=== PATIENT | female | born 1935 | race Caucasian/White ===

== ENCOUNTER → 2016-12-01 | Outpatient (CLI) | payer MEDICARE, BC ==
[~2016-12-01] MED LIST: CALC1TAB12 PO; COUM3TAB PO; COUM4TAB PO; DILT-60 PO; ENAL10TA PO; GABA400C5 PO; HUMALOG SQ; IMIP50TA PO; INSU100V3 SQ; LEVO88TA2 PO; METO25TA3 PO; MULT1TAB84 PO; NITR0.4S SL; PANT20 PO; PNEU13P IM; PRAV40TA2 PO
[2016-12-01 08:47] LABS: INTERNATIONAL NORMALIZED RATIO 1.8 RATIO; PROTHROMBIN TIME - PATIENT 20.6 SEC (9.8-11.6)
== END ==
LOC: PLAB 06:57
PROVIDERS: ATTEND Family Medicine
DX: I48.2 Chronic atrial fibrillation (principal)
CPT/HCPCS: 36415; 85610

== ENCOUNTER → 2016-12-08 | Outpatient (CLI) | payer MEDICARE, BC ==
[2016-12-08 08:55] LABS: INTERNATIONAL NORMALIZED RATIO 1.7 RATIO; PROTHROMBIN TIME - PATIENT 19.4 SEC (9.8-11.6)
== END ==
LOC: PLAB 06:41
PROVIDERS: ATTEND Family Medicine
DX: I48.2 Chronic atrial fibrillation (principal)
CPT/HCPCS: 36415; 85610

== ENCOUNTER → 2017-01-07 | Outpatient (CLI) | payer MEDICARE, BC ==
[2017-01-07 10:59] LABS: INTERNATIONAL NORMALIZED RATIO 2.1 RATIO; PROTHROMBIN TIME - PATIENT 23.5 SEC (9.8-11.6)
== END ==
LOC: PLAB 09:59
PROVIDERS: ATTEND Family Medicine
DX: I48.2 Chronic atrial fibrillation (principal)
CPT/HCPCS: 36415; 85610

== ENCOUNTER → 2017-03-18 | Outpatient (CLI) | payer MEDICARE, BC ==
[2017-03-18 08:46] LABS: INTERNATIONAL NORMALIZED RATIO 2.1 RATIO; PROTHROMBIN TIME - PATIENT 24.3 SEC (9.8-11.6)
== END ==
LOC: PLAB 06:34
PROVIDERS: ATTEND Family Medicine
DX: I48.2 Chronic atrial fibrillation (principal)
CPT/HCPCS: 36415; 85610

== ENCOUNTER → 2017-05-20 | Outpatient (CLI) | payer MEDICARE, BC ==
[~2017-05-20] MED LIST changes: -PNEU13P IM
[2017-05-20 09:32] LABS: AUTOMATED NEUTROPHIL # 5.4 TH/MM3 (1.8-7.7); BASOPHIL % 0.4 % (0.0-2.0); EOSINOPHIL # 0.2 TH/MM3 (0-0.4); EOSINOPHIL % 2.4 % (0.0-4.0); HEMATOCRIT 37.8 % (35.0-46.0); HEMO FLAGS DIFF FINAL; LYMPH % 21.2 % (9.0-44.0); LYMPHOCYTE # 1.7 TH/MM3 (1.0-4.8); MEAN CELL VOLUME 90.2 FL (80.0-100.0); MEAN CORPUSCULAR HEMOGLOBIN 30.2 PG (27.0-34.0); MEAN CORPUSCULAR HGB CONC 33.5 % (32.0-36.0); MONO % 8.2 % (0.0-8.0); NEUT % 67.8 % (16.0-70.0); PLATELET COUNT 200 TH/MM3 (150-450); RED BLOOD COUNT 4.19 MIL/MM3 (4.00-5.30); RED CELL DISTRIBUTION WIDTH 14.1 % (11.6-17.2); WHITE BLOOD COUNT 7.9 TH/MM3 (4.0-11.0)
[2017-05-20 09:41] LABS: ANION GAP 7 MEQ/L (5-15); AST (GOT) 22 U/L (15-37); BICARBONATE 29.3 MEQ/L (21.0-32.0); BLOOD UREA NITROGEN 17 MG/DL (7-18); CHLORIDE 101 MEQ/L (98-107); GLOMERULAR FILTRATION RATE 61 ML/MIN (>89); GLUCOSE,FASTING 146 MG/DL (74-99); SODIUM (NA) 137 MEQ/L (136-145)
[2017-05-20 09:53] LABS: ALKALINE PHOSPHATASE 93 U/L (45-117); ALT (GPT) 18 U/L (10-53); HDL CHOLESTEROL 67.9 MG/DL (40.0-60.0); LDL CHOLESTEROL 84 MG/DL (0-99); TOTAL BILIRUBIN ADULT 0.9 MG/DL (0.2-1.0)
[2017-05-20 17:48] LABS: HEMOGLOBIN Ao 82.4 %; HEMOGLOBIN LA1C 2.3 %; HEMOGLOBIN P3 4.3 %
== END ==
LOC: PLAB 06:56
PROVIDERS: ATTEND Family Medicine
DX: E11.9 Type 2 diabetes mellitus without complications (principal); I10 Essential (primary) hypertension
CPT/HCPCS: 36415; 80053; 80061; 83036; 84443; 85025

== ENCOUNTER → 2017-05-26 | Outpatient (CLI) | payer MEDICARE, BC ==
[~2017-05-26] MED LIST changes: +TOFR50TA PO
[2017-05-26 13:00] LABS: INTERNATIONAL NORMALIZED RATIO 3.2 RATIO; PROTHROMBIN TIME - PATIENT 36.7 SEC (9.8-11.6)
== END ==
LOC: PLAB 11:37
PROVIDERS: ATTEND Family Medicine
DX: I48.2 Chronic atrial fibrillation (principal); R55 Syncope and collapse; R53.83 Other fatigue
CPT/HCPCS: 36415; 82607; 85610

== ENCOUNTER 2017-05-29 07:24 | Emergency (ER) | payer MEDICARE, BC ==
[~2017-05-29] VITALS: Ht 165.1 cm; Wt 77.4 kg
[~2017-05-29 07:24] MED LIST changes: -TOFR50TA PO
[2017-05-29 07:28] VITALS: BP 137/79; PULSE 124; RESP 18; TEMP 97.5; O2SAT 97
[2017-05-29] MEDS ORDERED: LIDOCAINE 1%/EPINEPHrine 1:100,000 SOLN 20 ML VIAL INFIL ONE (07:45)
[2017-05-29] MEDS ORDERED: TETANUS/DIPHTHERIA TOXOID ADULT 0.5 ML VIAL IM ONE (08:00)
[2017-05-29 08:20] LABS: AUTOMATED NEUTROPHIL # 6.2 TH/MM3 (1.8-7.7); BASOPHIL # 0.1 TH/MM3 (0-0.2); BASOPHIL % 0.6 % (0.0-2.0); EOSINOPHIL # 0.2 TH/MM3 (0-0.4); HEMATOCRIT 35.8 % (35.0-46.0); HEMO FLAGS DIFF FINAL; LYMPH % 27.8 % (9.0-44.0); LYMPHOCYTE # 2.8 TH/MM3 (1.0-4.8); MEAN CELL VOLUME 90.3 FL (80.0-100.0); MEAN CORPUSCULAR HEMOGLOBIN 30.9 PG (27.0-34.0); MEAN CORPUSCULAR HGB CONC 34.2 % (32.0-36.0); MONO % 8.3 % (0.0-8.0); NEUT % 61.3 % (16.0-70.0); PLATELET COUNT 201 TH/MM3 (150-450); RED BLOOD COUNT 3.96 MIL/MM3 (4.00-5.30); RED CELL DISTRIBUTION WIDTH 13.9 % (11.6-17.2); WHITE BLOOD COUNT 10.1 TH/MM3 (4.0-11.0)
[2017-05-29 08:25] LABS: POTASSIUM 3.9 MEQ/L (3.5-5.1)
[2017-05-29 08:28] LABS: BICARBONATE 26.1 MEQ/L (21.0-32.0)
[2017-05-29 08:29] LABS: APTT (PATIENT) 46.5 SEC (24.3-30.1); INTERNATIONAL NORMALIZED RATIO 2.9 RATIO; PROTHROMBIN TIME - PATIENT 33.1 SEC (9.8-11.6)
--- NOTE | 2017-05-29 08:46 | PD ---
HPI Chief Complaint: Head Injury Time Seen by Provider: 07:37 Travel History International Travel<30 days: No Contact w/Intl Traveler<30days: No Traveled to known affect area: No History of Present Illness HPI 81-year-old female complains of bleeding from the scalp. Patient fell about 6 days ago. Patient states that the bleeding stopped subsequently. Patient was seen by personal physician 4 days ago. Patient states that she has been doing well until this morning. Patient states that she was brushing her hair this morning and started having bleeding again in the back of the head. Patient denies any headache. Patient denies any visual change. Patient denies any neck pain. Patient denies any chest pain or shortness of breath. Patient denies abdominal pain. Patient denies any focal weakness and numbness of extremity. Patient has history of CAD and on Coumadin. Patient also has history hypertension, diabetes, hyperlipidemia. Patient denies any loss of consciousness when she fell a week ago. PFSH Past Medical History Hx Anticoagulant Therapy: Yes Arthritis: Yes Asthma: No Atrial Fibrillation: Yes Autoimmune Disease: No Blood Disorders: No Heart Rhythm Problems: Yes (A-FIB) Cancer: No Cardiac Catheterization: Yes Cardiovascular Problems: Yes High Cholesterol: Yes Chemotherapy: No Chest Pain: Yes Congestive Heart Failure: No COPD: No Cerebrovascular Accident: No Diabetes: Yes Patient Takes Glucophage: No Diminished Hearing: No Endocrine: Yes Glaucoma: No Genitourinary: No Hypertension: Yes Immune Disorder: No Implanted Vascular Access Dvce: Yes Kidney Stones: No Musculoskeletal: Yes Neurologic: No Psychiatric: No Reproductive: No Respiratory: Yes (VIRAL PNA) Immunizations Current: Yes Myocardial Infarction: Yes Sickle Cell Disease: No Sleep Apnea: No Thyroid Disease: No Tetanus Vaccination: < 5 Years Influenza Vaccination: No ?: Not : 5 Para: 5 Past Surgical History Abdominal Surgery: Yes (Gall Bladder, Apendix Removed.) AICD: No Appendectomy: Yes Arteriovenous Shunt: No Body Medical Devices: METAL PLATE IN LEFT ANKLE Cardiac Surgery: No Cholecystectomy: Yes Ear Surgery: No Endocrine Surgery: No Eye Surgery: No Genitourinary Surgery: No Gynecologic Surgery: Yes (MARTY) Hysterectomy: Yes Insulin Pump: No Joint Replacement: Yes (Metal implated in her left anckle) Oral Surgery: No Pacemaker: No Thoracic Surgery: No Tonsillectomy: Yes Other Surgery: Yes (HYSTERECTOMY, CHOLECYSECTOMY, LEFT ANKLE, APENDECTOMY) Social History Alcohol Use: No Tobacco Use: No Substance Use: No Allergies-Medications (Allergen,Severity, Reaction): Coded Allergies: Flu Vaccine (Verified Adverse Reaction, Severe, Anaphylaxis, 05/29/17) pt denies reaction but refuses to have flu vaccine Reported Meds & Prescriptions Reported Meds & Active Scripts Active Metoprolol Tartrate 25 Mg Tab 90 Mg PO DAILY Diltiazem CD 24 HR 120 Mg Caper 120 Mg PO DAILY Pravastatin 40 Mg Tab 40 Mg PO DAILY Humulin N Inj (Insulin Human NPH) 1,000 Unit/10 Ml Vial 18 Units SQ BIDAC Gabapentin 400 Mg Cap 400 Cap PO HS Humalog Inj (Insulin Human Lispro) 1,000 Unit/10 Ml Vial 12 Units SQ TIDAC Levothyroxine (Levothyroxine Sodium) 88 Mcg Tab 88 Mcg PO DAILY Coumadin (Warfarin) 4 Mg Tab 4 Mg PO MON,, , SAT Coumadin (Warfarin) 3 Mg Tab 3 Mg PO THU, , THURSDAY Reported Nitrostat SL (Nitroglycerin) 0.4 Mg Subl 0.4 Mg SL DIRECTED PRN ONE TABLET UNDER THE TONGUE NEEDED FOR CHEST PAIN, MAY REPEAT EVERY FIVE MINUTES FOR A TOTAL OF 3 DOSES OR CALL 911 IF NO RELIEF Protonix (Pantoprazole Sodium) 20 Mg Tab 20 Mg PO DAILY Calcium 500 +D (Calcium Carbonate-Cholecalciferol) 500-400 Mg-Unit Tab 1 Tab PO BID Enalapril (Enalapril Maleate) 10 Mg Tab 10 Mg PO DAILY Review of Systems General / Constitutional: No: Fever Eyes: No: Visual changes HENT: No: Headaches Cardiovascular: No: Chest Pain or Discomfort Respiratory: No: Shortness of Breath Gastrointestinal: No: Abdominal Pain Genitourinary: No: Dysuria Musculoskeletal: No: Pain Skin: No Rash Neurologic: No: Weakness Psychiatric: No: Depression Endocrine: No: Polydipsia Hematologic/Lymphatic: No: Easy Bruising Physical Exam Narrative GENERAL: Well-nourished, well-developed patient. SKIN: Focused skin assessment warm/dry. HEAD: Normocephalic. has 0.5 cm laceration with active bleeding on the right side of the occipital area of the scalp. EYES: No scleral icterus. No injection or drainage. Pupils 3 mm equal reactive. NECK: Supple, trachea midline. No JVD or lymphadenopathy. CARDIOVASCULAR: Regular rate and rhythm without murmurs, gallops, or rubs. RESPIRATORY: Breath sounds equal bilaterally. No accessory muscle use. GASTROINTESTINAL: Abdomen soft, non-tender, nondistended. MUSCULOSKELETAL: No cyanosis, or edema. BACK: Nontender without obvious deformity. No CVA tenderness. Neurologic exam normal. Data Data Last Documented VS Vital Signs Date Time Temp Pulse Resp B/P Pulse Ox O2 Delivery O2 Flow Rate FiO2 05/29/17 07:28 97.5 124 18 137/79 97 Orders Lidocai-Epi 1%-1:100,000 Inj (Xylocaine- (05/29/17 07:45) Complete Blood Count With Diff (05/29/17 07:46) Basic Metabolic Panel (Bmp) (05/29/17 07:46) Prothrombin Time / Inr (Pt) (05/29/17 07:46) Act Partial Throm Time (Ptt) (05/29/17 07:46) Iv Access Insert/Monitor (05/29/17 07:46) Tetanus/Diphtheria Tox Adult (Tetanus/Di (05/29/17 08:00) Labs Laboratory Tests Test 05/29/17 08:00 White Blood Count 10.1 TH/MM3 Red Blood Count 3.96 MIL/MM3 Hemoglobin 12.2 GM/DL Hematocrit 35.8 % Mean Corpuscular Volume 90.3 FL Mean Corpuscular Hemoglobin 30.9 PG Mean Corpuscular Hemoglobin 34.2 % Concent Red Cell Distribution Width 13.9 % Platelet Count 201 TH/MM3 Mean Platelet Volume 8.3 FL Neutrophils (%) (Auto) 61.3 % Lymphocytes (%) (Auto) 27.8 % Monocytes (%) (Auto) 8.3 % Eosinophils (%) (Auto) 2.0 % Basophils (%) (Auto) 0.6 % Neutrophils # (Auto) 6.2 TH/MM3 Lymphocytes # (Auto) 2.8 TH/MM3 Monocytes # (Auto) 0.8 TH/MM3 Eosinophils # (Auto) 0.2 TH/MM3 Basophils # (Auto) 0.1 TH/MM3 CBC Comment DIFF FINAL Differential Comment Prothrombin Time 33.1 SEC Prothromb Time International 2.9 RATIO Ratio Activated Partial 46.5 SEC Thromboplast Time Sodium Level 138 MEQ/L Potassium Level 3.9 MEQ/L Chloride Level 104 MEQ/L Carbon Dioxide Level 26.1 MEQ/L Anion Gap 8 MEQ/L Blood Urea Nitrogen 18 MG/DL Creatinine 0.96 MG/DL Estimat Glomerular Filtration 56 ML/MIN Rate Random Glucose 181 MG/DL Calcium Level 9.0 MG/DL [facility] Medical Decision Making Medical Screen Exam Complete: Yes Emergency Medical Condition: Yes Interpretation(s) 8:44 AM. CBC within normal limit. BMP within normal limit. Glucose 181. INR 2.9. Differential Diagnosis Differential diagnosis including scalp laceration Narrative Course 81-year-old female with persistent bleeding from the scalp wound after fall 6 days ago. Patient is on Coumadin. Procedures Procedure Narrative LACERATION LOCATION: Scalp LENGTH: 0.5 cm NUMBER OF STITCHES/JEANNETTE: 3 REPAIR: The area of the laceration was prepped with Betadine and sterilely draped. The laceration was infiltrated with 1% lidocaine with epinephrine. The wound was copiously irrigated and explored without evidence of foreign body . The wound was closed using jeannette. This was a single layer repair. A sterile dressing was applied. The patient was advised to keep the dressing clean and dry. Patient tolerated the procedure well. Diagnosis Primary Impression: Scalp laceration Qualified Code: S01.01XA - Scalp laceration, initial encounter Additional Impression: Warfarin-induced coagulopathy Patient Instructions: General Instructions Additional Instructions: Wound care daily. Follow-up with personal physician or return in 10 days for staple removal. Med/Other Pt SpecificInfo: No Change to Meds Disposition: 01 DISCHARGE HOME Condition: Stable Thomas Herndon MD May 29, 2017 08:46
[2017-06-05] MEDS ORDERED: TOFR50TA PO (10:02)
== END 2017-05-29 09:10 | disposition home or self-care (01) ==
LOC: PHED 07:24
DX: S01.01XA Laceration without foreign body of scalp, initial encounter (principal); R79.1 Abnormal coagulation profile; T45.515A Adverse effect of anticoagulants, initial encounter; W19.XXXA Unspecified fall, initial encounter; Z79.01 Long term (current) use of anticoagulants; Z23 Encounter for immunization
CPT/HCPCS: 12001; 80048; 85025; 85610; 85730; 90471; 90714; 96372

== ENCOUNTER 2017-07-27 00:51 | Inpatient (IN) | payer MEDICARE, BC ==
[2017-07-27] VITALS (23 sets, daily range): BP systolic 106–175; BP diastolic 56–98; PULSE 79–130; RESP 13–28; TEMP 97.1–98.2; O2SAT 92–100
[~2017-07-27] VITALS: Ht 165.1 cm; Wt 82.3 kg
[~2017-07-27 00:51] MED LIST changes: -CALC1TAB12 PO; -DILT-60 PO; -IMIP50TA PO; -MULT1TAB84 PO; +TOFR50TA PO
[2017-07-27] MEDS ORDERED: calcium carbonate PO (01:40)
[2017-07-27] MEDS ORDERED: diltiazem PO (01:40)
[2017-07-27] MEDS ORDERED: SODIUM CHLORIDE 0.9% FLUSH 10 ML FLUSH IVF PRN (01:45)
[2017-07-27 01:54] LABS: AUTOMATED NEUTROPHIL # 11.3 TH/MM3 (1.8-7.7); BASOPHIL # 0.1 TH/MM3 (0-0.2); BASOPHIL % 0.6 % (0.0-2.0); EOSINOPHIL % 0.3 % (0.0-4.0); HEMATOCRIT 37.7 % (35.0-46.0); HEMO FLAGS DIFF FINAL; LYMPH % 8.2 % (9.0-44.0); LYMPHOCYTE # 1.1 TH/MM3 (1.0-4.8); MEAN CELL VOLUME 93.9 FL (80.0-100.0); MEAN CORPUSCULAR HEMOGLOBIN 30.5 PG (27.0-34.0); MEAN CORPUSCULAR HGB CONC 32.5 % (32.0-36.0); MONO % 5.8 % (0.0-8.0); NEUT % 85.1 % (16.0-70.0); PLATELET COUNT 211 TH/MM3 (150-450); RED BLOOD COUNT 4.01 MIL/MM3 (4.00-5.30); RED CELL DISTRIBUTION WIDTH 15.5 % (11.6-17.2); WHITE BLOOD COUNT 13.2 TH/MM3 (4.0-11.0)
[2017-07-27] MEDS ORDERED: DILTIAZEM HCL 25 MG/5 ML VIAL IV PUSH ONE (02:00)
[2017-07-27 02:03] LABS: APTT (PATIENT) 39.6 SEC (24.3-30.1); INTERNATIONAL NORMALIZED RATIO 3.7 RATIO; PROTHROMBIN TIME - PATIENT 42.9 SEC (9.8-11.6)
[2017-07-27 02:09] LABS: ANION GAP 10 MEQ/L (5-15); AST (GOT) 35 U/L (15-37); BICARBONATE 20.9 MEQ/L (21.0-32.0); BLOOD UREA NITROGEN 31 MG/DL (7-18); CHLORIDE 99 MEQ/L (98-107); GLOMERULAR FILTRATION RATE 37 ML/MIN (>89); MAGNESIUM 2.1 MG/DL (1.5-2.5); POTASSIUM 6.4 MEQ/L (3.5-5.1); SODIUM (NA) 130 MEQ/L (136-145)
[2017-07-27 02:13] LABS: ALKALINE PHOSPHATASE 112 U/L (45-117); ALT (GPT) 29 U/L (10-53); CREATINE KINASE 385 U/L (26-192); TOTAL BILIRUBIN ADULT 1.8 MG/DL (0.2-1.0)
[2017-07-27 02:26] LABS: CKMB 6.7 NG/ML (0.5-3.6)
[2017-07-27] MEDS ORDERED: SODIUM POLYSTYRENE SULFONATE SUSP 15 GM/60 ML CUP PO ONE (02:30)
[2017-07-27] MEDS ORDERED: INSULIN HUMAN REGULAR 1,000 UNITS/10 ML VIAL IV PUSH ONE (02:30)
[2017-07-27] MEDS ORDERED: DEXTROSE 50% IN WATER 50 ML VIAL(D50) IV PUSH ONE (02:30)
[2017-07-27] MEDS ORDERED: CALCIUM GLUCONATE 10% 1 GM/10 ML VIAL SLOW IVP ONE (02:30)
[2017-07-27] MEDS ORDERED: SODIUM BICARBONATE 8.4% SOLN 50 MEQ/50 ML VIAL SLOW IVP ONE (02:30)
--- NOTE | 2017-07-27 02:31 | PD ---
HPI Chief Complaint: Respiratory Distress Time Seen by Provider: 01:29 Travel History International Travel<30 days: No Contact w/Intl Traveler<30days: No Traveled to known affect area: No History of Present Illness HPI Patient is an 81-year-old female who presents to emergency room with complaints of shortness of breath for the past 2 days. She reports that she has been coughing, reports that her cough is nonproductive in nature. Reports no chest pain at this time. Patient does take Coumadin, reports that she has heart problems including atrial fibrillation. Her marketing performance analyst, Dr. Engel put her on this medication because she thinks that she has had a heart attack in the past. Patient reports that she is having chest pain at this time, reports that chest pain feels like a sharp knife going through her back. Patient denies chest pain at this time. PFSH Past Medical History Hx Anticoagulant Therapy: Yes (COUMADIN) Arthritis: Yes Asthma: No Atrial Fibrillation: Yes Autoimmune Disease: No Blood Disorders: No Heart Rhythm Problems: Yes (A-FIB) Cancer: No Cardiac Catheterization: Yes Cardiovascular Problems: Yes (ANGIOPLASTY, HTN) High Cholesterol: Yes Chemotherapy: No Chest Pain: Yes Congestive Heart Failure: No COPD: No Cerebrovascular Accident: No Diabetes: Yes Patient Takes Glucophage: No Diminished Hearing: No Endocrine: Yes Glaucoma: No Genitourinary: No Hypertension: Yes Immune Disorder: No Implanted Vascular Access Dvce: Yes Kidney Stones: No Musculoskeletal: Yes Neurologic: No Psychiatric: No Reproductive: No Respiratory: Yes (ASTHMA) Immunizations Current: Yes Myocardial Infarction: Yes Sickle Cell Disease: No Sleep Apnea: No Thyroid Disease: No Tetanus Vaccination: Unknown ?: Not : 5 Para: 5 Past Surgical History Abdominal Surgery: Yes (Gall Bladder, Apendix Removed.) AICD: No Appendectomy: Yes Arteriovenous Shunt: No Body Medical Devices: METAL PLATE IN LEFT ANKLE Cardiac Surgery: No Cholecystectomy: Yes Ear Surgery: No Endocrine Surgery: No Eye Surgery: No Genitourinary Surgery: No Gynecologic Surgery: Yes (MARTY) Hysterectomy: Yes Insulin Pump: No Joint Replacement: Yes (Metal implated in her left anckle) Oral Surgery: No Pacemaker: No Thoracic Surgery: No Tonsillectomy: Yes Other Surgery: Yes (HYSTERECTOMY, CHOLECYSECTOMY, LEFT ANKLE, APENDECTOMY) Social History Alcohol Use: No Tobacco Use: No Substance Use: No Allergies-Medications (Allergen,Severity, Reaction): Coded Allergies: Influenza Virus Vaccines (Unverified Adverse Reaction, Severe, Anaphylaxis , 07/27/17) pt denies reaction but refuses to have flu vaccine Reported Meds & Prescriptions Reported Meds & Active Scripts Active Metoprolol Tartrate 25 Mg Tab 90 Mg PO DAILY Pravastatin 40 Mg Tab 40 Mg PO DAILY Humulin N Inj (Insulin Human NPH) 1,000 Unit/10 Ml Vial 18 Units SQ BIDAC Gabapentin 400 Mg Cap 400 Cap PO HS Humalog Inj (Insulin Human Lispro) 1,000 Unit/10 Ml Vial 12 Units SQ TIDAC Levothyroxine (Levothyroxine Sodium) 88 Mcg Tab 88 Mcg PO DAILY Coumadin (Warfarin) 4 Mg Tab 4 Mg PO THU,, , THU Coumadin (Warfarin) 3 Mg Tab 3 Mg PO THU, , THURSDAY Reported [calcium carbonate] 1 Tab PO BID [diltiazem] 1 Tab PO DAILY Nitrostat SL (Nitroglycerin) 0.4 Mg Subl 0.4 Mg SL DIRECTED PRN ONE TABLET UNDER THE TONGUE NEEDED FOR CHEST PAIN, MAY REPEAT EVERY FIVE MINUTES FOR A TOTAL OF 3 DOSES OR CALL 911 IF NO RELIEF Protonix (Pantoprazole Sodium) 20 Mg Tab 20 Mg PO DAILY Enalapril (Enalapril Maleate) 10 Mg Tab 10 Mg PO DAILY Review of Systems General / Constitutional: No: Fever Eyes: No: Visual changes HENT: No: Headaches Cardiovascular: Positive: Chest Pain or Discomfort, Tachycardia Respiratory: Positive: Cough, Shortness of Breath Gastrointestinal: No: Abdominal Pain Genitourinary: No: Dysuria Musculoskeletal: No: Pain Skin: No Rash Neurologic: No: Weakness Psychiatric: No: Depression Endocrine: No: Polydipsia Hematologic/Lymphatic: No: Easy Bruising Physical Exam Narrative GENERAL: moderate distress SKIN: Focused skin assessment warm/dry. HEAD: Atraumatic. Normocephalic. EYES: Pupils equal and round. No scleral icterus. No injection or drainage. ENT: No nasal bleeding or discharge. Mucous membranes pink and moist. NECK: Trachea midline. No JVD. CARDIOVASCULAR: Tachycardia. No murmur appreciated. RESPIRATORY: No accessory muscle use. Clear to auscultation. Breath sounds equal bilaterally. GASTROINTESTINAL: Abdomen soft, non-tender, nondistended. Hepatic and splenic margins not palpable. MUSCULOSKELETAL: No obvious deformities. No clubbing. No cyanosis. +1 pitting edema. NEUROLOGICAL: Awake and alert. No obvious cranial nerve deficits. Motor grossly within normal limits. Normal speech. PSYCHIATRIC: Appropriate mood and affect; insight and judgment normal. Data Data Last Documented VS Vital Signs Date Time Temp Pulse Resp B/P (MAP) Pulse Ox O2 Delivery O2 Flow Rate FiO2 07/27/17 03:59 98 Nasal Cannula 2.00 07/27/17 03:40 97 20 132/78 (96) 07/27/17 01:35 35 07/27/17 00:54 97.4 Orders Orders Electrocardiogram (07/27/17 01:37) B-Type Natriuretic Peptide (07/27/17 01:37) Ckmb (Isoenzyme) Profile (07/27/17 01:37) Complete Blood Count With Diff (07/27/17 01:37) Comprehensive Metabolic Panel (07/27/17 01:37) Magnesium (Mg) (07/27/17 01:37) Prothrombin Time / Inr (Pt) (07/27/17 01:37) Act Partial Throm Time (Ptt) (07/27/17 01:37) Troponin I (07/27/17 01:37) Chest, Single Ap (07/27/17 01:37) Ecg Monitoring (07/27/17 01:37) Iv Access Insert/Monitor (07/27/17 01:37) Oximetry (07/27/17 01:37) Sodium Chloride 0.9% Flush (Ns Flush) (07/27/17 01:45) Cta Thor Abd Aorta W Iv C W3d (07/27/17 01:37) Resp Bipap / Cpap Non Invas Vt (07/27/17 ) Arterial Blood Gas (Abg) (07/27/17 ) Diltiazem Inj (Cardizem Inj) (07/27/17 02:00) CKMB (07/27/17 01:45) CKMB% (07/27/17 01:45) Calcium Gluconate Inj (Calcium Gluconate (07/27/17 02:30) Insulin Human Regular Inj (Novolin R Inj (07/27/17 02:30) Dextrose 50% In Betty (Vial) Inj (D50w (Vi (07/27/17 02:30) Sodium Bicarbonate 8.4% Inj (Sodium Bica (07/27/17 02:30) Sodium Polysty Sulfate Liq (Kayexalate L (07/27/17 02:30) Dextrose 50% In Betty (Syr) Inj (D50w (Syr (07/27/17 02:43) Blood Culture (07/27/17 03:01) Ceftriaxone Inj (Rocephin Inj) (07/27/17 03:15) Azithromycin Inj (Zithromax Inj) (07/27/17 03:15) Iodixanol 320 Inj (Rad Ct) (Visipaque 32 (07/27/17 03:26) Labs Laboratory Tests Test 07/27/17 01:35 07/27/17 01:45 Blood Gas Puncture Site RT RADIAL Blood Gas Patient Temperature 98.6 Blood Gas HCO3 19 mmol/L Blood Gas Base Excess -4.6 mmol/L Blood Gas Oxygen Saturation 89 % Arterial Blood pH 7.41 Arterial Blood Partial Pressure CO2 31 mmHg Arterial Blood Partial Pressure O2 64 mmHG Arterial Blood Oxygen Content 16.0 Vol % Arterial Blood Carboxyhemoglobin 2.0 % Arterial Blood Methemoglobin 0.4 % Blood Gas Hemoglobin 12.8 G/DL Oxygen Delivery Device NIPPV Blood Gas Ventilator Setting 10PS 5 PEEP Blood Gas Inspired Oxygen 35 % White Blood Count 13.2 TH/MM3 Red Blood Count 4.01 MIL/MM3 Hemoglobin 12.2 GM/DL Hematocrit 37.7 % Mean Corpuscular Volume 93.9 FL Mean Corpuscular Hemoglobin 30.5 PG Mean Corpuscular Hemoglobin Concent 32.5 % Red Cell Distribution Width 15.5 % Platelet Count 211 TH/MM3 Mean Platelet Volume 9.4 FL Neutrophils (%) (Auto) 85.1 % Lymphocytes (%) (Auto) 8.2 % Monocytes (%) (Auto) 5.8 % Eosinophils (%) (Auto) 0.3 % Basophils (%) (Auto) 0.6 % Neutrophils # (Auto) 11.3 TH/MM3 Lymphocytes # (Auto) 1.1 TH/MM3 Monocytes # (Auto) 0.8 TH/MM3 Eosinophils # (Auto) 0.0 TH/MM3 Basophils # (Auto) 0.1 TH/MM3 CBC Comment DIFF FINAL Differential Comment Prothrombin Time 42.9 SEC Prothromb Time International Ratio 3.7 RATIO Activated Partial Thromboplast Time 39.6 SEC Blood Urea Nitrogen 31 MG/DL Creatinine 1.35 MG/DL Random Glucose 335 MG/DL Total Protein 8.0 GM/DL Albumin 3.7 GM/DL Calcium Level 8.8 MG/DL Magnesium Level 2.1 MG/DL Alkaline Phosphatase 112 U/L Aspartate Amino Transf (AST/SGOT) 35 U/L Alanine Aminotransferase (ALT/SGPT) 29 U/L Total Bilirubin 1.8 MG/DL Sodium Level 130 MEQ/L Potassium Level 6.4 MEQ/L Chloride Level 99 MEQ/L Carbon Dioxide Level 20.9 MEQ/L Anion Gap 10 MEQ/L Estimat Glomerular Filtration Rate 37 ML/MIN Total Creatine Kinase 385 U/L Creatine Kinase MB 6.7 NG/ML Creatine Kinase MB % 1.7 % Troponin I 0.03 NG/ML B-Type Natriuretic Peptide 391 PG/ML MDM Medical Decision Making Medical Screen Exam Complete: Yes Emergency Medical Condition: Yes Medical Record Reviewed: Yes Interpretation(s) EKG at 0134: Afib at 129bpm, qt/qtc; 310/386 Vital Signs Date Time Temp Pulse Resp B/P (MAP) Pulse Ox O2 Delivery O2 Flow Rate FiO2 07/27/17 01:40 111 28 130/89 (103) 96 Room Air 07/27/17 01:28 28 96 Room Air 07/27/17 00:54 97.4 130 24 175/87 (116) 99 Room Air Differential Diagnosis Differential includes pneumonia, A. fib with RVR, ACS, arrhythmia, electrolyte abnormality Narrative Course Patient is an 81-year-old female who presents to emergency room with complaints of shortness breath for the past 2 days. Patient reports that she has been having chest pain, reports that she feels as if there is a knife stabbing her in the back. Patient with no chest pain at this time. Patient was placed on a hospital monitor upon arrival to emergency room. EKG shows A. fib with RVR. IV Cardizem ordered. patient was placed on bipap upon presentation to the emergency room as she appears to tachypneic. Patient is a poor historian, prior medical records were reviewed. PAST MEDICAL HISTORY: Hematochezia 02/22: Xarelto discontinued Pneumonia 01/22 left ankle ulcer MSSA 12/25 ([facility]) Fx left malleolus, distal tibula/fibula Multinodular goiter. Diverticulosis. Pancreatic cyst. Nephrolithiasis. Chronic A-fib, secondary to cardiomyopathy -- continues to be anticoagulated for this History of [place] in the . Hyperlipidemia. 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 Hepatitic steatosis. Hypothyroid. Right sciatica. Osteopenia of the hips. Bilateral knee hemarthrosis, secondary to Coumadin toxicity in 2004. Pseudogout. 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 Pulmonary nodules, benign, 2005. Fx R patella 2010 SURGERIES: ORIF distal tibula/fibula Jul 2011 Partial hysterectomy with unilateral salpingo-oophorectomy for benign disease in 1961. Cholecystectomy 1994. Angioplasty . CBC & BMP Diagram 07/27/17 01:45 Total Protein 8.0, Albumin 3.7, Calcium Level 8.8, Magnesium Level 2.1, Alkaline Phosphatase 112, Aspartate Amino Transf (AST/SGOT) 35, Alanine Aminotransferase (ALT/SGPT) 29, Total Bilirubin 1.8 H Potassium 6.4, patient was administered IV calcium gluconate, IV insulin as well as dextrose, sodium bicarbonate, Kayexalate. INR 3.7 - dissection study ordered as patient is complaining of back pain/chest pain at this time. Trop 0.03 BNP 391 Last Impressions Chest X-Ray 07/27/17 0137 Signed Impressions: Service Date/Time: Thursday, July 27, 2017 01:45 - CONCLUSION: Cardiomegaly with bibasilar infiltrates. Pulmonary edema suspected. Ricardo Butler Jr., MD patient will require admission the hospital for hypoxia with bilateral infiltrates as well as pulmonary edema. Patient will also be admitted for hyperkalemia as well as A. fib with RVR - she is currently controlled. Patient has been pancultured, she has been given azithromycin as well as Rocephin. case reviewed with dr. swenson who accepts pt under dr Rodriguez Critical Care Narrative Aggregate critical care time was 45 minutes. Time to perform other separately billable procedures was not included in the critical care time. My time did not include minutes spent treating any other patients simultaneously or on activities that did not directly contribute to the patient's treatment. The services I provided to this patient were to treat and/or prevent clinically significant deterioration that could result in: , decompensation, deterioration I provided critical care services requiring my management, as noted below: Chart data review, documentation time, medication orders and management, vital sign assessments/reviewing monitor data, ordering and reviewing lab tests, ordering and interpreting/reviewing x-rays and diagnostic studies, care of the patient and discussion of the patient with the admitting physicians. Diagnosis Primary Impression: A-fib Qualified Codes: I48.1 - Persistent atrial fibrillation Additional Impressions: Hyperkalemia Chest pain Qualified Codes: R07.9 - Chest pain, unspecified Hypoxia Dehydration Pneumonia Pleural effusion Admitting Information Admitting Physician Requests: Admit Machelle Ryan DO Jul 27, 2017 02:31
--- NOTE | 2017-07-27 02:32 | RADRPT ---
EXAM DATE/TIME: 07/27/2017 01:45 [facility] COMPARISON: CHEST SINGLE AP, January 12, 2016, 9:36. INDICATIONS : Shortness of breath. MEDICAL HISTORY : Diverticulitis. Hypothyroidism. Hypertension. Diabetes SURGICAL HISTORY : Appendectomy. Cholecystectomy. Hysterectomy. ENCOUNTER: Initial ACUITY: 1 day PAIN SCORE: 0/10 LOCATION: Bilateral chest FINDINGS: A single portable frontal view of the chest shows cardiomegaly. Bibasilar pulmonary infiltrates. No d iscrete effusions. Bony structures are unremarkable. CONCLUSION: Cardiomegaly with bibasilar infiltrates. Pulmonary edema suspected. Ricardo Butler Jr., MD on July 27, 2017 at 2:30 Board Certified Radiologist. This report was verified electronically.
[2017-07-27] MEDS ORDERED: DEXTROSE 50% IN WATER 50 ML SYRINGE ONE (02:43)
[2017-07-27 03:11] LABS: BLOOD GAS BASE EXCESS -4.6 mmol/L (-2-2); BLOOD GAS HCO3 19 mmol/L (22-26); BLOOD GAS METHEMOGLOBIN 0.4 % (0-2); BLOOD GAS O2 HGB SATURATION 89 % (90-100); BLOOD GAS PCO2 31 mmHg (38-42); BLOOD GAS PO2 64 mmHG (61-120); BLOOD GAS TOTAL HGB 12.8 G/DL (12.0-16.0); TEMP CORR TO 98.6
[2017-07-27 03:12] LABS: CRITICAL VALUE YES; FIO2 35 %; OXYGEN DEVICE NIPPV; VENT SETTINGS 10PS 5 PEEP
[2017-07-27 03:13] LABS: DRAW SITE RT RADIAL; NUMBER OF ARTERIAL PUNCTURES 1; STAT YES; ULNAR PULSE PRESENT
[2017-07-27] MEDS ORDERED: cefTRIAXone INJ 1,000 MG in SODIUM CHLORIDE 0.9% INJ 100 ML IV ONE (03:15)
[2017-07-27] MEDS ORDERED: AZITHROMYCIN INJ 500 MG in SODIUM CHLOR 0.9% 250 ML INJ 250 ML IV ONE (03:15)
[2017-07-27] MEDS ORDERED: IODIXANOL 320 MG/ML 10 ML VIAL (for Rad CT) IV ONE (03:26)
--- NOTE | 2017-07-27 04:20 | RADRPT ---
EXAM DATE/TIME: 07/27/2017 03:19 [facility] COMPARISON: No previous studies available for comparison. INDICATIONS : Shortness of breath. IV CONTRAST: 49 cc Visipaque (iodixanol) IV RADIATION DOSE: 7.06 CTDIvol (mGy) MEDICAL HISTORY : Cardiovascular disease. Myocardial infarction. Hypertension.Diabetes. SURGICAL HISTORY : Cholecystectomy. Appendectomy.Hysterectomy.Cardiac catherization. ENCOUNTER: Initial ACUITY: 1 day PAIN SCALE: 0/10 LOCATION: chest TECHNIQUE: Volumetric scanning was performed using a multi-row detector CT scanner. The data was post processed with a variety of visualization algorithms including full volume maximum intensity projection, multi -planar sliding thin slab reformation, curved planar reformation, and surface rendering techniques. Using automated exposure control and adjustment of the mA and/or kV according to patient size, radiat ion dose was kept as low as reasonably achievable to obtain optimal diagnostic quality images. DICOM format image data is available electronically for review and comparison. FINDINGS: Thoracic/abdominal aorta: Scattered calcified atherosclerotic plaque. No aneurysmal change or dissection. Heart and mediastinum: The heart is mildly enlarged. No pericardial effusion. Pulmonary arteries are normal in caliber. Smal l anterior mediastinal lymph nodes are observed. Largest lymph node is precarinal in nature measuring 1.9 x 1.1 cm. Lung parenchyma: Bilateral scattered groundglass pulmonary infiltrates with small posterior layering pleural effusions . The right pleural effusion is slightly larger than the left. Other structures: The gallbladder is surgically absent. CONCLUSION: 1. No aortic dissection. 2. Cardiomegaly with bilateral ground glass pulmonary infiltrates and small effusions. This likely re lates to a component of pulmonary edema. I cannot exclude infectious infiltrates. Ricardo Butler Jr., MD on July 27, 2017 at 4:15 Board Certified Radiologist. This report was verified electronically.
--- NOTE | 2017-07-27 04:39 | HHI.HP ---
[facility] Service Family Medicine Primary Care Physician Rhianna Gramajo MD Admission Diagnosis Diagnoses: International Travel<30 Days: No Contact w/Intl Traveler<30days: No Known Affected Area: No History of Present Illness Patient is an 81-year-old female with a history of A. fib, on Coumadin, possible CO in the , pneumonia in 2016 who presented to the ED with shortness of breath. Unable to obtain much of a history because patient is lying in bed asleep, and every time I wake her she only stays awake for a few seconds before falling back asleep. Furthermore, when she does answer my questions, she is difficult to understand because she is edentulous with dry mouth, and falling asleep. Much of the history is from the ED provider. From ED note: Patient is an 81-year-old female who presents to emergency room with complaints of shortness of breath for the past 2 days. She reports that she has been coughing, reports that her cough is nonproductive in nature. Patient does take Coumadin, reports that she has heart problems including atrial fibrillation. Her near east archeology professor, Dr. Engel put her on this medication because she thinks that she has had a heart attack in the past. Patient reports that she is having chest pain at this time, reports that chest pain feels like a sharp knife going through her back. (Óscar Fernandez MD R2) Review of Systems ROS Limitations: Clinical Condition (patient is asleep, only stays awake for a few seconds when I wake her, falls asleep during conversation), Speech Impaired (edentulous with dry mouth), Poor Historian (per ED provider) (Óscar Fernandez MD R2) Past Family Social History Past Medical History Hematochezia 02/22: Xarelto discontinued Pneumonia 01/22 left ankle ulcer MSSA 12/25 ([facility]) Fx left malleolus, distal tibula/fibula Multinodular goiter. Diverticulosis. Pancreatic cyst. Nephrolithiasis. Chronic A-fib, secondary to cardiomyopathy -- continues to be anticoagulated for this History of CO in the . Hyperlipidemia. 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 Hepatitic steatosis. Hypothyroid. Right sciatica. Osteopenia of the hips. Bilateral knee hemarthrosis, secondary to Coumadin toxicity in 2004. Pseudogout. 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 Pulmonary nodules, benign, 2005. Fx R patella 2010 Health maintenance EGD colonoscopy 09/23, path consistent with tubulovillous adenoma. Colonoscopy February 2016 during hospitalization for hematochezia AWE/WWE 04/23 no pap needed (unilat ovary) pt delines mammogram and pap LIVING WILL: pt summarizes as "don't leave me on life support if I'm terminal". HCS: spouse (Mark), then Rochelle (daughter) 03/13/14 update. Other providers: ophth (Dr Chavira, annually), [facility] (pt will arrange), [facility] (retiring) changing to [facility] (URO) Disease Management Right knee OA progressive since 2014, remote fall w/ patellar fx. (ununited since 2010) T2DM: w/ hypoglycemia unawareness. see labs above Urinary Incontinence (overflow): under care of [facility],s/p perineal PT, Urecholine added by Dr. Squires, good response Atrial Fib: on xarelto January-February 2016, d/c'd d/t GI bleed (hematochezia) . Pt tolerating coumadin 03/24. [place] decision with specialist to d/c ASA April 2016. This may need to be reconsidered Hypothyroidism: stable on synthroid. HLD: tolerating pravastatin OA (diffuse) uric acid wnl, symptomatic management. stable katheryn knee pain/ stiffness. Using a cane for stability now osteonecrosis LLE: XRAY jul 2015 chronic avascular necrosis Chronic L shoulder discomfort: rotator cuff (likely) tendonosis, improved with tylenol, repositioning, nonlimiting CT chest May 2016: scattered bibasilar groundglass opacities w/ mild peribronchial thickening (vs February 13, 2016 CT). stable small nodules from 2008 CT. Past Surgical History ORIF distal tibula/fibula Jul 2011 Partial hysterectomy with unilateral salpingo-oophorectomy for benign disease in 1961. Cholecystectomy 1994. Angioplasty . Reported Medications reviewed and updated CAMs:chewing fennel seed (control gassiness), black currant (thinning hair) Reported Meds & Active Scripts Active Metoprolol Tartrate 25 Mg Tab 90 Mg PO DAILY Pravastatin 40 Mg Tab 40 Mg PO DAILY Humulin N Inj (Insulin Human NPH) 1,000 Unit/10 Ml Vial 18 Units SQ BIDAC Gabapentin 400 Mg Cap 400 Cap PO HS Humalog Inj (Insulin Human Lispro) 1,000 Unit/10 Ml Vial 12 Units SQ TIDAC Levothyroxine (Levothyroxine Sodium) 88 Mcg Tab 88 Mcg PO DAILY Coumadin (Warfarin) 4 Mg Tab 4 Mg PO MON,TUES, THURS, SAT Coumadin (Warfarin) 3 Mg Tab 3 Mg PO THU, , THURSDAY Reported [calcium carbonate] 1 Tab PO BID [diltiazem] 1 Tab PO DAILY Nitrostat SL (Nitroglycerin) 0.4 Mg Subl 0.4 Mg SL DIRECTED PRN ONE TABLET UNDER THE TONGUE NEEDED FOR CHEST PAIN, MAY REPEAT EVERY FIVE MINUTES FOR A TOTAL OF 3 DOSES OR CALL 911 IF NO RELIEF Protonix (Pantoprazole Sodium) 20 Mg Tab 20 Mg PO DAILY Enalapril (Enalapril Maleate) 10 Mg Tab 10 Mg PO DAILY (Óscar Fernandez MD R2) Allergies: Coded Allergies: Influenza Virus Vaccines (Unverified Adverse Reaction, Severe, Anaphylaxis , 07/27/17) pt denies reaction but refuses to have flu vaccine Active Ordered Medications Current Medications Medications (Trade) Dose Ordered Sig/Marcel Route Start Time Stop Time Status Last Admin (NS Flush) 2 ml UNSCH PRN IVF 07/27/17 01:45 (Vasotec) 10 mg DAILY PO 07/27/17 09:00 (Neurontin) 160,000 mg HS PO 07/27/17 21:00 (Synthroid) 88 mcg DAILY@0600 PO 07/27/17 06:00 (Lopressor) 90 mg DAILY PO 07/27/17 09:00 UNV (Nitrostat Sl) 0.4 mg Q1H PRN SL 07/27/17 05:00 (Protonix) 20 mg DAILY PO 07/27/17 09:00 (Pravachol) 40 mg DAILY PO 07/27/17 09:00 Non-Formulary Medication 1 tab BID PO 07/27/17 09:00 UNV Non-Formulary Medication 1 tab DAILY PO 07/27/17 09:00 UNV (NS Flush) 2 ml UNSCH PRN IV FLUSH 07/27/17 05:00 UNV (NS Flush) 2 ml BID IV FLUSH 07/27/17 09:00 UNV Ceftriaxone Sodium 1000 mg/ Sodium Chloride 100 ml @ 200 mls/hr Q24H IV 07/27/17 05:00 UNV Azithromycin 500 mg/Sodium Chloride 250 ml @ 250 mls/hr Q24H IV 07/27/17 05:00 UNV (Tylenol) 650 mg Q4H PRN PO 07/27/17 05:00 UNV (Zofran Inj) 4 mg Q6H PRN IV 07/27/17 05:00 UNV (Lasix Inj) 40 mg BID@,18 IV PUSH 07/27/17 09:00 UNV Family History Sister at 82 of heart failure, coronary artery disease. She was a smoker. Mother at 82 of heart failure and diabetes. Father at 68 or prostate cancer. Social History She is a hairstylist. No ETOH. Tobacco five pack year history, but none since the 1950's. (Óscar Fernandez MD R2) Physical Exam Vital Signs Vital Signs Date Time Temp Pulse Resp B/P (MAP) Pulse Ox O2 Delivery O2 Flow Rate FiO2 07/27/17 04:32 86 18 125/63 (83) 97 Nasal Cannula 3.00 07/27/17 03:59 98 Nasal Cannula 2.00 07/27/17 03:40 97 20 132/78 (96) 98 Nasal Cannula 3.00 07/27/17 02:55 92 Nasal Cannula 3.00 07/27/17 02:33 79 18 126/57 (80) 100 BiPAP 07/27/17 01:40 111 28 130/89 (103) 96 Room Air 07/27/17 01:35 99 35 07/27/17 01:28 28 96 Room Air 07/27/17 00:54 97.4 130 24 175/87 (116) 99 Room Air Physical Exam GENERAL: Patient is asleep, wakes up with arousal, but only for a few seconds, and then falls asleep during our conversation. She is difficult to understand because she is edentulous with dry mouth. Furthermore, as she sleeping, she appears to have obstructive sleep apnea. SKIN: warm/dry. HEAD: Atraumatic. Normocephalic. EYES: Pupils equal and round. No scleral icterus. No injection or drainage. ENT: No nasal bleeding or discharge. Mucous membranes dry. NECK: Trachea midline. No JVD. CARDIOVASCULAR: Irregularly irregular rhythm. Normal rate. No murmurs, gallops , rubs appreciated. RESPIRATORY: + accessory muscle use with sleeping. Anterior lung penn Clear to auscultation. + Bibasilar rales. GASTROINTESTINAL: Abdomen soft, non-tender, nondistended. Hepatic and splenic margins not palpable. MUSCULOSKELETAL: No obvious deformities. No clubbing. No cyanosis. +2 pitting edema to knees bilaterally. 1+ pitting edema to hips bilaterally. NEUROLOGICAL: Asleep but arousable. No obvious cranial nerve deficits. Motor and sensory grossly within normal limits. PSYCHIATRIC: Appropriate mood and affect. Laboratory Laboratory Tests Test 07/27/17 01:35 07/27/17 01:45 Blood Gas Puncture Site RT RADIAL Blood Gas Patient Temperature 98.6 Blood Gas HCO3 19 Blood Gas Base Excess -4.6 Blood Gas Oxygen Saturation 89 Arterial Blood pH 7.41 Arterial Blood Partial Pressure CO2 31 Arterial Blood Partial Pressure O2 64 Arterial Blood Oxygen Content 16.0 Arterial Blood Carboxyhemoglobin 2.0 Arterial Blood Methemoglobin 0.4 Blood Gas Hemoglobin 12.8 Oxygen Delivery Device NIPPV Blood Gas Ventilator Setting 10PS 5 PEEP Blood Gas Inspired Oxygen 35 White Blood Count 13.2 Red Blood Count 4.01 Hemoglobin 12.2 Hematocrit 37.7 Mean Corpuscular Volume 93.9 Mean Corpuscular Hemoglobin 30.5 Mean Corpuscular Hemoglobin Concent 32.5 Red Cell Distribution Width 15.5 Platelet Count 211 Mean Platelet Volume 9.4 Neutrophils (%) (Auto) 85.1 Lymphocytes (%) (Auto) 8.2 Monocytes (%) (Auto) 5.8 Eosinophils (%) (Auto) 0.3 Basophils (%) (Auto) 0.6 Neutrophils # (Auto) 11.3 Lymphocytes # (Auto) 1.1 Monocytes # (Auto) 0.8 Eosinophils # (Auto) 0.0 Basophils # (Auto) 0.1 CBC Comment DIFF FINAL Differential Comment Prothrombin Time 42.9 Prothromb Time International Ratio 3.7 Activated Partial Thromboplast Time 39.6 Blood Urea Nitrogen 31 Creatinine 1.35 Random Glucose 335 Total Protein 8.0 Albumin 3.7 Calcium Level 8.8 Magnesium Level 2.1 Alkaline Phosphatase 112 Aspartate Amino Transf (AST/SGOT) 35 Alanine Aminotransferase (ALT/SGPT) 29 Total Bilirubin 1.8 Sodium Level 130 Potassium Level 6.4 Chloride Level 99 Carbon Dioxide Level 20.9 Anion Gap 10 Estimat Glomerular Filtration Rate 37 Total Creatine Kinase 385 Creatine Kinase MB 6.7 Creatine Kinase MB % 1.7 Troponin I 0.03 B-Type Natriuretic Peptide 391 Date/Time Source Procedure Growth Status 07/27/17 03:05 Blood Peripheral Aerobic Blood Culture Pending Received 07/27/17 03:05 Blood Peripheral Anaerobic Blood Culture Pending Received (Óscar Fernandez MD R2) Result Diagram: 07/27/17 0145 07/27/17 014 Imaging Last Impressions Chest X-Ray 07/27/17136 Signed Impressions: Service Date/Time: Thursday, July 27, 2017 01:45 - CONCLUSION: Cardiomegaly with bibasilar infiltrates. Pulmonary edema suspected. Ricardo Butler Jr., MD Aorta CTA 07/27/17136 Signed Impressions: Service Date/Time: Thursday, July 27, 2017 03:19 - CONCLUSION: 1. No aortic dissection. 2. Cardiomegaly with bilateral ground glass pulmonary infiltrates and small effusions. This likely relates to a component of pulmonary edema. I cannot exclude infectious infiltrates. Ricardo Butler Jr., MD Course Patient is an 81-year-old female who presents to emergency room with complaints of shortness breath for the past 2 days. Patient reports that she has been having chest pain, reports that she feels as if there is a knife stabbing her in the back. Patient with no chest pain at this time. Patient was placed on a operations expert upon arrival to emergency room. EKG shows A. fib with RVR. IV Cardizem ordered. patient was placed on bipap upon presentation to the emergency room as she appears to tachypneic. Patient is a poor historian, prior medical records were reviewed. patient will require admission the hospital for hypoxia with bilateral infiltrates as well as pulmonary edema. Patient will also be admitted for hyperkalemia as well as A. fib with RVR - she is currently controlled. Patient has been pancultured, she has been given azithromycin as well as Rocephin. (Óscar Fernandez MD R2) Caprini VTE Risk Assessment Caprini VTE Risk Assessment: Mod/High Risk (score >= 2) VTE Pharm Contraindication: Coagulopathy,INR elevated Caprini Risk Assessment Model Point Value = 1 Point Value = 2 Point Value = 3 Point Value = 5 Age 41-60 Minor surgery BMI > 25 kg/m2 Swollen legs Varicose veins or History of unexplained or recurrent spontaneous Oral contraceptives or hormone replacement Sepsis (< 1 month) Serious lung disease, including pneumonia (< 1 month) Abnormal pulmonary function Acute myocardial infarction Congestive heart failure (< 1 month) History of inflammatory bowel disease Medical patient at bed rest Age 61-74 Arthroscopic surgery Major open surgery (> 45 min) Laparoscopic surgery (> 45 min) Malignancy Confined to bed (> 72 hours) Immobilizing plaster cast Central venous access Age >= 75 History of VTE Family history of VTE Factor V Leiden Prothrombin [id number] Lupus anticoagulant Anticardiolipin antibodies Elevated serum homocysteine Heparin-induced thrombocytopenia Other congenital or acquired thrombophilia Stroke (< 1 month) Elective arthroplasty Hip, pelvis, or leg fracture Acute spinal cord injury (< 1 month) Prophylaxis Regimen Total Risk Factor Score Risk Level Prophylaxis Regimen 0-1 Low Early ambulation 2 Moderate Order ONE of the following: *Sequential Compression Device (SCD) *Heparin 5000 units SQ BID 3-4 Higher Order ONE of the following medications: *Heparin 5000 units SQ TID *Enoxaparin/Lovenox 40 mg SQ daily (WT < 150 kg, CrCl > 30 mL/min) *Enoxaparin/Lovenox 30 mg SQ daily (WT < 150 kg, CrCl > 10-29 mL/min) *Enoxaparin/Lovenox 30 mg SQ BID (WT < 150 kg, CrCl > 30 mL/min) AND/OR *Sequential Compression Device (SCD) 5 or more Highest Order ONE of the following medications: *Heparin 5000 units SQ TID (Preferred with Epidurals) *Enoxaparin/Lovenox 40 mg SQ daily (WT < 150 kg, CrCl > 30 mL/min) *Enoxaparin/Lovenox 30 mg SQ daily (WT < 150 kg, CrCl > 10-29 mL/min) *Enoxaparin/Lovenox 30 mg SQ BID (WT < 150 kg, CrCl > 30 mL/min) AND *Sequential Compression Device (SCD) (Óscar Fernandez MD R2) Assessment and Plan Assessment and Plan Patient is an 81-year-old female with a history of A. fib, on Coumadin, possible CO in the 1980s, pneumonia in 2016 who presented to the ED with shortness of breath, cough, and chest pain, found to have likely sepsis with possible pneumonia (will r/o UTI) and pulmonary edema on imaging. Plan to admit to inpatient for IV antibiotics, IV fluids and diuresis as needed, and chest pain workup. Upon re-evaluation in the morning, a few hours after initial exam, patient is still sleepy. She is arousable for only seconds at a time. Because of this somnolence, supervisor rod placing consulted for possible need for intubation in the context of this AMS. -supervisor rod placing consult placed Code Status Full code until able to further clarify. Per EMR reviewed, patient does not want to be alive on life support. Discussed Condition With d/w Dr. Gramajo (Óscar Fernandez MD R2) Attending Attestation THIS CASE WAS DISCUSSED WITH THE RESIDENT PHYSICIANS. I HAVE REVIEWED THE RECORD AND AGREE WITH THE ABOVE NOTE AND PLAN OF CARE WAS DISCUSSED. I HAVE AUTHORIZED THE ORDER FOR ADMISSION TO AN IN-PATIENT STATUS. PATIENT WAS SEEN AND EXAMINED. PATIENT NOW IN ICU. AGREE WITH THE ABOVE ASSESSMENT AND PLAN. PLEASE SEE MY ATTENDING NOTE FROM TODAY FOR ADDITIONAL DETAILS. (Rhianna Gramajo MD) Problem List: (1) Sepsis ICD Codes: A41.9 - Sepsis, unspecified organism Plan: Patient p/w leukocytosis, tachycardia, Lactic acid of 3.6, poss pna on imaging. -NS IV bolus -trend lactate -UA with culture and sensitivities -empiric antibiotics: Ceftriaxone and Azithromycin as empiric tx for CAP and UTI ; will consider broadening abx and differential as needed -see "Shortness of breath" plan below (2) Altered mental status ICD Codes: R41.82 - Altered mental status, unspecified Plan: Patient with AMS in the context of elevated INR of 3.7. -CT head w/o contrast to r/o brain bleed -supervisor rod placing consult appreciated because of possible need for intubation (3) SOB (shortness of breath) ICD Codes: R06.02 - Shortness of breath Status: Acute Plan: Patient is an 81-year-old female with a history of A. fib, on Coumadin, possible CO in the 1980s, pneumonia in 2016 who presented to the ED with shortness of breath, cough, and chest pain, found to have possible pneumonia and pulmonary edema on imaging. -Admit to inpatient -Ceftriaxone and azithromycin IV to treat possible community acquired pneumonia ; convert azithromycin to by mouth when possible -consider Lasix IV after improvement in intravascular volume -CPAP/BiPAP as needed -Follow blood cultures and sputum cultures -Lactic acid sepsis protocol -Legionella urinary antigen, pneumococcal urinary antigen -Resp panel -Oxygen as needed -photostatic copy maker/telemetry -Monitor intake and output -Monitor vital signs (4) Chest pain ICD Codes: R07.9 - Chest pain Status: Acute Plan: -ACS rule out with every 6 hours troponin and EKG -Aspirin PA ordered -Oxygen when necessary -Morphine, nitroglycerin when necessary for chest pain -Continue home medications of statin, metoprolol, enalapril -photostatic copy maker/telemetry -Monitor intake and output -Monitor vital signs (5) Hyperkalemia ICD Codes: E87.5 - Hyperkalemia Status: Acute Plan: Patient received bicarbonate, insulin and dextrose, calcium gluconate, Kayexalate in the ED. -Lasix IV twice a day to treat both hyperkalemia and fluid overload -Repeat BMP this morning (6) Supratherapeutic INR ICD Codes: R79.1 - Abnormal coagulation profile Plan: Patient presents with INR of 3.7. -Hold Coumadin today. Recheck INR tomorrow morning. Consider holding or restarting home anticoagulation depending on INR in the morning. (7) REG (acute kidney injury) ICD Codes: N17.9 - Acute kidney failure, unspecified Plan: Patient presents with a creatinine of 1.35. BUN to creatinine ratio over 20:1. Last baseline Cr from May 2017 was just under 1. -IVF bolus -Monitor BMP -If worse, consider IV Lasix (8) KAYY (obstructive sleep apnea) ICD Codes: G47.33 - Obstructive sleep apnea (adult) (pediatric) Plan: Patient appears to have undiagnosed KAYY on exam. -CPAP or BiPAP at night (9) A-fib ICD Codes: I48.91 - Unspecified atrial fibrillation Status: Acute Plan: Patient received diltiazem in emergency department for A. fib with RVR. -Continue home medication of metoprolol and diltiazem (10) Diabetes mellitus type 2 Status: Chronic Plan: -Hold patient's home insulin -Low-dose sliding scale insulin with blood glucose monitoring -Continue patient's home medication of gabapentin (11) Hypothyroidism, unspecified ICD Codes: E03.9 - Hypothyroidism, unspecified Status: Chronic Plan: -Continue patient's home medication of levothyroxine 88 g by mouth daily (12) FEN/Prophy Status: Acute Plan: Fluids: No IV fluids as patient is currently volume overloaded Electrolyte: Monitor and replete/correct Nutrition: Regular basic diet as tolerated DVT prophylaxis: Patient currently with supratherapeutic INR, hold Coumadin and recheck INR GI prophylaxis: Continue patient's home medication of Protonix 20 mg by mouth daily (Óscar Fernandez MD R2) Physician Certification 2 Midnight Certification Type: Admission for Inpatient Services Order for Inpatient Services The services are ordered in accordance with Medicare regulations or non- Medicare payer requirements, as applicable. In the case of services not specified as inpatient-only, they are appropriately provided as inpatient services in accordance with the 2-midnight benchmark. Estimated LOS (days): 2 2 days is the estimated time the patient will need to remain in the hospital, assuming treatment plan goals are met and no additional complications. Post-Hospital Plan: Not yet determined (Óscar Fernandez MD R2) 2 Midnight Certification Type: Admission for Inpatient Services Post-Hospital Plan: Not yet determined (Rhianna Gramajo MD) Problem Qualifiers (1) Chest pain: Qualified Codes: R07.9 - Chest pain, unspecified (2) A-fib: Qualified Codes: I48.1 - Persistent atrial fibrillation Óscar Fernandez MD R2 Jul 27, 2017 04:39 Rhianna Gramajo MD Jul 27, 2017 11:50
[2017-07-27] MEDS ORDERED: NITROGLYCERIN 0.4 MG SL 25 TABS/BTL SL PRN ×2 (05:00→05:30)
[2017-07-27] MEDS ORDERED: ONDANSETRON HCL 4 MG/2 ML VIAL IV PRN (05:00)
[2017-07-27] MEDS ORDERED: SODIUM CHLORIDE 0.9% FLUSH 10 ML FLUSH IV FLUSH PRN (05:00)
[2017-07-27] MEDS ORDERED: ACETAMINOPHEN 325 MG TAB PO PRN ×2 (05:00→06:00)
[2017-07-27] MEDS ORDERED: DOCUSATE SODIUM 100 MG CAP PO PRN (05:30)
[2017-07-27] MEDS ORDERED: MORPHINE SULFATE 4 MG/ML INJ IV PUSH PRN ×2 (05:30→06:00)
[2017-07-27] MEDS: LEVOTHYROXINE SODIUM 88 MCG TAB PO SCH (05:49)
[2017-07-27] MEDS ORDERED: NALOXONE HCL 0.4 MG/ML AMP IV PUSH PRN (06:00)
[2017-07-27] MEDS ORDERED: GLUCAGON 1 MG/ML VIAL OTHER PRN (06:00)
[2017-07-27] MEDS ORDERED: ACETAMINOPHEN/HYDROcodone 325 MG/5 MG TAB PO PRN (06:00)
[2017-07-27] MEDS ORDERED: ACETAMINOPHEN/HYDROcodone 325 MG/7.5 MG TAB PO PRN (06:00)
[2017-07-27] MEDS ORDERED: DEXTROSE 50% IN WATER 50 ML SYRINGE IV PRN (07:30)
[2017-07-27 07:38] LABS: LACTIC ACID GHOST NOT REPORTABLE
[2017-07-27] MEDS ORDERED: INSULIN ASPART SUPPLEMENTAL SCALE SQ SCH (08:00)
[2017-07-27] MEDS ORDERED: ASPIRIN 300 MG SUPP RECTAL ONE (08:00)
[2017-07-27] MEDS ORDERED: EPINEPHrine HCL (1:10,000) 1 MG/10 ML SYRINGE ONE (08:37)
[2017-07-27] MEDS ORDERED: ATROPINE SULFATE 1 MG/10 ML SYRINGE ONE (08:37)
[2017-07-27] MEDS ORDERED: SODIUM CHLOR 0.9% 1000 ML INJ 1,000 ML IV ONE (08:45)
[2017-07-27] MEDS ORDERED: DILTIAZEM-CD 120 MG CAP ER PO SCH (09:00)
[2017-07-27] MEDS ORDERED: FUROSEMIDE 40 MG/4 ML VIAL IV PUSH SCH (09:00)
[2017-07-27] MEDS ORDERED: ENALAPRIL MALEATE 10 MG TAB PO SCH (09:00)
[2017-07-27] MEDS: PANTOPRAZOLE SOD 20 MG DELAYED RELEASE TAB PO SCH (09:00)
[2017-07-27] MEDS: PRAVASTATIN SOD 40 MG TAB PO SCH (09:00)
[2017-07-27] MEDS: METOPROLOL TARTRATE 25 MG TAB PO SCH ×2 (09:00→20:32)
[2017-07-27] MEDS ORDERED: CALCIUM CARBONATE PO SCH (09:00)
[2017-07-27 09:20] LABS: BICARBONATE 23.9 MEQ/L (21.0-32.0)
[2017-07-27] MEDS ORDERED: CHLORHEXIDINE GLUCONATE 2 % 1 PACK (2 CLOTHS) TOP PRN (09:45)
[2017-07-27] MEDS ORDERED: DILTIAZEM HCL 25 MG/5 ML VIAL IV ONE (09:45)
[2017-07-27] MEDS ORDERED: MISCELLANEOUS NURSING INFORMATION XX SCH (09:45)
[2017-07-27 09:47] LABS: BLOOD GAS BASE EXCESS 1.1 mmol/L (-2-2); BLOOD GAS CARBOXYHEMOGLOBIN 2.4 % (0-4); BLOOD GAS HCO3 25 mmol/L (22-26); BLOOD GAS METHEMOGLOBIN 0.9 % (0-2); BLOOD GAS O2 HGB SATURATION 85 % (90-100); BLOOD GAS PCO2 42 mmHg (38-42); BLOOD GAS PO2 62 mmHg (61-120); TEMP CORR TO 98.6
[2017-07-27 09:48] LABS: CRITICAL VALUE YES; DRAW SITE RT RADIAL; FIO2 40 %; NUMBER OF ARTERIAL PUNCTURES 1; OXYGEN DEVICE BIPAP5EPAP/15IPAP; STAT YES; ULNAR PULSE PRESENT
--- NOTE | 2017-07-27 10:28 | MB ---
cc: MAIKEL HAWK M.D. DATE OF CONSULTATION: 07/27/2017 DATE OF : 1935 HISTORY OF PRESENT ILLNESS The patient is an 81-year-old female with multiple medical co-morbidities which include coronary artery disease, atrial fibrillation on Coumadin, hypertension, diabetes mellitus, hyperlipidemia and hypothyroidism. She presented to [facility] ED earlier this morning with respiratory distress and lethargy. Also, per the ED records, the patient reports a nonproductive cough. She denies any constitutional symptoms. Most of the history was obtained from reviewing medical records as patient is a poor historian. On arrival to the ER she was tachycardic and her EKG showed atrial fibrillation with rapid ventricular response at a rate of 129 beats per minute. Her laboratory data is significant for acute renal failure with a BUN 31, creatinine 1.35 and hyperkalemia with potassium level 6.4. Also she had mild elevation of lactic acid at 3.6 and leukocytosis with a WBC of 13.2. She was placed on BiPAP 10/5 with 35% FIO2 and ABG was performed at 1:35 this morning which showed a pH of 7.41, CO2 31, PAO2 64, bicarb 19, sats 89%. Chest x-ray In the ER showed cardiomegaly with bibasilar infiltrates. Also, she had a CTA of the aorta which showed no aortic dissection, however, it showed cardiomegaly with bilateral ground-glass pulmonary infiltrates and small effusion. She was initially admitted to the family medicine team. The patient is on Coumadin as stated above and her INR was 3.7. In the ED she was given Rocephin and Zithromax and her hyperkalemia was treated with 10 units of IV insulin D50, 2 grams of calcium gluconate, bicarb and Kayexalate. She also received Cardizem 20 mg IV push for atrial fibrillation. Repeat BMP at 6:26 this morning showed improvement with potassium down to 4.0 and creatinine 0.96 from 1.35. Critical care medicine was consulted for critical care management. When seen in the ICU she is on BiPAP 15/5 with FIO2 of 40% and saturation 96%. The patient is in atrial fibrillation with RVR at a rate of 115 beats per minute and blood pressure of 142/96 with a MAP of 114. PAST MEDICAL HISTORY 1. Diabetes mellitus. 2. Hyperlipidemia. 3. Hypothyroidism. 4. Hypertension. 5. Chronic atrial fibrillation. 6. Coronary artery disease. 7. Osteopenia. 8. Diverticulosis. 9. Nephrolithiasis. 10.Previous history of pneumonia. PAST SURGICAL HISTORY 1. Previous EGD and colonoscopy. 2. Previous ORIF of distal tibia//fibula July 2011. 3. Previous partial hysterectomy with unilateral salpingo-oophorectomy. 4. Previous cholecystectomy. ALLERGIES INFLUENZA VIRUS VACCINE. MEDICATIONS Reported medications include: 1. Metoprolol. 2. Pravastatin. 3. Insulin. 4. Gabapentin. 5. Levothyroxine. 6. Coumadin. 7. Protonix. 8. Enalapril. FAMILY HISTORY Sister at age 82 of heart failure and coronary artery disease. Diabetes mellitus and prostate cancer run in the family. SOCIAL HISTORY Remote history of tobacco use. No history of ETOH use. REVIEW OF SYSTEMS As per HPI. The rest of the review of systems is limited as the patient is a poor historian. PHYSICAL EXAMINATION GENERAL: An 81-year-old female lying in bed on BiPAP in mild distress and lethargic. VITAL SIGNS: Temperature 97.5, pulse 114-120s, blood pressure 142/96. Saturation 96% on BiPAP 15/5 with 40% FIO2. HEENT: Atraumatic, normocephalic. Pupils equal, round and reactive to light and accommodation. Extraocular muscles intact. Conjunctiva pink. Non-icteric sclera. Oral mucosa within normal. NECK: Supple. No JVD, adenopathy or thyromegaly. Trachea in the midline. CARDIOVASCULAR: Tachycardic, irregularly irregular. Normal S1, S2. No murmurs, rubs or gallops noted. PULMONARY: Bilateral equal entry with a few coarse breath sounds at the bases. ABDOMEN: Soft, nontender. No distension. Positive bowel sounds. EXTREMITIES: No cyanosis or clubbing. Trace to +1 edema. NEUROLOGIC: No focal sensory deficit. Lethargic. LABORATORY DATA Sodium 134, potassium 4, chloride 101, CO2 23, BUN 29, creatinine 0.96, glucose 240, lactic acid 3.6, calcium 8.6. WBC 13.2, hemoglobin 12, hematocrit 37, platelet count 211. INR 3.7, PT 42.9, PTT 39.6. RADIOGRAPHIC STUDIES Chest x-ray shows cardiomegaly with bibasilar infiltrates. CTA of the aorta shows no aortic dissection. There is cardiomegaly with bilateral ground-glass pulmonary infiltrates and small effusion. EKG Atrial fibrillation with RVR, rate of 129 beats per minute. IMPRESSION 1. Acute hypoxemic respiratory failure. 2. Bilateral pulmonary infiltrates; differential diagnosis fluid overload versus infectious process. 3. Atrial fibrillation with rapid ventricular response. 4. Lactic acidemia. 5. Hypertension. 6. Hyperglycemia with underlying history of diabetes mellitus. 7. Acute kidney injury, improving with IV fluids. 8. Hyponatremia. 9. Mild leukocytosis. 10.Hypothyroidism. 11.Hyperlipidemia. RECOMMENDATIONS 1. Monitor neuro status closely and avoid any sedatives. If there is no improvement in her mental status, will proceed with CT scan of the brain without contrast to rule out acute intracranial process. 2. Continue with oxygen to maintain sats above 92%. 3. Bronchodilators. Will place on DuoNeb q.4h. plus q.2h. p.r.n. for shortness of breath. 4. Continue with noninvasive positive pressure ventilation. Will repeat ABG. If there is any worsening in clinical condition will proceed with intubation and mechanical ventilation. 5. Monitor heart rate and blood pressure closely and maintain MAP greater than 65 mmHg. Will give Cardizem 10 mg IV push x1 now. The patient is on Cardizem CD 120 mg daily, Lopressor 25 mg p.o. b.i.d., enalapril 10 mg daily and Pravachol 40 mg daily. 6. Will check cardiac enzymes with troponins. In addition, will obtain a 2-D echo to evaluate LV function. Her last echo was from January 2016 which showed an EF of 60-65%. 7. Monitor renal function, I's and O's, and electrolyte replacement as needed. The patient was treated for hyperkalemia and her potassium level is down to 4.0 from 6.4 with improvement in her renal function, creatinine 0.96 from 1.35. 8. Keep n.p.o. for now until mental status improves. The patient is on Protonix 20 mg daily. 9. Continue with antibiotics in the form of Rocephin and Zithromax and monitor for signs of infections which include fever and WBC. Follow-up on blood cultures which were obtained earlier this morning. In addition, sputum culture, strep pneumoniae and Legionella urinary antigen and have been ordered by the primary team. 10.Sliding scale insulin with Accu-Chek q.6h. for glycemic control. Continue with Synthroid 88 mcg daily. Check Baseline. TSH level. 11.Monitor CBC and coags as the patient is on Coumadin and her INR is 3.7 today. 12.GI prophylaxis with Protonix 20 mg daily and DVT prophylaxis with SCDs. In addition, she is on Coumadin as stated above. 13.Further recommendations will be based on the hospital course. MD LAZ Sherman/BT /9:42 AM /10:03 AM
[2017-07-27] MEDS: SODIUM CHLORIDE 0.9% FLUSH 10 ML FLUSH IV FLUSH SCH ×2 (10:30→20:33)
[2017-07-27 11:45] LABS: AUTOMATED NEUTROPHIL # 7.2 TH/MM3 (1.8-7.7); BASOPHIL # 0.1 TH/MM3 (0-0.2); BASOPHIL % 0.6 % (0.0-2.0); EOSINOPHIL % 0.4 % (0.0-4.0); HEMATOCRIT 32.9 % (35.0-46.0); HEMO FLAGS DIFF FINAL; LYMPH % 13.2 % (9.0-44.0); LYMPHOCYTE # 1.2 TH/MM3 (1.0-4.8); MEAN CELL VOLUME 92.6 FL (80.0-100.0); MEAN CORPUSCULAR HEMOGLOBIN 30.3 PG (27.0-34.0); MEAN CORPUSCULAR HGB CONC 32.7 % (32.0-36.0); MONO % 9.2 % (0.0-8.0); NEUT % 76.6 % (16.0-70.0); PLATELET COUNT 153 TH/MM3 (150-450); RED BLOOD COUNT 3.55 MIL/MM3 (4.00-5.30); RED CELL DISTRIBUTION WIDTH 15.1 % (11.6-17.2); WHITE BLOOD COUNT 9.4 TH/MM3 (4.0-11.0)
[2017-07-27 12:06] LABS: BICARBONATE 28.1 MEQ/L (21.0-32.0)
--- NOTE | 2017-07-27 12:11 | HHI.FPPN ---
Problem Problem List: (1) Acute respiratory failure with hypoxia (2) Atrial fibrillation with RVR (3) REG (acute kidney injury) (4) Chest pain (5) Altered mental status Subjective Subjective 81 year old female -- was admitted overnight for resp failure. She has been a patient of mine since 2016. Reviewed the ED and FM and ct technician notes -- patient unable to give more than yes/no answers due to her resp status at the time of the exam. Patient with significant history of CAD, AFIB, DM, HTN, HYPOTHYROID and HIGH CHOLESTEROL -- she was admitted with sob, cough, and fatigue. Denies fever, chills, reports chest pain with radiation to the back. Denies vomiting, diarrhea or urinary complaints. Denies recent falls. Denies missing medications. Outpatient background -- historical - Over the past couple of months -- I have seen the patient three times. She has had a 10-12 pound weight loss since November of 2016 that is unexplained. She was reporting times of vertigo/dizziness with falls in April and May. At that time some workup was initiated but not completed by the patient. She was hypotensive a few times in the outpatient setting to 100/50 range and in may decreased her metoprolol dose down. Weeks later continued to by hypotensive and her cardizem was decreased as well. At that time the falls were suspected to be due deconditioning and hypotension and possible blood sugar related. Patient takes a pretty complicated regimen of insulin and at her last visit I was not convinced of her ability to dose at home due to some memory loss -- home health was consulted for assistance with deconditioning and medical management twice but this was never completed. ROS - per HPI otherwise neg for what could be attained from the patient. [facility] Objective Objective Laboratory Tests - Abnormals Test 07/27/17 01:35 07/27/17 01:45 07/27/17 05:25 07/27/17 06:26 Blood Gas HCO3 19 mmol/L Blood Gas Base Excess -4.6 mmol/L Blood Gas Oxygen Saturation 89 % Arterial Blood Partial Pressure CO2 31 mmHg White Blood Count 13.2 TH/MM3 Neutrophils (%) (Auto) 85.1 % Lymphocytes (%) (Auto) 8.2 % Neutrophils # (Auto) 11.3 TH/MM3 Prothrombin Time 42.9 SEC Activated Partial Thromboplast Time 39.6 SEC Blood Urea Nitrogen 31 MG/DL 29 MG/DL Creatinine 1.35 MG/DL Random Glucose 335 MG/DL 240 MG/DL Total Bilirubin 1.8 MG/DL Sodium Level 130 MEQ/L 134 MEQ/L Potassium Level 6.4 MEQ/L Carbon Dioxide Level 20.9 MEQ/L Estimat Glomerular Filtration Rate 37 ML/MIN 56 ML/MIN Total Creatine Kinase 385 U/L Creatine Kinase MB 6.7 NG/ML B-Type Natriuretic Peptide 391 PG/ML Lactic Acid Level 3.6 mmol/L Test 07/27/17 09:00 07/27/17 09:40 07/27/17 10:05 Blood Gas Oxygen Saturation 85 % Blood Gas Hemoglobin 10.0 G/DL Vital Signs 07/27/17 07/27/17 07/27/17 07/27/17 00:54 01:28 01:35 01:40 Temp 97.4 Pulse 130 111 Resp 28 B/P (MAP) 175/87 (116) 130/89 (103) Pulse Ox 99 96 99 96 O2 Delivery Room Air Room Air Room Air FiO2 35 07/27/17 07/27/17 07/27/17 07/27/17 02:33 02:55 03:40 03:59 Pulse 79 97 Resp 18 20 B/P (MAP) 126/57 (80) 132/78 (96) Pulse Ox 100 92 98 98 O2 Delivery BiPAP Nasal Cannula Nasal Cannula Nasal Cannula O2 Flow Rate 3.00 3.00 2.00 07/27/17 07/27/17 07/27/17 07/27/17 04:32 05:39 06:35 07:04 Pulse 86 103 109 103 Resp 18 18 20 B/P (MAP) 125/63 (83) 133/92 (106) 106/56 (73) Pulse Ox 97 97 97 O2 Delivery Nasal Cannula Nasal Cannula O2 Flow Rate 3.00 3.00 07/27/17 07/27/17 07/27/17 07/27/17 07:30 09:02 10:00 10:00 Temp 97.5 97.1 Pulse 110 108 108 Resp 22 13 B/P (MAP) 128/81 (97) 112/60 (77) Pulse Ox 97 96 94 FiO2 50 Physical exam GEN - pt on bipap, arousable and able to answer yes/no HEENT - PEERL, no JVD CARDS - irr, irr, no murmurs appreciated PULM - anteriorly moving air with bipap -- exam difficult ABD - s, nd, nt EXT - no notable edema Assessment Assessment: (1) Acute respiratory failure with hypoxia Plan: Patient was transferred to the ICU --- ABG noted -- pt now on bipap -- per intensive care team CTA and CXR reviewed. Possible due to pneumonia/infectious process vs. resp alone vs. CHF type picture. Continue abx, ventilatory assistance and workup pending for etiology (2) Atrial fibrillation with RVR Plan: Rate resolved -- continue monitoring INR supra-therapeutic - on hold for now. Possible RVR due to decrease in her Maintenance medication in May due to hypotension and falls. This was monitored pretty closely as outpatient and rate remained ok but this could be the etiology of the rapid rate. Continue current medication at this time (3) Altered mental status Plan: Probably due to the respiratory issues -- consider CT head as patient on Coumadin with INR 3.7 and h/o falls. UA pending as well to r/o AMS due to urinary issues. (4) Diabetes mellitus without complication, with long-term current use of insulin Plan: Elevated glucose noted. 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 At this time believe this is mostly respiratory in nature. Will hold on consulting the patients fire sprinkler installer unless her pending Echo or workup shows a cardiac etiology. Assessment 81 year old female in acute respiratory distress of unknown etiology. PLAN PLAN Empiric therapy has been initiated and workup is pending at this time. Will monitor workup closely to determine next steps. Rhianna Gramajo MD Jul 27, 2017 11:48
[2017-07-27 12:27] LABS: CKMB 4.8 NG/ML (0.5-3.6)
[2017-07-27] MEDS: INSULIN ASPART SUPPLEMENTAL SCALE SQ SCH ×2 (14:00→20:00)
--- NOTE | 2017-07-27 14:19 | EKG ---
Date Performed: 07/27/2017 Time Performed: 01:34:07 PTAGE: 81 years EKG: ATRIAL FIBRILLATION WITH RAPID VENTRICULAR RESPONSE INCOMPLETE RIGHT BUNDLE BRANCH BLOCK AB NORMAL ECG PREVIOUS TRACING : 02/13/2016 09.32 No significant change from previous tracing noted. DOCTOR: Harish Mock Interpretating Date/Time 07/27/2017 14:18:37
--- NOTE | 2017-07-27 14:47 | RADRPT ---
EXAM DATE/TIME: 07/27/2017 14:28 [facility] COMPARISON: CT BRAIN W/O CONTRAST, August 02, 2015, 0:58. INDICATIONS : Altered mental status. RADIATION DOSE: 46.52 CTDIvol (mGy) MEDICAL HISTORY : Cardiovascular disease. Diabetes mellitus type 2. SURGICAL HISTORY : None. ENCOUNTER: Initial ACUITY: 1 day PAIN SCALE: 5/10 LOCATION: cranial TECHNIQUE: Multiple contiguous axial images were obtained of the head. Using automated exposure control and adj ustment of the mA and/or kV according to patient size, radiation dose was kept as low as reasonably a chievable to obtain optimal diagnostic quality images. DICOM format image data is available electro nically for review and comparison. FINDINGS: CEREBRUM: The ventricles are normal for age. No evidence of midline shift, mass lesion, hemorrhage or acute in farction. No extra-axial fluid collections are seen. POSTERIOR FOSSA: The cerebellum and brainstem are intact. The 4th ventricle is midline. The cerebellopontine angle i s unremarkable. EXTRACRANIAL: The visualized portion of the orbits is intact. SKULL: The calvaria is intact. No evidence of skull fracture. CONCLUSION: Negative for acute process. Doroteo Perez MD FACR on July 27, 2017 at 14:45 Board Certified Radiologist. This report was verified electronically.
--- NOTE | 2017-07-27 14:51 | RADRPT ---
EXAM DATE/TIME: 07/27/2017 14:32 [facility] COMPARISON: No previous studies available for comparison. INDICATIONS : Evaluate for infiltrate. RADIATION DOSE: 9.59 CTDIvol (mGy) MEDICAL HISTORY : Cardiovascular disease. Diabetes mellitus type 2. SURGICAL HISTORY : None. ENCOUNTER: Initial ACUITY: 1 day PAIN SCALE: 5/10 LOCATION: Bilateral chest TECHNIQUE: Volumetric scanning of the chest was performed. Using automated exposure control and adjustment of t he mA and/or kV according to patient size, radiation dose was kept as low as reasonably achievable to obtain optimal diagnostic quality images. DICOM format image data is available electronically for r eview and comparison. Follow-up recommendations for detected pulmonary nodules are based at a minimum on nodule size and pa tient risk factors according to Fleischner Society Guidelines. FINDINGS: LUNGS: Small bilateral pleural effusions are present larger on the right with minimal bibasilar parenchymal changes. MEDIASTINUM: Moderate coronary calcifications are noted with minimal nonspecific axillary and mediastinal nodes pr esent. These nodes measure all less than 1 cm. Marked coronary calcifications are evident. MUSCULOSKELETAL: Mild degenerative changes are present in the lower thoracic spine. MISCELLANEOUS: Surgical clips are present in the gallbladder fossa. CONCLUSION: Small bilateral pleural effusions larger on the right minimal bibasilar parenchymal changes. There is no significant consolidation. There is no radiographically significant adenopathy. Doroteo Perez MD FACR on July 27, 2017 at 14:46 Board Certified Radiologist. This report was verified electronically.
[2017-07-27 14:52] LABS: BLOOD, URINE NEG (NEG); COMMENT (UR) CULTURE INDICATED; CULTURE IF INDICATED CULTURE INDICATED; GLUCOSE,URINE 300 mg/dL (NEG); KETONE, URINE NEG (NEG); NITRITE,URINE NEG (NEG); URINE COLOR YELLOW (YELLW/STRAW)
[2017-07-27] MEDS ORDERED: WARFARIN SOD 4 MG TAB PO SCH (16:00)
[2017-07-27] MEDS: GABAPENTIN 400 MG CAP PO SCH (20:44)
[2017-07-27] MEDS ORDERED: GABAPENTIN 400 MG CAP PO SCH ×2 (21:00)
--- NOTE | 2017-07-27 22:45 | MB ---
cc: BRIGID JOAQUIN MD DATE OF CONSULTATION 07/27/17 REASON FOR CONSULTATION Atrial fibrillation. HISTORY OF PRESENT ILLNESS Ms. Betty Lopez is a pleasant 81-year-old female who does have a history atrial fibrillation. The patient presented with shortness of breath and was found to be in atrial fibrillation with rapid ventricular rate. She is quite lethargic and subsequent workup has also has revealed a UTI with sepsis. Cardiology was consulted to assist with her atrial fibrillation. The patient is currently too lethargic to give any history. Thus the history is per the record. PAST MEDICAL HISTORY Significant for atrial fibrillation, hyperlipidemia, diabetes, hypothyroidism, diverticular disease. CURRENT MEDICATIONS Noted per the record. OUTPATIENT MEDICATIONS Reportedly included: 1. Metoprolol 25 milligrams a day. 2. Pravastatin. 3. Insulin. 4. Levothyroxine. 5. Coumadin. ALLERGIES NO KNOWN DRUG ALLERGIES. SHE DOES HAVE ANAPHYLAXIS TO FLU VACCINE. FAMILY HISTORY Positive for CAD. SOCIAL HISTORY The patient is a former smoker. REVIEW OF SYSTEMS Unable. PHYSICAL EXAMINATION VITAL SIGNS: 97.9, 111, 14, 150/98. GENERAL: In general, she is an ill-appearing elderly female who is in no apparent distress. NECK: Her neck is free from JVD. LUNGS: The lungs are decreased but clear to auscultation. CARDIOVASCULAR EXAMINATION: She has an ___ irregular tachycardic rhythm. No rubs or gallops appreciated. ABDOMEN: The abdomen is soft. EXTREMITIES: Extremities are free from edema. LABORATORY FINDINGS Significant for an INR 3.7, her creatinine is 0.98 and troponin is 0.03. IMAGING STUDIES CT chest does show bilateral pleural effusions that are small. CARDIOLOGY STUDIES Telemetry shows atrial fibrillation at 110 beats a minute. IMPRESSION Atrial fibrillation: The patient does have a history of the same. The UTI sepsis certainly could have triggered some RVR. I do agree with diltiazem at this point. At this time I would hold off on the metoprolol until I can verify with her office records as I believe she was having some difficulties with the metoprolol. UTI, sepsis: This is being managed by the primary team. Lethargy: The patient is quite appropriate when she wakes up; however, is quite lethargic which at this point I would attribute to the UTI. Further management will be per the primary team. Elijah Malik/BRIONNA /5:17 PM /10:32 PM
[2017-07-27] MEDS: METOPROLOL TARTRATE 5 MG/5 ML VIAL IV PUSH PRN (23:50)
[2017-07-28] VITALS (16 sets, daily range): BP systolic 121–159; BP diastolic 60–98; PULSE 81–138; RESP 11–26; TEMP 97.6–98.6; O2SAT 92–100
[2017-07-28] MEDS: METOPROLOL TARTRATE 25 MG TAB PO SCH (01:20)
[2017-07-28] MEDS: INSULIN ASPART SUPPLEMENTAL SCALE SQ SCH ×2 (02:00→07:57)
[2017-07-28] MEDS: cefTRIAXone INJ 1,000 MG in SODIUM CHLORIDE 0.9% INJ 100 ML IV SCH (03:30)
[2017-07-28] MEDS: CHLORHEXIDINE GLUCONATE 2 % 1 PACK (2 CLOTHS) TOP SCH (04:00)
[2017-07-28] MEDS: METOPROLOL TARTRATE 5 MG/5 ML VIAL IV PUSH PRN (04:30)
[2017-07-28] MEDS: LEVOTHYROXINE SODIUM 88 MCG TAB PO SCH (04:30)
[2017-07-28] MEDS: AZITHROMYCIN INJ 500 MG in SODIUM CHLOR 0.9% 250 ML INJ 250 ML IV SCH (04:31)
[2017-07-28 06:35] LABS: AUTOMATED NEUTROPHIL # 9.3 TH/MM3 (1.8-7.7); BASOPHIL # 0.2 TH/MM3 (0-0.2); EOSINOPHIL # 0.3 TH/MM3 (0-0.4); EOSINOPHIL % 2.8 % (0.0-4.0); HEMATOCRIT 35.1 % (35.0-46.0); HEMO FLAGS DIFF FINAL; LYMPH % 8.9 % (9.0-44.0); MEAN CELL VOLUME 94.4 FL (80.0-100.0); MEAN CORPUSCULAR HGB CONC 31.8 % (32.0-36.0); NEUT % 80.3 % (16.0-70.0); PLATELET COUNT 165 TH/MM3 (150-450); RED BLOOD COUNT 3.72 MIL/MM3 (4.00-5.30); RED CELL DISTRIBUTION WIDTH 15.7 % (11.6-17.2); WHITE BLOOD COUNT 11.6 TH/MM3 (4.0-11.0)
[2017-07-28 06:50] LABS: BICARBONATE 27.9 MEQ/L (21.0-32.0); POTASSIUM 3.9 MEQ/L (3.5-5.1)
[2017-07-28 06:52] LABS: APTT (PATIENT) 40.9 SEC (24.3-30.1); INTERNATIONAL NORMALIZED RATIO 2.9 RATIO; PROTHROMBIN TIME - PATIENT 33.5 SEC (9.8-11.6)
--- NOTE | 2017-07-28 07:41 | PD.CARD.PN ---
Subjective Subjective Remarks Pt without complaints Objective Vital Signs / I&O Vital Signs Date Time Temp Pulse Resp B/P (MAP) Pulse Ox O2 Delivery O2 Flow Rate FiO2 07/28/17 06:00 131 07/28/17 04:20 95 45 07/28/17 04:00 129 07/28/17 04:00 98.0 129 14 121/60 (80) 98 07/28/17 02:00 122 07/28/17 00:00 98.1 122 11 126/66 (86) 97 07/28/17 00:00 122 07/27/17 23:55 95 50 07/27/17 22:00 122 07/27/17 20:10 95 Nasal Cannula 3.50 07/27/17 20:00 98.1 125 17 152/72 (98) 100 07/27/17 20:00 125 07/27/17 18:00 120 07/27/17 16:00 111 07/27/17 16:00 97.9 111 14 150/98 (115) 98 07/27/17 14:00 113 07/27/17 12:00 98.2 118 24 151/93 (112) 100 07/27/17 12:00 110 07/27/17 11:37 99 50 07/27/17 10:00 108 07/27/17 10:00 97.1 108 13 112/60 (77) 94 07/27/17 09:02 96 50 I/O 07/27/17 07/27/17 07/27/17 07/28/17 07/28/17 07/28/17 07:00 15:00 23:00 07:00 15:00 23:00 Intake Total 350 ml 500 ml 500 ml 480 ml Output Total 450 ml Balance 350 ml 500 ml 50 ml 480 ml Intake Oral 500 ml 480 ml IV Total 350 ml 500 ml Output Urine Total 450 ml # Voids 2 2 # Bowel Movements 1 1 1 Physical Exam GENERAL: Well developed, well nourished. No acute distress. HEENT: Jugular venous pressure is normal. CHEST: Lungs clear to auscultation bilaterally. Unlabored respiratory effort. CARDIAC: irregular rate and rhythm without S3, S4, or murmur. ABDOMEN: Soft, nontender, no hepatosplenomegaly. Bowel sounds present. EXTREMITIES: No clubbing, cyanosis, or edema. Laboratory Laboratory Tests Test 07/27/17 09:00 07/27/17 09:40 07/27/17 10:05 07/27/17 11:34 Nasal Screen MRSA (PCR) MRSA NOT DETECTED Blood Gas Puncture Site RT RADIAL Blood Gas Patient Temperature 98.6 Blood Gas HCO3 25 mmol/L Blood Gas Base Excess 1.1 mmol/L Blood Gas Oxygen Saturation 85 % Arterial Blood pH 7.40 Arterial Blood Partial Pressure CO2 42 mmHg Arterial Blood Partial Pressure O2 62 mmHg Arterial Blood Oxygen Content 12.0 Vol % Arterial Blood Carboxyhemoglobin 2.4 % Arterial Blood Methemoglobin 0.9 % Blood Gas Hemoglobin 10.0 G/DL Oxygen Delivery Device [id number] Blood Gas Inspired Oxygen 40 % Lactic Acid Level 1.9 mmol/L 1.8 mmol/L White Blood Count 9.4 TH/MM3 Red Blood Count 3.55 MIL/MM3 Hemoglobin 10.7 GM/DL Hematocrit 32.9 % Mean Corpuscular Volume 92.6 FL Mean Corpuscular Hemoglobin 30.3 PG Mean Corpuscular Hemoglobin Concent 32.7 % Red Cell Distribution Width 15.1 % Platelet Count 153 TH/MM3 Mean Platelet Volume 8.9 FL Neutrophils (%) (Auto) 76.6 % Lymphocytes (%) (Auto) 13.2 % Monocytes (%) (Auto) 9.2 % Eosinophils (%) (Auto) 0.4 % Basophils (%) (Auto) 0.6 % Neutrophils # (Auto) 7.2 TH/MM3 Lymphocytes # (Auto) 1.2 TH/MM3 Monocytes # (Auto) 0.9 TH/MM3 Eosinophils # (Auto) 0.0 TH/MM3 Basophils # (Auto) 0.1 TH/MM3 CBC Comment DIFF FINAL Differential Comment Blood Urea Nitrogen 27 MG/DL Creatinine 0.98 MG/DL Random Glucose 199 MG/DL Calcium Level 8.4 MG/DL Sodium Level 136 MEQ/L Potassium Level 4.0 MEQ/L Chloride Level 101 MEQ/L Carbon Dioxide Level 28.1 MEQ/L Anion Gap 7 MEQ/L Estimat Glomerular Filtration Rate 54 ML/MIN Total Creatine Kinase 238 U/L Creatine Kinase MB 4.8 NG/ML Creatine Kinase MB % 2.0 % Troponin I 0.03 NG/ML Thyroid Stimulating Hormone 3rd Gen 2.290 uIU/ML Test 07/27/17 14:25 07/27/17 17:55 07/28/17 05:45 Urine Color YELLOW Urine Turbidity CLEAR Urine pH 6.0 Urine Specific Sharon 1.025 Urine Protein NEG mg/dL Urine Glucose (UA) 300 mg/dL Urine Ketones NEG mg/dL Urine Occult Blood NEG Urine Nitrite NEG Urine Bilirubin NEG Urine Urobilinogen LESS THAN 2.0 MG/DL Urine Leukocyte Esterase SMALL Urine RBC 2 /hpf Urine WBC 19 /hpf Microscopic Urinalysis Comment CULTURE INDICATED Troponin I 0.02 NG/ML White Blood Count 11.6 TH/MM3 Red Blood Count 3.72 MIL/MM3 Hemoglobin 11.2 GM/DL Hematocrit 35.1 % Mean Corpuscular Volume 94.4 FL Mean Corpuscular Hemoglobin 30.0 PG Mean Corpuscular Hemoglobin Concent 31.8 % Red Cell Distribution Width 15.7 % Platelet Count 165 TH/MM3 Mean Platelet Volume 9.5 FL Neutrophils (%) (Auto) 80.3 % Lymphocytes (%) (Auto) 8.9 % Monocytes (%) (Auto) 6.0 % Eosinophils (%) (Auto) 2.8 % Basophils (%) (Auto) 2.0 % Neutrophils # (Auto) 9.3 TH/MM3 Lymphocytes # (Auto) 1.0 TH/MM3 Monocytes # (Auto) 0.7 TH/MM3 Eosinophils # (Auto) 0.3 TH/MM3 Basophils # (Auto) 0.2 TH/MM3 CBC Comment DIFF FINAL Differential Comment Prothrombin Time 33.5 SEC Prothromb Time International Ratio 2.9 RATIO Activated Partial Thromboplast Time 40.9 SEC Blood Urea Nitrogen 25 MG/DL Creatinine 1.10 MG/DL Random Glucose 240 MG/DL Calcium Level 8.3 MG/DL Sodium Level 136 MEQ/L Potassium Level 3.9 MEQ/L Chloride Level 102 MEQ/L Carbon Dioxide Level 27.9 MEQ/L Anion Gap 6 MEQ/L Estimat Glomerular Filtration Rate 47 ML/MIN Assessment and Plan Assessment and Plan AF- no PO meds yesterday=> restart now that mental status improved -long acting diltiazem scheduled, and short acting PRN UTI- AMS- resolved Kourtney Quinones MD Jul 28, 2017 07:41
[2017-07-28] MEDS: PRAVASTATIN SOD 40 MG TAB PO SCH (07:57)
[2017-07-28] MEDS: DILTIAZEM HCL 30 MG TAB PO PRN ×2 (07:58→23:17)
[2017-07-28] MEDS: SODIUM CHLORIDE 0.9% FLUSH 10 ML FLUSH IV FLUSH SCH ×2 (07:58→19:55)
[2017-07-28] MEDS: PANTOPRAZOLE SOD 20 MG DELAYED RELEASE TAB PO SCH (08:01)
--- NOTE | 2017-07-28 08:23 | HHI.CCPN ---
Subjective Remarks/Hospital Course The patient is an 81-year-old female with multiple medical co-morbidities which include coronary artery disease, atrial fibrillation on Coumadin, hypertension, diabetes mellitus, hyperlipidemia and hypothyroidism. She presented to [facility] ED earlier this morning with respiratory distress and lethargy. Also, per the ED records, the patient reports a nonproductive cough. She denies any constitutional symptoms. Most of the history was obtained from reviewing medical records as patient is a poor historian. On arrival to the ER she was tachycardic and her EKG showed atrial fibrillation with rapid ventricular response at a rate of 129 beats per minute. Her laboratory data is significant for acute renal failure with a BUN 31, creatinine 1.35 and hyperkalemia with potassium level 6.4. Also she had mild elevation of lactic acid at 3.6 and leukocytosis with a WBC of 13.2. She was placed on BiPAP 10/5 with 35% FIO2 and ABG was performed at 1:35 this morning which showed a pH of 7.41, CO2 31, PAO2 64, bicarb 19, sats 89%. Chest x-ray In the ER showed cardiomegaly with bibasilar infiltrates. Also, she had a CTA of the aorta which showed no aortic dissection, however, it showed cardiomegaly with bilateral ground-glass pulmonary infiltrates and small effusion. She was initially admitted to the family medicine team. The patient is on Coumadin as stated above and her INR was 3.7. In the ED she was given Rocephin and Zithromax and her hyperkalemia was treated with 10 units of IV insulin D50, 2 grams of calcium gluconate, bicarb and Kayexalate. She also received Cardizem 20 mg IV push for atrial fibrillation. Repeat BMP at 6:26 this morning showed improvement with potassium down to 4.0 and creatinine 0.96 from 1.35. Critical care medicine was consulted for critical care management. When seen in the ICU she is on BiPAP 15/5 with FIO2 of 40% and saturation 96%. The patient is in atrial fibrillation with RVR at a rate of 115 beats per minute and blood pressure of 142/96 with a MAP of 114. 9/19 Patient is more awake and alert lying in bed in NAD. She was in Afib with RVR given Lopressor 5mg IV x2 overnight. Denies any SOB/CP. CT brain yesterday no acute process Objective Vital Signs Date Time Temp Pulse Resp B/P (MAP) Pulse Ox O2 Delivery O2 Flow Rate FiO2 07/28/17 06:00 131 07/28/17 04:20 95 45 07/28/17 04:00 98.0 14 121/60 (80) 07/27/17 20:10 Nasal Cannula 3.50 Intake and Output 07/28/17 07/28/17 07/29/17 08:00 16:00 00:00 Intake Total 480 ml Balance 480 ml Result Diagram: 07/28/17 0545 07/28/17 0545 Other Results Laboratory Tests Test 07/27/17 09:00 07/27/17 09:40 07/27/17 10:05 07/27/17 11:34 Nasal Screen MRSA (PCR) MRSA NOT DETECTED Blood Gas Puncture Site RT RADIAL Blood Gas Patient Temperature 98.6 Blood Gas HCO3 25 mmol/L Blood Gas Base Excess 1.1 mmol/L Blood Gas Oxygen Saturation 85 % Arterial Blood pH 7.40 Arterial Blood Partial Pressure CO2 42 mmHg Arterial Blood Partial Pressure O2 62 mmHg Arterial Blood Oxygen Content 12.0 Vol % Arterial Blood Carboxyhemoglobin 2.4 % Arterial Blood Methemoglobin 0.9 % Blood Gas Hemoglobin 10.0 G/DL Oxygen Delivery Device [id number] Blood Gas Inspired Oxygen 40 % Lactic Acid Level 1.9 mmol/L 1.8 mmol/L White Blood Count 9.4 TH/MM3 Red Blood Count 3.55 MIL/MM3 Hemoglobin 10.7 GM/DL Hematocrit 32.9 % Mean Corpuscular Volume 92.6 FL Mean Corpuscular Hemoglobin 30.3 PG Mean Corpuscular Hemoglobin Concent 32.7 % Red Cell Distribution Width 15.1 % Platelet Count 153 TH/MM3 Mean Platelet Volume 8.9 FL Neutrophils (%) (Auto) 76.6 % Lymphocytes (%) (Auto) 13.2 % Monocytes (%) (Auto) 9.2 % Eosinophils (%) (Auto) 0.4 % Basophils (%) (Auto) 0.6 % Neutrophils # (Auto) 7.2 TH/MM3 Lymphocytes # (Auto) 1.2 TH/MM3 Monocytes # (Auto) 0.9 TH/MM3 Eosinophils # (Auto) 0.0 TH/MM3 Basophils # (Auto) 0.1 TH/MM3 CBC Comment DIFF FINAL Differential Comment Blood Urea Nitrogen 27 MG/DL Creatinine 0.98 MG/DL Random Glucose 199 MG/DL Calcium Level 8.4 MG/DL Sodium Level 136 MEQ/L Potassium Level 4.0 MEQ/L Chloride Level 101 MEQ/L Carbon Dioxide Level 28.1 MEQ/L Anion Gap 7 MEQ/L Estimat Glomerular Filtration Rate 54 ML/MIN Total Creatine Kinase 238 U/L Creatine Kinase MB 4.8 NG/ML Creatine Kinase MB % 2.0 % Troponin I 0.03 NG/ML Thyroid Stimulating Hormone 3rd Gen 2.290 uIU/ML Test 07/27/17 14:25 07/27/17 17:55 07/28/17 05:45 Urine Color YELLOW Urine Turbidity CLEAR Urine pH 6.0 Urine Specific [place] 1.025 Urine Protein NEG mg/dL Urine Glucose (UA) 300 mg/dL Urine Ketones NEG mg/dL Urine Occult Blood NEG Urine Nitrite NEG Urine Bilirubin NEG Urine Urobilinogen LESS THAN 2.0 MG/DL Urine Leukocyte Esterase SMALL Urine RBC 2 /hpf Urine WBC 19 /hpf Microscopic Urinalysis Comment CULTURE INDICATED Troponin I 0.02 NG/ML White Blood Count 11.6 TH/MM3 Red Blood Count 3.72 MIL/MM3 Hemoglobin 11.2 GM/DL Hematocrit 35.1 % Mean Corpuscular Volume 94.4 FL Mean Corpuscular Hemoglobin 30.0 PG Mean Corpuscular Hemoglobin Concent 31.8 % Red Cell Distribution Width 15.7 % Platelet Count 165 TH/MM3 Mean Platelet Volume 9.5 FL Neutrophils (%) (Auto) 80.3 % Lymphocytes (%) (Auto) 8.9 % Monocytes (%) (Auto) 6.0 % Eosinophils (%) (Auto) 2.8 % Basophils (%) (Auto) 2.0 % Neutrophils # (Auto) 9.3 TH/MM3 Lymphocytes # (Auto) 1.0 TH/MM3 Monocytes # (Auto) 0.7 TH/MM3 Eosinophils # (Auto) 0.3 TH/MM3 Basophils # (Auto) 0.2 TH/MM3 CBC Comment DIFF FINAL Differential Comment Prothrombin Time 33.5 SEC Prothromb Time International Ratio 2.9 RATIO Activated Partial Thromboplast Time 40.9 SEC Blood Urea Nitrogen 25 MG/DL Creatinine 1.10 MG/DL Random Glucose 240 MG/DL Calcium Level 8.3 MG/DL Sodium Level 136 MEQ/L Potassium Level 3.9 MEQ/L Chloride Level 102 MEQ/L Carbon Dioxide Level 27.9 MEQ/L Anion Gap 6 MEQ/L Estimat Glomerular Filtration Rate 47 ML/MIN Imaging Last Impressions Chest X-Ray 07/27/17136 Signed Impressions: Service Date/Time: Thursday, July 27, 2017 01:45 - CONCLUSION: Cardiomegaly with bibasilar infiltrates. Pulmonary edema suspected. Ricardo Butler Jr., MD Aorta CTA 07/27/17136 Signed Impressions: Service Date/Time: Thursday, July 27, 2017 03:19 - CONCLUSION: 1. No aortic dissection. 2. Cardiomegaly with bilateral ground glass pulmonary infiltrates and small effusions. This likely relates to a component of pulmonary edema. I cannot exclude infectious infiltrates. Ricardo Butler Jr., MD Head CT 07/27/17 0000 Signed Impressions: Service Date/Time: Thursday, July 27, 2017 14:28 - CONCLUSION: Negative for acute process. Doroteo Perez MD FACR Chest CT 07/27/17 0000 Signed Impressions: Service Date/Time: Thursday, July 27, 2017 14:32 - CONCLUSION: Small bilateral pleural effusions larger on the right minimal bibasilar parenchymal changes. There is no significant consolidation. There is no radiographically significant adenopathy. Doroteo Perez MD FACR Objective Remarks GENERAL: Patient is 81 yo lying in bed in NAD SKIN: Warm and dry. HEAD: Normocephalic. EYES: No scleral icterus. No injection or drainage. NECK: Supple, trachea midline. No JVD or lymphadenopathy. CARDIOVASCULAR: Tachycardic, Irregular without murmurs, gallops, or rubs. RESPIRATORY: Breath sounds equal bilaterally. No accessory muscle use. GASTROINTESTINAL: Abdomen soft, non-tender, nondistended. MUSCULOSKELETAL: No cyanosis, or edema. BACK: Nontender without obvious deformity. No CVA tenderness. Neuro: Awake and alert A/P Assessment and Plan 1. Acute hypoxemic respiratory failure. 2. Atrial fibrillation with rapid ventricular response. 3. Lactic acidemia..cleared 4. Hypertension. 5. Hyperglycemia with underlying history of diabetes mellitus. 6. Acute kidney injury, improving with IV fluids. 7. Hyponatremia. 8 Mild leukocytosis. 9.Hypothyroidism. 10.Hyperlipidemia. Plan Neuro: Monitor neuro status closely and avoid any sedatives. CT brain: No acute intracranial process. Pulm: Continue with oxygen to maintain sats above 92%. Bronchodilators, NIPPV PRN for resp distress CT chest: Small bilateral pleural effusions larger on the right minimal bibasilar parenchymal changes. There is no significant consolidation. CV: Monitor HR and BP and maintain MAP>65mmHg Will give Cardizem 10 mg IV push x1 now. On Cardizem CD 240 mg daily, and Pravachol 40 mg daily. Cards is following- Dr. Quinones For 2-D echo to evaluate LV function. Her last echo was in January 2016 which showed an EF of 60-65%. : Monitor renal function, I's and O's, and electrolyte replacement as needed. GI: On Protonix 20 mg daily. heart healthy diet ID: Continue abx( Rocephin and Zithromax) and monitor for signs of infections( fever and WBC). Blood, urine, strep pneumoniae and Legionella urinary antigen pending. Check sputum cx Endo: Increase SSI medium scale with Accu-Chek q.6h. for glycemic control. Continue with Synthroid 88 mcg daily. TSH: 2.2 Heme: Monitor CBC and coags- on Coumadin , INR 2.9 today GI prophylaxis with Protonix 20 mg daily and DVT prophylaxis with SCDs/Coumadin INR 2.9 today Level 3 Erlin Riddle MD Jul 28, 2017 08:23
[2017-07-28] MEDS: INSULIN NovoLIN REGULAR SUPPLEMENTAL SCALE SQ SCH ×4 (08:30→23:20)
[2017-07-28] MEDS ORDERED: GLUCAGON 1 MG/ML VIAL OTHER PRN (08:30)
[2017-07-28] MEDS ORDERED: DEXTROSE 50% IN WATER 50 ML VIAL(D50) IV PRN (08:30)
[2017-07-28] MEDS ORDERED: DILTIAZEM HCL 25 MG/5 ML VIAL IV ONE (08:45)
[2017-07-28] MEDS ORDERED: DILTIAZEM-CD 240 MG CAP ER PO SCH (09:00)
--- NOTE | 2017-07-28 10:40 | HHI.FPPN ---
Subjective Remarks No acute events overnight. Tachycardic with A. fib with RVR overnight. Patient reports ischemia felt a little febrile last night. She reports that she's had a cough for the past 2-3 weeks. She denies any dysuria. Patient is awake and alert. She denies any complaints, including shortness of breath and chest pain. Discussed plan of care with patient. (Óscar Fernandez MD R2) Objective Vitals Vital Signs Date Time Temp Pulse Resp B/P (MAP) Pulse Ox O2 Delivery O2 Flow Rate FiO2 07/28/17 09:11 92 Nasal Cannula 5.00 07/28/17 06:00 131 07/28/17 04:20 95 45 07/28/17 04:00 129 07/28/17 04:00 98.0 129 14 121/60 (80) 98 07/28/17 02:00 122 07/28/17 00:00 98.1 122 11 126/66 (86) 97 07/28/17 00:00 122 07/27/17 23:55 95 50 07/27/17 22:00 122 07/27/17 20:10 95 Nasal Cannula 3.50 07/27/17 20:00 98.1 125 17 152/72 (98) 100 07/27/17 20:00 125 07/27/17 18:00 120 07/27/17 16:00 111 07/27/17 16:00 97.9 111 14 150/98 (115) 98 07/27/17 14:00 113 07/27/17 12:00 98.2 118 24 151/93 (112) 100 07/27/17 12:00 110 07/27/17 11:37 99 50 I/O 07/27/17 07/27/17 07/27/17 07/28/17 07/28/17 07/28/17 07:00 15:00 23:00 07:00 15:00 23:00 Intake Total 350 ml 500 ml 500 ml 480 ml Output Total 450 ml Balance 350 ml 500 ml 50 ml 480 ml Intake Oral 500 ml 480 ml IV Total 350 ml 500 ml Output Urine Total 450 ml # Voids 2 2 # Bowel Movements 1 1 1 (Óscar Fernandez MD R2) Result Diagram: 07/28/17 0545 07/28/17 0545 Imaging Last Impressions Chest X-Ray 07/27/17 0137 Signed Impressions: Service Date/Time: Thursday, July 27, 2017 01:45 - CONCLUSION: Cardiomegaly with bibasilar infiltrates. Pulmonary edema suspected. Ricardo Butler Jr., MD Aorta CTA 07/27/17 0137 Signed Impressions: Service Date/Time: Thursday, July 27, 2017 03:19 - CONCLUSION: 1. No aortic dissection. 2. Cardiomegaly with bilateral ground glass pulmonary infiltrates and small effusions. This likely relates to a component of pulmonary edema. I cannot exclude infectious infiltrates. Ricardo Butler Jr., MD Head CT 07/27/17 0000 Signed Impressions: Service Date/Time: Thursday, July 27, 2017 14:28 - CONCLUSION: Negative for acute process. Doroteo Perez MD FACR Chest CT 07/27/17 0000 Signed Impressions: Service Date/Time: Thursday, July 27, 2017 14:32 - CONCLUSION: Small bilateral pleural effusions larger on the right minimal bibasilar parenchymal changes. There is no significant consolidation. There is no radiographically significant adenopathy. Doroteo Perez MD FACR Objective Remarks GENERAL: Well-nourished, well-developed elderly female patient, awake and alert, smiling, pleasant. SKIN: Warm and dry. There is one area of skin tear on the right anterior green. HEAD: Normocephalic. EYES: No scleral icterus. No injection or drainage. NECK: Supple, trachea midline. No JVD or lymphadenopathy. CARDIOVASCULAR: Tachycardic irregularly irregular rate and rhythm without murmurs, gallops, or rubs. RESPIRATORY: Breath sounds equal bilaterally. No accessory muscle use. GASTROINTESTINAL: Abdomen soft, non-tender, nondistended. EXTREMITIES: No cyanosis, or edema. NEUROLOGICAL: Awake, alert, and oriented x 3. Non-focal. (Óscar Fernandez MD R2) A/P Assessment and Plan Patient is an 81-year-old female with a history of A. fib, on Coumadin, possible GA in the 1980s, pneumonia in 2016 who presented to the ED with shortness of breath, cough, and chest pain, found to have likely sepsis with possible pneumonia (will r/o UTI) and pulmonary edema on imaging. Admitted to inpatient for IV antibiotics. Discharge Planning Anticipate discharge after a couple days of IV antibiotics and resolution of A. fib with RVR (Óscar Fernandez MD R2) Attending Attestation Patient seen and examined. Case reviewed and discussed with the resident team. Agree with plan of care as discussed with me and documented in the resident note. (Rhianna Gramajo MD) Problem List: (1) Pneumonia ICD Codes: J18.9 - Pneumonia, unspecified organism Status: Acute Plan: Patient is an 81-year-old female with a history of A. fib, on Coumadin, possible GA in the 1980s, pneumonia in 2016 who presented to the ED with shortness of breath, 2-3 weeks of cough, and chest pain, found to have possible pneumonia and pulmonary edema on imaging. -Ceftriaxone and azithromycin IV to treat possible community acquired pneumonia ; convert azithromycin to by mouth when possible -Blood cultures NGTD -f/u sputum cultures -Legionella urinary antigen pending, pneumococcal urinary antigen presumptive negative -Resp panel -Oxygen as needed -supervisor volunteer services/telemetry -Monitor intake and output -Monitor vital signs (2) Atrial fibrillation with RVR ICD Codes: I48.91 - Unspecified atrial fibrillation Plan: Patient in A. fib with RVR overnight. -Cardiology consult, food safety director consult appreciated -Diltiazem CD 240 mg by mouth daily with additional diltiazem when necessary for RVR -Discontinue metoprolol (3) Sepsis ICD Codes: A41.9 - Sepsis, unspecified organism Status: Resolved Plan: Patient p/w leukocytosis, tachycardia, Lactic acid of 3.6, poss pna on imaging. -Patient tolerating by mouth intake -trend lactate: 3.6, 1.9, 1.8 -UA remarkable for 300 glucose, small leukocyte esterase, 19 WBC, culture indicated, with culture and sensitivities to follow -empiric antibiotics: Ceftriaxone and Azithromycin as empiric tx for CAP and UTI ; will consider broadening abx and differential as needed; however, patient has shown remarkable clinical improvement (4) Altered mental status ICD Codes: R41.82 - Altered mental status, unspecified Status: Resolved Plan: Patient with AMS in the context of elevated INR of 3.7. Resolved. -CT head negative for brain bleed -food safety director consult appreciated (5) SOB (shortness of breath) ICD Codes: R06.02 - Shortness of breath Status: Resolved (6) Chest pain ICD Codes: R07.9 - Chest pain Status: Resolved Plan: -ACS rule out with every 6 hours troponin and EKG - negative -Aspirin ND ordered -Oxygen when necessary -Morphine, nitroglycerin when necessary for chest pain -Continue home medications of statin, metoprolol, enalapril -supervisor volunteer services/telemetry -Monitor intake and output -Monitor vital signs (7) Hyperkalemia ICD Codes: E87.5 - Hyperkalemia Status: Resolved Plan: Patient received bicarbonate, insulin and dextrose, calcium gluconate, Kayexalate in the ED. hyperkalemia resolved. -Repeat BMP qam (8) Supratherapeutic INR ICD Codes: R79.1 - Abnormal coagulation profile Status: Resolved Plan: Patient presents with INR of 3.7. INR today of 2.9 at goal. -Restart Coumadin today. Recheck INR tomorrow morning. Consider holding or restarting home anticoagulation depending on INR in the morning. (9) REG (acute kidney injury) ICD Codes: N17.9 - Acute kidney failure, unspecified Status: Resolved Plan: Patient presents with a creatinine of 1.35. BUN to creatinine ratio over 20:1. Last baseline Cr from May 2017 was just under 1. Creatinine from this morning is back at baseline under 1. -Monitor BMP (10) KAYY (obstructive sleep apnea) ICD Codes: G47.33 - Obstructive sleep apnea (adult) (pediatric) Status: Chronic Plan: Patient appears to have undiagnosed KAYY on exam. -CPAP or BiPAP at night (11) A-fib ICD Codes: I48.91 - Unspecified atrial fibrillation Status: Chronic Plan: Patient received diltiazem in emergency department for A. fib with RVR. -Titrate up diltiazem per cardiology (12) Diabetes mellitus type 2 Status: Chronic Plan: -Hold patient's home insulin -Changed from low-dose to medium dose sliding scale insulin with blood glucose monitoring -Continue patient's home medication of gabapentin (13) Hypothyroidism, unspecified ICD Codes: E03.9 - Hypothyroidism, unspecified Status: Chronic Plan: -Continue patient's home medication of levothyroxine 88 g by mouth daily (14) FEN/Prophy Status: Acute Plan: Fluids: No IV fluids as patient is currently tolerating by mouth intake Electrolyte: Monitor and replete/correct Nutrition: Rth dailyegular basic diet as tolerated DVT prophylaxis: Patient currently with INR at goal, resume Coumadin and recheck INR GI prophylaxis: Continue patient's home medication of Protonix 20 mg by mouth (Óscar Fernandez MD R2) Problem Qualifiers (1) Chest pain: Qualified Codes: R07.9 - Chest pain, unspecified (2) A-fib: Qualified Codes: I48.1 - Persistent atrial fibrillation Óscar Fernandez MD R2 Jul 28, 2017 10:40 Rhianna Gramajo MD Jul 28, 2017 17:00
--- NOTE | 2017-07-28 14:03 | EKG ---
Date Performed: 07/27/2017 Time Performed: 12:52:28 PTAGE: 81 years EKG: ATRIAL FIBRILLATION INCOMPLETE RIGHT BUNDLE BRANCH BLOCK MINIMAL VOLTAGE CRITERIA FOR LVH, CONSIDER NORMAL VARIANT NONSPECIFIC T-WAVE ABNORMALITY ABNORMAL RHYTHM ECG Compared to prior tracing no significant change PREVIOUS TRACING : 07/27/2017 01.34 DOCTOR: Robin Engel Interpretating Date/Time 07/28/2017 14:02:50
--- NOTE | 2017-07-28 14:05 | EKG ---
Date Performed: 07/27/2017 Time Performed: 20:12:58 PTAGE: 81 years EKG: ATRIAL FIBRILLATION WITH RAPID VENTRICULAR RESPONSE INCOMPLETE RIGHT BUNDLE BRANCH BLOCK MO DERATE VOLTAGE CRITERIA FOR LVH, CONSIDER NORMAL VARIANT NONSPECIFIC ST & T-WAVE ABNORMALITY ABNORMAL RHYTHM ECG Compared to prior tracing no significant change PREVIOUS TRACING : 07/27/2017 12.52 DOCTOR: Robin Engel Interpretating Date/Time 07/28/2017 14:04:11
[2017-07-28] MEDS: WARFARIN SOD 4 MG TAB PO SCH (16:36)
[2017-07-28] MEDS: GABAPENTIN 400 MG CAP PO SCH (19:55)
[2017-07-29] VITALS (17 sets, daily range): BP systolic 120–187; BP diastolic 72–124; PULSE 81–127; RESP 12–32; TEMP 96.5–98.8; O2SAT 89–100
[2017-07-29] MEDS: cefTRIAXone INJ 1,000 MG in SODIUM CHLORIDE 0.9% INJ 100 ML IV SCH (03:30)
[2017-07-29] MEDS: CHLORHEXIDINE GLUCONATE 2 % 1 PACK (2 CLOTHS) TOP SCH (04:00)
[2017-07-29] MEDS: AZITHROMYCIN INJ 500 MG in SODIUM CHLOR 0.9% 250 ML INJ 250 ML IV SCH (05:33)
[2017-07-29] MEDS: LEVOTHYROXINE SODIUM 88 MCG TAB PO SCH (05:34)
[2017-07-29] MEDS: DILTIAZEM HCL 30 MG TAB PO PRN ×2 (05:34→20:07)
[2017-07-29 06:13] LABS: AUTOMATED NEUTROPHIL # 8.6 TH/MM3 (1.8-7.7); BASOPHIL % 0.3 % (0.0-2.0); EOSINOPHIL # 0.2 TH/MM3 (0-0.4); EOSINOPHIL % 1.9 % (0.0-4.0); HEMATOCRIT 32.8 % (35.0-46.0); HEMO FLAGS DIFF FINAL; LYMPH % 9.6 % (9.0-44.0); MEAN CELL VOLUME 92.7 FL (80.0-100.0); MEAN CORPUSCULAR HGB CONC 32.3 % (32.0-36.0); MONO % 8.8 % (0.0-8.0); NEUT % 79.4 % (16.0-70.0); PLATELET COUNT 173 TH/MM3 (150-450); RED BLOOD COUNT 3.54 MIL/MM3 (4.00-5.30); RED CELL DISTRIBUTION WIDTH 15.3 % (11.6-17.2); WHITE BLOOD COUNT 10.9 TH/MM3 (4.0-11.0)
[2017-07-29 06:28] LABS: INTERNATIONAL NORMALIZED RATIO 2.8 RATIO; PROTHROMBIN TIME - PATIENT 32.1 SEC (9.8-11.6)
[2017-07-29 06:31] LABS: BICARBONATE 30.3 MEQ/L (21.0-32.0); POTASSIUM 3.4 MEQ/L (3.5-5.1)
[2017-07-29] MEDS: INSULIN NovoLIN REGULAR SUPPLEMENTAL SCALE SQ SCH ×3 (07:08→17:25)
--- NOTE | 2017-07-29 07:56 | PD.CARD.PN ---
Subjective Subjective Remarks Pt c/o diarrhea Objective Medications Current Medications Medications (Trade) Dose Ordered Sig/Marcel Route Start Time Stop Time Status Last Admin (Synthroid) 88 mcg DAILY@0600 PO 07/27/17 06:00 07/29/17 05:34 (Protonix) 20 mg DAILY PO 07/27/17 09:00 07/28/17 08:01 (Pravachol) 40 mg DAILY PO 07/27/17 09:00 07/28/17 07:57 (NS Flush) 2 ml UNSCH PRN IV FLUSH 07/27/17 05:00 (NS Flush) 2 ml BID IV FLUSH 07/27/17 09:00 07/28/17 19:55 Ceftriaxone Sodium 1000 mg/ Sodium Chloride 100 ml @ 200 mls/hr Q24H IV 07/28/17 03:30 07/29/17 03:30 Azithromycin 500 mg/Sodium Chloride 250 ml @ 250 mls/hr Q24H IV 07/28/17 04:00 07/29/17 05:33 (Tylenol) 650 mg Q4H PRN PO 07/27/17 05:00 (Zofran Inj) 4 mg Q6H PRN IV 07/27/17 05:00 (Nitrostat Sl) 0.4 mg Q5M PRN SL 07/27/17 05:30 (Colace) 100 mg BID PRN PO 07/27/17 05:30 (Neurontin) 400 mg HS PO 07/27/17 21:00 07/28/17 19:55 (Tylenol) 650 mg Q6H PRN PO 07/27/17 06:00 (Mitchell 5-325 Mg) 1 tab Q4H PRN PO 07/27/17 06:00 (Mitchell 7.5-325 Mg) 1 tab Q4H PRN PO 07/27/17 06:00 (Morphine Inj) 2 mg Q3H PRN IV PUSH 07/27/17 06:00 (Narcan Inj) 0.4 mg UNSCH PRN IV PUSH 07/27/17 06:00 Miscellaneous Information 1 Q361D XX 07/27/17 09:45 (Chlorhexidine 2% Cloth) 3 pack Taper DAILY@04 TOP 07/28/17 04:00 07/24/18 03:59 (Chlorhexidine 2% Cloth) 3 pack UNSCH PRN TOP 07/27/17 09:45 (Cardizem) 30 mg Q4HR PRN PO 07/28/17 07:45 07/29/17 05:34 (Cardizem Cd) 240 mg DAILY PO 07/28/17 09:00 07/28/17 07:57 (D50w (Vial) Inj) 50 ml UNSCH PRN IV 07/28/17 08:30 (Glucagon Inj) 1 mg UNSCH PRN OTHER 07/28/17 08:30 (NovoLIN R SUPPLEMENTAL SCALE) 1 Q6H SQ 07/28/17 08:30 07/29/17 07:08 (Coumadin) 3 mg SuWeFr@1600 PO 07/29/17 16:00 (Coumadin) 4 mg MoTuThSa@1600 PO 07/28/17 16:00 07/28/17 16:36 Vital Signs / I&O Vital Signs Date Time Temp Pulse Resp B/P (MAP) Pulse Ox O2 Delivery O2 Flow Rate FiO2 07/29/17 06:00 127 07/29/17 04:42 100 Nasal Cannula 5.00 07/29/17 04:00 98.1 115 16 158/97 (117) 94 07/29/17 04:00 115 07/29/17 02:00 109 07/29/17 00:25 97 Nasal Cannula 5.00 07/29/17 00:00 98.1 97 18 160/105 (123) 96 07/29/17 00:00 103 07/28/17 22:00 102 07/28/17 21:15 100 45 07/28/17 20:56 98 Nasal Cannula 5.00 07/28/17 20:00 98.1 97 23 159/73 (101) 99 07/28/17 20:00 97 07/28/17 18:00 111 07/28/17 16:00 87 07/28/17 16:00 98.0 87 26 140/98 (112) 100 07/28/17 14:00 84 07/28/17 12:00 81 07/28/17 12:00 98.6 81 23 142/63 (89) 98 07/28/17 10:00 113 07/28/17 09:11 92 Nasal Cannula 5.00 07/28/17 08:00 97.6 138 18 133/96 (108) 100 07/28/17 08:00 138 I/O 07/28/17 07/28/17 07/28/17 07/29/17 07/29/17 07/29/17 07:00 15:00 23:00 07:00 15:00 23:00 Intake Total 480 ml 350 ml 750 ml 600 ml 350 ml Balance 480 ml 350 ml 750 ml 600 ml 350 ml Intake Oral 480 ml 750 ml 600 ml IV Total 350 ml 350 ml # Voids 2 2 6 # Bowel Movements 1 1 Physical Exam GENERAL: Well developed, well nourished. No acute distress. HEENT: Jugular venous pressure is normal. CHEST: Lungs clear to auscultation bilaterally. Unlabored respiratory effort. CARDIAC: irregular rate and rhythm without S3, S4, or murmur. ABDOMEN: Soft, nontender, no hepatosplenomegaly. Bowel sounds present. EXTREMITIES: No clubbing, cyanosis, or edema. Laboratory Laboratory Tests Test 07/29/17 05:06 White Blood Count 10.9 TH/MM3 Red Blood Count 3.54 MIL/MM3 Hemoglobin 10.6 GM/DL Hematocrit 32.8 % Mean Corpuscular Volume 92.7 FL Mean Corpuscular Hemoglobin 30.0 PG Mean Corpuscular Hemoglobin Concent 32.3 % Red Cell Distribution Width 15.3 % Platelet Count 173 TH/MM3 Mean Platelet Volume 8.3 FL Neutrophils (%) (Auto) 79.4 % Lymphocytes (%) (Auto) 9.6 % Monocytes (%) (Auto) 8.8 % Eosinophils (%) (Auto) 1.9 % Basophils (%) (Auto) 0.3 % Neutrophils # (Auto) 8.6 TH/MM3 Lymphocytes # (Auto) 1.0 TH/MM3 Monocytes # (Auto) 1.0 TH/MM3 Eosinophils # (Auto) 0.2 TH/MM3 Basophils # (Auto) 0.0 TH/MM3 CBC Comment DIFF FINAL Differential Comment Prothrombin Time 32.1 SEC Prothromb Time International Ratio 2.8 RATIO Blood Urea Nitrogen 16 MG/DL Creatinine 0.75 MG/DL Random Glucose 175 MG/DL Calcium Level 8.3 MG/DL Sodium Level 136 MEQ/L Potassium Level 3.4 MEQ/L Chloride Level 100 MEQ/L Carbon Dioxide Level 30.3 MEQ/L Anion Gap 6 MEQ/L Estimat Glomerular Filtration Rate 74 ML/MIN Assessment and Plan Assessment and Plan AF- HR still a bit high, increase diltiazem, add dig - on coumadin UTI-antibiotics per primary team AMS- resolved diarrhea- from kayexalate? dispo- ok for tele bed Kourtney Quinones MD Jul 29, 2017 07:56
[2017-07-29] MEDS: PANTOPRAZOLE SOD 20 MG DELAYED RELEASE TAB PO SCH (08:00)
[2017-07-29] MEDS ORDERED: DIGOXIN 0.5 MG/2 ML VIAL IV PUSH ONE (08:00)
[2017-07-29] MEDS: PRAVASTATIN SOD 40 MG TAB PO SCH (08:00)
[2017-07-29] MEDS: SODIUM CHLORIDE 0.9% FLUSH 10 ML FLUSH IV FLUSH SCH ×2 (08:00→23:17)
[2017-07-29] MEDS ORDERED: DILTIAZEM-CD 240 MG CAP ER PO ONE (08:15)
--- NOTE | 2017-07-29 08:46 | HHI.FPPN ---
Subjective Remarks Patient's rate was controlled yesterday up until yesterday evening. She has had A. fib with RVR last night through this morning. Patient complains of diarrhea with 3 episodes today with associated abdominal pain. Ordered stool C diff r/o. Blind Escort Dr. Quinones increased patient's diltiazem to 360 mg today and subsequently 300 mg daily. She also ordered digoxin 0.5 mg IV push 1 today and subsequently 0.25 mg by mouth daily. Echocardiogram was done, but has not been read or entered into EMR yet. Discussed case with attending Dr. Gramajo and radiologist. Patient is unlikely to have pneumonia and likely has diarrhea 2/2 abx. Thus, abx were discontinued. (Óscar Fernandez MD R2) Objective Vitals Vital Signs Date Time Temp Pulse Resp B/P (MAP) Pulse Ox O2 Delivery O2 Flow Rate FiO2 07/29/17 06:00 127 07/29/17 04:42 100 Nasal Cannula 5.00 07/29/17 04:00 98.1 115 16 158/97 (117) 94 07/29/17 04:00 115 07/29/17 02:00 109 07/29/17 00:25 97 Nasal Cannula 5.00 07/29/17 00:00 98.1 97 18 160/105 (123) 96 07/29/17 00:00 103 07/28/17 22:00 102 07/28/17 21:15 100 45 07/28/17 20:56 98 Nasal Cannula 5.00 07/28/17 20:00 98.1 97 23 159/73 (101) 99 07/28/17 20:00 97 07/28/17 18:00 111 07/28/17 16:00 87 07/28/17 16:00 98.0 87 26 140/98 (112) 100 07/28/17 14:00 84 07/28/17 12:00 81 07/28/17 12:00 98.6 81 23 142/63 (89) 98 07/28/17 10:00 113 07/28/17 09:11 92 Nasal Cannula 5.00 I/O 07/28/17 07/28/17 07/28/17 07/29/17 07/29/17 07/29/17 07:00 15:00 23:00 07:00 15:00 23:00 Intake Total 480 ml 350 ml 750 ml 600 ml 350 ml Balance 480 ml 350 ml 750 ml 600 ml 350 ml Intake Oral 480 ml 750 ml 600 ml IV Total 350 ml 350 ml # Voids 2 2 6 # Bowel Movements 1 1 (Óscar Fernandez MD R2) Result Diagram: 07/29/17 0506 07/29/17 0506 Imaging Last Impressions Chest X-Ray 07/27/17 0137 Signed Impressions: Service Date/Time: Thursday, July 27, 2017 01:45 - CONCLUSION: Cardiomegaly with bibasilar infiltrates. Pulmonary edema suspected. Ricardo Butler Jr., MD Aorta CTA 07/27/17 0137 Signed Impressions: Service Date/Time: Thursday, July 27, 2017 03:19 - CONCLUSION: 1. No aortic dissection. 2. Cardiomegaly with bilateral ground glass pulmonary infiltrates and small effusions. This likely relates to a component of pulmonary edema. I cannot exclude infectious infiltrates. Ricardo Butler Jr., MD Head CT 07/27/17 0000 Signed Impressions: Service Date/Time: Thursday, July 27, 2017 14:28 - CONCLUSION: Negative for acute process. Doroteo Perez MD FACR Chest CT 07/27/17 0000 Signed Impressions: Service Date/Time: Thursday, July 27, 2017 14:32 - CONCLUSION: Small bilateral pleural effusions larger on the right minimal bibasilar parenchymal changes. There is no significant consolidation. There is no radiographically significant adenopathy. Doroteo Perez MD FACR Objective Remarks GENERAL: Well-nourished, well-developed elderly female patient, awake and alert, smiling, pleasant, joking. SKIN: Warm and dry. There is one area of skin tear on the right anterior green. HEAD: Normocephalic. EYES: No scleral icterus. No injection or drainage. NECK: Supple, trachea midline. No JVD or lymphadenopathy. CARDIOVASCULAR: Tachycardic irregularly irregular rate and rhythm without murmurs, gallops, or rubs. RESPIRATORY: Breath sounds equal bilaterally. No accessory muscle use. GASTROINTESTINAL: Abdomen soft, non-tender, nondistended. EXTREMITIES: No cyanosis, or edema. NEUROLOGICAL: Awake, alert, and oriented x 3. Non-focal. (Ósacr Fernandez MD R2) A/P Assessment and Plan Patient is an 81-year-old female with a history of A. fib, on Coumadin, possible [place] in the 1980s, pneumonia in 2016 who presented to the ED with shortness of breath, cough, and chest pain, found to have likely stress reaction and pulmonary edema on imaging. Admitted to inpatient for w/u of her SOB and rate control of her A. fib with RVR. Discharge Planning Anticipate discharge after titrating up medications until resolution of A. fib with RVR (Óscar Fernandez MD R2) Attending Attestation The exam, history, and the medical decision-making described in the above note were completed with the assistance of the resident physician. I reviewed and agree with the findings presented. I attest that I had a [id number] encounter with the patient on the same day.. (Rhianna Gramajo MD) Problem List: (1) Atrial fibrillation with RVR ICD Codes: I48.91 - Unspecified atrial fibrillation Plan: Patient in A. fib with RVR overnight. -Cardiology consult, assembler for puller over machine consult appreciated: Blind Escort Dr. Quinones increased patient's diltiazem to 360 mg today and subsequently 300 mg daily. She also ordered digoxin 0.5 mg IV push 1 today and subsequently 0.25 mg by mouth daily. -With rate control, plan to transfer patient out of ICU to [facility] -PT consult -Wean off oxygen -patient monitor/telemetry -Monitor intake and output -Monitor vital signs (2) Diarrhea ICD Codes: R19.7 - Diarrhea, unspecified Plan: Patient complains of diarrhea with 3 episodes today with associated abdominal pain. -stool C diff PCR (3) Pneumonia ICD Codes: J18.9 - Pneumonia, unspecified organism Status: Resolved Plan: -Discontinue ceftriaxone and azithromycin IV (from 07/28 - 07/29) to treat possible community acquired pneumonia; these antibiotics were started in the ED and were continued pending clinical improvement. Discussed case with radiologist who did not believe patient had an infectious pneumonia, but rather only pulmonary edema. Furthermore, patient has diarrhea today likely 2/2 abx. -Blood cultures NGTD; urine cx NGTD -Legionella urinary antigen presumptive negative, pneumococcal urinary antigen presumptive negative (4) KAYY (obstructive sleep apnea) ICD Codes: G47.33 - Obstructive sleep apnea (adult) (pediatric) Status: Chronic Plan: Patient appears to have undiagnosed KAYY on exam. -CPAP or BiPAP at night (5) A-fib ICD Codes: I48.91 - Unspecified atrial fibrillation Status: Chronic Plan: -Titrate up diltiazem and digoxin per cardiology -Continue home Coumadin (6) Diabetes mellitus type 2 Status: Chronic Plan: -Hold patient's home insulin -Medium dose sliding scale insulin with blood glucose monitoring -Continue patient's home medication of gabapentin (7) Hypothyroidism, unspecified ICD Codes: E03.9 - Hypothyroidism, unspecified Status: Chronic Plan: -Continue patient's home medication of levothyroxine 88 g by mouth daily (8) FEN/Prophy Status: Acute Plan: Fluids: No IV fluids as patient is currently tolerating by mouth intake Electrolyte: Monitor and replete/correct Nutrition: Regular basic diet as tolerated DVT prophylaxis: Patient currently with INR at goal, resume Coumadin and recheck INR GI prophylaxis: Continue patient's home medication of Protonix 20 mg by mouth (Óscar Fernandez MD R2) Problem Qualifiers (1) A-fib: Qualified Codes: I48.1 - Persistent atrial fibrillation Óscar Fernandez MD R2 Jul 29, 2017 08:46 Rhianna Gramajo MD Jul 30, 2017 08:11
--- NOTE | 2017-07-29 08:55 | HHI.CCPN ---
Subjective Remarks/Hospital Course The patient is an 81-year-old female with multiple medical co-morbidities which include coronary artery disease, atrial fibrillation on Coumadin, hypertension, diabetes mellitus, hyperlipidemia and hypothyroidism. She presented to [facility] ED earlier this morning with respiratory distress and lethargy. Also, per the ED records, the patient reports a nonproductive cough. She denies any constitutional symptoms. Most of the history was obtained from reviewing medical records as patient is a poor historian. On arrival to the ER she was tachycardic and her EKG showed atrial fibrillation with rapid ventricular response at a rate of 129 beats per minute. Her laboratory data is significant for acute renal failure with a BUN 31, creatinine 1.35 and hyperkalemia with potassium level 6.4. Also she had mild elevation of lactic acid at 3.6 and leukocytosis with a WBC of 13.2. She was placed on BiPAP 10/5 with 35% FIO2 and ABG was performed at 1:35 this morning which showed a pH of 7.41, CO2 31, PAO2 64, bicarb 19, sats 89%. Chest x-ray In the ER showed cardiomegaly with bibasilar infiltrates. Also, she had a CTA of the aorta which showed no aortic dissection, however, it showed cardiomegaly with bilateral ground-glass pulmonary infiltrates and small effusion. She was initially admitted to the family medicine team. The patient is on Coumadin as stated above and her INR was 3.7. In the ED she was given Rocephin and Zithromax and her hyperkalemia was treated with 10 units of IV insulin D50, 2 grams of calcium gluconate, bicarb and Kayexalate. She also received Cardizem 20 mg IV push for atrial fibrillation. Repeat BMP at 6:26 this morning showed improvement with potassium down to 4.0 and creatinine 0.96 from 1.35. Critical care medicine was consulted for critical care management. When seen in the ICU she is on BiPAP 15/5 with FIO2 of 40% and saturation 96%. The patient is in atrial fibrillation with RVR at a rate of 115 beats per minute and blood pressure of 142/96 with a MAP of 114. 9/19 Patient is more awake and alert lying in bed in NAD. She was in Afib with RVR given Lopressor 5mg IV x2 overnight. Denies any SOB/CP. CT brain yesterday no acute process 07/29; Sitting up in chair, remains in atrial fibrillation with RVR. Heart rate varying from 110-120. Cardizem PO increased today and placed on scheduled digoxin by Dr. Quinones Objective Vital Signs Date Time Temp Pulse Resp B/P (MAP) Pulse Ox O2 Delivery O2 Flow Rate FiO2 07/29/17 06:00 127 07/29/17 04:42 100 Nasal Cannula 5.00 07/29/17 04:00 98.1 16 158/97 (117) 07/28/17 21:15 45 Intake and Output 07/29/17 07/29/17 07/30/17 08:00 16:00 00:00 Intake Total 950 ml Balance 950 ml Result Diagram: 07/29/17 0506 07/29/17 0506 Other Results Microbiology Date/Time Source Procedure Growth Status 07/27/17 14:25 Urine Clean Catch Legionella Antigen - Final PRESUMPTIVE NEGATIVE FOR LEGIONELLA P... Complete 07/27/17 14:25 Urine Clean Catch Streptococcus pneumoniae Antigen (M - Final PRESUMPTIVE NEGATIVE FOR STREPTOCOCCU... Complete Imaging Last Impressions Chest X-Ray 07/27/17136 Signed Impressions: Service Date/Time: Thursday, July 27, 2017 01:45 - CONCLUSION: Cardiomegaly with bibasilar infiltrates. Pulmonary edema suspected. Ricardo Butler Jr., MD Aorta CTA 07/27/17136 Signed Impressions: Service Date/Time: Thursday, July 27, 2017 03:19 - CONCLUSION: 1. No aortic dissection. 2. Cardiomegaly with bilateral ground glass pulmonary infiltrates and small effusions. This likely relates to a component of pulmonary edema. I cannot exclude infectious infiltrates. Ricardo Butler Jr., MD Head CT 07/27/17 0000 Signed Impressions: Service Date/Time: Thursday, July 27, 2017 14:28 - CONCLUSION: Negative for acute process. Dorotoe Perez MD FACR Chest CT 07/27/17 0000 Signed Impressions: Service Date/Time: Thursday, July 27, 2017 14:32 - CONCLUSION: Small bilateral pleural effusions larger on the right minimal bibasilar parenchymal changes. There is no significant consolidation. There is no radiographically significant adenopathy. Doroteo Perez MD FACR Objective Remarks GENERAL: Patient is 81 yo lying in bed in NAD SKIN: Warm and dry. HEAD: Normocephalic. EYES: No scleral icterus. No injection or drainage. NECK: Supple, trachea midline. No JVD or lymphadenopathy. CARDIOVASCULAR: Tachycardic, Irregular without murmurs, gallops, or rubs. HR in mid 120s RESPIRATORY: Breath sounds equal bilaterally. No accessory muscle use. GASTROINTESTINAL: Abdomen soft, non-tender, nondistended. MUSCULOSKELETAL: No cyanosis, or edema. BACK: Nontender without obvious deformity. No CVA tenderness. Neuro: Awake and alert. Following commands no focal deficits A/P Assessment and Plan 1. Acute hypoxemic respiratory failure-resolved 2. Atrial fibrillation with rapid ventricular response. 3. Lactic acidemia 4. Hypertension. 5. Hyperglycemia with underlying history of diabetes mellitus. 6. Acute kidney injury, improving with IV fluids. 7. Hyponatremia. 8. Mild leukocytosis. 9. Hypothyroidism. 10.Hyperlipidemia. Plan Neuro: Monitor neuro status closely and avoid any sedatives. CT brain: No acute intracranial process. Pulm: Continue with oxygen to maintain sats above 92%. Bronchodilators, NIPPV PRN for resp distress CT chest: Small bilateral pleural effusions larger on the right minimal bibasilar parenchymal changes. There is no significant consolidation. CV: Monitor HR and BP and maintain MAP>65mmHg On Cardizem CD 360 mg daily, digoxin 0.25 mg daily, and Pravachol 40 mg daily. Give Cardizem 20 mg IVP today Cards Dr. Quinones For 2-D echo to evaluate LV function. Her last echo was in January 2016 which showed an EF of 60-65%. : Monitor renal function, I's and O's, and electrolyte replacement as needed. GI: On Protonix 20 mg daily. heart healthy diet ID: Continue abx (Rocephin and Zithromax) and monitor for signs of infections( fever and WBC). Blood, urine, strep pneumoniae and Legionella urinary antigen negative Endo: SSI medium scale with Accu-Chek q.6h. for glycemic control. Continue with Synthroid 88 mcg daily. TSH: 2.2 Heme: Monitor CBC and coags- on Coumadin , INR 2.8 today GI prophylaxis with Protonix 20 mg daily and DVT prophylaxis with SCDs/Coumadin INR 2.8 today Level 3 Transfer to [facility] if ok with Jose A Ayala MD Jul 29, 2017 08:55
[2017-07-29] MEDS ORDERED: DILTIAZEM-CD 120 MG CAP ER PO ONE (09:00)
[2017-07-29] MEDS ORDERED: METOPROLOL TARTRATE 5 MG/5 ML VIAL IV PUSH ONE (09:15)
[2017-07-29] MEDS ORDERED: DILTIAZEM HCL 25 MG/5 ML VIAL IV PUSH ONE (11:15)
--- NOTE | 2017-07-29 11:24 | ECHRPT ---
Indication: EVALUATE LV FUNC CONCLUSIONS Normal left ventricular size. Wall thickness is normal. This study was not technically sufficient to allow for evaluation of left ventricular diastolic func tion. The right ventricle is moderately dilated. The left atrial size is rnzmdqos-on-tdjynruo dilated. The right atrial size is moderately dilated. The interatrial septum not well visualized. Moderate mitral valve regurgitation. Mitral annular calcification is present. There is moderate tricuspid regurgitation. There is estimated moderate pulmonary hypertension present (range 50-60 mmHg). Trivial pulmonary valve regurgitation. The inferior vena cava was not well visualized. BP: / HR: Rhythm: Sinus MEASUREMENTS (Male / Female) Normal Values Technical Quality:Technically difficult study 2D ECHO LV Diastolic Diameter PLAX 4.8 cm 4.2 - 5.9 / 3.9 - 5.3 cm LV Systolic Diameter PLAX 3.4 cm IVS Diastolic Thickness 0.8 cm 0.6 - 1.0 / 0.6 - 0.9 cm LVPW Diastolic Thickness 0.8 cm 0.6 - 1.0 / 0.6 - 0.9 cm LV Relative Wall Thickness 0.3 LVOT Diameter 2.0 cm Aortic Root Diameter 2.9 cm LA Systolic Diameter LX 4.4 cm 3.0 - 4.0 / 2.7 - 3.8 cm M-MODE AV Cusp Separation MM 1.7 cm DOPPLER AV Peak Velocity 119.3 cm/s AV Peak Gradient 5.7 mmHg AV Mean Gradient 3.5 mmHg AV Velocity Time Integral 18.6 cm LVOT Peak Velocity 50.7 cm/s LVOT Peak Gradient 1.0 mmHg LVOT Velocity Time Integral 7.8 cm AV Area Cont Eq vti 1.3 cm AV Area Cont Eq pk 1.3 cm Mitral E Point Velocity 111.0 cm/s LV E' Lateral Velocity 12.4 cm/s Mitral E to LV E' Lateral Ratio 9.0 LV E' Septal Velocity 8.5 cm/s Mitral E to LV E' Septal Ratio 13.1 TR Peak Velocity 350.0 cm/s TR Peak Gradient 49.0 mmHg Right Atrial Pressure 10.0 mmHg Pulmonary Artery Systolic Pressu 59.0 mmHg Right Ventricular Systolic Press 59.0 mmHg PV Peak Velocity 61.9 cm/s PV Peak Gradient 1.5 mmHg FINDINGS LEFT VENTRICLE Normal left ventricular size. Wall thickness is normal. The left ventricular systolic function is normal with an estimated ejection fraction in the range of 60-65%. This study was not technically sufficient to allow for evaluation of left ventricular diastolic func tion. RIGHT VENTRICLE The right ventricle is moderately dilated. LEFT ATRIUM The left atrial size is kufeoojq-sf-wfmxlvyz dilated. RIGHT ATRIUM The right atrial size is moderately dilated. ATRIAL SEPTUM The interatrial septum not well visualized. AORTA The aortic root and proximal ascending aorta are normal in size on limited imaging. MITRAL VALVE Moderate mitral valve regurgitation. Mitral annular calcification is present. AORTIC VALVE Trileaflet aortic valve. No aortic valve stenosis or regurgitation. TRICUSPID VALVE There is moderate tricuspid regurgitation. There is estimated moderate pulmonary hypertension present (range 50-60 mmHg). PULMONARY VALVE Trivial pulmonary valve regurgitation. VESSELS The inferior vena cava was not well visualized. PERICARDIUM No pericardial effusion. Donnell Crowe MD (Electronically Signed) Final Date:29 July 2017 11:23
[2017-07-29] MEDS ORDERED: WARFARIN SOD 3 MG TAB PO SCH (16:00)
[2017-07-29 16:41] LABS: C. DIFF EPI 027 PRESUMPTIVE NEGATIVE (NEGATIVE)
[2017-07-29] MEDS: LOPERAMIDE HCL 2 MG CAP PO PRN ×2 (17:02→19:59)
[2017-07-29] MEDS: WARFARIN SOD 3 MG TAB PO SCH (17:03)
[2017-07-29] MEDS: GABAPENTIN 400 MG CAP PO SCH (19:59)
[2017-07-29] MEDS ORDERED: SODIUM PHOSPHATE INJ 30 MMOL in SODIUM CHLOR 0.9% 250 ML INJ 240 ML IV PRN (23:00)
[2017-07-29] MEDS ORDERED: POTASSIUM PHOSPHATE MONOBASIC 500 MG TAB PO PRN (23:00)
[2017-07-29] MEDS ORDERED: POTASSIUM PHOSPHATE INJ 30 MMOL in SODIUM CHLOR 0.9% 250 ML INJ 250 ML IV PRN (23:00)
[2017-07-29] MEDS ORDERED: POTASSIUM PHOSPHATE MONOBASIC 500 MG TAB PO/TUBE PRN (23:00)
[2017-07-29] MEDS ORDERED: POTASSIUM CHLOR 20 MEQ PREMIX 100 ML IV PRN ×2 (23:00)
[2017-07-29] MEDS ORDERED: POTASSIUM CHLOR 40 MEQ PREMIX 100 ML IV PRN ×2 (23:00)
[2017-07-29] MEDS ORDERED: MAGNESIUM OXIDE 400 MG TAB PO PRN (23:00)
[2017-07-29] MEDS ORDERED: POTASSIUM CHLORIDE 25 MEQ EFFERVESCENT TAB PO PRN (23:00)
[2017-07-29] MEDS ORDERED: MAGNESIUM SULFATE INJ 2 GM in SODIUM CHLORIDE 0.9% INJ 96 ML IV PRN (23:00)
[2017-07-29] MEDS ORDERED: MAGNESIUM SULFATE INJ 4 GM in SODIUM CHLORIDE 0.9% INJ 92 ML IV PRN (23:00)
[2017-07-30] VITALS (15 sets, daily range): BP systolic 131–186; BP diastolic 59–85; PULSE 76–99; RESP 12–32; TEMP 97.5–98.8; O2SAT 89–100
[2017-07-30] MEDS: INSULIN NovoLIN REGULAR SUPPLEMENTAL SCALE SQ SCH ×4 (02:30→19:58)
[2017-07-30] MEDS: CHLORHEXIDINE GLUCONATE 2 % 1 PACK (2 CLOTHS) TOP SCH (04:00)
[2017-07-30] MEDS: LEVOTHYROXINE SODIUM 88 MCG TAB PO SCH (06:39)
[2017-07-30] MEDS: DIGOXIN 0.25 MG TAB PO SCH (07:45)
[2017-07-30] MEDS: PANTOPRAZOLE SOD 20 MG DELAYED RELEASE TAB PO SCH (07:46)
[2017-07-30] MEDS: PRAVASTATIN SOD 40 MG TAB PO SCH (07:46)
[2017-07-30] MEDS: SODIUM CHLORIDE 0.9% FLUSH 10 ML FLUSH IV FLUSH SCH ×2 (07:46→19:59)
[2017-07-30] MEDS: DILTIAZEM-CD 300 MG CAP ER PO SCH (07:47)
[2017-07-30] MEDS: AZITHROMYCIN 250 MG TAB PO SCH (07:50)
[2017-07-30 09:01] LABS: HEMATOCRIT 34.1 % (35.0-46.0); MEAN CELL VOLUME 92.2 FL (80.0-100.0); MEAN CORPUSCULAR HEMOGLOBIN 29.4 PG (27.0-34.0); MEAN CORPUSCULAR HGB CONC 31.9 % (32.0-36.0); PLATELET COUNT 184 TH/MM3 (150-450); RED CELL DISTRIBUTION WIDTH 15.4 % (11.6-17.2); REVIEW FLAG FINAL; WHITE BLOOD COUNT 11.9 TH/MM3 (4.0-11.0)
[2017-07-30 09:24] LABS: BICARBONATE 29.1 MEQ/L (21.0-32.0); POTASSIUM 3.9 MEQ/L (3.5-5.1)
--- NOTE | 2017-07-30 11:34 | HHI.FPPN ---
Subjective Remarks Ms Lopez had no acute events overnight. States her has been to visit her daily and sometimes 2 times a day. She is eating and drinking well but has not had her coffee this morning and wants coffee. Denies pain, dizziness, CP, SOB, N/V but has had diarrhea, and no DVT pain. (Thierno Rendon MD R1) Objective Vitals Vital Signs Date Time Temp Pulse Resp B/P (MAP) Pulse Ox O2 Delivery O2 Flow Rate FiO2 07/30/17 10:00 95 07/30/17 08:00 98.3 95 19 175/85 (115) 98 07/30/17 08:00 99 07/30/17 07:52 97 Nasal Cannula 2.00 07/30/17 07:00 98 Nasal Cannula 2.00 07/30/17 06:00 88 07/30/17 04:00 85 07/30/17 04:00 98.4 85 13 132/59 (83) 97 07/30/17 02:00 88 07/30/17 00:00 98.8 88 12 186/85 (118) 89 07/30/17 00:00 88 07/29/17 22:00 99 07/29/17 21:15 100 45 07/29/17 20:20 100 Nasal Cannula 3.00 07/29/17 20:00 97 07/29/17 20:00 98.6 97 22 163/124 (137) 93 07/29/17 19:00 Nasal Cannula 3.00 35 07/29/17 18:00 91 07/29/17 16:00 98.0 87 32 187/72 (110) 94 07/29/17 16:00 87 07/29/17 14:00 81 07/29/17 12:00 96.5 83 19 120/97 (105) 97 07/29/17 12:00 83 07/29/17 11:42 96 Nasal Cannula 4.00 I/O 07/29/17 07/29/17 07/29/17 07/30/17 07/30/17 07/30/17 07:00 15:00 23:00 07:00 15:00 23:00 Intake Total 600 ml 350 ml 750 ml 350 ml Output Total 4 ml 750 ml Balance 600 ml 350 ml 746 ml -400 ml Intake Oral 600 ml 750 ml 350 ml IV Total 350 ml Output Urine Total 4 ml 400 ml Stool Total 350 ml # Voids 6 4 # Bowel Movements 1 3 1 (Thierno Rendon MD R1) Result Diagram: 07/30/17 0800 07/30/17 0800 Objective Remarks GENERAL: Well-nourished, well-developed elderly female patient, awake and alert, smiling, pleasant, joking. SKIN: Warm and dry. There is one area of skin tear on the right anterior green resolving/well healed. HEAD: Normocephalic.Atraumatic. EYES: No scleral icterus. No injection or drainage. NECK: Supple, trachea midline. No JVD or lymphadenopathy. CARDIOVASCULAR: Tachycardic, irregularly irregular rate and rhythm without murmurs, gallops, or rubs. RESPIRATORY: Breath sounds equal bilaterally. No accessory muscle use. GASTROINTESTINAL: Abdomen soft, non-tender, nondistended. EXTREMITIES: No cyanosis, or edema. NEUROLOGICAL: Awake, alert, and oriented x 3. Non-focal. (Thierno Rendon MD R1) Urinary Catheter: No (Thierno Rendon MD R1) A/P Assessment and Plan Patient is an 81-year-old female with a history of A. fib, on Coumadin, possible [place] in the 1980s, pneumonia in 2016 who presented to the ED with shortness of breath, cough, and chest pain, found to have likely stress reaction and pulmonary edema on imaging. Admitted to inpatient for w/u of her SOB and rate control of her A. fib with RVR. 07/30 - pt has been rate controlled in the 80s-90s overnight with elevated BPs on Cardizem 300 mg and Digoxin 0.25 mg Discharge Planning Anticipate discharge after titrating up medications until resolution of A. fib with RVR (Thierno Rendon MD R1) Attending Attestation Patient seen and examined. Case reviewed and discussed with the resident team. Agree with plan of care as discussed with me and documented in the resident note. (Rhianna Gramajo MD) Problem List: (1) Atrial fibrillation with RVR ICD Codes: I48.91 - Unspecified atrial fibrillation Plan: Patient A. fib with RVR controlled overnight w/HR in 80s to 97 -Cardiology consult, informatics developer consult appreciated: Poker In Dr. Quinones increased patient's diltiazem to 360 mg today and subsequently 300 mg daily. She also ordered digoxin 0.5 mg IV push 1 today and subsequently 0.25 mg by mouth daily. -With rate control, plan to transfer patient out of ICU to [facility]IC -PT consult -- recommends either dc to rehab which pt does not want, or home with home health which pt prefers -CM consult for PT with Home Health -Move to floor and encourage OOB w/assist/assess for readiness to dc -Wean off oxygen -- on 2L NC this morning -last model department supervisor/telemetry -Monitor intake and output -Monitor vital signs (2) Diarrhea ICD Codes: R19.7 - Diarrhea, unspecified Plan: Patient complains of diarrhea with 3 episodes today with associated abdominal pain. -stool C diff PCR negative -Loperamide 2mg q4h PO PRN (3) Pneumonia ICD Codes: J18.9 - Pneumonia, unspecified organism Status: Resolved Plan: -Discontinue ceftriaxone and azithromycin IV (from 07/28 - 07/29) to treat possible community acquired pneumonia; these antibiotics were started in the ED and were continued pending clinical improvement. Discussed case with radiologist who did not believe patient had an infectious pneumonia, but rather only pulmonary edema. Furthermore, patient has diarrhea today likely 2/2 abx. -Blood cultures NGTD; urine cx NGTD -Legionella urinary antigen presumptive negative, pneumococcal urinary antigen presumptive negative (4) KAYY (obstructive sleep apnea) ICD Codes: G47.33 - Obstructive sleep apnea (adult) (pediatric) Status: Chronic Plan: Patient appears to have undiagnosed KAYY on exam. -CPAP or BiPAP at night (5) A-fib ICD Codes: I48.91 - Unspecified atrial fibrillation Status: Chronic Plan: -Titrate up diltiazem and digoxin per cardiology--on Cardizem 300 mg day and Digoxin 0.25 mg day -Continue home Coumadin (6) Diabetes mellitus type 2 Status: Chronic Plan: -Hold patient's home insulin -Medium dose sliding scale insulin with blood glucose monitoring -Continue patient's home medication of gabapentin (7) Hypertension ICD Codes: I10 - Essential (primary) hypertension Status: Acute Plan: Pt with elevated BPs to 180s/90s overnight -Continue (8) Hypothyroidism, unspecified ICD Codes: E03.9 - Hypothyroidism, unspecified Status: Chronic Plan: -Continue patient's home medication of levothyroxine 88 g by mouth daily (9) FEN/Prophy Status: Acute Plan: Fluids: No IV fluids as patient is currently tolerating by mouth intake Electrolyte: Monitor and replete/correct Nutrition: Regular basic diet as tolerated DVT prophylaxis: Patient currently with INR at goal, resume Coumadin-->INR 2.8 on 07/29 GI prophylaxis: Continue patient's home medication of Protonix 20 mg by mouth (Thierno Rendon MD R1) Problem Qualifiers (1) A-fib: Qualified Codes: I48.1 - Persistent atrial fibrillation Thierno Rendon MD R1 Jul 30, 2017 11:34 Rhianna Gramajo MD Jul 31, 2017 10:09
[2017-07-30] MEDS: WARFARIN SOD 4 MG TAB PO SCH (15:59)
[2017-07-30] MEDS: GABAPENTIN 400 MG CAP PO SCH (19:59)
[2017-07-30] MEDS: INSULIN DETEMIR 100 UNITS/ML VIAL SQ SCH (19:59)
[2017-07-31] VITALS (7 sets, daily range): BP systolic 118–155; BP diastolic 59–85; PULSE 84–94; RESP 18–20; TEMP 97.5–98.4; O2SAT 94–100
[2017-07-31] MEDS: INSULIN NovoLIN REGULAR SUPPLEMENTAL SCALE SQ SCH ×3 (03:07→14:30)
[2017-07-31] MEDS: CHLORHEXIDINE GLUCONATE 2 % 1 PACK (2 CLOTHS) TOP SCH (03:28)
[2017-07-31] MEDS: LEVOTHYROXINE SODIUM 88 MCG TAB PO SCH (05:22)
--- NOTE | 2017-07-31 07:12 | PD.CARD.PN ---
Subjective Subjective Remarks PT without complaints Objective Medications Current Medications Medications (Trade) Dose Ordered Sig/Marcel Route Start Time Stop Time Status Last Admin (Synthroid) 88 mcg DAILY@0600 PO 07/27/17 06:00 07/31/17 05:22 (Protonix) 20 mg DAILY PO 07/27/17 09:00 07/30/17 07:46 (Pravachol) 40 mg DAILY PO 07/27/17 09:00 07/30/17 07:46 (NS Flush) 2 ml UNSCH PRN IV FLUSH 07/27/17 05:00 (NS Flush) 2 ml BID IV FLUSH 07/27/17 09:00 07/30/17 19:59 (Tylenol) 650 mg Q4H PRN PO 07/27/17 05:00 (Zofran Inj) 4 mg Q6H PRN IV 07/27/17 05:00 (Nitrostat Sl) 0.4 mg Q5M PRN SL 07/27/17 05:30 (Colace) 100 mg BID PRN PO 07/27/17 05:30 (Neurontin) 400 mg HS PO 07/27/17 21:00 07/30/17 19:59 (Tylenol) 650 mg Q6H PRN PO 07/27/17 06:00 (Iva 5-325 Mg) 1 tab Q4H PRN PO 07/27/17 06:00 (Iva 7.5-325 Mg) 1 tab Q4H PRN PO 07/27/17 06:00 (Morphine Inj) 2 mg Q3H PRN IV PUSH 07/27/17 06:00 (Narcan Inj) 0.4 mg UNSCH PRN IV PUSH 07/27/17 06:00 Miscellaneous Information 1 Q361D XX 07/27/17 09:45 (Chlorhexidine 2% Cloth) 3 pack Taper DAILY@04 TOP 07/28/17 04:00 07/24/18 03:59 (Chlorhexidine 2% Cloth) 3 pack UNSCH PRN TOP 07/27/17 09:45 (Cardizem) 30 mg Q4HR PRN PO 07/28/17 07:45 07/29/17 20:07 (D50w (Vial) Inj) 50 ml UNSCH PRN IV 07/28/17 08:30 (Glucagon Inj) 1 mg UNSCH PRN OTHER 07/28/17 08:30 (NovoLIN R SUPPLEMENTAL SCALE) 1 Q6H SQ 07/28/17 08:30 07/31/17 03:07 (Coumadin) 3 mg SuWeFr@1600 PO 07/29/17 16:00 07/29/17 17:03 (Coumadin) 4 mg MoTuThSa@1600 PO 07/28/17 16:00 07/30/17 15:59 (Cardizem Cd) 300 mg DAILY PO 07/30/17 09:00 07/30/17 07:47 (Lanoxin) 0.25 mg DAILY PO 07/30/17 09:00 07/30/17 07:45 (Imodium) 2 mg Q4H PRN PO 07/29/17 08:45 07/29/17 19:59 (Zithromax) 500 mg DAILY PO 07/30/17 09:00 07/30/17 07:50 Potassium Chloride 100 ml @ 50 mls/hr Q2H PRN IV 07/29/17 23:00 Potassium Chloride 100 ml @ 50 mls/hr Q2H PRN IV 07/29/17 23:00 07/29/17 23:18 (K-Lyte Cl Eff) 50 meq UNSCH PRN PO 07/29/17 23:00 Potassium Chloride 100 ml @ 25 mls/hr UNSCH PRN IV 07/29/17 23:00 Potassium Chloride 100 ml @ 50 mls/hr Q2H PRN IV 07/29/17 23:00 07/30/17 01:07 Magnesium Sulfate 4 gm/Sodium Chloride 100 ml @ 50 mls/hr UNSCH PRN IV 07/29/17 23:00 (Mag-Ox) 800 mg UNSCH PRN PO 07/29/17 23:00 Magnesium Sulfate 2 gm/Sodium Chloride 100 ml @ 50 mls/hr UNSCH PRN IV 07/29/17 23:00 (K-Phos) 2,000 mg Q4H PRN PO 07/29/17 23:00 Sodium Phosphate 30 mmol/Sodium Chloride 250 ml @ 42 mls/hr UNSCH PRN IV 07/29/17 23:00 (K-Phos) 2,000 mg UNSCH PRN PO/TUBE 07/29/17 23:00 Potassium Phosphate 30 mmol/ Sodium Chloride 260 ml @ 42 mls/hr UNSCH PRN IV 07/29/17 23:00 (Levemir Inj) 6 units Q12HR SQ 07/30/17 21:00 07/30/17 19:59 Vital Signs / I&O Vital Signs Date Time Temp Pulse Resp B/P (MAP) Pulse Ox O2 Delivery O2 Flow Rate FiO2 07/31/17 04:00 98.4 84 20 130/59 (82) 96 07/31/17 00:00 97.9 88 20 118/83 (95) 100 07/30/17 22:40 96 07/30/17 22:15 98.0 76 20 153/67 (95) 100 07/30/17 22:00 82 07/30/17 20:00 83 07/30/17 20:00 98.4 83 15 166/70 (102) 97 07/30/17 19:00 97 Nasal Cannula 2.00 07/30/17 18:00 86 07/30/17 16:00 98.2 81 32 131/62 (85) 98 07/30/17 16:00 81 07/30/17 14:00 83 07/30/17 12:00 97 07/30/17 12:00 97.5 85 29 145/69 (94) 98 07/30/17 10:00 95 07/30/17 08:00 98.3 95 19 175/85 (115) 98 07/30/17 08:00 99 07/30/17 07:52 97 Nasal Cannula 2.00 I/O 07/30/17 07/30/17 07/30/17 07/31/17 07/31/17 07/31/17 07:00 15:00 23:00 07:00 15:00 23:00 Intake Total 350 ml 480 ml 240 ml Output Total 750 ml Balance -400 ml 480 ml 240 ml Intake Oral 350 ml 480 ml 240 ml Output Urine Total 400 ml Stool Total 350 ml # Voids 4 3 2 # Bowel Movements 1 0 0 Physical Exam GENERAL: Well developed, well nourished. No acute distress. HEENT: Jugular venous pressure is normal. CHEST: Lungs clear to auscultation bilaterally. Unlabored respiratory effort. CARDIAC: irregular rate and rhythm without S3, S4, or murmur. ABDOMEN: Soft, nontender, no hepatosplenomegaly. Bowel sounds present. EXTREMITIES: No clubbing, cyanosis, or edema. Laboratory Laboratory Tests Test 07/30/17 08:00 White Blood Count 11.9 TH/MM3 Red Blood Count 3.70 MIL/MM3 Hemoglobin 10.9 GM/DL Hematocrit 34.1 % Mean Corpuscular Volume 92.2 FL Mean Corpuscular Hemoglobin 29.4 PG Mean Corpuscular Hemoglobin Concent 31.9 % Red Cell Distribution Width 15.4 % Platelet Count 184 TH/MM3 Mean Platelet Volume 8.3 FL Blood Urea Nitrogen 9 MG/DL Creatinine 0.72 MG/DL Random Glucose 191 MG/DL Calcium Level 8.3 MG/DL Sodium Level 139 MEQ/L Potassium Level 3.9 MEQ/L Chloride Level 104 MEQ/L Carbon Dioxide Level 29.1 MEQ/L Anion Gap 6 MEQ/L Estimat Glomerular Filtration Rate 77 ML/MIN Assessment and Plan Assessment and Plan AF- good HR control on present meds - on coumadin UTI-antibiotics per primary team AMS- resolved dispo- ok for D/c if HR < 115 with ambulation -follow up in 1 week Kourtney Quinones MD Jul 31, 2017 07:12
[2017-07-31 07:45] LABS: HEMATOCRIT 34.7 % (35.0-46.0); MEAN CORPUSCULAR HEMOGLOBIN 30.4 PG (27.0-34.0); MEAN CORPUSCULAR HGB CONC 33.1 % (32.0-36.0); PLATELET COUNT 200 TH/MM3 (150-450); RED BLOOD COUNT 3.77 MIL/MM3 (4.00-5.30); RED CELL DISTRIBUTION WIDTH 14.8 % (11.6-17.2); REVIEW FLAG FINAL; WHITE BLOOD COUNT 10.8 TH/MM3 (4.0-11.0)
[2017-07-31 08:06] LABS: BICARBONATE 28.5 MEQ/L (21.0-32.0); POTASSIUM 3.4 MEQ/L (3.5-5.1)
[2017-07-31] MEDS: INSULIN DETEMIR 100 UNITS/ML VIAL SQ SCH (09:00)
[2017-07-31] MEDS: DILTIAZEM-CD 300 MG CAP ER PO SCH (09:00)
[2017-07-31] MEDS: DIGOXIN 0.25 MG TAB PO SCH (09:00)
[2017-07-31] MEDS: PRAVASTATIN SOD 40 MG TAB PO SCH (09:00)
[2017-07-31] MEDS: PANTOPRAZOLE SOD 20 MG DELAYED RELEASE TAB PO SCH (09:00)
[2017-07-31] MEDS: AZITHROMYCIN 250 MG TAB PO SCH (09:00)
[2017-07-31] MEDS: SODIUM CHLORIDE 0.9% FLUSH 10 ML FLUSH IV FLUSH SCH (09:00)
[2017-07-31] MEDS ORDERED: POTASSIUM CHLORIDE 20 MEQ CONTROLLED RELEASE TAB PO ONE (10:00)
--- NOTE | 2017-07-31 13:18 | HHI.FPPN ---
Subjective Remarks Ms Lopez had no acute events overnight. HR appears to be controlled on Cardizem and digoxin (96 high/ 84 low); mildly hypertensive to 153/67 overnight that normalized this morning. No complaint of diarrhea today. Pt denies CP, SOB , N/V, and DVT pain. Dr Quinones indicates she is ok with pt going home if walk test HR <115 on room air and no O2 desaturation. (Thierno Rendon MD R1) Objective Vitals Vital Signs Date Time Temp Pulse Resp B/P (MAP) Pulse Ox O2 Delivery O2 Flow Rate FiO2 07/31/17 12:00 97.5 84 18 149/85 (106) 97 07/31/17 08:02 99 Nasal Cannula 2.00 07/31/17 08:00 98.4 93 18 150/71 (97) 99 07/31/17 04:00 98.4 84 20 130/59 (82) 96 07/31/17 00:00 97.9 88 20 118/83 (95) 100 07/30/17 22:40 96 07/30/17 22:15 98.0 76 20 153/67 (95) 100 07/30/17 22:00 82 07/30/17 20:00 83 07/30/17 20:00 98.4 83 15 166/70 (102) 97 07/30/17 19:00 97 Nasal Cannula 2.00 07/30/17 18:00 86 07/30/17 16:00 98.2 81 32 131/62 (85) 98 07/30/17 16:00 81 07/30/17 14:00 83 I/O 07/30/17 07/30/17 07/30/17 07/31/17 07/31/17 07/31/17 07:00 15:00 23:00 07:00 15:00 23:00 Intake Total 350 ml 480 ml 240 ml Output Total 750 ml Balance -400 ml 480 ml 240 ml Intake Oral 350 ml 480 ml 240 ml Output Urine Total 400 ml Stool Total 350 ml # Voids 4 3 2 # Bowel Movements 1 0 0 (Thierno Rendon MD R1) Result Diagram: 07/31/1772207/31/17722 Objective Remarks GENERAL: Well-nourished, well-developed elderly female patient, awake and alert, smiling, pleasant, joking. SKIN: Warm and dry. There is one area of skin tear on the right anterior green resolving/well healed. HEAD: Normocephalic.Atraumatic. EYES: No scleral icterus. No injection or drainage. NECK: Supple, trachea midline. No JVD or lymphadenopathy. No meningeal signs. CARDIOVASCULAR: regular rate and rhythm without murmurs, gallops, or rubs. RESPIRATORY: Breath sounds equal bilaterally. No accessory muscle use. No increased WOB. GASTROINTESTINAL: Abdomen soft, non-tender, nondistended. Normal BS. EXTREMITIES: No cyanosis, or edema. NEUROLOGICAL: Awake, alert, and oriented x 3. Non-focal. Medications and IVs Current Medications Medications (Trade) Dose Ordered Sig/Marcel Route Start Time Stop Time Status Last Admin (Synthroid) 88 mcg DAILY@0600 PO 07/27/17 06:00 07/31/17 05:22 (Protonix) 20 mg DAILY PO 07/27/17 09:00 07/31/17 09:00 (Pravachol) 40 mg DAILY PO 07/27/17 09:00 07/31/17 09:00 (NS Flush) 2 ml UNSCH PRN IV FLUSH 07/27/17 05:00 (NS Flush) 2 ml BID IV FLUSH 07/27/17 09:00 07/31/17 09:00 (Tylenol) 650 mg Q4H PRN PO 07/27/17 05:00 (Zofran Inj) 4 mg Q6H PRN IV 07/27/17 05:00 (Nitrostat Sl) 0.4 mg Q5M PRN SL 07/27/17 05:30 (Colace) 100 mg BID PRN PO 07/27/17 05:30 (Neurontin) 400 mg HS PO 07/27/17 21:00 07/30/17 19:59 (Tylenol) 650 mg Q6H PRN PO 07/27/17 06:00 ([place] 5-325 Mg) 1 tab Q4H PRN PO 07/27/17 06:00 ([place] 7.5-325 Mg) 1 tab Q4H PRN PO 07/27/17 06:00 (Morphine Inj) 2 mg Q3H PRN IV PUSH 07/27/17 06:00 (Narcan Inj) 0.4 mg UNSCH PRN IV PUSH 07/27/17 06:00 Miscellaneous Information 1 Q361D XX 07/27/17 09:45 (Chlorhexidine 2% Cloth) 3 pack Taper DAILY@04 TOP 07/28/17 04:00 07/24/18 03:59 (Chlorhexidine 2% Cloth) 3 pack UNSCH PRN TOP 07/27/17 09:45 (Cardizem) 30 mg Q4HR PRN PO 07/28/17 07:45 07/29/17 20:07 (D50w (Vial) Inj) 50 ml UNSCH PRN IV 07/28/17 08:30 (Glucagon Inj) 1 mg UNSCH PRN OTHER 07/28/17 08:30 (NovoLIN R SUPPLEMENTAL SCALE) 1 Q6H SQ 07/28/17 08:30 07/31/17 03:07 (Coumadin) 3 mg SuWeFr@1600 PO 07/29/17 16:00 07/29/17 17:03 (Coumadin) 4 mg MoTuThSa@1600 PO 07/28/17 16:00 07/30/17 15:59 (Cardizem Cd) 300 mg DAILY PO 07/30/17 09:00 07/31/17 09:00 (Lanoxin) 0.25 mg DAILY PO 07/30/17 09:00 07/31/17 09:00 (Imodium) 2 mg Q4H PRN PO 07/29/17 08:45 07/29/17 19:59 (Zithromax) 500 mg DAILY PO 07/30/17 09:00 07/31/17 09:00 Potassium Chloride 100 ml @ 50 mls/hr Q2H PRN IV 07/29/17 23:00 Potassium Chloride 100 ml @ 50 mls/hr Q2H PRN IV 07/29/17 23:00 07/29/17 23:18 (K-Lyte Cl Eff) 50 meq UNSCH PRN PO 07/29/17 23:00 Potassium Chloride 100 ml @ 25 mls/hr UNSCH PRN IV 07/29/17 23:00 Potassium Chloride 100 ml @ 50 mls/hr Q2H PRN IV 07/29/17 23:00 07/30/17 01:07 Magnesium Sulfate 4 gm/Sodium Chloride 100 ml @ 50 mls/hr UNSCH PRN IV 07/29/17 23:00 (Mag-Ox) 800 mg UNSCH PRN PO 07/29/17 23:00 Magnesium Sulfate 2 gm/Sodium Chloride 100 ml @ 50 mls/hr UNSCH PRN IV 07/29/17 23:00 (K-Phos) 2,000 mg Q4H PRN PO 07/29/17 23:00 Sodium Phosphate 30 mmol/Sodium Chloride 250 ml @ 42 mls/hr UNSCH PRN IV 07/29/17 23:00 (K-Phos) 2,000 mg UNSCH PRN PO/TUBE 07/29/17 23:00 Potassium Phosphate 30 mmol/ Sodium Chloride 260 ml @ 42 mls/hr UNSCH PRN IV 07/29/17 23:00 (Levemir Inj) 6 units Q12HR SQ 07/30/17 21:00 07/31/17 09:00 (Thierno Rendon MD R1) Urinary Catheter: No (Thierno Rendon MD R1) A/P Assessment and Plan Patient is an 81-year-old female with a history of A. fib, on Coumadin, possible AR in the 1980s, pneumonia in 2015 who presented to the ED with shortness of breath, cough, and chest pain, found to have likely stress reaction and pulmonary edema on imaging. Admitted to inpatient for w/u of her SOB and rate control of her A. fib with RVR. 07/30 - pt has been rate controlled in the 80s-90s overnight with elevated BPs on Cardizem 300 mg and Digoxin 0.25 mg 07/31 - moved to floor and has ambulated to bathroom without incident; no more diarrhea; labs indicate slightly low K+ at 3.4--will replete. Ordered walk test vitals with goal for discharge if HR not >110 and O2 sat >92%; also will check INR today as pt on coumadin. Discharge Planning Anticipate discharge after titrating up medications until resolution of A. fib with RVR (Thierno Rendon MD R1) Attending Attestation Patient seen and examined. Case reviewed and discussed with the resident team. Agree with plan of care as discussed with me and documented in the resident note. (Rhianna Gramajo MD) Problem List: (1) Atrial fibrillation with RVR ICD Codes: I48.91 - Unspecified atrial fibrillation Plan: Patient A. fib with RVR controlled overnight w/HR in 80s to 96 -Cardiology consult, associate professor of management consult appreciated: Numerical Control Programmer Dr. Quinones increased patient's diltiazem to 360 mg today and subsequently 300 mg daily. She also ordered digoxin 0.5 mg IV push 1 today and subsequently 0.25 mg by mouth daily. -With rate control, plan to transfer patient out of ICU to [facility] -PT consult -- recommends either dc to rehab which pt does not want, or home with home health which pt prefers -CM consult for PT with Home Health -OOB w/PT and nursing to assess readiness to dc -Wean off oxygen -- weaned this morning -supervisor lathing/telemetry -Monitor intake and output -Monitor vital signs (2) A-fib ICD Codes: I48.91 - Unspecified atrial fibrillation Status: Chronic Plan: -Titrate up diltiazem and digoxin per cardiology--on Cardizem 300 mg day and Digoxin 0.25 mg day -Continue home Coumadin (3) Diabetes mellitus type 2 Status: Chronic Plan: -Hold patient's home insulin -Pt started on Levemir 6 units AM + PM--BG levels at 150s-179 overnight (prior BG levels in 200s-300s w/o basal insulin) -Medium dose sliding scale insulin with blood glucose monitoring -Continue patient's home medication of gabapentin (4) Pneumonia ICD Codes: J18.9 - Pneumonia, unspecified organism Status: Resolved Plan: -Discontinue ceftriaxone and azithromycin IV (from 07/28 - 07/29) to treat possible community acquired pneumonia; these antibiotics were started in the ED and were continued pending clinical improvement. Discussed case with radiologist who did not believe patient had an infectious pneumonia, but rather only pulmonary edema. Furthermore, patient has diarrhea today likely 2/2 abx. -Blood cultures NGTD; urine cx NGTD -Legionella urinary antigen presumptive negative, pneumococcal urinary antigen presumptive negative (5) Diarrhea ICD Codes: R19.7 - Diarrhea, unspecified Status: Resolved Plan: Patient complains of diarrhea with 3 episodes today with associated abdominal pain. -stool C diff PCR negative -Loperamide 2mg q4h PO PRN (6) KAYY (obstructive sleep apnea) ICD Codes: G47.33 - Obstructive sleep apnea (adult) (pediatric) Status: Chronic Plan: Patient appears to have undiagnosed KAYY on exam. -CPAP or BiPAP at night (7) Hypertension ICD Codes: I10 - Essential (primary) hypertension Status: Acute Plan: Pt with mildly elevated BP to 153/67 overnight--control improving -Continue (8) Hypothyroidism, unspecified ICD Codes: E03.9 - Hypothyroidism, unspecified Status: Chronic Plan: -Continue patient's home medication of levothyroxine 88 g by mouth daily (9) FEN/Prophy Status: Acute Plan: Fluids: No IV fluids as patient is currently tolerating by mouth intake Electrolyte: Monitor and replete/correct Nutrition: Regular basic diet as tolerated DVT prophylaxis: Patient currently with INR at goal, resume Coumadin-->INR 2.8 on 07/29; check INR prior to dc GI prophylaxis: Continue patient's home medication of Protonix 20 mg by mouth (Thierno Renodn MD R1) Problem Qualifiers (1) A-fib: Qualified Codes: I48.1 - Persistent atrial fibrillation Thierno Rendon MD R1 Jul 31, 2017 13:18 Rhianna Gramajo MD Jul 31, 2017 13:51
--- NOTE | 2017-07-31 14:31 | HHI.DCPOC ---
Discharge Care Plan Diagnosis: (1) Atrial fibrillation with RVR Goals to Promote Your Health * To prevent worsening of your condition and complications * To maintain your health at the optimal level Directions to Meet Your Goals Take your medications as prescribed Follow your dietary instruction Follow activity as directed Keep your appointments as scheduled Take your immunizations and boosters as scheduled If your symptoms worsen call your PCP, if no PCP go to Urgent Care Center or Emergency Room Smoking is Dangerous to Your Health. Avoid second hand smoke Call the 24-hour hour crisis hotline for domestic abuse at Eric Wells MD, R3 Jul 31, 2017 14:31
--- NOTE | 2017-07-31 14:40 | HHI.FF ---
Face to Face Verification Diagnosis: (1) Atrial fibrillation with RVR Physical Therapy Order: Evaluate and Treat, Improve ambulation, Strength and gait training Home Health Nursing Order: Medical education Signs/symptoms of disease process [employer] Order: To Evaluate: Living conditions/environment I have seen patient Betty Mccormick on 07/31/17. My clinical findings support the need for the requested home health care services because: Ltd mobility - disease progression Deconditioned w/ increased weakness I certify that my clinical findings support that this patient is homebound because: Unsteady gait/balance Eric Wells MD, R3 Jul 31, 2017 14:40
[2017-07-31] MEDS ORDERED: DILT300C3 PO (14:51)
--- NOTE | 2017-07-31 15:01 | HHI.FPPN ---
Addendum to progress note ADDENDUM Reason for addendum: Additonal documentation Additional information Discussed with nursing staff; patient ambulated well on HR/ O2 monitoring. Patient's HR did not increase >100bpm and O2 sat did not drop <91% when ambulating. Since patient has been mildly hypertensive today, HR in 80's, and Cr improved to baseline, will restart home Metoprolol and Enalapril on discharge. Will discuss with patient and CM to confirm HH and f/u labs/cultures Eric Wells MD, R3 Jul 31, 2017 15:01
[2017-07-31 16:03] LABS: INTERNATIONAL NORMALIZED RATIO 2.8 RATIO; PROTHROMBIN TIME - PATIENT 32.4 SEC (9.8-11.6)
[2017-07-31] MEDS: WARFARIN SOD 3 MG TAB PO SCH (17:15)
[2017-08-10] MEDS ORDERED: OXYB5TAB10 PO (10:19)
[2017-08-10] MEDS ORDERED: INSU100V3 SQ (10:19)
[2017-08-10] MEDS ORDERED: METO25TA3 PO (10:53)
[2017-08-10] MEDS ORDERED: ENAL10TA PO (10:53)
[2017-08-10] MEDS ORDERED: DIGO0.25 PO (10:53)
--- NOTE | 2017-08-18 15:08 | HHI.DS ---
Discharge Summary Admission Date Jul 27, 2017 at 04:35 Discharge Date: Jul 31, 2017 Admitting Diagnosis Afib with RVR Recurrent falls O2 desaturation (1) Atrial fibrillation with RVR Diagnosis: Principal Plan: Patient AKd [place] with RVR controlled overnight w/HR in 80s to 96 -Cardiology consult, liquefied natural gas plant operator consult appreciated: Legal Department Manager Dr. Quinones increased patient's diltiazem to 360 mg today and subsequently 300 mg daily. She also ordered digoxin 0.5 mg IV push 1 today and subsequently 0.25 mg by mouth daily. -With rate control, plan to transfer patient out of ICU to [facility] -PT consult -- recommends either dc to rehab which pt does not want, or home with home health which pt prefers -CM consult for PT with Home Health -OOB w/PT and nursing to assess readiness to dc -Wean off oxygen -- weaned this morning -nurse monitoring/telemetry -Monitor intake and output -Monitor vital signs ICD Codes: I48.91 - Unspecified atrial fibrillation (2) A-fib Diagnosis: Principal Plan: -Titrate up diltiazem and digoxin per cardiology--on Cardizem 300 mg day and Digoxin 0.25 mg day -Continue home Coumadin ICD Codes: I48.91 - Unspecified atrial fibrillation Status: Chronic (3) Diabetes mellitus type 2 Diagnosis: Secondary Plan: -Hold patient's home insulin -Pt started on Levemir 6 units AM + PM--BG levels at 150s-179 overnight (prior BG levels in 200s-300s w/o basal insulin) -Medium dose sliding scale insulin with blood glucose monitoring -Continue patient's home medication of gabapentin Status: Chronic (4) Pneumonia Diagnosis: Principal Plan: -Discontinue ceftriaxone and azithromycin IV (from 07/28 - 07/29) to treat possible community acquired pneumonia; these antibiotics were started in the ED and were continued pending clinical improvement. Discussed case with radiologist who did not believe patient had an infectious pneumonia, but rather only pulmonary edema. Furthermore, patient has diarrhea today likely 2/2 abx. -Blood cultures NGTD; urine cx NGTD -Legionella urinary antigen presumptive negative, pneumococcal urinary antigen presumptive negative ICD Codes: J18.9 - Pneumonia, unspecified organism Status: Resolved (5) Diarrhea Diagnosis: Secondary Plan: Patient complains of diarrhea with 3 episodes today with associated abdominal pain. -stool C diff PCR negative -Loperamide 2mg q4h PO PRN ICD Codes: R19.7 - Diarrhea, unspecified Status: Resolved (6) KAYY (obstructive sleep apnea) Diagnosis: Secondary Plan: Patient appears to have undiagnosed KAYY on exam. -CPAP or BiPAP at night ICD Codes: G47.33 - Obstructive sleep apnea (adult) (pediatric) Status: Chronic (7) Hypertension Diagnosis: Secondary Plan: Pt with mildly elevated BP to 153/67 overnight--control improving -Continue ICD Codes: I10 - Essential (primary) hypertension Status: Acute (8) Hypothyroidism, unspecified Diagnosis: Secondary Plan: -Continue patient's home medication of levothyroxine 88 g by mouth daily ICD Codes: E03.9 - Hypothyroidism, unspecified Status: Chronic (9) FEN/Prophy Diagnosis: Secondary Plan: Fluids: No IV fluids as patient is currently tolerating by mouth intake Electrolyte: Monitor and replete/correct Nutrition: Regular basic diet as tolerated DVT prophylaxis: Patient currently with INR at goal, resume Coumadin-->INR 2.8 on 07/29; check INR prior to dc GI prophylaxis: Continue patient's home medication of Protonix 20 mg by mouth Status: Acute Consultants Cardiology - Dr Quinones Design Inserter - Dr Naranjo Brief History Patient is an 81-year-old female with a history of A. fib, on Coumadin, possible [place] in the 1980s, pneumonia in 2016 who presented to the ED with shortness of breath. Unable to obtain much of a history because patient is lying in bed asleep, and every time I wake her she only stays awake for a few seconds before falling back asleep. Furthermore, when she does answer my questions, she is difficult to understand because she is edentulous with dry mouth, and falling asleep. Much of the history is from the ED provider. From ED note: Patient is an 81-year-old female who presents to emergency room with complaints of shortness of breath for the past 2 days. She reports that she has been coughing, reports that her cough is nonproductive in nature. Patient does take Coumadin, reports that she has heart problems including atrial fibrillation. Her pest control supervisor, Dr. Engel put her on this medication because she thinks that she has had a heart attack in the past. Patient reports that she is having chest pain at this time, reports that chest pain feels like a sharp knife going through her back. Imaging Last Impressions Chest X-Ray 07/27/17136 Signed Impressions: Service Date/Time: Thursday, July 27, 2017 01:45 - CONCLUSION: Cardiomegaly with bibasilar infiltrates. Pulmonary edema suspected. Ricardo Butler Jr., MD Aorta CTA [id number]/27/17136 Signed Impressions: Service Date/Time: Thursday, July 27, 2017 03:19 - CONCLUSION: 1. No aortic dissection. 2. Cardiomegaly with bilateral ground glass pulmonary infiltrates and small effusions. This likely relates to a component of pulmonary edema. I cannot exclude infectious infiltrates. Ricardo Butler Jr., MD Head CT 07/27/17 0000 Signed Impressions: Service Date/Time: Thursday, July 27, 2017 14:28 - CONCLUSION: Negative for acute process. Doroteo Perez MD FACR Chest CT 07/27/17 0000 Signed Impressions: Service Date/Time: Thursday, July 27, 2017 14:32 - CONCLUSION: Small bilateral pleural effusions larger on the right minimal bibasilar parenchymal changes. There is no significant consolidation. There is no radiographically significant adenopathy. Doroteo Perez MD FACR PE at Discharge GENERAL: Well-nourished, well-developed elderly female patient, awake and alert, smiling, pleasant, joking. SKIN: Warm and dry. There is one area of skin tear on the right anterior green resolving/well healed. HEAD: Normocephalic.Atraumatic. EYES: No scleral icterus. No injection or drainage. NECK: Supple, trachea midline. No JVD or lymphadenopathy. No meningeal signs. CARDIOVASCULAR: regular rate and rhythm without murmurs, gallops, or rubs. RESPIRATORY: Breath sounds equal bilaterally. No accessory muscle use. No increased WOB. GASTROINTESTINAL: Abdomen soft, non-tender, nondistended. Normal BS. EXTREMITIES: No cyanosis, or edema. NEUROLOGICAL: Awake, alert, and oriented x 3. Non-focal. Hospital Course Patient is an 81-year-old female with a history of A. fib, on Coumadin, [place] in the 1980s, pneumonia in 2016, DM type II, KAYY, and hypothyroid who presented to the ED with shortness of breath and lethargy. In addition, presenting labs showed hyperkalemia to 6.4, WBC at 13.2, uncontrolled DM, and CXR with bilateral ground glass infiltrates. She received Rocephin and azithromycin in the ED as she had suspected pneumonia; however, later it was decided the infiltrate was from pulmonary edema instead and antibiotics were discontinued. Ms Lopez's Afib was uncontrolled with RVR/tachycardia in the high 120s requiring a higher level of care in the ICU until her rate become better controlled, and she became less hypoxic. She was in the process of switching her pest control supervisor to Dr Quinones as an outpatient when she was admitted, so Dr Quinones was consulted and titrated her Cardizem to 300mg day and Digoxin to 0.25mg day. Ms Lopez improved measurably at that point and was transferred out of the ICU, weaned off of supplemental O2, and was encouraged to get OOB and ambulating. PT/OT indicated she needed to discharge to a SNF or to home with home PT. Ms Lopez chose the latter option. During her hospitalization, her blood sugars were routinely in the 200-300 range, and once her Afib was controlled, we started Levemir 6 units AM and 6u nits PM to get her blood sugars controlled. She was able to ambulate the hallways with assistance without supplemental O2, and there were no desaturations. She discharged in stable condition. Pt Condition on Discharge: Stable Discharge Disposition: Disch w/ Home Health Serv Discharge Instructions DIET: Follow Instructions for: Heart Healthy Diet Fluid Restrictions: none Activities you can perform: See Additionl Instruction Other Activity Instructions: Please follow physical therapy recommendations Follow up Referrals: Cardiology - 1 Week with Kourtney Quinones MD PCP Follow-up - 1 Week with Rhianna Gramajo MD SNF/[facility]/ with [facility] New Orders: BASIC METABOLIC PROF - 3-5 Days PT/INR - 3-5 Days New Medications: Diltiazem CD 24 HR (Diltiazem CD 24 HR) 300 Mg Caper 300 MG PO DAILY for 30 Days, #30 CAP Continued Medications: Gabapentin (Gabapentin) 400 Mg Cap 400 CAP PO HS, #90 CAP 3 Refills Insulin Lispro (Human) Inj (Humalog Inj) 1,000 Unit/10 Ml Vial 12 UNITS SQ TIDAC for Blood Sugar Management, #1 VIAL 11 Refills Levothyroxine (Levothyroxine) 88 Mcg Tab 88 MCG PO DAILY for Thyroid, #90 TAB 1 Refill Nitroglycerin SL (Nitrostat SL) 0.4 Mg Subl 0.4 MG SL DIRECTED PRN for CHEST PAIN, #100 TAB.SL 0 Refills ONE TABLET UNDER THE TONGUE NEEDED FOR CHEST PAIN, MAY REPEAT EVERY FIVE MINUTES FOR A TOTAL OF 3 DOSES OR CALL 911 IF NO RELIEF Pantoprazole (Protonix) 20 Mg Tab 20 MG PO DAILY for Reflux, #30 TAB 0 Refills Pravastatin (Pravastatin) 40 Mg Tab 40 MG PO DAILY for Cholesterol Management, #30 TAB 5 Refills Warfarin (Coumadin) 3 Mg Tab 3 MG PO Wed, , Thursday for Prevent Blood Clot, #60 TAB 1 Refill Warfarin (Coumadin) 4 Mg Tab 4 MG PO Thu,, , Sat for Prevent Blood Clot, #80 TAB 1 Refill [calcium carbonate] () 1 TAB PO BID Discontinued Medications: [diltiazem] () 1 TAB PO DAILY Thierno Rendon MD R1 Aug 18, 2017 15:08
[2017-09-01] MEDS ORDERED: DILT300C3 PO (15:04)
== END 2017-07-31 18:30 | disposition home health service (06) | DRG 871 ==
LOC: NEPC 00:51 → NEDA 04:35 → HCIN 06:40 → HIME 08:20 → HCIN 08:31 → HIME 08:50 → N04A 07-30 22:17
PROVIDERS: ADMIT Family Medicine; ATTEND Family Medicine
PROC: 5A09457 Assistance with Respiratory Ventilation, 24-96 Consecutive Hours, Continuous Positive Airway Pressure (ICD-10-PCS; principal; 2017-07-27)
DX: A41.9 Sepsis, unspecified organism (principal); J18.9 Pneumonia, unspecified organism; J96.01 Acute respiratory failure with hypoxia; N17.9 Acute kidney failure, unspecified; E87.2 Acidosis; K52.1 Toxic gastroenteritis and colitis; N39.0 Urinary tract infection, site not specified; E11.40 Type 2 diabetes mellitus with diabetic neuropathy, unspecified; Z79.4 Long term (current) use of insulin; I48.91 Unspecified atrial fibrillation; Z79.01 Long term (current) use of anticoagulants; E87.1 Hypo-osmolality and hyponatremia; E87.5 Hyperkalemia; T36.95XA Adverse effect of unspecified systemic antibiotic, initial encounter; Y92.230 Patient room in hospital as the place of occurrence of the external cause; I25.2 Old myocardial infarction; R41.82 Altered mental status, unspecified; R79.1 Abnormal coagulation profile; G47.33 Obstructive sleep apnea (adult) (pediatric); E03.9 Hypothyroidism, unspecified; I25.10 Atherosclerotic heart disease of native coronary artery without angina pectoris; I10 Essential (primary) hypertension; E78.5 Hyperlipidemia, unspecified; Z87.01 Personal history of pneumonia (recurrent); M85.852 Other specified disorders of bone density and structure, left thigh; M85.851 Other specified disorders of bone density and structure, right thigh; Z87.891 Personal history of nicotine dependence
CPT/HCPCS: 36600; 70450; 71010; 71250; 71275; 74174; 80048; 80053; 81001; 82550; 82552; 82805; 82948; 83605; 83735; 83880; 84443; 84484; 85025; 85027; 85610; 85730; 87040; 87086; 87449; 87493; 87641; 93005; 93306; 94002; 94003; 96365; 96367; 96375; J0171; J0456; J0461; J0610; J0696; J1160; J1815; J3480; J7050; Q9967

== ENCOUNTER 2017-10-12 09:33 | Inpatient (IN) | payer MEDICARE, BC ==
[~2017-10-12] VITALS: Ht 165.1 cm; Wt 83.3 kg
[2017-10-12] VITALS (7 sets, daily range): BP systolic 106–180; BP diastolic 56–116; PULSE 76–127; RESP 17–20; TEMP 97.9–98.6; O2SAT 95–99
[~2017-10-12 09:33] MED LIST changes: +DIGO0.25 PO; +DILT300C3 PO; -METO25TA3 PO; +METO50TA PO; +OXYB5TAB8 PO; -TOFR50TA PO; +calcium carbonate PO
--- NOTE | 2017-10-12 10:06 | PD ---
HPI Chief Complaint: Diabetic Time Seen by Provider: 09:50 Travel History International Travel<30 days: No Contact w/Intl Traveler<30days: No Traveled to known affect area: No History of Present Illness HPI 82yo F with PMH of chronic afib, cardiomyopathy, DM, hypothyroidism presents to the ED for generalized weakness for a few days. Pt found to have glucose of 40 so EVAC gave 200cc of D10. Recheck by EVAC was 115. Pt is AAOx2 here and denies any complaints. However, said pt has been having generalized weakness for a few days and has not been eating. Also had a few falls. Pt does not remember falling. Denies any fever, chest pain, sob, n/v, abdominal pain, focal weakness or numbness. PFSH Past Medical History Hx Anticoagulant Therapy: Yes (COUMADIN ) Arthritis: Yes Asthma: No Atrial Fibrillation: Yes Autoimmune Disease: No Blood Disorders: No Anxiety: No Depression: No Heart Rhythm Problems: Yes (A-FIB) Cancer: No Cardiac Catheterization: Yes Cardiovascular Problems: Yes High Cholesterol: Yes Chemotherapy: No Chest Pain: Yes Congestive Heart Failure: No COPD: No Cerebrovascular Accident: No Diabetes: Yes Diminished Hearing: No Endocrine: Yes Glaucoma: No Genitourinary: No Hypertension: Yes Immune Disorder: No Implanted Vascular Access Dvce: Yes Kidney Stones: No Musculoskeletal: Yes Neurologic: No Psychiatric: No Reproductive: No Respiratory: Yes (ASTHMA) Immunizations Current: Yes Myocardial Infarction: Yes Radiation Therapy: No Sickle Cell Disease: No Sleep Apnea: No Thyroid Disease: No : 5 Para: 5 Past Surgical History Abdominal Surgery: Yes (Gall Bladder, Apendix Removed.) AICD: No Appendectomy: Yes Arteriovenous Shunt: No Body Medical Devices: METAL PLATE IN LEFT ANKLE Cardiac Surgery: No Cholecystectomy: Yes Ear Surgery: No Endocrine Surgery: No Eye Surgery: No Genitourinary Surgery: No Gynecologic Surgery: Yes (MARTY) Hysterectomy: Yes Insulin Pump: No Joint Replacement: Yes (Metal implated in her left anckle) Oral Surgery: No Pacemaker: No Thoracic Surgery: No Tonsillectomy: Yes Other Surgery: Yes (HYSTERECTOMY, CHOLECYSECTOMY, LEFT ANKLE, APENDECTOMY) Social History Alcohol Use: No Tobacco Use: No Substance Use: No Allergies-Medications (Allergen,Severity, Reaction): Coded Allergies: Influenza Virus Vaccines (Verified Allergy, Severe, Anaphylaxis, 10/12/17) pt denies reaction but refuses to have flu vaccine Reported Meds & Prescriptions Reported Meds & Active Scripts Active Levothyroxine (Levothyroxine Sodium) 88 Mcg Tab 88 Mcg PO DAILY Enalapril (Enalapril Maleate) 10 Mg Tab 10 Mg PO DAILY Pravastatin 40 Mg Tab 40 Mg PO DAILY Gabapentin 400 Mg Cap 400 Cap PO HS Humalog Inj (Insulin Human Lispro) 1,000 Unit/10 Ml Vial 12 Units SQ TIDAC Reported Tofranil (Imipramine HCl) 50 Mg Tab 50 Mg PO HS Coumadin (Warfarin) 3 Mg Tab 3 Mg PO SUTUWEFR Take 1 tablet (3mg) daily on Thursday,Thursday,Thursday and Thursday Coumadin (Warfarin) 4 Mg Tab 4 Mg PO MOTHSA Take 1 tablet (4mg) daily on Thursday, and Thursday Multiple Vitamin/Minerals (Multiple Vitamins W/ Minerals) 1 Tab Tab 1 Tab PO DAILY Metoprolol Tartrate 25 Mg Tab 25 Mg PO BID Sm Calcium 500/Vitamin D3 500-400 mg-Unit (Calcium Carbonate-Vitamin D) 500 Mg- 400 Tab 1 Tab PO BID Humulin N Inj (Insulin Human NPH) 1,000 Unit/10 Ml Vial 10 Units SQ DAILY Cardizem CD 24 HR (Diltiazem CD 24 HR) 120 Mg Caper 120 Mg PO DAILY Nitrostat SL (Nitroglycerin) 0.4 Mg Subl 0.4 Mg SL DIRECTED PRN ONE TABLET UNDER THE TONGUE NEEDED FOR CHEST PAIN, MAY REPEAT EVERY FIVE MINUTES FOR A TOTAL OF 3 DOSES OR CALL 911 IF NO RELIEF Protonix (Pantoprazole Sodium) 20 Mg Tab 20 Mg PO DAILY Review of Systems Except as stated in HPI: all other systems reviewed are Neg Physical Exam Narrative GENERAL: 82yo F in mild distress. SKIN: Focused skin assessment warm/dry. HEAD: Atraumatic. Normocephalic. EYES: Pupils equal and round at 3mm bilaterally. EOMI. ENT: No nasal bleeding or discharge. Mucous membranes pink and moist. NECK: Trachea midline. No JVD. CARDIOVASCULAR: Irregular and tachycardic, range from low 100s to 120s. No murmur appreciated. RESPIRATORY: No accessory muscle use. Clear to auscultation. Breath sounds equal bilaterally. GASTROINTESTINAL: Abdomen soft, non-tender, nondistended. No rebound tenderness or guarding. BACK: No midline ttp thoracic or lumbar spine. MUSCULOSKELETAL: No obvious deformities. No clubbing. No cyanosis. +Bilateral lower ext edema. NEUROLOGICAL: Awake and alert. No obvious cranial nerve deficits. Motor grossly within normal limits. Normal speech. PSYCHIATRIC: Appropriate mood and affect; insight and judgment normal. Data Data Last Documented VS Vital Signs Date Time Temp Pulse Resp B/P (MAP) Pulse Ox O2 Delivery O2 Flow Rate FiO2 10/12/17 10:59 76 18 106/56 (73) 99 Nasal Cannula 2.00 10/12/17 09:44 97.9 Orders Orders Electrocardiogram (10/12/17 09:59) Complete Blood Count With Diff (10/12/17 09:59) Comprehensive Metabolic Panel (10/12/17 09:59) Prothrombin Time / Inr (Pt) (10/12/17 09:59) Act Partial Throm Time (Ptt) (10/12/17 09:59) Troponin I (10/12/17 09:59) Thyroid Stimulating Hormone (10/12/17 09:59) Urinalysis - C+S If Indicated (10/12/17 09:59) Lactic Acid Sepsis Protocol (10/12/17 09:59) Ct Brain W/O Iv Contrast(Rout) (10/12/17 09:59) Diltiazem Inj (Cardizem Inj) (10/12/17 10:30) Urine Culture (10/12/17 10:05) Phytonadione Inj (Vitamin K Inj) (10/12/17 12:00) Ceftriaxone Inj (Rocephin Inj) (10/12/17 11:15) Labs Laboratory Tests Test 10/12/17 10:05 10/12/17 10:09 White Blood Count 11.1 TH/MM3 Red Blood Count 3.79 MIL/MM3 Hemoglobin 11.0 GM/DL Hematocrit 33.0 % Mean Corpuscular Volume 87.1 FL Mean Corpuscular Hemoglobin 29.1 PG Mean Corpuscular Hemoglobin Concent 33.4 % Red Cell Distribution Width 17.2 % Platelet Count 156 TH/MM3 Mean Platelet Volume 9.2 FL Neutrophils (%) (Auto) 82.6 % Lymphocytes (%) (Auto) 9.2 % Monocytes (%) (Auto) 7.6 % Eosinophils (%) (Auto) 0.2 % Basophils (%) (Auto) 0.4 % Neutrophils # (Auto) 9.1 TH/MM3 Lymphocytes # (Auto) 1.0 TH/MM3 Monocytes # (Auto) 0.8 TH/MM3 Eosinophils # (Auto) 0.0 TH/MM3 Basophils # (Auto) 0.0 TH/MM3 CBC Comment DIFF FINAL Differential Comment Prothrombin Time 68.0 SEC Prothromb Time International Ratio 6.8 RATIO Activated Partial Thromboplast Time 55.5 SEC Urine Color YELLOW Urine Turbidity HAZY Urine pH 6.0 Urine Specific [place] 1.021 Urine Protein 30 mg/dL Urine Glucose (UA) NEG mg/dL Urine Ketones 10 mg/dL Urine Occult Blood MOD Urine Nitrite POS Urine Bilirubin NEG Urine Urobilinogen LESS THAN 2.0 MG/DL Urine Leukocyte Esterase LARGE Urine RBC 27 /hpf Urine WBC /hpf Urine WBC Clumps FEW Urine Squamous Epithelial Cells 2 /hpf Urine Bacteria MANY /hpf Microscopic Urinalysis Comment CATH-CULTURE IND Blood Urea Nitrogen 24 MG/DL Creatinine 0.88 MG/DL Random Glucose 86 MG/DL Total Protein 6.7 GM/DL Albumin 3.2 GM/DL Calcium Level 8.2 MG/DL Alkaline Phosphatase 127 U/L Aspartate Amino Transf (AST/SGOT) 69 U/L Alanine Aminotransferase (ALT/SGPT) 60 U/L Total Bilirubin 1.3 MG/DL Sodium Level 136 MEQ/L Potassium Level 4.1 MEQ/L Chloride Level 103 MEQ/L Carbon Dioxide Level 23.8 MEQ/L Anion Gap 9 MEQ/L Estimat Glomerular Filtration Rate 61 ML/MIN Troponin I LESS THAN 0.02 NG/ML Thyroid Stimulating Hormone 3rd Gen 2.470 uIU/ML Lactic Acid Level 1.8 mmol/L [facility] Medical Decision Making Medical Screen Exam Complete: Yes Emergency Medical Condition: Yes Interpretation(s) EKG: Afib at 129bpm. No ST segment elevation or depression. Differential Diagnosis Afib RVR secondary to underlying infection vs. UTI vs. ICH vs. dehydration vs. hypoglycemia Narrative Course 82yo F here with generalized weakness, not eating well and frequent falls in the last few days. said she is "losing in" and has not been herself for 1 month. Pt found to be hypoglycemia and was given D10 by EVAC. Glucose 96 here. Pt initially was AAOx2 and didnt remember falling. Now she is AAOx3 and more alert as well. Labs reviewed, WBC 11.1. H/H 11/33.0 this is her baseline and pt denies any blood in stool or black stool. Lactic acid 1.8. BUN mildly elevated at 24. AST/ALT/alk phos elevated. Troponin negative. INR elevated at 6.8. Pt given vitamin K. CT brain showed no acute intracranial abnormality. Pt was in afib RVR with rate in the 120s and given cardizem 20mg IV. Pt's heart rate has been in th 80s to 90s since then and has not needed another dose. UA showed positive nitrite and pt given ceftriaxone 1gm IV. Critical Care Narrative Aggregate critical care time was 45 minutes. Time to perform other separately billable procedures was not included in the critical care time. My time did not include minutes spent treating any other patients simultaneously or on activities that did not directly contribute to the patient's treatment. The services I provided to this patient were to treat and/or prevent clinically significant deterioration that could result in: cardiovascular collapse or . I provided critical care services requiring my management, as noted below: Chart data review, documentation time, medication orders and management, vital sign assessments/reviewing monitor data, ordering and reviewing lab tests, ordering and interpreting/reviewing x-rays and diagnostic studies, care of the patient and discussion of the patient with the admitting physicians. Diagnosis Primary Impression: UTI (urinary tract infection) Qualified Codes: N39.0 - Urinary tract infection, site not specified; R31.9 - Hematuria, unspecified Additional Impressions: Atrial fibrillation with RVR Supratherapeutic INR Admitting Information Admitting Physician Requests: it Anamika Hannon DO Oct 12, 2017 10:06
[2017-10-12 10:23] LABS: AUTOMATED NEUTROPHIL # 9.1 TH/MM3 (1.8-7.7); BASOPHIL % 0.4 % (0.0-2.0); EOSINOPHIL % 0.2 % (0.0-4.0); HEMO FLAGS DIFF FINAL; LYMPH % 9.2 % (9.0-44.0); MEAN CELL VOLUME 87.1 FL (80.0-100.0); MEAN CORPUSCULAR HEMOGLOBIN 29.1 PG (27.0-34.0); MEAN CORPUSCULAR HGB CONC 33.4 % (32.0-36.0); MONO % 7.6 % (0.0-8.0); NEUT % 82.6 % (16.0-70.0); PLATELET COUNT 156 TH/MM3 (150-450); RED BLOOD COUNT 3.79 MIL/MM3 (4.00-5.30); RED CELL DISTRIBUTION WIDTH 17.2 % (11.6-17.2); WHITE BLOOD COUNT 11.1 TH/MM3 (4.0-11.0)
[2017-10-12] MEDS ORDERED: DILTIAZEM HCL 25 MG/5 ML VIAL IV ONE (10:30)
[2017-10-12 10:31] LABS: APTT (PATIENT) 55.5 SEC (24.3-30.1)
[2017-10-12 10:34] LABS: BACTERIA, URINE MANY /hpf; BLOOD, URINE MOD (NEG); GLUCOSE,URINE NEG (NEG); KETONE, URINE 10 mg/dL (NEG); NITRITE,URINE POS (NEG); SQUAMOUS EPITHELIAL CELL URINE 2 /hpf (0-5); URINE COLOR YELLOW (YELLW/STRAW)
[2017-10-12 10:35] LABS: COMMENT (UR) CATH-CULTURE IND; CULTURE IF INDICATED CATH CULTURE IND
[2017-10-12 10:39] LABS: ANION GAP 9 MEQ/L (5-15); AST (GOT) 69 U/L (15-37); BICARBONATE 23.8 MEQ/L (21.0-32.0); BLOOD UREA NITROGEN 24 MG/DL (7-18); CHLORIDE 103 MEQ/L (98-107); GLOMERULAR FILTRATION RATE 61 ML/MIN (>89); POTASSIUM 4.1 MEQ/L (3.5-5.1); SODIUM (NA) 136 MEQ/L (136-145)
[2017-10-12 10:42] LABS: INTERNATIONAL NORMALIZED RATIO 6.8 RATIO
[2017-10-12 10:51] LABS: ALKALINE PHOSPHATASE 127 U/L (45-117); ALT (GPT) 60 U/L (10-53); TOTAL BILIRUBIN ADULT 1.3 MG/DL (0.2-1.0)
[2017-10-12] MEDS ORDERED: TOFR50TA PO (10:52)
[2017-10-12] MEDS ORDERED: MULT1TAB39 PO (10:52)
[2017-10-12] MEDS ORDERED: METO25TA3 PO (10:52)
[2017-10-12] MEDS ORDERED: ENAL10TA PO (10:52)
[2017-10-12] MEDS ORDERED: CARD120C4 PO (10:52)
[2017-10-12] MEDS ORDERED: INSU100V3 SQ (10:52)
[2017-10-12] MEDS ORDERED: SM CTAB PO (10:52)
[2017-10-12] MEDS ORDERED: COUM3TAB PO (10:52)
[2017-10-12] MEDS ORDERED: COUM4TAB PO (10:52)
--- NOTE | 2017-10-12 11:13 | RADRPT ---
EXAM DATE/TIME: 10/12/2017 10:42 [facility] COMPARISON: CT BRAIN W/O CONTRAST, July 27, 2017, 14:28. INDICATIONS : Weakness and loss of appetite for a few days. RADIATION DOSE: 35.20 CTDIvol (mGy) MEDICAL HISTORY : Cardiovascular disease. Diabetes mellitus type 2. SURGICAL HISTORY : Hysterectomy. ENCOUNTER: Initial ACUITY: 1 day PAIN SCALE: 0/10 LOCATION: cranial TECHNIQUE: Multiple contiguous axial images were obtained of the head. Using automated exposure control and adj ustment of the mA and/or kV according to patient size, radiation dose was kept as low as reasonably a chievable to obtain optimal diagnostic quality images. DICOM format image data is available electro nically for review and comparison. FINDINGS: CEREBRUM: There is mild generalized atrophy. Ventricles are normal in size given the degree of atrophy present. Mild periventricular white matter low-attenuation is present. No evidence of midline shift, mass le edd, hemorrhage or acute infarction. No extra-axial fluid collections are seen. POSTERIOR FOSSA: The cerebellum and brainstem demonstrate no acute finding. The 4th ventricle is midline. The cerebe llopontine angle is unremarkable. EXTRACRANIAL: There is trace air within the soft tissues around the face bilaterally and within the cavernous sinus . SKULL: The calvaria is intact. No evidence of skull fracture. CONCLUSION: 1. No acute intracranial abnormality is identified. 2. Trace air within the soft tissues bilaterally and cavernous sinus. Some of this could be related t o vascular access or trauma. Peewee Fitzpatrick MD on October 12, 2017 at 11:07 Board Certified Radiologist. This report was verified electronically.
[2017-10-12] MEDS ORDERED: cefTRIAXone INJ 1,000 MG in SODIUM CHLORIDE 0.9% INJ 100 ML IV ONE (11:15)
[2017-10-12] MEDS ORDERED: PHYTONADIONE INJ 10 MG in SODIUM CHLORIDE 0.9% INJ 50 ML IV ONE (12:00)
--- NOTE | 2017-10-12 12:43 | HHI.HP ---
HPI Service Family Medicine Primary Care Physician Rhianna Gramajo MD Admission Diagnosis Afib RVR, UTI, supratherapeutic INR Diagnoses: International Travel<30 Days: No Contact w/Intl Traveler<30days: No Known Affected Area: No History of Present Illness Mrs. Mccormick is a 82 y/o F presenting to the ED after an episode of lethargy. This morning her tried to waker her up, however was unsuccessful. He became panicked and called EMS for evaluation. She was found to have a glucose of 40 and was given D10 which elevated her glucose back to 115. Upon arriving to the ED, she was AAOx2 but did progress during her time in the ER to AAOx3 for our interview. She reports that the first thing she can remember is the EMS staff having her move off her bed onto the stretcher. She states that she "felt like her BS was actually high." She's had 2 similar episodes over the last week resulting in near syncope. She denies loss of consciousness, traumatic fall, or head injury. Otherwise she has no other current complaints and denies any fevers , chills, shortness of breath, chest pain, NVD, abdominal pain, or calf tenderness. Review of Systems Constitutional: DENIES: Fever, Dizziness Eyes: DENIES: Blurred vision Ears, nose, mouth, throat: DENIES: Throat pain, Running Nose Respiratory: COMPLAINS OF: Shortness of breath, DENIES: Cough, Sputum production Cardiovascular: COMPLAINS OF: Syncope, DENIES: Chest pain Gastrointestinal: DENIES: Diarrhea, Nausea, Vomiting Genitourinary: DENIES: Hematuria, Dysuria Musculoskeletal: COMPLAINS OF: Joint pain, DENIES: Back pain Integumentary: DENIES: Rash Hematologic/lymphatic: DENIES: Lymphadenopathy Neurologic: DENIES: Headache Psychiatric: DENIES: Mood changes Past Family Social History Past Medical History PAST MEDICAL HISTORY: Hematochezia 02/22: Xarelto discontinued Pneumonia 01/22 left ankle ulcer MSSA 12/25 ([facility] wound care) Fx left malleolus, distal tibula/fibula Multinodular goiter. Diverticulosis. Pancreatic cyst. Nephrolithiasis. Chronic A-fib, secondary to cardiomyopathy History of PR in the . Hyperlipidemia. 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 Hepatitic steatosis. Hypothyroid. Right sciatica. Osteopenia of the hips. Bilateral knee hemarthrosis, secondary to Coumadin toxicity in 2004. Pseudogout. 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 Pulmonary nodules, benign, 2005. Fx R patella 2010 Past Surgical History SURGERIES: ORIF L distal tibula/fibula Jul 2011 Partial hysterectomy with unilateral salpingo-oophorectomy for benign disease in 196. Cholecystectomy 1994. Angioplasty . Allergies: Coded Allergies: Influenza Virus Vaccines (Verified Allergy, Severe, Anaphylaxis, 10/12/17) pt denies reaction but refuses to have flu vaccine Family History FAMILY HISTORY: Sister at 82 of heart failure, coronary artery disease. She was a smoker. Mother at 82 of heart failure and diabetes. Father at 68 or prostate cancer. Social History SOCIAL HISTORY: She is a , worked as [employer]. No ETOH. Tobacco five pack year history, but none since the s. Lives with Son and in a house. Health maintenance EGD colonoscopy 09/23, path consistent with tubulovillous adenoma. Colonoscopy February 2016 during hospitalization for hematochezia AWE/WWE 04/23 no pap needed (unilat ovary) pt delines mammogram and pap LIVING WILL: pt summarizes as "don't leave me on life support if I'm terminal". HCS: spouse (Mark), then Rochelle (daughter) 03/13/14 update. Other providers: [facility] (Dr Chavira, annually), JESSICA Wu (pt will arrange), FATOUMATA Cho (retiring) changing to [facility] Maya (URO) Physical Exam Vital Signs Vital Signs Date Time Temp Pulse Resp B/P (MAP) Pulse Ox O2 Delivery O2 Flow Rate FiO2 10/12/17 10:59 76 18 106/56 (73) 99 Nasal Cannula 2.00 10/12/17 10:18 108 18 168/97 (120) 97 Nasal Cannula 2.00 10/12/17 10:03 118 17 97 Room Air 10/12/17 09:44 97.9 108 17 141/89 (106) 99 Physical Exam GENERAL: Well-nourished, well-developed female sitting in acute distress SKIN: No rashes, ecchymoses or lesions. Cool and dry. HEENT: Atraumatic, normocephalic with EOMI. PERRLA. Oropharynx clear without erythema or exudates. No rhinorrhea. No LAD or JVD appreciated. CARDIOVASCULAR: Regular rate and rhythm without murmurs, gallops, or rubs. RESPIRATORY: Clear to auscultation bilaterally with no CRW. No increased work of breathing. GASTROINTESTINAL: Abdomen soft, non-tender, nondistended with +BS. No masses appreciated. MUSCULOSKELETAL: Extremities without cyanosis or edema. No calf tenderness. NEUROLOGICAL:Afocal, AAOx3. Appropriate strength and sensation. Normal speech Laboratory Laboratory Tests Test 10/12/17 10:05 10/12/17 10:09 White Blood Count 11.1 Red Blood Count 3.79 Hemoglobin 11.0 Hematocrit 33.0 Mean Corpuscular Volume 87.1 Mean Corpuscular Hemoglobin 29.1 Mean Corpuscular Hemoglobin Concent 33.4 Red Cell Distribution Width 17.2 Platelet Count 156 Mean Platelet Volume 9.2 Neutrophils (%) (Auto) 82.6 Lymphocytes (%) (Auto) 9.2 Monocytes (%) (Auto) 7.6 Eosinophils (%) (Auto) 0.2 Basophils (%) (Auto) 0.4 Neutrophils # (Auto) 9.1 Lymphocytes # (Auto) 1.0 Monocytes # (Auto) 0.8 Eosinophils # (Auto) 0.0 Basophils # (Auto) 0.0 CBC Comment DIFF FINAL Differential Comment Prothrombin Time 68.0 Prothromb Time International Ratio 6.8 Activated Partial Thromboplast Time 55.5 Urine Color YELLOW Urine Turbidity HAZY Urine pH 6.0 Urine Specific [place] 1.021 Urine Protein 30 Urine Glucose (UA) NEG Urine Ketones 10 Urine Occult Blood MOD Urine Nitrite POS Urine Bilirubin NEG Urine Urobilinogen LESS THAN 2.0 Urine Leukocyte Esterase LARGE Urine RBC 27 Urine WBC Urine WBC Clumps FEW Urine Squamous Epithelial Cells 2 Urine Bacteria MANY Microscopic Urinalysis Comment CATH-CULTURE IND Blood Urea Nitrogen 24 Creatinine 0.88 Random Glucose 86 Total Protein 6.7 Albumin 3.2 Calcium Level 8.2 Alkaline Phosphatase 127 Aspartate Amino Transf (AST/SGOT) 69 Alanine Aminotransferase (ALT/SGPT) 60 Total Bilirubin 1.3 Sodium Level 136 Potassium Level 4.1 Chloride Level 103 Carbon Dioxide Level 23.8 Anion Gap 9 Estimat Glomerular Filtration Rate 61 Troponin I LESS THAN 0.02 Thyroid Stimulating Hormone 3rd Gen 2.470 Lactic Acid Level 1.8 Date/Time Source Procedure Growth Status 12/4/17 10:05 Urine Catheterized Urine Urine Culture Pending Received Result Diagram: 10/12/17 1005 10/12/17 1005 Caprini VTE Risk Assessment Caprini VTE Risk Assessment: Mod/High Risk (score >= 2) Caprini Risk Assessment Model Point Value = 1 Point Value = 2 Point Value = 3 Point Value = 5 Age 41-60 Minor surgery BMI > 25 kg/m2 Swollen legs Varicose veins or History of unexplained or recurrent spontaneous Oral contraceptives or hormone replacement Sepsis (< 1 month) Serious lung disease, including pneumonia (< 1 month) Abnormal pulmonary function Acute myocardial infarction Congestive heart failure (< 1 month) History of inflammatory bowel disease Medical patient at bed rest Age 61-74 Arthroscopic surgery Major open surgery (> 45 min) Laparoscopic surgery (> 45 min) Malignancy Confined to bed (> 72 hours) Immobilizing plaster cast Central venous access Age >= 75 History of VTE Family history of VTE Factor V Leiden Prothrombin [id number] Lupus anticoagulant Anticardiolipin antibodies Elevated serum homocysteine Heparin-induced thrombocytopenia Other congenital or acquired thrombophilia Stroke (< 1 month) Elective arthroplasty Hip, pelvis, or leg fracture Acute spinal cord injury (< 1 month) Prophylaxis Regimen Total Risk Factor Score Risk Level Prophylaxis Regimen 0-1 Low Early ambulation 2 Moderate Order ONE of the following: *Sequential Compression Device (SCD) *Heparin 5000 units SQ BID 3-4 Higher Order ONE of the following medications: *Heparin 5000 units SQ TID *Enoxaparin/Lovenox 40 mg SQ daily (WT < 150 kg, CrCl > 30 mL/min) *Enoxaparin/Lovenox 30 mg SQ daily (WT < 150 kg, CrCl > 10-29 mL/min) *Enoxaparin/Lovenox 30 mg SQ BID (WT < 150 kg, CrCl > 30 mL/min) AND/OR *Sequential Compression Device (SCD) 5 or more Highest Order ONE of the following medications: *Heparin 5000 units SQ TID (Preferred with Epidurals) *Enoxaparin/Lovenox 40 mg SQ daily (WT < 150 kg, CrCl > 30 mL/min) *Enoxaparin/Lovenox 30 mg SQ daily (WT < 150 kg, CrCl > 10-29 mL/min) *Enoxaparin/Lovenox 30 mg SQ BID (WT < 150 kg, CrCl > 30 mL/min) AND *Sequential Compression Device (SCD) Assessment and Plan Assessment and Plan Mrs. Mccormick is a 82 y/o F presenting to the ED after an episode of lethargy due to hypoglycemia. Patient also found supratherapeutic INR and UTI. Code Status Full Code Discussed Condition With Dr. Hannon Problem List: (1) Hypoglycemia ICD Codes: E16.2 - Hypoglycemia, unspecified Status: Acute Plan: Patient with multiple episodes of lethargy/presyncope likely due to hypoglycemia. Per chart review, patient over the last month increase NPH insulin to 20 units per day with 12 units 3 times a day before meals. Imaging/studies/orders: -Previous A1c: 7.6 (05/20) -CMP: Glucose 86 Medications: -NovoLog sliding scale insulin per protocol -Hold home insulins (2) Atrial fibrillation ICD Codes: I48.91 - Unspecified atrial fibrillation Status: Acute Plan: Patient presented with A. fib with RVR. Patient reports she has not taken her medications today. Imaging/studies/labs: -EKG: Atrial fibrillation with RVR. Incomplete right bundle branch block. -Cardiac telemetry Medications: -Continue home diltiazem and metoprolol at this time -Plan to transfer to CICU for diltiazem drip if patient's heart rate continues to be greater than 100 (3) Supratherapeutic INR ICD Codes: R79.1 - Abnormal coagulation profile Status: Acute Plan: Patient found to have supratherapeutic INR without bleeding. Medical team will plan to reevaluate long-term anticoagulation at discharge. Imaging/studies/labs: -CT head: No acute intracranial abnormality is identified. Trace air within the soft tissues bilaterally encounter size. Some of this could be related to vascular access or trauma. -INR: 6.8 -Continue to monitor Medications: -Vitamin K 10 mg given in ER (4) Suspected UTI ICD Codes: N39.0 - Urinary tract infection, site not specified Status: Acute Plan: Patient found to have suspected UTI on admission. Patient also found to have Labs/studies/orders: -UA: Hazy, protein 30, ketones 10, moderate occult blood, positive nitrate, large leukocyte esterase, 27 rbc, wbc clumps, many bacteria -Urine culture: Pending -Urine catheter in place as patient did not void in ER, will plan to discontinue WILLIE Medications: -Normal saline at 60 mL per hour -Ceftriaxone 1 g daily (5) Lower limb ulcer, ankle ICD Codes: L97.309 - Non-pressure chronic ulcer of unspecified ankle with unspecified severity Status: Chronic Plan: Patient with left lower extremity ulceration -Wound care consult (6) Contraindication to deep vein thrombosis (DVT) prophylaxis ICD Codes: Z53.09 - Procedure and treatment not carried out because of other contraindication Status: Acute Plan: Medical DVT prophylaxis contraindicated due to supratherapeutic INR SCD/TEDs (7) Nutrition, metabolism, and development symptoms ICD Codes: R63.8 - Other symptoms and signs concerning food and fluid intake Status: Acute Plan: Fluids: Normal saline at 60 mL per hour Electrolytes: Within normal limits, continue to monitor Diet: Diabetic diet as tolerated Physician Certification 2 Midnight Certification Type: Admission for Inpatient Services Order for Inpatient Services The services are ordered in accordance with Medicare regulations or non- Medicare payer requirements, as applicable. In the case of services not specified as inpatient-only, they are appropriately provided as inpatient services in accordance with the 2-midnight benchmark. Estimated LOS (days): 3 3 days is the estimated time the patient will need to remain in the hospital, assuming treatment plan goals are met and no additional complications. Post-Hospital Plan: Home Problem Qualifiers (1) Atrial fibrillation: Qualified Codes: I48.2 - Chronic atrial fibrillation (2) Lower limb ulcer, ankle: Luis Roberson MD R2 Oct 12, 2017 12:43
[2017-10-12] MEDS ORDERED: NITROGLYCERIN 0.4 MG SL 25 TABS/BTL SL PRN (12:45)
[2017-10-12] MEDS: PRAVASTATIN SOD 40 MG TAB PO SCH (12:45)
[2017-10-12] MEDS ORDERED: GLUCAGON 1 MG/ML VIAL OTHER PRN (13:00)
[2017-10-12] MEDS ORDERED: DEXTROSE 50% IN WATER 50 ML VIAL(D50) IV PUSH PRN (13:00)
[2017-10-12] MEDS: ENALAPRIL MALEATE 10 MG TAB PO SCH (13:15)
[2017-10-12] MEDS: LEVOTHYROXINE SODIUM 88 MCG TAB PO SCH (13:15)
[2017-10-12] MEDS: METOPROLOL TARTRATE 25 MG TAB PO SCH ×2 (13:15→21:42)
[2017-10-12] MEDS: PANTOPRAZOLE SOD 20 MG DELAYED RELEASE TAB PO SCH (13:16)
[2017-10-12] MEDS ORDERED: cloNIDine HCL 0.1 MG TAB PO PRN (13:30)
[2017-10-12] MEDS ORDERED: SENNOSIDES 8.6 MG TAB PO PRN (13:30)
[2017-10-12] MEDS ORDERED: ONDANSETRON HCL 4 MG/2 ML VIAL IVP PRN (13:30)
[2017-10-12] MEDS ORDERED: BISACODYL 10 MG SUPP RECTAL PRN (13:30)
[2017-10-12] MEDS ORDERED: SODIUM CHLORIDE 0.9% FLUSH 10 ML FLUSH IV FLUSH PRN (13:30)
[2017-10-12] MEDS ORDERED: MAGNESIUM HYDROXIDE SUSP 30 ML CUP PO PRN (13:30)
[2017-10-12] MEDS ORDERED: LACTULOSE SYRUP 20 GM/30 ML CUP PO PRN (13:30)
[2017-10-12] MEDS ORDERED: NALOXONE HCL 0.4 MG/ML AMP IV PUSH PRN (13:30)
[2017-10-12] MEDS: SODIUM CHLOR 0.9% 1000 ML INJ 1,000 ML IV SCH (15:14)
[2017-10-12 16:48] LABS: HEMATOCRIT 34.8 % (35.0-46.0); REVIEW FLAG FINAL
[2017-10-12] MEDS: INSULIN ASPART SUPPLEMENTAL SCALE SQ SCH ×2 (16:56→22:01)
[2017-10-12] MEDS: DILTIAZEM-CD 120 MG CAP ER PO SCH (16:56)
--- NOTE | 2017-10-12 18:23 | EKG ---
Date Performed: 10/12/2017 Time Performed: 10:16:06 PTAGE: 82 years EKG: ATRIAL FIBRILLATION WITH RAPID VENTRICULAR RESPONSE INCOMPLETE RIGHT BUNDLE BRANCH BLOCK NO NSPECIFIC T-WAVE ABNORMALITY ABNORMAL RHYTHM ECG Compared to PREVIOUS TRACING , no significant change. PREVIOUS TRACIN07/27/2017 20.12 DOCTOR: Marquis Maddox Interpretating Date/Time 10/12/2017 18:23:03
[2017-10-12] MEDS: SODIUM CHLORIDE 0.9% FLUSH 10 ML FLUSH IV FLUSH SCH (21:00)
[2017-10-12] MEDS: IMIPRAMINE HCL 25 MG TAB PO SCH (21:42)
[2017-10-12] MEDS: GABAPENTIN 400 MG CAP PO SCH (21:42)
[2017-10-12] MEDS: CALCIUM/VITAMIN D 250 MG/125 U TAB PO SCH (21:42)
[2017-10-12] MEDS: DOCUSATE SODIUM 50 MG/SENNA 8.6 MG TAB PO SCH (21:43)
[2017-10-13] VITALS (10 sets, daily range): BP systolic 115–157; BP diastolic 65–84; PULSE 71–125; RESP 18–22; TEMP 97.3–98.6; O2SAT 95–100
[2017-10-13] MEDS: LEVOTHYROXINE SODIUM 88 MCG TAB PO SCH (06:29)
[2017-10-13] MEDS: SODIUM CHLOR 0.9% 1000 ML INJ 1,000 ML IV SCH ×2 (06:29→23:58)
[2017-10-13 07:37] LABS: AUTOMATED NEUTROPHIL # 7.1 TH/MM3 (1.8-7.7); BASOPHIL % 0.3 % (0.0-2.0); EOSINOPHIL # 0.2 TH/MM3 (0-0.4); HEMATOCRIT 30.8 % (35.0-46.0); HEMO FLAGS DIFF FINAL; LYMPH % 12.1 % (9.0-44.0); LYMPHOCYTE # 1.1 TH/MM3 (1.0-4.8); MEAN CELL VOLUME 87.6 FL (80.0-100.0); MEAN CORPUSCULAR HEMOGLOBIN 29.1 PG (27.0-34.0); MEAN CORPUSCULAR HGB CONC 33.2 % (32.0-36.0); MONO % 8.8 % (0.0-8.0); NEUT % 76.8 % (16.0-70.0); PLATELET COUNT 147 TH/MM3 (150-450); RED BLOOD COUNT 3.52 MIL/MM3 (4.00-5.30); WHITE BLOOD COUNT 9.2 TH/MM3 (4.0-11.0)
[2017-10-13 07:43] LABS: INTERNATIONAL NORMALIZED RATIO 1.5 RATIO; PROTHROMBIN TIME - PATIENT 14.7 SEC (9.8-11.6)
[2017-10-13] MEDS: INSULIN ASPART SUPPLEMENTAL SCALE SQ SCH ×4 (08:00→21:34)
[2017-10-13 08:04] LABS: ANION GAP 8 MEQ/L (5-15); AST (GOT) 35 U/L (15-37); BICARBONATE 25.5 MEQ/L (21.0-32.0); BLOOD UREA NITROGEN 15 MG/DL (7-18); CHLORIDE 106 MEQ/L (98-107); GLOMERULAR FILTRATION RATE 69 ML/MIN (>89); POTASSIUM 4.1 MEQ/L (3.5-5.1); SODIUM (NA) 139 MEQ/L (136-145)
[2017-10-13 08:11] LABS: ALKALINE PHOSPHATASE 113 U/L (45-117); ALT (GPT) 43 U/L (10-53); TOTAL BILIRUBIN ADULT 1.5 MG/DL (0.2-1.0)
[2017-10-13] MEDS: DILTIAZEM-CD 120 MG CAP ER PO SCH (09:00)
[2017-10-13] MEDS ORDERED: DILTIAZEM-CD 120 MG CAP ER PO SCH (09:00)
[2017-10-13] MEDS: DOCUSATE SODIUM 50 MG/SENNA 8.6 MG TAB PO SCH ×2 (09:00→21:02)
--- NOTE | 2017-10-13 09:28 | HHI.HP ---
[facility] Service Family Medicine Primary Care Physician Rhianna Gramajo MD Admission Diagnosis Afib RVR, UTI, supratherapeutic INR Diagnoses: (1) Atrial fibrillation Diagnosis: Principal (2) Supratherapeutic INR Diagnosis: Principal (3) Suspected UTI Diagnosis: Principal (4) Hypoglycemia Diagnosis: Principal (5) Lower limb ulcer, ankle Diagnosis: Principal (6) Contraindication to deep vein thrombosis (DVT) prophylaxis Diagnosis: Principal (7) Nutrition, metabolism, and development symptoms Diagnosis: Principal International Travel<30 Days: No Contact w/Intl Traveler<30days: No Known Affected Area: No History of Present Illness Ms Mccormick is an 82yo F with PMH of chronic afib, cardiomyopathy, DM, hypothyroidism presented to the ED for generalized weakness for a few days. Pt found to have glucose of 40 so EVAC gave 200cc of D10. Recheck by EVAC was 115. Pt is AAOx2 here and denies any complaints. However, said pt has been having generalized weakness for a few days and has not been eating. Also had a few falls. Pt does not remember falling. Denies any fever, chest pain, sob, n/v, abdominal pain, focal weakness or numbness. Mrs. Mccormick is a 82 y/o F presenting to the ED after an episode of lethargy. This morning her tried to wake her up, however was unsuccessful. He became panicked and called EMS for evaluation. She was found to have a glucose of 40 and was given D10 which elevated her glucose back to 115. Upon arriving to the ED, she was AAOx2 but did progress during her time in the ER to AAOx3 for initial interview. She reports that the first thing she can remember is the EMS staff having her move off her bed onto the stretcher. She states that she "felt like her BS was actually high." She's had 2 similar episodes over the last week resulting in near syncope. She denies loss of consciousness, traumatic fall. She is a little unclear on how she is taking her insulin but does report that she gets low sugars especially if she skips lunch. She is feeling better today and agrees to diabetic teaching and monitoring of her glucoses in the hospital. Review of Systems Other Constitutional: DENIES: Fever, Dizziness Eyes: DENIES: Blurred vision Ears, nose, mouth, throat: DENIES: Throat pain, Running Nose Respiratory: COMPLAINS OF: Shortness of breath, DENIES: Cough, Sputum production Cardiovascular: COMPLAINS OF: Syncope, DENIES: Chest pain Gastrointestinal: DENIES: Diarrhea, Nausea, Vomiting Genitourinary: DENIES: Hematuria, Dysuria Musculoskeletal: COMPLAINS OF: Joint pain, DENIES: Back pain Integumentary: DENIES: Rash Hematologic/lymphatic: DENIES: Lymphadenopathy Neurologic: DENIES: Headache Psychiatric: DENIES: Mood changes Past Family Social History Past Medical History PAST MEDICAL HISTORY: Hematochezia 02/22: Xarelto discontinued Pneumonia 01/22 left ankle ulcer MSSA 12/25 (fl hosp wound care) Fx left malleolus, distal tibula/fibula Multinodular goiter. Diverticulosis. Pancreatic cyst. Nephrolithiasis. Chronic A-fib, secondary to cardiomyopathy History of HI in the . Hyperlipidemia. 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 Hepatitic steatosis. Hypothyroid. Right sciatica. Osteopenia of the hips. Bilateral knee hemarthrosis, secondary to Coumadin toxicity in 2004. Pseudogout. 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 Pulmonary nodules, benign, 2005. Fx R patella 2010 Past Surgical History SURGERIES: ORIF L distal tibula/fibula Jul 2011 Partial hysterectomy with unilateral salpingo-oophorectomy for benign disease in 1961. Cholecystectomy 1994. Angioplasty . Allergies: Coded Allergies: Influenza Virus Vaccines (Verified Allergy, Severe, Anaphylaxis, 10/12/17) pt denies reaction but refuses to have flu vaccine Family History FAMILY HISTORY: Sister at 82 of heart failure, coronary artery disease. She was a smoker. Mother at 82 of heart failure and diabetes. Father at 68 or prostate cancer. Social History SOCIAL HISTORY: She is a , worked as [employer]. No ETOH. Tobacco five pack year history, but none since the 1950s. Lives with Son and in a house. Health maintenance EGD colonoscopy 09/23, path consistent with tubulovillous adenoma. Colonoscopy February 2016 during hospitalization for hematochezia AWE/WWE 04/23 no pap needed (unilat ovary) pt delines mammogram and pap LIVING WILL: pt summarizes as "don't leave me on life support if I'm terminal". HCS: spouse (Mark), then Rochelle (daughter) 5/5/14 update. Other providers: ophth (Dr Chavira, annually), JESSICA Wu (pt will arrange), FATOUMATA Cho (retiring) changing to Shaw Maya (URO) Physical Exam Vital Signs Vital Signs Date Time Temp Pulse Resp B/P (MAP) Pulse Ox O2 Delivery O2 Flow Rate FiO2 10/13/17 08:00 97.9 111 20 155/72 (99) 97 10/13/17 04:18 97 10/13/17 04:00 98.6 113 19 115/65 (82) 95 10/13/17 00:08 95 Nasal Cannula 2.00 10/13/17 00:00 104 10/13/17 00:00 97.9 125 22 157/71 (99) 98 10/12/17 21:45 Nasal Cannula 2.00 10/12/17 20:00 118 10/12/17 20:00 98.4 127 20 150/84 (106) 96 10/12/17 16:00 98.6 91 20 119/67 (84) 95 10/12/17 13:39 97 18 155/71 (99) 98 Room Air 10/12/17 13:08 110 18 180/116 (137) 98 Nasal Cannula 2.00 10/12/17 10:59 76 18 106/56 (73) 99 Nasal Cannula 2.00 10/12/17 10:18 108 18 168/97 (120) 97 Nasal Cannula 2.00 10/12/17 10:03 118 17 97 Room Air 10/12/17 09:44 97.9 108 17 141/89 (106) 99 Physical Exam GENERAL: Well-nourished, well-developed female sitting in no acute distress, feeling well this am SKIN: No rashes, ecchymoses or lesions. Cool and dry. HEENT: Atraumatic, normocephalic with EOMI. PERRLA. Oropharynx clear without erythema or exudates. No rhinorrhea. No LAD or JVD appreciated. CARDIOVASCULAR: Regular rate and rhythm without murmurs, gallops, or rubs. RESPIRATORY: Clear to auscultation bilaterally with no CRW. No increased work of breathing. GASTROINTESTINAL: Abdomen soft, non-tender, nondistended with +BS. No masses appreciated. MUSCULOSKELETAL: Extremities without cyanosis or edema. No calf tenderness. NEUROLOGICAL:Afocal, AAOx3. Appropriate strength and sensation. Normal speech Laboratory Laboratory Tests Test 10/12/17 10:05 10/12/17 10:09 10/12/17 16:20 10/13/17 06:53 White Blood Count 11.1 9.2 Red Blood Count 3.79 3.52 Hemoglobin 11.0 11.1 10.2 Hematocrit 33.0 34.8 30.8 Mean Corpuscular Volume 87.1 87.6 Mean Corpuscular Hemoglobin 29.1 29.1 Mean Corpuscular Hemoglobin Concent 33.4 33.2 Red Cell Distribution Width 17.2 17.0 Platelet Count 156 147 Mean Platelet Volume 9.2 8.9 Neutrophils (%) (Auto) 82.6 76.8 Lymphocytes (%) (Auto) 9.2 12.1 Monocytes (%) (Auto) 7.6 8.8 Eosinophils (%) (Auto) 0.2 2.0 Basophils (%) (Auto) 0.4 0.3 Neutrophils # (Auto) 9.1 7.1 Lymphocytes # (Auto) 1.0 1.1 Monocytes # (Auto) 0.8 0.8 Eosinophils # (Auto) 0.0 0.2 Basophils # (Auto) 0.0 0.0 CBC Comment DIFF FINAL DIFF FINAL Differential Comment Prothrombin Time 68.0 14.7 Prothromb Time International Ratio 6.8 1.5 Activated Partial Thromboplast Time 55.5 Urine Color YELLOW Urine Turbidity HAZY Urine pH 6.0 Urine Specific [place] 1.021 Urine Protein 30 Urine Glucose (UA) NEG Urine Ketones 10 Urine Occult Blood MOD Urine Nitrite POS Urine Bilirubin NEG Urine Urobilinogen LESS THAN 2.0 Urine Leukocyte Esterase LARGE Urine RBC 27 Urine WBC Urine WBC Clumps FEW Urine Squamous Epithelial Cells 2 Urine Bacteria MANY Microscopic Urinalysis Comment CATH-CULTURE IND Blood Urea Nitrogen 24 15 Creatinine 0.88 0.79 Random Glucose 86 162 Total Protein 6.7 5.9 Albumin 3.2 2.7 Calcium Level 8.2 7.8 Alkaline Phosphatase 127 113 Aspartate Amino Transf (AST/SGOT) 69 35 Alanine Aminotransferase (ALT/SGPT) 60 43 Total Bilirubin 1.3 1.5 Sodium Level 136 139 Potassium Level 4.1 4.1 Chloride Level 103 106 Carbon Dioxide Level 23.8 25.5 Anion Gap 9 8 Estimat Glomerular Filtration Rate 61 69 Troponin I LESS THAN 0.02 LESS THAN 0.02 Thyroid Stimulating Hormone 3rd Gen 2.470 Lactic Acid Level 1.8 Date/Time Source Procedure Growth Status 10/12/17 10:05 Urine Catheterized Urine Urine Culture Pending Received Result Diagram: 10/13/1753 10/13/1753 Caprini VTE Risk Assessment Caprini VTE Risk Assessment: Mod/High Risk (score >= 2) VTE Pharm Contraindication: Coagulopathy,INR elevated Caprini Risk Assessment Model Point Value = 1 Point Value = 2 Point Value = 3 Point Value = 5 Age 41-60 Minor surgery BMI > 25 kg/m2 Swollen legs Varicose veins or History of unexplained or recurrent spontaneous Oral contraceptives or hormone replacement Sepsis (< 1 month) Serious lung disease, including pneumonia (< 1 month) Abnormal pulmonary function Acute myocardial infarction Congestive heart failure (< 1 month) History of inflammatory bowel disease Medical patient at bed rest Age 61-74 Arthroscopic surgery Major open surgery (> 45 min) Laparoscopic surgery (> 45 min) Malignancy Confined to bed (> 72 hours) Immobilizing plaster cast Central venous access Age >= 75 History of VTE Family history of VTE Factor V Leiden Prothrombin [id number] Lupus anticoagulant Anticardiolipin antibodies Elevated serum homocysteine Heparin-induced thrombocytopenia Other congenital or acquired thrombophilia Stroke (< 1 month) Elective arthroplasty Hip, pelvis, or leg fracture Acute spinal cord injury (< 1 month) Prophylaxis Regimen Total Risk Factor Score Risk Level Prophylaxis Regimen 0-1 Low Early ambulation 2 Moderate Order ONE of the following: *Sequential Compression Device (SCD) *Heparin 5000 units SQ BID 3-4 Higher Order ONE of the following medications: *Heparin 5000 units SQ TID *Enoxaparin/Lovenox 40 mg SQ daily (WT < 150 kg, CrCl > 30 mL/min) *Enoxaparin/Lovenox 30 mg SQ daily (WT < 150 kg, CrCl > 10-29 mL/min) *Enoxaparin/Lovenox 30 mg SQ BID (WT < 150 kg, CrCl > 30 mL/min) AND/OR *Sequential Compression Device (SCD) 5 or more Highest Order ONE of the following medications: *Heparin 5000 units SQ TID (Preferred with Epidurals) *Enoxaparin/Lovenox 40 mg SQ daily (WT < 150 kg, CrCl > 30 mL/min) *Enoxaparin/Lovenox 30 mg SQ daily (WT < 150 kg, CrCl > 10-29 mL/min) *Enoxaparin/Lovenox 30 mg SQ BID (WT < 150 kg, CrCl > 30 mL/min) AND *Sequential Compression Device (SCD) Assessment and Plan Assessment and Plan will evaluate for her physical conditioning and what exactly is happening at home as she is not doing well with her meds and will need HHC at the least vs a rehab stay Problem List: (1) Atrial fibrillation ICD Codes: I48.91 - Unspecified atrial fibrillation Status: Acute Plan: Atrial fibrillation ICD Codes: I48.91 - Unspecified atrial fibrillation Status: Acute Plan: Patient presented with A. fib with RVR. Patient reports she has not taken her medications today. Imaging/studies/labs: -EKG: Atrial fibrillation with RVR. Incomplete right bundle branch block. -Cardiac telemetry Medications: -Continue home diltiazem and metoprolol at this time -Plan to transfer to CICU for diltiazem drip if patient's heart rate continues to be greater than 100 -need to discuss if she wants anticoagulation. can consider Chadds 2 vs has bled score (2) Supratherapeutic INR ICD Codes: R79.1 - Abnormal coagulation profile Status: Acute Plan: (3) Supratherapeutic INR ICD Codes: R79.1 - Abnormal coagulation profile Status: Acute Plan: Patient found to have supratherapeutic INR without bleeding. Medical team will plan to reevaluate long-term anticoagulation at discharge. Imaging/studies/labs: -CT head: No acute intracranial abnormality is identified. Trace air within the soft tissues bilaterally encounter size. Some of this could be related to vascular access or trauma. -INR: 6.8 -Continue to monitor Medications: -Vitamin K 10 mg given in ER so her INR will be low no matter what for 5-7 days (3) Suspected UTI ICD Codes: N39.0 - Urinary tract infection, site not specified Status: Acute Plan: Suspected UTI ICD Codes: N39.0 - Urinary tract infection, site not specified Status: Acute Plan: Patient found to have suspected UTI on admission. Labs/studies/orders: -UA: Hazy, protein 30, ketones 10, moderate occult blood, positive nitrate, large leukocyte esterase, 27 rbc, wbc clumps, many bacteria -Urine culture: Pending -Urine catheter in place as patient did not void in ER, will plan to discontinue WILLIE. she did not void for 6 hours so a bladder scan was being done Medications: -Normal saline at 60 mL per hour -Ceftriaxone 1 g daily (4) Hypoglycemia ICD Codes: E16.2 - Hypoglycemia, unspecified Status: Acute Plan: (1) Hypoglycemia ICD Codes: E16.2 - Hypoglycemia, unspecified Status: Acute Plan: Patient with multiple episodes of lethargy/presyncope likely due to hypoglycemia. Per chart review, patient over the last month increase NPH insulin to 20 units per day with 12 units 3 times a day before meals. Imaging/studies/orders: -Previous A1c: 7.6 (05/20) -CMP: Glucose 86 Medications: -NovoLog sliding scale insulin per protocol -Hold home insulins -will see what her insulin requirement are now (5) Lower limb ulcer, ankle ICD Codes: L97.309 - Non-pressure chronic ulcer of unspecified ankle with unspecified severity Status: Chronic Plan: Lower limb ulcer, ankle ICD Codes: L97.309 - Non-pressure chronic ulcer of unspecified ankle with unspecified severity Status: Chronic Plan: Patient with left lower extremity ulceration -Wound care consult (6) Contraindication to deep vein thrombosis (DVT) prophylaxis ICD Codes: Z53.09 - Procedure and treatment not carried out because of other contraindication Status: Acute Plan: Contraindication to deep vein thrombosis (DVT) prophylaxis ICD Codes: Z53.09 - Procedure and treatment not carried out because of other contraindication Status: Acute Plan: Medical DVT prophylaxis contraindicated due to supratherapeutic INR SCD/TEDs can start heparin today as her INR is not high (7) Nutrition, metabolism, and development symptoms ICD Codes: R63.8 - Other symptoms and signs concerning food and fluid intake Status: Acute Plan: Nutrition, metabolism, and development symptoms ICD Codes: R63.8 - Other symptoms and signs concerning food and fluid intake Status: Acute Plan: Fluids: Normal saline at 60 mL per hour Electrolytes: Within normal limits, continue to monitor Diet: Diabetic diet as tolerated Problem Qualifiers (1) Atrial fibrillation: Qualified Codes: I48.2 - Chronic atrial fibrillation (2) Lower limb ulcer, ankle: Letty Ott MD Oct 13, 2017 09:28
[2017-10-13] MEDS: MULTIVITAMINS/MINERALS THERAPEUTIC TAB PO SCH (09:50)
[2017-10-13] MEDS: METOPROLOL TARTRATE 25 MG TAB PO SCH ×2 (09:50→21:02)
[2017-10-13] MEDS: ENALAPRIL MALEATE 10 MG TAB PO SCH (09:50)
[2017-10-13] MEDS: PRAVASTATIN SOD 40 MG TAB PO SCH (09:50)
[2017-10-13] MEDS: PANTOPRAZOLE SOD 20 MG DELAYED RELEASE TAB PO SCH (09:51)
[2017-10-13] MEDS: CALCIUM/VITAMIN D 250 MG/125 U TAB PO SCH ×2 (09:51→21:02)
[2017-10-13] MEDS: SODIUM CHLORIDE 0.9% FLUSH 10 ML FLUSH IV FLUSH SCH ×2 (09:55→21:00)
[2017-10-13] MEDS: cefTRIAXone INJ 1,000 MG in SODIUM CHLORIDE 0.9% INJ 100 ML IV SCH (09:58)
[2017-10-13] MEDS: HEPARIN SODIUM - SQ 10,000 UNITS/ML VIAL SQ SCH ×2 (11:10→21:03)
[2017-10-13] MEDS: IMIPRAMINE HCL 25 MG TAB PO SCH (21:01)
[2017-10-13] MEDS: ACETAMINOPHEN 325 MG TAB PO PRN (21:02)
[2017-10-13] MEDS: GABAPENTIN 400 MG CAP PO SCH (21:02)
[2017-10-14] VITALS (7 sets, daily range): BP systolic 98–154; BP diastolic 56–76; PULSE 80–105; RESP 18–22; TEMP 97.2–98.6; O2SAT 97–99
[2017-10-14] MEDS: LEVOTHYROXINE SODIUM 88 MCG TAB PO SCH (06:00)
[2017-10-14] MEDS: INSULIN ASPART SUPPLEMENTAL SCALE SQ SCH ×4 (08:00→20:24)
[2017-10-14] MEDS: DOCUSATE SODIUM 50 MG/SENNA 8.6 MG TAB PO SCH ×2 (08:44→20:23)
[2017-10-14] MEDS: MULTIVITAMINS/MINERALS THERAPEUTIC TAB PO SCH (08:44)
[2017-10-14] MEDS: CALCIUM/VITAMIN D 250 MG/125 U TAB PO SCH ×2 (08:44→20:23)
[2017-10-14] MEDS: PANTOPRAZOLE SOD 20 MG DELAYED RELEASE TAB PO SCH (08:45)
[2017-10-14] MEDS: SODIUM CHLORIDE 0.9% FLUSH 10 ML FLUSH IV FLUSH SCH ×2 (08:45→20:23)
[2017-10-14] MEDS: ENALAPRIL MALEATE 10 MG TAB PO SCH (08:45)
[2017-10-14] MEDS: HEPARIN SODIUM - SQ 10,000 UNITS/ML VIAL SQ SCH ×2 (08:45→20:23)
[2017-10-14] MEDS: PRAVASTATIN SOD 40 MG TAB PO SCH (08:45)
[2017-10-14] MEDS: METOPROLOL TARTRATE 25 MG TAB PO SCH ×2 (08:45→20:23)
[2017-10-14] MEDS: DILTIAZEM-CD 120 MG CAP ER PO SCH (08:45)
[2017-10-14 09:11] LABS: BASOPHIL % 0.5 % (0.0-2.0); EOSINOPHIL # 0.3 TH/MM3 (0-0.4); EOSINOPHIL % 3.8 % (0.0-4.0); HEMATOCRIT 33.1 % (35.0-46.0); HEMO FLAGS DIFF FINAL; LYMPH % 16.4 % (9.0-44.0); LYMPHOCYTE # 1.2 TH/MM3 (1.0-4.8); MEAN CELL VOLUME 88.9 FL (80.0-100.0); MEAN CORPUSCULAR HEMOGLOBIN 28.9 PG (27.0-34.0); MEAN CORPUSCULAR HGB CONC 32.5 % (32.0-36.0); MONO % 10.3 % (0.0-8.0); PLATELET COUNT 158 TH/MM3 (150-450); RED BLOOD COUNT 3.72 MIL/MM3 (4.00-5.30); RED CELL DISTRIBUTION WIDTH 17.3 % (11.6-17.2); WHITE BLOOD COUNT 7.3 TH/MM3 (4.0-11.0)
[2017-10-14 09:28] LABS: ANION GAP 8 MEQ/L (5-15); AST (GOT) 24 U/L (15-37); BICARBONATE 25.6 MEQ/L (21.0-32.0); BLOOD UREA NITROGEN 12 MG/DL (7-18); CHLORIDE 105 MEQ/L (98-107); GLOMERULAR FILTRATION RATE 77 ML/MIN (>89); MAGNESIUM 1.8 MG/DL (1.5-2.5); POTASSIUM 3.8 MEQ/L (3.5-5.1); SODIUM (NA) 139 MEQ/L (136-145)
[2017-10-14 09:29] LABS: ALT (GPT) 42 U/L (10-53)
[2017-10-14 09:45] LABS: ALKALINE PHOSPHATASE 109 U/L (45-117); TOTAL BILIRUBIN ADULT 1.2 MG/DL (0.2-1.0)
[2017-10-14] MEDS: cefTRIAXone INJ 1,000 MG in SODIUM CHLORIDE 0.9% INJ 100 ML IV SCH (12:42)
--- NOTE | 2017-10-14 15:51 | HHI.FPPN ---
Subjective Remarks Patient seen and examined this morning. No acute events overnight per nursing staff. Patient states that she is doing well, but does have intermittent episodes of weakness which nursing report confirms. Per nurse, patient is able to complete physical therapy, however there are times where she needs full complete assistance to get out of the bed to the bedside commode which is not consistent with other evaluations. Patient states she currently is no complaints and denies any fevers, chills, chest pain, NVD, abdominal pain, or calf tenderness. (Luis Roberson MD R2) Objective Vitals Vital Signs Date Time Temp Pulse Resp B/P (MAP) Pulse Ox O2 Delivery O2 Flow Rate FiO2 10/14/17 10:47 99 Nasal Cannula 2.00 10/14/17 08:00 96 Nasal Cannula 2.00 10/14/17 08:00 97.4 105 20 154/76 (102) 99 10/14/17 04:00 86 10/14/17 04:00 97.2 86 18 114/60 (78) 99 10/14/17 00:00 98.6 88 18 98/56 (70) 98 10/14/17 00:00 91 10/13/17 21:40 Nasal Cannula 2.00 10/13/17 20:00 103 10/13/17 20:00 97.5 104 18 128/80 (96) 100 10/13/17 17:44 100 Nasal Cannula 2.00 10/13/17 16:00 97.3 91 21 129/84 (99) 100 I/O 10/13/17 10/13/17 10/13/17 10/14/17 10/14/17 10/14/17 07:00 15:00 23:00 07:00 15:00 23:00 Intake Total 999 ml 1000 ml Output Total 1200 ml 850 ml Balance -201 ml -850 ml 1000 ml Intake IV Total 999 ml 1000 ml Output Urine Total 1200 ml 850 ml # Voids 5 # Bowel Movements 0 1 (Luis Roberson MD R2) Result Diagram: 10/14/17 0750 10/14/17 0750 Objective Remarks GENERAL: Well-nourished, well-developed female lying in bed in no acute distress. SKIN: No rashes, ecchymoses or lesions. Cool and dry. HEENT: Atraumatic, normocephalic with EOMI. MMM. No rhinorrhea. No LAD or JVD appreciated. CARDIOVASCULAR: Regular rate and rhythm without murmurs, gallops, or rubs. RESPIRATORY: Clear to auscultation bilaterally with no CRW. No increased work of breathing. GASTROINTESTINAL: Abdomen soft, non-tender, nondistended with +BS. No masses appreciated. MUSCULOSKELETAL: Extremities without cyanosis or edema. No calf tenderness. NEUROLOGICAL: Afocal, AAOx3. Appropriate strength and sensation. Normal speech (Luis Roberson MD R2) A/P Assessment and Plan Patient admitted for hypoglycemic episode, A. fib with RVR, and UTI. Discharge Planning Tomorrow pending placement (Luis Roberson MD R2) Attending Attestation Patient seen and examined. Case reviewed and discussed with the resident team. Agree with plan of care as discussed with me and documented in the resident note. she is feeling better since admission. still with intermittent weakness (Letty Ott MD) Problem List: (1) Atrial fibrillation ICD Codes: I48.91 - Unspecified atrial fibrillation Status: Acute Plan: Patient presented with A. fib with RVR. Patient reports she has not taken her medications today. Imaging/studies/labs: -EKG: Atrial fibrillation with RVR. Incomplete right bundle branch block. -Cardiac telemetry Medications: -Continue home diltiazem and metoprolol at this time -Plan to transfer to CICU for diltiazem drip if patient's heart rate continues to be greater than 100 -Discussed with patient's PCP, Dr. Royal, risk vs. benefit for continued anticoagulation due to history or falls and previous bleeding episodes. Full chart review to be completed before final recommendations. (2) Supratherapeutic INR ICD Codes: R79.1 - Abnormal coagulation profile Status: Acute Plan: Patient found to have supratherapeutic INR without bleeding. Medical team will plan to reevaluate long-term anticoagulation at discharge. Imaging/studies/labs: -CT head: No acute intracranial abnormality is identified. Trace air within the soft tissues bilaterally encounter size. Some of this could be related to vascular access or trauma. -INR: 6.8, repeat 1.5 -Continue to monitor Medications: -Vitamin K 10 mg given in ER so her INR will be low no matter what for 5-7 days -Heparin 5000 units twice a day (3) Suspected UTI ICD Codes: N39.0 - Urinary tract infection, site not specified Status: Acute Plan: Patient found to have suspected UTI on admission. Labs/studies/orders: -UA: Hazy, protein 30, ketones 10, moderate occult blood, positive nitrate, large leukocyte esterase, 27 rbc, wbc clumps, many bacteria -Urine culture: Pansensitive Klebsiella -Urine catheter in place as patient did not void in ER, will plan to discontinue WILLIE. Medications: -Ceftriaxone 1 g daily (4) Hypoglycemia ICD Codes: E16.2 - Hypoglycemia, unspecified Status: Resolved Plan: Patient with multiple episodes of lethargy/presyncope likely due to hypoglycemia. Per chart review, patient over the last month increase NPH insulin to 20 units per day with 12 units 3 times a day before meals. Imaging/studies/orders: -Previous A1c: 7.6 (05/20) -CMP: Glucose 86 Medications: -NovoLog sliding scale insulin per protocol -Hold home insulins -Levemir 5 units twice a day, consider discharging patient home with Lantus (5) Lower limb ulcer, ankle ICD Codes: L97.309 - Non-pressure chronic ulcer of unspecified ankle with unspecified severity Status: Chronic Plan: Patient with left lower extremity ulceration -Wound care consult (6) Contraindication to deep vein thrombosis (DVT) prophylaxis ICD Codes: Z53.09 - Procedure and treatment not carried out because of other contraindication Status: Acute Plan: Medical DVT prophylaxis contraindicated due to supratherapeutic INR SCD/TEDs Heparin 5000 units twice a day (7) Nutrition, metabolism, and development symptoms ICD Codes: R63.8 - Other symptoms and signs concerning food and fluid intake Status: Acute Plan: Fluids: Tolerating oral fluids Electrolytes: Within normal limits, continue to monitor Diet: Diabetic diet as tolerated (Luis Roberson MD R2) Problem Qualifiers (1) Atrial fibrillation: Qualified Codes: I48.2 - Chronic atrial fibrillation (2) Lower limb ulcer, ankle: Luis Roberson MD R2 Oct 14, 2017 15:50 Letty Ott MD Oct 16, 2017 10:47
--- NOTE | 2017-10-14 16:28 | PD.WCN.NOT ---
Wound Consult Description: Received consult for wound management of L ankle healing ulceration from Doctor Roberson Communicated with: ALIS Correa [address] [place] [address] and Doctor Roberson Recommendation: Please cleanse wound to L medial Ankle with normal saline or wound cleanser and pat dry. Apply Optifoam gentle 4x4 dressing over wound (available through misogram only). Change dressing every 3 days or PRN if saturated or dislodged.Please apply skin prep to periwound before applying dressing. Additional Information: atient seen on [address] [place] [address] around 1530 for wound assessment of L medial ankle . Removed gauze and rolled gauze dressing in place to reveal wound that is 100% pink, with minimal serous drainage that is without odor.Wound appears stable and clean. Wound measures ~1.2cm x~1.9cm x ~0.1cm. Cleansed wound with normal saline and pat dry. Applied Allevyn gentle foam dressing in place, skin prep was applied before dressing application.Allevyn gentle border was available on floor.Wound recommendations noted above. Ordered two Optifoam gentle border dressings 4x4 for patient. Macie Rogers [facility] Oct 14, 2017 16:28
--- NOTE | 2017-10-14 17:32 | HHI.DCPOC ---
Discharge Care Plan Diagnosis: (1) Supratherapeutic INR (2) UTI (urinary tract infection) (3) Atrial fibrillation with RVR Goals to Promote Your Health * To prevent worsening of your condition and complications * To maintain your health at the optimal level Directions to Meet Your Goals Take your medications as prescribed Follow your dietary instruction Follow activity as directed Keep your appointments as scheduled Take your immunizations and boosters as scheduled If your symptoms worsen call your PCP, if no PCP go to Urgent Care Center or Emergency Room Smoking is Dangerous to Your Health. Avoid second hand smoke Call the 24-hour hour crisis hotline for domestic abuse at Luis Roberson MD R2 Oct 14, 2017 17:32
[2017-10-14] MEDS: GABAPENTIN 400 MG CAP PO SCH (20:23)
[2017-10-14] MEDS: IMIPRAMINE HCL 25 MG TAB PO SCH (20:23)
[2017-10-14] MEDS: INSULIN DETEMIR 100 UNITS/ML VIAL SQ SCH (20:24)
[2017-10-14] MEDS: ACETAMINOPHEN 325 MG TAB PO PRN (20:30)
[2017-10-14] MEDS ORDERED: INSULIN DETEMIR 100 UNITS/ML VIAL SQ SCH (21:00)
[2017-10-15] VITALS: BP 116/76; PULSE 87; PULSE 89; RESP 20; TEMP 97.8; O2SAT 94
[2017-10-15 04:00] VITALS: BP 128/60; PULSE 100; PULSE 90; RESP 20; TEMP 97.6; O2SAT 97
[2017-10-15] MEDS: LEVOTHYROXINE SODIUM 88 MCG TAB PO SCH (05:18)
[2017-10-15 07:24] LABS: BICARBONATE 27.9 MEQ/L (21.0-32.0); POTASSIUM 3.8 MEQ/L (3.5-5.1)
[2017-10-15 08:00] VITALS: BP 152/76; PULSE 88; PULSE 89; RESP 18; TEMP 97.3; O2SAT 96
[2017-10-15] MEDS: INSULIN ASPART SUPPLEMENTAL SCALE SQ SCH ×2 (08:00→11:53)
[2017-10-15 08:09] LABS: INTERNATIONAL NORMALIZED RATIO 1.4 RATIO; PROTHROMBIN TIME - PATIENT 14.4 SEC (9.8-11.6)
[2017-10-15] MEDS: HEPARIN SODIUM - SQ 10,000 UNITS/ML VIAL SQ SCH (08:18)
[2017-10-15] MEDS: MULTIVITAMINS/MINERALS THERAPEUTIC TAB PO SCH (08:18)
[2017-10-15] MEDS: PRAVASTATIN SOD 40 MG TAB PO SCH (08:19)
[2017-10-15] MEDS: DILTIAZEM-CD 120 MG CAP ER PO SCH (08:19)
[2017-10-15] MEDS: CALCIUM/VITAMIN D 250 MG/125 U TAB PO SCH (08:19)
[2017-10-15] MEDS: ENALAPRIL MALEATE 10 MG TAB PO SCH (08:19)
[2017-10-15] MEDS: METOPROLOL TARTRATE 25 MG TAB PO SCH (08:19)
[2017-10-15] MEDS: DOCUSATE SODIUM 50 MG/SENNA 8.6 MG TAB PO SCH (08:19)
[2017-10-15] MEDS: PANTOPRAZOLE SOD 20 MG DELAYED RELEASE TAB PO SCH (08:19)
[2017-10-15] MEDS: SODIUM CHLORIDE 0.9% FLUSH 10 ML FLUSH IV FLUSH SCH (08:20)
[2017-10-15] MEDS: INSULIN DETEMIR 100 UNITS/ML VIAL SQ SCH (08:22)
--- NOTE | 2017-10-15 10:19 | HHI.FPPN ---
Subjective Remarks Patient was seen and evaluated this morning. PT in the room. Patient walking with walker from bed to chair. She walks slowly but appears steady on her feet. Patient says that she feels well overall and is ready to go home. She understands that we recommend a temporary stay at a rehabilitation facility to build strength. The patient agrees with the plan. Patient denies chest pain, heart palpitations, shortness of breath, nausea/vomiting, diarrhea and constipation. All questions were answered. (Kae Burroughs MD R1) Objective Vitals Vital Signs Date Time Temp Pulse Resp B/P (MAP) Pulse Ox O2 Delivery O2 Flow Rate FiO2 10/15/17 08:00 97.3 88 18 152/76 (101) 96 10/15/17 04:00 90 10/15/17 04:00 97.6 100 20 128/60 (82) 97 10/15/17 04:00 Room Air 10/15/17 00:00 97.8 87 20 116/76 (89) 94 10/15/17 00:00 Room Air 10/15/17 00:00 89 10/14/17 20:00 96 Room Air 10/14/17 20:00 102 10/14/17 20:00 97.8 100 22 132/73 (92) 98 10/14/17 16:00 97.5 92 20 126/67 (86) 99 10/14/17 12:00 98.0 80 20 120/63 (82) 97 10/14/17 10:47 99 Nasal Cannula 2.00 I/O 10/14/17 10/14/17 10/14/17 10/15/17 10/15/17 10/15/17 07:00 15:00 23:00 07:00 15:00 23:00 Intake Total 1000 ml 600 ml 720 ml Output Total 500 ml 1000 ml Balance 1000 ml 100 ml -280 ml Intake Oral 600 ml 720 ml IV Total 1000 ml Output Urine Total 500 ml 1000 ml # Voids 5 4 # Bowel Movements 0 (Kae Burroughs MD R1) Result Diagram: 10/14/17 0750 10/15/17 0621 Imaging Last Impressions Head CT 10/12/17 0959 Signed Impressions: Service Date/Time: Thursday, October 12, 2017 10:42 - CONCLUSION: 1. No acute intracranial abnormality is identified. 2. Trace air within the soft tissues bilaterally and cavernous sinus. Some of this could be related to vascular access or trauma. Peewee Fitzpatrick MD Objective Remarks GENERAL: Well-nourished, well-developed female walking with walker in her room. She appears in no acute distress. Patient winded when seated in chair. SKIN: No rashes, ecchymoses or lesions. Warm and dry. HEENT: Atraumatic, normocephalic with extraocular motion intact. Mucous membranes moist. No rhinorrhea. No lymphadenopathy or JVD appreciated. CARDIOVASCULAR: Regular rate and rhythm without murmurs, gallops, or rubs. RESPIRATORY: Clear to auscultation bilaterally. No increased work of breathing. GASTROINTESTINAL: Positive bowel sounds. Abdomen soft, non-tender, nondistended. No masses appreciated. MUSCULOSKELETAL: Extremities without cyanosis or edema. No calf tenderness. NEUROLOGICAL: Alert and oriented 3. Appropriate strength and sensation. Normal speech Medications and IVs Current Medications Medications (Trade) Dose Ordered Sig/Marcel Route Start Time Stop Time Status Last Admin (Vasotec) 10 mg DAILY PO 10/12/17 12:45 10/15/17 08:19 (Neurontin) 400 mg HS PO 10/12/17 21:00 10/14/17 20:23 (Tofranil) 50 mg HS PO 10/12/17 21:00 10/14/17 20:23 (Synthroid) 88 mcg DAILY@0600 PO 10/12/17 12:45 10/15/17 05:18 (Lopressor) 25 mg BID PO 10/12/17 12:45 10/15/17 08:19 (Nitrostat Sl) 0.4 mg QID PRN SL 10/12/17 12:45 (Protonix) 20 mg DAILY PO 10/12/17 12:45 10/15/17 08:19 (Pravachol) 40 mg DAILY PO 10/12/17 12:45 10/15/17 08:19 (Oscal-D 250-125) 500 mg BID PO 10/12/17 21:00 10/15/17 08:19 (Theragran M Tab) 1 tab DAILY PO 10/13/17 09:00 10/15/17 08:18 (D50w (Vial) Inj) 50 ml UNSCH PRN IV PUSH 10/12/17 13:00 (Glucagon Inj) 1 mg UNSCH PRN OTHER 10/12/17 13:00 (NovoLOG SUPPLEMENTAL SCALE) 1 ACHS SLIDING SCALE SQ 10/12/17 17:00 10/14/17 20:24 (NS Flush) 2 ml UNSCH PRN IV FLUSH 10/12/17 13:30 (NS Flush) 2 ml BID IV FLUSH 10/12/17 21:00 10/15/17 08:20 (Tylenol) 650 mg Q4H PRN PO 10/12/17 13:30 10/14/17 20:30 (Zofran Inj) 4 mg Q6H PRN IVP 10/12/17 13:30 (Narcan Inj) 0.4 mg UNSCH PRN IV PUSH 10/12/17 13:30 (Kelly-Colace) 1 tab BID PO 10/12/17 21:00 10/15/17 08:19 (Milk Of Magnesia Liq) 30 ml Q12H PRN PO 10/12/17 13:30 (Senokot) 17.2 mg Q12H PRN PO 10/12/17 13:30 (Dulcolax Supp) 10 mg DAILY PRN RECTAL 10/12/17 13:30 (Lactulose Liq) 30 ml DAILY PRN PO 10/12/17 13:30 Ceftriaxone Sodium 1000 mg/ Sodium Chloride 100 ml @ 200 mls/hr Q24H IV 10/13/17 11:00 10/14/17 12:42 (Catapres) 0.1 mg Q6H PRN PO 10/12/17 13:30 (Cardizem Cd) 120 mg DAILY PO 10/12/17 15:00 10/15/17 08:19 (Heparin Inj) 5,000 units Q12HR SQ 10/13/17 10:00 10/15/17 08:18 (Levemir Inj) 5 units BID SQ 10/14/17 21:00 10/15/17 08:22 (Kae Burroughs MD R1) Urinary Catheter: No (Kae Burroughs MD R1) Vascular Central Line Catheter: No (Kae Burroughs MD R1) A/P Assessment and Plan Patient admitted for hypoglycemic episode, A. fib with RVR, and UTI. Discharge Planning Today pending SNF placement. (Kae Burroughs MD R1) Attending Attestation Case reviewed and discussed with the resident team. Agree with plan of care as discussed with me and documented in the resident note. (Rhianna Royal MD) Problem List: (1) Atrial fibrillation ICD Codes: I48.91 - Unspecified atrial fibrillation Status: Acute Plan: Patient presented with A. fib with RVR. Patient reported she had not taken her medications on day of admission. Imaging/studies/labs: * EKG: Atrial fibrillation with RVR. Incomplete right bundle branch block. * Cardiac telemetry. No evidence recorded overnight. Medications: * Continue home diltiazem and metoprolol at this time. * Plan to transfer to CICU for diltiazem drip if patient's heart rate greater than 100. * Discussed with patient's PCP, Dr. Royal, risk vs. benefit for continued anticoagulation due to history of falls and previous bleeding episodes. Full chart review to be completed before final recommendations. (2) Supratherapeutic INR ICD Codes: R79.1 - Abnormal coagulation profile Status: Acute Plan: Patient found to have supra-therapeutic INR without bleeding. Medical team to reevaluate long-term anticoagulation at discharge. Imaging/studies/labs: * CT head: No acute intracranial abnormalities identified. Trace air within the soft tissues bilaterally and cavernous sinus. Some of this could be related to vascular access or trauma. * INR: 6.8, repeat 1.5 and 1.4. * Continue to monitor. Medications: * Vitamin K 10 mg given in ER, thus, INR expected to be low for 5-7 days. * Heparin 5000 units BID. (3) Suspected UTI ICD Codes: N39.0 - Urinary tract infection, site not specified Status: Acute Plan: On admission, UA with hazy appearance, 30 protein, moderate occult blood , positive nitrites, large leukocyte esterase, 27 RBC, few WBC clumps and many bacteria. Urine culture pansensitive Klebsiella pneumoniae. Labs/studies/orders: * UA: Hazy, protein 30, moderate occult blood, positive nitrites, large leukocyte esterase, 27 RBC, few WBC clumps, many bacteria. * Urine culture: pansensitive Klebsiella pneumoniae. Medications: * Ceftriaxone 1g daily IV. Will determine appropriate PO antibiotic on discharge. (4) Hypoglycemia ICD Codes: E16.2 - Hypoglycemia, unspecified Status: Acute Plan: Patient with multiple episodes of lethargy/presyncope likely due to hypoglycemia. Per chart review, over the last month, patient's NPH insulin had been increased to 20 units per day with 12 units 3 times a day before meals. Imaging/studies/orders: * Previous A1c: 7.6 (05/20) * CMP: Glucose 136. Medications: * NovoLog sliding scale insulin per protocol; patient required 9 units of NovoLog for the past 24 hours. * Hold home insulins. * Levemir 5 units BID, consider discharging patient home with Lantus 10 units daily. (5) Lower limb ulcer, ankle ICD Codes: L97.309 - Non-pressure chronic ulcer of unspecified ankle with unspecified severity Status: Chronic Plan: Patient with left lower extremity ulceration. * Wound care recommendations: Cleanse wound to left medial ankle with normal saline or wound cleanser and pat dry. Apply Optifoam Gentle 4x4 dressing over wound (available through misogram only). Change dressing every 3 days or PRN if saturated or dislodged. Please apply skin prep to periwound before applying dressing. (6) Contraindication to deep vein thrombosis (DVT) prophylaxis ICD Codes: Z53.09 - Procedure and treatment not carried out because of other contraindication Status: Acute Plan: SCD/TEDs Heparin 5000 units BID. (7) Nutrition, metabolism, and development symptoms ICD Codes: R63.8 - Other symptoms and signs concerning food and fluid intake Status: Acute Plan: Diet: * Diabetic diet as tolerated. Fluids: * Tolerating oral fluids. Good PO intake. Electrolytes: * Within normal limits, continue to monitor. (Kae Burroughs MD R1) Problem Qualifiers (1) Atrial fibrillation: Qualified Codes: I48.2 - Chronic atrial fibrillation (2) Lower limb ulcer, ankle: Kae Burroughs MD R1 Oct 15, 2017 10:19 Rhianna Royal MD Oct 15, 2017 12:26
[2017-10-15] MEDS: cefTRIAXone INJ 1,000 MG in SODIUM CHLORIDE 0.9% INJ 100 ML IV SCH (11:50)
[2017-10-15 12:00] VITALS: PULSE 90
[2017-10-15] MEDS ORDERED: LANTUS2P SQ (12:27)
[2017-10-15] MEDS ORDERED: APIX5TAB PO (12:27)
--- NOTE | 2017-10-15 12:40 | HHI.DS ---
Discharge Summary Admission Date Oct 12, 2017 at 12:18 Discharge Date: Oct 15, 2017 Admitting Diagnosis Afib RVR, UTI, supratherapeutic INR (1) Altered mental status Diagnosis: Principal ICD Codes: R41.82 - Altered mental status, unspecified Status: Resolved (2) Hypoglycemia Diagnosis: Principal ICD Codes: E16.2 - Hypoglycemia, unspecified Status: Resolved (3) Atrial fibrillation with RVR Diagnosis: Secondary ICD Codes: I48.91 - Unspecified atrial fibrillation Status: Acute (4) UTI (urinary tract infection) Diagnosis: Secondary ICD Codes: N39.0 - Urinary tract infection, site not specified Status: Acute (5) Supratherapeutic INR Diagnosis: Secondary ICD Codes: R79.1 - Abnormal coagulation profile Status: Resolved Brief History Patient admitted for hypoglycemic episode, A. fib with RVR, and UTI. CBC/BMP: 10/14/17 0750 10/15/17 0621 Significant Findings Laboratory Tests Test 10/12/17 16:20 10/13/17 06:53 10/14/17 07:50 10/15/17 06:21 Hemoglobin 11.1 GM/DL (11.6-15.3) 10.2 GM/DL (11.6-15.3) 10.7 GM/DL (11.6-15.3) Hematocrit 34.8 % (35.0-46.0) 30.8 % (35.0-46.0) 33.1 % (35.0-46.0) Troponin I LESS THAN 0.02 NG/ML Red Blood Count 3.52 MIL/MM3 (4.00-5.30) 3.72 MIL/MM3 (4.00-5.30) Platelet Count 147 TH/MM3 (150-450) Neutrophils (%) (Auto) 76.8 % (16.0-70.0) Monocytes (%) (Auto) 8.8 % (0.0-8.0) 10.3 % (0.0-8.0) Prothrombin Time 14.7 SEC (9.8-11.6) Random Glucose 162 MG/DL (74-106) 133 MG/DL (74-106) 136 MG/DL (74-106) Total Protein 5.9 GM/DL (6.4-8.2) Albumin 2.7 GM/DL (3.4-5.0) 2.9 GM/DL (3.4-5.0) Calcium Level 7.8 MG/DL (8.5-10.1) 8.3 MG/DL (8.5-10.1) 8.2 MG/DL (8.5-10.1) Total Bilirubin 1.5 MG/DL (0.2-1.0) 1.2 MG/DL (0.2-1.0) Estimat Glomerular Filtration Rate 69 ML/MIN (>89) 77 ML/MIN (>89) 75 ML/MIN (>89) Red Cell Distribution Width 17.3 % (11.6-17.2) Test 10/15/17 07:52 Prothrombin Time 14.4 SEC (9.8-11.6) Imaging Last Impressions Head CT 10/12/17 0959 Signed Impressions: Service Date/Time: Thursday, October 12, 2017 10:42 - CONCLUSION: 1. No acute intracranial abnormality is identified. 2. Trace air within the soft tissues bilaterally and cavernous sinus. Some of this could be related to vascular access or trauma. Peewee Fitzpatrick MD PE at Discharge GENERAL: Well-nourished, well-developed female walking with walker in her room. She appears in no acute distress. Patient winded when seated in chair. SKIN: No rashes, ecchymoses or lesions. Warm and dry. HEENT: Atraumatic, normocephalic with extraocular motion intact. Mucous membranes moist. No rhinorrhea. No lymphadenopathy or JVD appreciated. CARDIOVASCULAR: Regular rate and rhythm without murmurs, gallops, or rubs. RESPIRATORY: Clear to auscultation bilaterally. No increased work of breathing. GASTROINTESTINAL: Positive bowel sounds. Abdomen soft, non-tender, nondistended. No masses appreciated. MUSCULOSKELETAL: Extremities without cyanosis or edema. No calf tenderness. NEUROLOGICAL: Alert and oriented 3. Appropriate strength and sensation. Normal speech. Hospital Course Hypoglycemia: Patient with multiple episodes of lethargy/presyncope likely due to hypoglycemia. Per chart review, over the last month, patient's NPH insulin had been increased to 20 units per day with 12 units 3 times a day before meals. Imaging/studies/orders: * Previous A1c: 7.6 (05/20) * CMP day of discharge: Glucose 136. Medications: * NovoLog sliding scale insulin per protocol; patient required 9 units of NovoLog for the past 24 hours. * Hold home insulins. * Levemir 5 units BID, will discharge patient home with Lantus 10 units daily. Atrial fibrillation: Patient presented with A. fib with RVR. Patient reported she had not taken her medications on day of admission. Imaging/studies/labs: * EKG: Atrial fibrillation with RVR. Incomplete right bundle branch block. * Cardiac telemetry. No evidence recorded. Medications: * Continue home diltiazem and metoprolol at this time. * Plan to transfer to CICU for diltiazem drip if patient's heart rate greater than 100. * Discharged on Eliquis 5mg BID PO. Supra-therapeutic INR: Patient found to have supra-therapeutic INR without bleeding. Imaging/studies/labs: * CT head: No acute intracranial abnormalities identified. Trace air within the soft tissues bilaterally and cavernous sinus. Some of this could be related to vascular access or trauma. * INR: 6.8, repeat 1.5 and 1.4. * Continue to monitor. Medications: * Vitamin K 10 mg given in ER, thus, INR expected to be low for 5-7 days. * Heparin 5000 units BID as inpatient. Eliquis started on discharge. UTI: On admission, UA with hazy appearance, 30 protein, moderate occult blood, positive nitrites, large leukocyte esterase, 27 RBC, few WBC clumps and many bacteria. Urine culture pansensitive Klebsiella pneumoniae. Labs/studies/orders: * UA: Hazy, protein 30, moderate occult blood, positive nitrites, large leukocyte esterase, 27 RBC, few WBC clumps, many bacteria. * Urine culture: pansensitive Klebsiella pneumoniae. Medications: * Ceftriaxone 1g daily IV. No antibiotics indicated on discharge. Pt Condition on Discharge: Stable Discharge Disposition: Discharge to SNF Discharge Instructions DIET: Follow Instructions for: Diabetic Diet Activities you can perform: Regular-No Restrictions Follow up Referrals: PCP Follow-up - 1 Week with Rhianna Gramajo MD New Medications: Apixaban (Eliquis) 5 Mg Tab 5 MG PO BID for Blood Clot Prevention, #60 TAB 0 Refills Insulin Glargine Inj (Lantus Inj) 1,000 Unit/10 Ml Vial 10 UNITS SQ HS for Blood Sugar Management, #30 VIAL 0 Refills Continued Medications: Calcium Carbonate-Vitamin D (Sm Calcium 500/Vitamin D3 500-400 mg-Unit) 500 Mg- 400 Tab 1 TAB PO BID for Nutritional Supplement Diltiazem CD 24 HR (Cardizem CD 24 HR) 120 Mg Caper 120 MG PO DAILY, #30 CAP 0 Refills Enalapril (Enalapril) 10 Mg Tab 10 MG PO DAILY, #90 TAB 0 Refills Gabapentin (Gabapentin) 400 Mg Cap 400 CAP PO HS, #90 CAP 3 Refills Imipramine HCL (Tofranil) 50 Mg Tab 50 MG PO HS for Control Depression, TAB 0 Refills Levothyroxine (Levothyroxine) 88 Mcg Tab 88 MCG PO DAILY for Thyroid, #90 TAB 0 Refills Metoprolol Tartrate (Metoprolol Tartrate) 25 Mg Tab 25 MG PO BID for Blood Pressure Management, #60 TAB 0 Refills Multiple Vitamins W/ Minerals (Multiple Vitamin/Minerals) 1 Tab Tab 1 TAB PO DAILY for Nutritional Supplement Nitroglycerin SL (Nitrostat SL) 0.4 Mg Subl 0.4 MG SL DIRECTED PRN for CHEST PAIN, #100 TAB.SL 0 Refills ONE TABLET UNDER THE TONGUE NEEDED FOR CHEST PAIN, MAY REPEAT EVERY FIVE MINUTES FOR A TOTAL OF 3 DOSES OR CALL 911 IF NO RELIEF Pantoprazole (Protonix) 20 Mg Tab 20 MG PO DAILY for Reflux, #30 TAB 0 Refills Pravastatin (Pravastatin) 40 Mg Tab 40 MG PO DAILY for Cholesterol Management, #30 TAB 5 Refills Discontinued Medications: Insulin Human NPH Inj (Humulin N Inj) 1,000 Unit/10 Ml Vial 10 UNITS SQ DAILY for Blood Sugar Management, #10 ML 0 Refills Insulin Lispro (Human) Inj (Humalog Inj) 1,000 Unit/10 Ml Vial 12 UNITS SQ TIDAC for Blood Sugar Management, #1 VIAL 11 Refills Warfarin (Coumadin) 4 Mg Tab 4 MG PO MoThSa for Prevent Blood Clot, #30 TAB 0 Refills Take 1 tablet (4mg) daily on Thursday, and Thursday Warfarin (Coumadin) 3 Mg Tab 3 MG PO SuTuWeFr for Prevent Blood Clot, #30 TAB 0 Refills Take 1 tablet (3mg) daily on Thursday,Thursday,Thursday and Thursday Kae Burroughs MD R1 Oct 15, 2017 12:39
== END 2017-10-15 13:36 | DRG 638 ==
LOC: NEPC 09:33 → NEDA 12:18 → N04B 14:47
PROVIDERS: ADMIT Family Medicine; ATTEND Family Medicine
DX: E11.649 Type 2 diabetes mellitus with hypoglycemia without coma (principal); N39.0 Urinary tract infection, site not specified; L97.329 Non-pressure chronic ulcer of left ankle with unspecified severity; I42.9 Cardiomyopathy, unspecified; E11.622 Type 2 diabetes mellitus with other skin ulcer; E11.40 Type 2 diabetes mellitus with diabetic neuropathy, unspecified; R79.1 Abnormal coagulation profile; K57.90 Diverticulosis of intestine, part unspecified, without perforation or abscess without bleeding; I48.2 Chronic atrial fibrillation; E78.5 Hyperlipidemia, unspecified; E03.9 Hypothyroidism, unspecified; I45.10 Unspecified right bundle-branch block; R53.1 Weakness; B96.1 Klebsiella pneumoniae [K. pneumoniae] as the cause of diseases classified elsewhere; I10 Essential (primary) hypertension; J45.909 Unspecified asthma, uncomplicated; M85.851 Other specified disorders of bone density and structure, right thigh; M85.852 Other specified disorders of bone density and structure, left thigh; M19.90 Unspecified osteoarthritis, unspecified site; Z79.4 Long term (current) use of insulin; Z87.891 Personal history of nicotine dependence; Z79.01 Long term (current) use of anticoagulants; I25.2 Old myocardial infarction
CPT/HCPCS: 70450; 80048; 80053; 81001; 82948; 83605; 83735; 84443; 84484; 85014; 85018; 85025; 85610; 85730; 87077; 87086; 87186; 93005; 96374; 96375; J0696; J1644; J1815; J3430; J7030

== ENCOUNTER 2017-11-11 13:11 | Inpatient (IN) | payer MEDICARE, BC ==
[~2017-11-11] VITALS: Ht 165.1 cm; Wt 72.5 kg
[~2017-11-11 13:11] MED LIST changes: +APIX5TAB PO; +CARD120C4 PO; -COUM3TAB PO; -COUM4TAB PO; -DIGO0.25 PO; -DILT300C3 PO; -ENAL10TA PO; +ENAL2.5T PO; -HUMALOG SQ; -INSU100V3 SQ; +LANTUS2P SQ; +LEVO50TA4 PO; -LEVO88TA2 PO; +METO25TA3 PO; -METO50TA PO; +MULT1TAB39 PO; -OXYB5TAB8 PO; +SM CTAB PO; +TOFR50TA PO; -calcium carbonate PO
[2017-11-11 13:27] VITALS: BP 122/70; PULSE 59; RESP 19; O2SAT 100
[2017-11-11 13:44] VITALS: BP 122/70; PULSE 59; RESP 19; O2SAT 100
[2017-11-11] MEDS ORDERED: SODIUM CHLORIDE 0.9% FLUSH 10 ML FLUSH IVF PRN (14:30)
--- NOTE | 2017-11-11 14:37 | PD ---
HPI Chief Complaint: Syncope/Near-Syncope Time Seen by Provider: 13:56 Travel History International Travel<30 days: No Contact w/Intl Traveler<30days: No Traveled to known affect area: No History of Present Illness HPI 82-year-old female presents emergency department via EMS for evaluation after she became short of breath and lightheaded this morning while at home. She states the onset was sudden after she ate breakfast. She denies any choking or coughing related. She denies any upsetting or strenuous activity surrounding the event. She denies any fevers, chills, chest pain, nausea, vomiting, diarrhea, abdominal pain. She states this happened approximately month ago and she was evaluated her facility for her. Upon review of her medical records she had A. fib with RVR at that time. PFSH Past Medical History Hx Anticoagulant Therapy: Yes Arthritis: Yes Asthma: No Atrial Fibrillation: Yes Autoimmune Disease: No Blood Disorders: No Anxiety: No Depression: No Heart Rhythm Problems: Yes (A-FIB) Cancer: No Cardiac Catheterization: Yes Cardiovascular Problems: Yes High Cholesterol: Yes Chemotherapy: No Chest Pain: Yes Congestive Heart Failure: No COPD: No Cerebrovascular Accident: No Diabetes: Yes Patient Takes Glucophage: No Diminished Hearing: No Endocrine: Yes Glaucoma: No Genitourinary: No Hypertension: Yes Immune Disorder: No Implanted Vascular Access Dvce: Yes Kidney Stones: No Musculoskeletal: Yes Neurologic: No Psychiatric: No Reproductive: No Respiratory: Yes (ASTHMA) Immunizations Current: Yes Myocardial Infarction: Yes Radiation Therapy: No Sickle Cell Disease: No Sleep Apnea: No Thyroid Disease: No : 5 Para: 5 Past Surgical History Abdominal Surgery: Yes (Gall Bladder, Apendix Removed.) AICD: No Appendectomy: Yes Arteriovenous Shunt: No Body Medical Devices: METAL PLATE IN LEFT ANKLE Cardiac Surgery: No Cholecystectomy: Yes Ear Surgery: No Endocrine Surgery: No Eye Surgery: No Genitourinary Surgery: No Gynecologic Surgery: Yes (MARTY) Hysterectomy: Yes Insulin Pump: No Joint Replacement: Yes (Metal implated in her left anckle) Oral Surgery: No Pacemaker: No Thoracic Surgery: No Tonsillectomy: Yes Other Surgery: Yes (HYSTERECTOMY, CHOLECYSECTOMY, LEFT ANKLE, APENDECTOMY) Social History Alcohol Use: No Tobacco Use: No Substance Use: No Allergies-Medications (Allergen,Severity, Reaction): Coded Allergies: Influenza Virus Vaccines (Verified Allergy, Severe, Anaphylaxis, 11/11/17) pt denies reaction but refuses to have flu vaccine Reported Meds & Prescriptions Reported Meds & Active Scripts Active Pravastatin 40 Mg Tab 40 Mg PO DAILY Cardizem CD 24 HR (Diltiazem CD 24 HR) 120 Mg Caper 120 Mg PO DAILY Levothyroxine (Levothyroxine Sodium) 50 Mcg Tab 50 Mcg PO DAILY Enalapril (Enalapril Maleate) 2.5 Mg Tab 2.5 Mg PO DAILY Lantus Inj (Insulin Glargine) 1,000 Unit/10 Ml Vial 10 Units SQ HS Eliquis (Apixaban) 5 Mg Tab 5 Mg PO BID Gabapentin 400 Mg Cap 400 Cap PO HS Reported Tofranil (Imipramine HCl) 50 Mg Tab 50 Mg PO HS Multiple Vitamin/Minerals (Multiple Vitamins W/ Minerals) 1 Tab Tab 1 Tab PO DAILY Metoprolol Tartrate 25 Mg Tab 25 Mg PO BID Sm Calcium 500/Vitamin D3 500-400 mg-Unit (Calcium Carbonate-Vitamin D) 500 Mg- 400 Tab 1 Tab PO BID Nitrostat SL (Nitroglycerin) 0.4 Mg Subl 0.4 Mg SL DIRECTED PRN ONE TABLET UNDER THE TONGUE NEEDED FOR CHEST PAIN, MAY REPEAT EVERY FIVE MINUTES FOR A TOTAL OF 3 DOSES OR CALL 911 IF NO RELIEF Protonix (Pantoprazole Sodium) 20 Mg Tab 20 Mg PO DAILY Review of Systems Except as stated in HPI: all other systems reviewed are Neg Physical Exam Narrative GENERAL: Well-nourished well-developed 82-year-old female in no acute distress. SKIN: Focused skin assessment warm/dry. HEAD: Atraumatic. Normocephalic. EYES: Pupils equal and round. No scleral icterus. No injection or drainage. ENT: No nasal bleeding or discharge. Mucous membranes pink and moist. NECK: Trachea midline. No JVD. CARDIOVASCULAR: Irregularly regular rate and rhythm. No murmur appreciated. RESPIRATORY: No accessory muscle use. Clear to auscultation. Breath sounds equal bilaterally. GASTROINTESTINAL: Abdomen soft, non-tender, nondistended. Hepatic and splenic margins not palpable. MUSCULOSKELETAL: +1 pitting edema to bilateral lower extremities. No obvious deformities. No clubbing. No cyanosis. NEUROLOGICAL: Awake and alert. No obvious cranial nerve deficits. Motor grossly within normal limits. Normal speech. PSYCHIATRIC: Appropriate mood and affect; insight and judgment normal. Data Data Last Documented VS Vital Signs Date Time Temp Pulse Resp B/P (MAP) Pulse Ox O2 Delivery O2 Flow Rate FiO2 11/11/17 17:40 74 19 139/84 (102) 97 Nasal Cannula 3.00 11/11/17 16:23 97.0 Orders Orders Complete Blood Count With Diff (11/11/17 14:17) Comprehensive Metabolic Panel (11/11/17 14:17) Magnesium (Mg) (11/11/17 14:17) Troponin I (11/11/17 14:17) Urinalysis - C+S If Indicated (11/11/17 14:17) Iv Access Insert/Monitor (11/11/17 14:17) Electrocardiogram (11/11/17 14:17) Ecg Monitoring (11/11/17 14:17) Oximetry (11/11/17 14:17) Oxygen Administration (11/11/17 14:17) Chest, Single Ap (11/11/17 14:17) Sodium Chloride 0.9% Flush (Ns Flush) (11/11/17 14:30) B-Type Natriuretic Peptide (11/11/17 14:40) Urine Culture (11/11/17 17:40) Ceftriaxone Inj (Rocephin Inj) (11/11/17 18:15) Admit Order (Ed Use Only) (11/11/17 18:14) Labs Laboratory Tests Test 11/11/17 14:35 11/11/17 17:40 White Blood Count 12.9 TH/MM3 Red Blood Count 4.20 MIL/MM3 Hemoglobin 12.4 GM/DL Hematocrit 37.8 % Mean Corpuscular Volume 90.0 FL Mean Corpuscular Hemoglobin 29.5 PG Mean Corpuscular Hemoglobin Concent 32.8 % Red Cell Distribution Width 18.0 % Platelet Count 162 TH/MM3 Mean Platelet Volume 9.0 FL Neutrophils (%) (Auto) 80.0 % Lymphocytes (%) (Auto) 10.7 % Monocytes (%) (Auto) 8.4 % Eosinophils (%) (Auto) 0.5 % Basophils (%) (Auto) 0.4 % Neutrophils # (Auto) 10.3 TH/MM3 Lymphocytes # (Auto) 1.4 TH/MM3 Monocytes # (Auto) 1.1 TH/MM3 Eosinophils # (Auto) 0.1 TH/MM3 Basophils # (Auto) 0.1 TH/MM3 CBC Comment DIFF FINAL Differential Comment Blood Urea Nitrogen 21 MG/DL Creatinine 1.59 MG/DL Random Glucose 155 MG/DL Total Protein 7.1 GM/DL Albumin 3.4 GM/DL Calcium Level 8.4 MG/DL Magnesium Level 2.1 MG/DL Alkaline Phosphatase 103 U/L Aspartate Amino Transf (AST/SGOT) 61 U/L Alanine Aminotransferase (ALT/SGPT) 35 U/L Total Bilirubin 1.1 MG/DL Sodium Level 134 MEQ/L Potassium Level 6.0 MEQ/L Chloride Level 103 MEQ/L Carbon Dioxide Level 22.2 MEQ/L Anion Gap 9 MEQ/L Estimat Glomerular Filtration Rate 31 ML/MIN Troponin I LESS THAN 0.02 NG/ML B-Type Natriuretic Peptide 99 PG/ML Urine Color RED Urine Turbidity CLOUDY Urine pH 6.0 Urine Specific [place] 1.025 Urine Protein 300 mg/dL Urine Glucose (UA) NEG mg/dL Urine Ketones NEG mg/dL Urine Occult Blood LARGE Urine Nitrite NEG Urine Bilirubin NEG Urine Urobilinogen LESS THAN 2.0 MG/DL Urine Leukocyte Esterase LARGE Urine RBC /hpf Urine WBC /hpf Urine WBC Clumps MANY Urine Squamous Epithelial Cells 58 /hpf Urine Mucus FEW /lpf Microscopic Urinalysis Comment CULTURE INDICATED MDM Medical Decision Making Medical Screen Exam Complete: Yes Emergency Medical Condition: Yes Differential Diagnosis Differential diagnosis included to CHF, arrhythmia, electrolyte abnormality Narrative Course Patient place a monitor and IV obtained. Blood work sent to lab. CBC, CMP, magnesium, troponin, BNP, UA ordered and pending. Chest x-ray ordered and pending. EKG ordered and interpreted. EKG shows atrial flutter with rate controlled at 66. Chest x-ray shows compensated cardiomegaly otherwise negative. CBC shows leukocytosis at 12.9 CMP shows shows sodium 134, potassium 6, calcium 8.4, bilirubin 1.1, AST 61, BUN 21, creatinine 1.590 and GFR 31, glucose 155 BNP 99 Troponin less than 0.02 UA shows large amounts of WBCs, RBCs, Esterase and protein with culture indicated. 1 g IV Rocephin given for UTI. The labs show some kidney insufficiency coupled with the elevated potassium and the fact that the kidneys were functioning within normal limits when the patient was in our facility a month ago leads us to believe that there is some acute kidney compromise. Patient will be admitted to the hospital for further evaluation of shortness of breath, lightheadedness, kidney failure and hyperkalemia. Residents accepted patient. Patient admitted for observation at this time. Diagnosis Primary Impression: RGE (acute kidney injury) Additional Impressions: SOB (shortness of breath) UTI (urinary tract infection) Qualified Codes: N39.0 - Urinary tract infection, site not specified; R31.9 - Hematuria, unspecified Admitting Information Admitting Physician Requests: Observation Freda Avitia Nov 11, 2017 14:37
[2017-11-11 14:46] LABS: AUTOMATED NEUTROPHIL # 10.3 TH/MM3 (1.8-7.7); BASOPHIL # 0.1 TH/MM3 (0-0.2); BASOPHIL % 0.4 % (0.0-2.0); EOSINOPHIL # 0.1 TH/MM3 (0-0.4); EOSINOPHIL % 0.5 % (0.0-4.0); HEMATOCRIT 37.8 % (35.0-46.0); HEMOGLOBIN 12.4 GM/DL (11.6-15.3); LYMPH % 10.7 % (9.0-44.0); LYMPHOCYTE # 1.4 TH/MM3 (1.0-4.8); MEAN CORPUSCULAR HEMOGLOBIN 29.5 PG (27.0-34.0); MEAN CORPUSCULAR HGB CONC 32.8 % (32.0-36.0); MONO % 8.4 % (0.0-8.0); MONOCYTE # 1.1 TH/MM3 (0-0.9); PLATELET COUNT 162 TH/MM3 (150-450); WHITE BLOOD COUNT 12.9 TH/MM3 (4.0-11.0)
--- NOTE | 2017-11-11 14:57 | RADRPT ---
EXAM DATE/TIME: 11/11/2017 14:29 [facility] COMPARISON: CHEST SINGLE AP, July 27, 2017, 1:45. INDICATIONS : Shortness of breath. MEDICAL HISTORY : Cardiovascular disease. Diabetes mellitus type 2. SURGICAL HISTORY : None. ENCOUNTER: Initial ACUITY: 1 day PAIN SCORE: 0/10 LOCATION: Bilateral chest FINDINGS: The lungs are clear. The heart is minimally enlarged. The pulmonary vascularity is normal. There is n o evidence for infiltrate or failure. The portion of the bony skeleton visualized is unremarkable. CONCLUSION: Compensated cardiomegaly otherwise negative Doroteo Perez MD FACR on November 11, 2017 at 14:44 Board Certified Radiologist. This report was verified electronically.
[2017-11-11 15:07] LABS: ALBUMIN 3.4 GM/DL (3.4-5.0); ALT (GPT) 35 U/L (10-53); AST (GOT) 61 U/L (15-37); BICARBONATE 22.2 MEQ/L (21.0-32.0); BLOOD UREA NITROGEN 21 MG/DL (7-18); CALCIUM 8.4 MG/DL (8.5-10.1); CHLORIDE 103 MEQ/L (98-107); CREATININE 1.59 MG/DL (0.50-1.00); GLOMERULAR FILTRATION RATE 31 ML/MIN (>89); GLUCOSE,RANDOM 155 MG/DL (74-106); MAGNESIUM 2.1 MG/DL (1.5-2.5); SODIUM (NA) 134 MEQ/L (136-145)
[2017-11-11 15:11] LABS: ALKALINE PHOSPHATASE 103 U/L (45-117); TOTAL BILIRUBIN ADULT 1.1 MG/DL (0.2-1.0); TOTAL PROTEIN 7.1 GM/DL (6.4-8.2); TROPONIN I LESS THAN 0.02 NG/ML (0.02-0.05)
[2017-11-11 16:23] VITALS: BP 113/77; PULSE 73; RESP 19; TEMP 97; O2SAT 100
[2017-11-11 17:40] VITALS: BP 139/84; PULSE 74; RESP 19; O2SAT 97
[2017-11-11 17:51] LABS: BILIRUBIN, URINE NEG (NEG); BLOOD, URINE LARGE (NEG); GLUCOSE,URINE NEG (NEG); KETONE, URINE NEG (NEG); MUCUS URINE FEW /lpf (OCC); NITRITE,URINE NEG (NEG); SQUAMOUS EPITHELIAL CELL URINE 58 /hpf (0-5); URINE COLOR RED (YELLW/STRAW); URINE LEUKOCYTE ESTERASE LARGE (NEG); WHITE BLOOD CELL CLUMPS MANY
[2017-11-11] MEDS ORDERED: cefTRIAXone INJ 1,000 MG in SODIUM CHLORIDE 0.9% INJ 100 ML IV ONE (18:15)
--- NOTE | 2017-11-11 18:26 | HHI.HP ---
HPI Service Family Medicine Primary Care Physician Unknown Admission Diagnosis dyspnea, acute renal failure, hyperkalemia Diagnoses: International Travel<30 Days: No Contact w/Intl Traveler<30days: No Known Affected Area: No History of Present Illness Mrs. Lopez is a 82 yo F with PMH of Atrial fibrillation, HTN, T2DM who presents with weakness, shortness of breath, and lightheadedness. *Patient seemed somewhat disoriented at time of exam; she was able to answer questions but seemed to have altered time course of events and frequently referred to events years prior. In response to questions regarding orientation, patient stated that the year was "20" but was aware we were in the month of November. Attempts made to reach patient's and daughter using contact numbers in EMR were unsuccessful.* Mrs. Lopez reports that she began feeling weak and short of breath earlier today; patient patient reports that she was cleaning her house then got "real sick." Patient decided to lay down; when she tried to get up she felt that it was difficult to get up due to generalized weakness and nausea. Patient had a home health nurse present at that time; she states that she was encouraged to go to the ED. Prior to this, patient suggests that she recently received care at a "satellite hospital"; unclear if confusion present or if patient went to [facility] as I could not find records of [place] or [place] visit in EMR. Patient describes her shortness of breath as isolated and without associated fever, cough, or mucus production. Patient does not report associated chest pain, leg pain, or swelling. No recent abdominal pain. Patient also reports L ankle pain, but then suggested this was a symptom years prior. Patient reports normal urination and bowel movements. Patient states that she takes her own medications but that she is supported by her and home health nursing staff. [Supplemental history per EMR: patient last saw PCP Dr. Gramajo 11/04/2017; she was deconditioned after leaving inpatient rehab. Concerns regarding her mental status also present. Patient's insulin regimen was discussed; she takes 10 U Lantus HS and a sliding scale. Patient's atrial fibrillation rate control medications were also discussed] Review of Systems Constitutional: DENIES: Fever, Chills Eyes: DENIES: Blurred vision, Eye pain Ears, nose, mouth, throat: DENIES: Nasal discharge, Running Nose Respiratory: COMPLAINS OF: Shortness of breath, DENIES: Cough Cardiovascular: DENIES: Chest pain, Lower Extremity Edema Gastrointestinal: DENIES: Abdominal pain, Diarrhea Genitourinary: DENIES: Urgency, Dysuria Musculoskeletal: DENIES: Joint pain, Joint Swelling Integumentary: DENIES: Abnormal pigmentation, Rash Hematologic/lymphatic: DENIES: Bruising, Lymphadenopathy Psychiatric: DENIES: Anxiety, Confusion Past Family Social History Allergies: Coded Allergies: Influenza Virus Vaccines (Verified Allergy, Severe, Anaphylaxis, 11/11/17) pt denies reaction but refuses to have flu vaccine Physical Exam Vital Signs Vital Signs Date Time Temp Pulse Resp B/P (MAP) Pulse Ox O2 Delivery O2 Flow Rate FiO2 11/11/17 16:23 73 19 113/77 (89) 100 Nasal Cannula 3.00 11/11/17 13:44 59 19 122/70 (87) 100 Nasal Cannula 4.00 11/11/17 13:37 59 19 100 Nasal Cannula 4.00 11/11/17 13:36 99 Nasal Cannula 2.00 11/11/17 13:27 59 19 122/70 (87) 100 Physical Exam GENERAL: Patient appears comfortable, in no acute distress. SKIN: Warm and dry, no rashes appreciated EYES: No scleral icterus, injection, or drainage. HENT: Mouth: No lesions appreciated. Pharynx: Benign exam without erythema or exudate. NECK: No appreciated lymphadenopathy or thyromegaly CARDIOVASCULAR: Regular rate ; irregular rhythm without murmurs. Normal peripheral perfusion in lower extremities. No significant LE edema RESPIRATORY: Normal respiratory rate. Lungs clear to auscultation bilaterally. GASTROINTESTINAL: Abdomen soft, nondistended, nontender. Bowel sounds normal. MUSCULOSKELETAL: No lower extremity swelling. No appreciated calf asymmetry. NEURO/PSYCH: Awake, alert. Patient overall seems generally oriented but seems to have some temporal confusion about recent events. Cranial nerves grossly normal. Grossly normal motor and sensory function. Laboratory Laboratory Tests Test 11/11/17 14:35 11/11/17 17:40 White Blood Count 12.9 Red Blood Count 4.20 Hemoglobin 12.4 Hematocrit 37.8 Mean Corpuscular Volume 90.0 Mean Corpuscular Hemoglobin 29.5 Mean Corpuscular Hemoglobin Concent 32.8 Red Cell Distribution Width 18.0 Platelet Count 162 Mean Platelet Volume 9.0 Neutrophils (%) (Auto) 80.0 Lymphocytes (%) (Auto) 10.7 Monocytes (%) (Auto) 8.4 Eosinophils (%) (Auto) 0.5 Basophils (%) (Auto) 0.4 Neutrophils # (Auto) 10.3 Lymphocytes # (Auto) 1.4 Monocytes # (Auto) 1.1 Eosinophils # (Auto) 0.1 Basophils # (Auto) 0.1 CBC Comment DIFF FINAL Differential Comment Blood Urea Nitrogen 21 Creatinine 1.59 Random Glucose 155 Total Protein 7.1 Albumin 3.4 Calcium Level 8.4 Magnesium Level 2.1 Alkaline Phosphatase 103 Aspartate Amino Transf (AST/SGOT) 61 Alanine Aminotransferase (ALT/SGPT) 35 Total Bilirubin 1.1 Sodium Level 134 Potassium Level 6.0 Chloride Level 103 Carbon Dioxide Level 22.2 Anion Gap 9 Estimat Glomerular Filtration Rate 31 Troponin I LESS THAN 0.02 B-Type Natriuretic Peptide 99 Urine Color RED Urine Turbidity CLOUDY Urine pH 6.0 Urine Specific [place] 1.025 Urine Protein 300 Urine Glucose (UA) NEG Urine Ketones NEG Urine Occult Blood LARGE Urine Nitrite NEG Urine Bilirubin NEG Urine Urobilinogen LESS THAN 2.0 Urine Leukocyte Esterase LARGE Urine RBC Urine WBC Urine WBC Clumps MANY Urine Squamous Epithelial Cells 58 Urine Mucus FEW Microscopic Urinalysis Comment CULTURE INDICATED Date/Time Source Procedure Growth Status 11/11/17 17:40 Urine Clean Catch Urine Culture Pending Received Result Diagram: 11/11/17 1435 11/11/17 1435 Imaging Last Impressions Chest X-Ray 11/11/17 1417 Signed Impressions: Service Date/Time: Saturday, November 11, 2017 14:29 - CONCLUSION: Compensated cardiomegaly otherwise negative Doroteo Perez MD FACR Renal Ultrasound 11/11/17 0000 Signed Impressions: Service Date/Time: Saturday, November 11, 2017 20:25 - CONCLUSION: Unremarkable renal ultrasound. Paulino Case MD Caprini VTE Risk Assessment Caprini VTE Risk Assessment: Mod/High Risk (score >= 2) Caprini Risk Assessment Model Point Value = 1 Point Value = 2 Point Value = 3 Point Value = 5 Age 41-60 Minor surgery BMI > 25 kg/m2 Swollen legs Varicose veins or History of unexplained or recurrent spontaneous Oral contraceptives or hormone replacement Sepsis (< 1 month) Serious lung disease, including pneumonia (< 1 month) Abnormal pulmonary function Acute myocardial infarction Congestive heart failure (< 1 month) History of inflammatory bowel disease Medical patient at bed rest Age 61-74 Arthroscopic surgery Major open surgery (> 45 min) Laparoscopic surgery (> 45 min) Malignancy Confined to bed (> 72 hours) Immobilizing plaster cast Central venous access Age >= 75 History of VTE Family history of VTE Factor V Leiden Prothrombin [id number] Lupus anticoagulant Anticardiolipin antibodies Elevated serum homocysteine Heparin-induced thrombocytopenia Other congenital or acquired thrombophilia Stroke (< 1 month) Elective arthroplasty Hip, pelvis, or leg fracture Acute spinal cord injury (< 1 month) Prophylaxis Regimen Total Risk Factor Score Risk Level Prophylaxis Regimen 0-1 Low Early ambulation 2 Moderate Order ONE of the following: *Sequential Compression Device (SCD) *Heparin 5000 units SQ BID 3-4 Higher Order ONE of the following medications: *Heparin 5000 units SQ TID *Enoxaparin/Lovenox 40 mg SQ daily (WT < 150 kg, CrCl > 30 mL/min) *Enoxaparin/Lovenox 30 mg SQ daily (WT < 150 kg, CrCl > 10-29 mL/min) *Enoxaparin/Lovenox 30 mg SQ BID (WT < 150 kg, CrCl > 30 mL/min) AND/OR *Sequential Compression Device (SCD) 5 or more Highest Order ONE of the following medications: *Heparin 5000 units SQ TID (Preferred with Epidurals) *Enoxaparin/Lovenox 40 mg SQ daily (WT < 150 kg, CrCl > 30 mL/min) *Enoxaparin/Lovenox 30 mg SQ daily (WT < 150 kg, CrCl > 10-29 mL/min) *Enoxaparin/Lovenox 30 mg SQ BID (WT < 150 kg, CrCl > 30 mL/min) AND *Sequential Compression Device (SCD) Assessment and Plan Assessment and Plan Mrs. Lopez is a 82 yo F with: Problem List: (1) SOB (shortness of breath) ICD Codes: R06.02 - Shortness of breath Status: Acute Plan: -Continue to monitor VS and provide O2 as needed Impression: Unclear etiology. SOB on admission. Wells PE 0. Troponin x1 on admission wnl. EKG reassuring (2) Altered mental status ICD Codes: R41.82 - Altered mental status, unspecified Status: Chronic Plan: -Will treat for potential UTI with Rocephin -Will plan for hospitalist team to discuss further with patient// daughter for possible confusion at home suggestive of chronic pathology such as dementia and treat accordingly Impression: Patient with some confusion on exam; chronic per EMR Head CT on admission: No acute intracranial abnormality. Mild generalized atrophy; some periventricular white matter low-attenuation. No evidence of hemorrhage or infarction Trace air within soft tissues bilaterally and cavernous sinus; could be related to vascular access or trauma No Na or Ca abnormalities on metabolic panel Normal O2 saturation; normal ventilation UA on admission with leukocyte esterase suspicious for possible UTI (3) Physical deconditioning ICD Codes: R53.81 - Other malaise Status: Acute Plan: Impression: Weakness per patient and EMR; recent hospitalization and rehabilitation -Will consult physical therapy (4) Abnormal urinalysis ICD Codes: R82.90 - Unspecified abnormal findings in urine Status: Acute Plan: Impression: UA on admission with pH 1.035, protein 300, large occult blood, large leuk esterase, many WBC clumps -Will empirically treat as UTI with Rocephin -Urine culture pending -Will check renal US -Will check urine Eosinophils -Will give IVF as presumed prerenal etiology at this time (5) Atrial fibrillation ICD Codes: I48.91 - Unspecified atrial fibrillation Status: Acute Plan: -Continue rate control: -Continue Metoprolol 25mg BID -Continue Diltiazem ER 25mg daily (in PM) -Continue Anticoagulation: -Will reduce to Eliquis 2.5 mg BID (REG with Cr >1.5, age >80 yrs) -Continue telemetry Impression: Chronic atrial fibrillation with [id number] >2; on Eliquis for anticoagulation. Rate controlled at this time (6) REG (acute kidney injury) ICD Codes: N17.9 - Acute kidney failure, unspecified Status: Resolved Plan: Impression: Cr 1.56 on admission; baseline of 0.74 per EMR. Unclear whether prerenal; no reported concerns for postrenal etiology. No new medications. Proteinuria on urinalysis -Will give IVF for possible prerenal etiology -Will monitor output -Will check urine eosinophils -Will check renal US (7) Hypertension ICD Codes: I10 - Essential (primary) hypertension Status: Acute Plan: Impression: chronic HTN; recently lower BP per PCP records -Continue Enalapril 2.5mg daily (AM) -Continue Metoprolol 25mg BID -Continue Diltiazem ER 25mg daily (in PM) (8) Type 2 diabetes mellitus not at goal ICD Codes: E11.9 - Type 2 diabetes mellitus not at goal Status: Chronic Plan: Impression: PMH T2DM on Lantus 10 U qHS and sliding scale Humalog -Will start low dose SS insulin with accuchecks -Will re-add long acting insulin once diet stable -Will order A1C while inpatient as was ordered as recent outpatient lab by PCP (9) Hyperkalemia ICD Codes: E87.5 - Hyperkalemia Status: Acute Plan: Impression: K 6 on admission; no visible changes on initial EKG -Will give Kayexalate 15gm -Will recheck BMP in ~4hrs (10) Hypothyroidism ICD Codes: E03.9 - Hypothyroidism, unspecified Status: Chronic Plan: Impression: Hypothyroidism on chronic Levothyroxine 50 mcg daily -Will recheck TSH as this was ordered by PCP -Will continue Levothyroxine 50 mcg daily (11) DVT Prophylaxis Status: Acute Plan: -Bilateral SCD's -Will reduce to Eliquis 2.5 mg BID (REG with Cr >1.5, age >80 yrs) (12) Fluids, Electrolytes, and Nutrition Status: Acute Plan: Fluids: Will give NS at maintenance due to REG Electrolytes: metabolic panel on admission with K 6 -Will give Kayexalate and continue to monitor Nutrition: Will give heart healthy diet Physician Certification 2 Midnight Certification Type: Admission for Inpatient Services Order for Inpatient Services The services are ordered in accordance with Medicare regulations or non- Medicare payer requirements, as applicable. In the case of services not specified as inpatient-only, they are appropriately provided as inpatient services in accordance with the 2-midnight benchmark. Estimated LOS (days): 3 days is the estimated time the patient will need to remain in the hospital, assuming treatment plan goals are met and no additional complications. Post-Hospital Plan: Home Problem Qualifiers (1) Altered mental status: Qualified Codes: R41.82 - Altered mental status, unspecified (2) Atrial fibrillation: Qualified Codes: I48.91 - Unspecified atrial fibrillation (3) Hypertension: Qualified Codes: I10 - Essential (primary) hypertension Eric Wells MD, R3 Nov 11, 2017 18:26
[2017-11-11] MEDS ORDERED: MAGNESIUM HYDROXIDE SUSP 30 ML CUP PO PRN (19:00)
[2017-11-11] MEDS ORDERED: SODIUM CHLORIDE 0.9% FLUSH 10 ML FLUSH IV FLUSH PRN (19:00)
[2017-11-11] MEDS ORDERED: LACTULOSE SYRUP 20 GM/30 ML CUP PO PRN (19:00)
[2017-11-11] MEDS ORDERED: NALOXONE HCL 0.4 MG/ML AMP IV PUSH PRN (19:00)
[2017-11-11] MEDS ORDERED: SENNOSIDES 8.6 MG TAB PO PRN (19:00)
[2017-11-11] MEDS ORDERED: BISACODYL 10 MG SUPP RECTAL PRN (19:00)
--- NOTE | 2017-11-11 19:23 | PD ---
Data Data Last Documented VS Vital Signs Date Time Temp Pulse Resp B/P (MAP) Pulse Ox O2 Delivery O2 Flow Rate FiO2 11/11/17 17:40 74 19 139/84 (102) 97 Nasal Cannula 3.00 11/11/17 16:23 97.0 Orders Orders Complete Blood Count With Diff (11/11/17 14:17) Comprehensive Metabolic Panel (11/11/17 14:17) Magnesium (Mg) (11/11/17 14:17) Troponin I (11/11/17 14:17) Urinalysis - C+S If Indicated (11/11/17 14:17) Iv Access Insert/Monitor (11/11/17 14:17) Electrocardiogram (11/11/17 14:17) Ecg Monitoring (11/11/17 14:17) Oximetry (11/11/17 14:17) Oxygen Administration (11/11/17 14:17) Chest, Single Ap (11/11/17 14:17) Sodium Chloride 0.9% Flush (Ns Flush) (11/11/17 14:30) B-Type Natriuretic Peptide (11/11/17 14:40) Urine Culture (11/11/17 17:40) Ceftriaxone Inj (Rocephin Inj) (11/11/17 18:15) Admit Order (Ed Use Only) (11/11/17 18:14) Labs Laboratory Tests Test 11/11/17 14:35 11/11/17 17:40 White Blood Count 12.9 TH/MM3 Red Blood Count 4.20 MIL/MM3 Hemoglobin 12.4 GM/DL Hematocrit 37.8 % Mean Corpuscular Volume 90.0 FL Mean Corpuscular Hemoglobin 29.5 PG Mean Corpuscular Hemoglobin Concent 32.8 % Red Cell Distribution Width 18.0 % Platelet Count 162 TH/MM3 Mean Platelet Volume 9.0 FL Neutrophils (%) (Auto) 80.0 % Lymphocytes (%) (Auto) 10.7 % Monocytes (%) (Auto) 8.4 % Eosinophils (%) (Auto) 0.5 % Basophils (%) (Auto) 0.4 % Neutrophils # (Auto) 10.3 TH/MM3 Lymphocytes # (Auto) 1.4 TH/MM3 Monocytes # (Auto) 1.1 TH/MM3 Eosinophils # (Auto) 0.1 TH/MM3 Basophils # (Auto) 0.1 TH/MM3 CBC Comment DIFF FINAL Differential Comment Blood Urea Nitrogen 21 MG/DL Creatinine 1.59 MG/DL Random Glucose 155 MG/DL Total Protein 7.1 GM/DL Albumin 3.4 GM/DL Calcium Level 8.4 MG/DL Magnesium Level 2.1 MG/DL Alkaline Phosphatase 103 U/L Aspartate Amino Transf (AST/SGOT) 61 U/L Alanine Aminotransferase (ALT/SGPT) 35 U/L Total Bilirubin 1.1 MG/DL Sodium Level 134 MEQ/L Potassium Level 6.0 MEQ/L Chloride Level 103 MEQ/L Carbon Dioxide Level 22.2 MEQ/L Anion Gap 9 MEQ/L Estimat Glomerular Filtration Rate 31 ML/MIN Troponin I LESS THAN 0.02 NG/ML B-Type Natriuretic Peptide 99 PG/ML Urine Color RED Urine Turbidity CLOUDY Urine pH 6.0 Urine Specific [place] 1.025 Urine Protein 300 mg/dL Urine Glucose (UA) NEG mg/dL Urine Ketones NEG mg/dL Urine Occult Blood LARGE Urine Nitrite NEG Urine Bilirubin NEG Urine Urobilinogen LESS THAN 2.0 MG/DL Urine Leukocyte Esterase LARGE Urine RBC /hpf Urine WBC /hpf Urine WBC Clumps MANY Urine Squamous Epithelial Cells 58 /hpf Urine Mucus FEW /lpf Microscopic Urinalysis Comment CULTURE INDICATED MDM Supervised Visit with ALBER: Yes Narrative Course The history, exam, and medical decision-making in the associated midlevel provider note were completed with my assistance. I reviewed and agree with the findings presented. I attest that I had a [id number] encounter with the patient on the same day, and personally performed and documented my assessment and findings in the medical record. *My assessment and Findings: This is an 82-year-old female who presents to the emergency department having had fairly sudden onset of shortness of breath this morning and generally weak and somewhat lightheaded. She was placed on a monitor and an IV was established. Labs demonstrate new renal insufficiency with a borderline potassium of 6.0. EKG demonstrates slow atrial fibrillation with no signs of repolarization abnormality to suggest hyperkalemia. Chest x- rays unremarkable. BNP is normal. Patient is on Eliquis so I think it's unlikely that she has pulmonary embolism. I think she requires observation for IV hydration and serial cardiac enzymes. She is somewhat of a poor historian and she has extensive past medical history. Abi Arriaga MD Nov 11, 2017 19:23
[2017-11-11] MEDS ORDERED: NITROGLYCERIN 0.4 MG SL 25 TABS/BTL SL PRN (19:30)
[2017-11-11] MEDS: SODIUM CHLOR 0.9% 1000 ML INJ 1,000 ML IV SCH (19:35)
[2017-11-11] MEDS ORDERED: GLUCAGON 1 MG/ML VIAL OTHER PRN (19:45)
[2017-11-11] MEDS ORDERED: SODIUM POLYSTYRENE SULFONATE SUSP 15 GM/60 ML CUP PO ONE (19:45)
[2017-11-11] MEDS ORDERED: DEXTROSE 50% IN WATER 50 ML VIAL(D50) IV PUSH PRN (19:45)
[2017-11-11] MEDS ORDERED: DOCUSATE SODIUM 50 MG/SENNA 8.6 MG TAB PO SCH (21:00)
[2017-11-11] MEDS ORDERED: IMIPRAMINE HCL 25 MG TAB PO SCH (21:00)
[2017-11-11] MEDS: SODIUM CHLORIDE 0.9% FLUSH 10 ML FLUSH IV FLUSH SCH (21:00)
[2017-11-11] MEDS ORDERED: [UNRECOGNIZED DRUG - OTHER] PO SCH (21:00)
[2017-11-11] MEDS ORDERED: CALCIUM CARBONATE VITAMIN D PO SCH (21:00)
[2017-11-11 21:21] VITALS: BP 157/67; PULSE 97; RESP 18; TEMP 97.9; O2SAT 98
--- NOTE | 2017-11-11 21:31 | RADRPT ---
EXAM DATE/TIME: 11/11/2017 20:25 [facility] COMPARISON: No previous studies available for comparison. INDICATIONS : Increased BUN/Creatnine. MEDICAL HISTORY : Myocardial infarction. Hypercholesterolemia. Glasses. Anticoagulant therapy. Chest pain. Atrial fib rillation. Dyspnea. Arthritis. Diabetes. SURGICAL HISTORY : Tonsillectomy. Cholecystectomy. Appendectomy. Cardiac catheterization. Hysterectomy. Left ankle surge ry. ENCOUNTER: Initial ACUITY: 1 day PAIN SCORE: 0/10 LOCATION: Bilateral flank MEASUREMENTS: RIGHT KIDNEY: 10.1 x 3.9 x 5.5 cm LEFT KIDNEY: 9.6 x 3.2 x 4.5 cm FINDINGS: There is no hydronephrosis. No definite solid mass is identified. No definite stone is identified f or technique. The bladder is grossly intact for technique and not being completely distended during t he exam. CONCLUSION: Unremarkable renal ultrasound. Paulino Case MD on November 11, 2017 at 21:28 Board Certified Radiologist. This report was verified electronically.
[2017-11-11 21:35] VITALS: PULSE 89
[2017-11-11] MEDS ORDERED: APIXABAN 2.5 MG TABLET PO ONE (22:00)
[2017-11-11] MEDS ORDERED: DILTIAZEM-CD 120 MG CAP ER PO ONE (22:00)
[2017-11-11] MEDS ORDERED: METOPROLOL TARTRATE 25 MG TAB PO ONE (22:00)
[2017-11-11] MEDS: GABAPENTIN 400 MG CAP PO SCH (22:22)
[2017-11-11] MEDS: DILTIAZEM-CD 120 MG CAP ER PO SCH (22:22)
[2017-11-11] MEDS: METOPROLOL TARTRATE 25 MG TAB PO SCH (22:22)
[2017-11-11] MEDS: APIXABAN 2.5 MG TABLET PO SCH (22:23)
[2017-11-11] MEDS: INSULIN ASPART SUPPLEMENTAL SCALE SQ SCH (22:24)
[2017-11-12] VITALS (10 sets, daily range): BP systolic 122–141; BP diastolic 56–87; PULSE 96–128; RESP 18–22; TEMP 97.5–98.3; O2SAT 94–98
[2017-11-12 00:45] LABS: BICARBONATE 23.3 MEQ/L (21.0-32.0); CALCIUM 8.7 MG/DL (8.5-10.1); CREATININE 1.67 MG/DL (0.50-1.00)
[2017-11-12] MEDS ORDERED: SODIUM CHLORID 0.9% 500 ML INJ 500 ML IV ONE (01:30)
[2017-11-12] MEDS ORDERED: SODIUM POLYSTYRENE SULFONATE SUSP 15 GM/60 ML CUP PO ONE (02:00)
--- NOTE | 2017-11-12 02:30 | HHI.PR ---
Addendum to Inpatient Note Addendum Reason: Additional Documentation Additional Information Patient re-evaluated for K 6.4 on repeat BMP Patient does not report chest pain; she states she is feeling well. Patient had vomiting x1 episode earlier tonight but none since. No reported shortness of breath or paresthesias. Per discussion with nursing staff, patient did not have BM despite Kayexalate dosage earlier. A/P: EKG obtained- Vent rate 104. No visible peaked T waves. QT interval 358. No visible ST depression. -Due to lack of symptoms or ST changes, will repeat BMP in several hours and give additional dose of Kayexalate. Will defer Calcium gluconate at this time since not suggestive of severe hyperkalemia Eric Wells MD, R3 Nov 12, 2017 02:30
[2017-11-12 03:32] LABS: AUTOMATED NEUTROPHIL # 10.5 TH/MM3 (1.8-7.7); BASOPHIL # 0.1 TH/MM3 (0-0.2); BASOPHIL % 0.4 % (0.0-2.0); HEMATOCRIT 35.5 % (35.0-46.0); HEMOGLOBIN 11.8 GM/DL (11.6-15.3); LYMPH % 10.4 % (9.0-44.0); LYMPHOCYTE # 1.3 TH/MM3 (1.0-4.8); MEAN CELL VOLUME 88.7 FL (80.0-100.0); MEAN CORPUSCULAR HEMOGLOBIN 29.5 PG (27.0-34.0); MEAN CORPUSCULAR HGB CONC 33.3 % (32.0-36.0); MEAN PLATELET VOLUME 9.4 FL (7.0-11.0); NEUT % 81.2 % (16.0-70.0); PLATELET COUNT 141 TH/MM3 (150-450); RED BLOOD COUNT 4.01 MIL/MM3 (4.00-5.30)
[2017-11-12 03:53] LABS: LACTIC ACID SEPSIS PROTOCOL 3.5 mmol/L (0.4-2.0)
[2017-11-12 04:08] LABS: ALBUMIN 3.5 GM/DL (3.4-5.0); ALKALINE PHOSPHATASE 133 U/L (45-117); ALT (GPT) 211 U/L (10-53); AST (GOT) 467 U/L (15-37); BLOOD UREA NITROGEN 25 MG/DL (7-18); CALCIUM 8.5 MG/DL (8.5-10.1); CHLORIDE 104 MEQ/L (98-107); CREATININE 1.59 MG/DL (0.50-1.00); GLOMERULAR FILTRATION RATE 31 ML/MIN (>89); GLUCOSE,RANDOM 158 MG/DL (74-106); SODIUM (NA) 137 MEQ/L (136-145); TOTAL BILIRUBIN ADULT 0.9 MG/DL (0.2-1.0); TOTAL PROTEIN 7.4 GM/DL (6.4-8.2)
[2017-11-12] MEDS ORDERED: AZITHROMYCIN INJ 500 MG in SODIUM CHLOR 0.9% 250 ML INJ 250 ML IV SCH (05:00)
[2017-11-12] MEDS: SODIUM CHLOR 0.9% 1000 ML INJ 1,000 ML IV SCH ×3 (05:30→23:25)
--- NOTE | 2017-11-12 06:27 | RADRPT ---
EXAM DATE/TIME: 11/12/2017 06:09 [facility] COMPARISON: CHEST SINGLE AP, November 11, 2017, 14:29. INDICATIONS : Shortness of breath. MEDICAL HISTORY : Cardiovascular disease. Diabetes mellitus type II. SURGICAL HISTORY : None. ENCOUNTER: Subsequent ACUITY: 2 days PAIN SCORE: 0/10 LOCATION: Bilateral chest FINDINGS: A single view of the chest demonstrates the lungs to be symmetrically aerated without evidence of mas s, infiltrate or effusion. Mild cardiomegaly without pulmonary vascular engorgement. Osseous structur es are intact. CONCLUSION: Mild cardiomegaly. Clear lungs. Ricardo Butler Jr., MD on November 12, 2017 at 6:25 Board Certified Radiologist. This report was verified electronically.
[2017-11-12] MEDS: PIPERACIL-TAZO 4.5 GM PREMIX 100 ML IV SCH ×4 (06:41→23:26)
[2017-11-12] MEDS: LEVOTHYROXINE SODIUM 50 MCG TAB PO SCH (06:41)
[2017-11-12] MEDS: INSULIN ASPART SUPPLEMENTAL SCALE SQ SCH ×4 (08:00→23:33)
[2017-11-12] MEDS ORDERED: ENALAPRIL MALEATE 2.5 MG TAB PO SCH (09:00)
[2017-11-12] MEDS ORDERED: PRAVASTATIN SOD 40 MG TAB PO SCH (09:00)
[2017-11-12] MEDS: SODIUM CHLORIDE 0.9% FLUSH 10 ML FLUSH IV FLUSH SCH ×2 (09:00→21:00)
[2017-11-12] MEDS ORDERED: DIATRIZOATE MEGLUM/DIATRIZOATE SOD 9 ML CUP PO ONE (09:30)
[2017-11-12] MEDS: DILTIAZEM-CD 120 MG CAP ER PO SCH (09:34)
[2017-11-12] MEDS: APIXABAN 2.5 MG TABLET PO SCH ×2 (09:35→23:25)
[2017-11-12] MEDS: MULTIVITAMINS/MINERALS THERAPEUTIC TAB PO SCH (09:35)
[2017-11-12] MEDS: PANTOPRAZOLE SOD 20 MG DELAYED RELEASE TAB PO SCH (09:35)
[2017-11-12] MEDS: METOPROLOL TARTRATE 25 MG TAB PO SCH ×2 (09:35→23:25)
[2017-11-12 12:25] LABS: INTERNATIONAL NORMALIZED RATIO 5.4 RATIO; PROTHROMBIN TIME - PATIENT 54.1 SEC (9.8-11.6)
[2017-11-12 14:05] LABS: HEPATITIS A AB IGM NEGATIVE (NEGATIVE); HEPATITIS B CORE AB IGM NEGATIVE (NEGATIVE); HEPATITIS B SURFACE ANTIGEN NEGATIVE (NEGATIVE); HEPATITIS C AB IgG NEGATIVE (NEGATIVE)
--- NOTE | 2017-11-12 14:26 | RADRPT ---
EXAM DATE/TIME: 11/12/2017 13:50 [facility] COMPARISON: CT ABDOMEN & PELVIS W CONTRAST, February 13, 2016, 11:28. INDICATIONS : Abdomen pain vomiting. ORAL CONTRAST: Prescribed oral contrast ingested. RADIATION DOSE: 14.63 CTDIvol (mGy) MEDICAL HISTORY : ARF SURGICAL HISTORY : None. ENCOUNTER: Initial ACUITY: 1 day PAIN SCALE: 1/10 LOCATION: Abdomen TECHNIQUE: Volumetric scanning of the abdomen and pelvis was performed. Using automated exposure control and ad justment of the mA and/or kV according to patient size, radiation dose was kept as low as reasonably achievable to obtain optimal diagnostic quality images. DICOM format image data is available electro nically for review and comparison. FINDINGS: CT Abdomen: The liver, spleen, kidneys, adrenals are unremarkable. There is lucency involving the h ead of the pancreas on possibly a low attenuating cystic masses present at this site measures 2.6 cm. There is slight fluid in the anterior perihepatic space with a small right pleural effusion. Approxi mate 1 cm lymph node is present in the right cardiophrenic angle benign appearance not significantly changed.There is no evidence for any appreciable pathological adenopathy, free fluid, or bowel obstru ction. There is compression deformity of L1 not present on the prior study from 02/2016 and not adequ ately characterized on the order of 50-60%. There is slight superior endplate depression of T11 chron ic in nature and unchanged. Slight bibasilar atelectasis and/or infiltrate is seen. CT pelvis: There is no evidence for mass, abscess formation, or any significant adenopathy within the pelvis. There is facet arthrosis at L4-5 and L5-S1 and spondylolysis is difficult to exclude. CONCLUSION: 1. Possible cystic mass in the head of the pancreas and MRI examination with and without contrast sug gested to further characterize. 2. New compression fracture of L1 not present previously. 3. Small right pleural effusion and slight fluid in the anterior perihepatic space. Paulino Case MD on November 12, 2017 at 14:16 Board Certified Radiologist. This report was verified electronically.
--- NOTE | 2017-11-12 14:29 | HHI.FPPN ---
Subjective Remarks 82 year old female is sitting up in bed in no distress. She continues to feel weak and somewhat lightheaded. She continues to have some mild shortness of breath. She does not have headaches, blurry vision, runny nose, sore throat, coughing, chest pain. She does have abdominal pain in the right lower quadrant that is mild to moderate. She reports normal bowel movements and urination. (Óscar Gann MD R3) Objective Vitals Vital Signs Date Time Temp Pulse Resp B/P (MAP) Pulse Ox O2 Delivery O2 Flow Rate FiO2 11/12/17 12:04 97.5 128 22 129/69 (89) 94 11/12/17 08:53 98 Nasal Cannula 2.00 11/12/17 08:03 98.1 102 18 125/56 (79) 96 11/12/17 04:00 103 11/12/17 00:35 96 11/12/17 00:15 98.0 100 18 141/76 (97) 97 11/11/17 21:35 89 11/11/17 21:21 97.9 97 18 157/67 (97) 98 11/11/17 19:48 11/11/17 17:40 74 19 139/84 (102) 97 Nasal Cannula 3.00 11/11/17 16:23 97.0 73 19 113/77 (89) 100 Nasal Cannula 3.00 I/O 11/11/17 11/11/17 11/11/17 11/12/17 11/12/17 11/12/17 07:00 15:00 23:00 07:00 15:00 23:00 Intake Total 100 ml 500 ml 360 ml Balance 100 ml 500 ml 360 ml Intake Oral 360 ml IV Total 100 ml 500 ml (Óscar Gann MD R3) Result Diagram: 11/12/17 0315 11/12/17 0315 Imaging Last 72 hours Impressions Chest X-Ray 11/12/17 0600 Signed Impressions: Service Date/Time: November 06:09 - CONCLUSION: Mild cardiomegaly. Clear lungs. Ricardo Butler Jr., MD Chest X-Ray 11/11/17 1417 Signed Impressions: Service Date/Time: Saturday, November 11, 2017 14:29 - CONCLUSION: Compensated cardiomegaly otherwise negative Doroteo Perez MD FACR Renal Ultrasound 11/11/17 0000 Signed Impressions: Service Date/Time: Saturday, November 11, 2017 20:25 - CONCLUSION: Unremarkable renal ultrasound. Paulino Case MD Objective Remarks General: Sitting up in bed, no distress Skin: No rashes or lesions, no jaundice HEENT: Normocephalic, no scalp abrasions, no conjunctivitis or scleral icterus, no nasal discharge Neck: No thyromegaly or lymphadenopathy CV: regular rate, irregular rhythm, no murmurs, normal cap refill, pulses intact distally Lungs: CTAB Abdomen: Soft, mildly tender to palpation in the right lower quadrant, no rebound tenderness or guarding, normal bowel sounds, no organomegaly Ext: No swelling, no calf tenderness Neuro: Awake, alert (Óscar Gann MD R3) A/P Assessment and Plan 82 year old female presents with generalized weakness, mild shortness of breath , and right lower quadrant abdominal pain, with acute transaminitis and mild leukocytosis. Discharge Planning Pending completed workup and clinical stability, will have physical therapy evaluation to assess her post-discharge needs, case management on board for assistance. (Óscar Gann MD R3) Attending Attestation THIS CASE WAS DISCUSSED WITH THE RESIDENT PHYSICIAN Dr Darrell Gann, Patient seen and examined. I HAVE REVIEWED THE RECORD AND AGREE WITH THE ABOVE NOTE AND PLAN OF CARE WAS DISCUSSED. I HAVE AUTHORIZED THE ORDER SET (Matt Walker MD) Problem List: (1) Transaminitis ICD Codes: R74.0 - Nonspecific elevation of levels of transaminase and lactic acid dehydrogenase [LDH] Status: Acute Plan: Liver enzymes fairly normal at admission, but increased to AST/ALT of 467 /211 overnight, ALP mildly elevated to 133. Lipase is normal. Total bilirubin is normal. Coag profile showing elevated INR, PT, and APTT. Hepatitis profile negative. She reports that she does not have a gallbladder. TSH is normal. Not an alcohol user, uses one tablet of Tylenol at night but not more, no new medications. CT abdomen showing possible cystic mass in the head of the pancreas. - Consult gastroenterology for acutely elevated liver enzymes. - Follow tissue transglutaminase antibodies, rule out celiac disease - Check iron studies. - Follow RODNEY, ASMA, mitochondrial abs, ceruloplasmin, alpha 1 antitrypsin - Follow CA 19-9 - Follow up MRI abdomen for further characterization of the pancreatic cystic mass. (2) Right lower quadrant pain ICD Codes: R10.31 - Right lower quadrant pain Status: Acute Plan: New onset right lower quadrant pain, without nausea or vomiting or diarrhea. No rebound tenderness or guarding. Has mild leukocytosis and elevated LDH and lactic acid. Report she does not have an appendix but will verify with imaging. Also want to rule out mesenteric ischemia. States she has history of appendectomy and cholecystectomy, as well as hysterectomy, unclear whether hysterectomy was complete. CT showing cystic mass of the head of the pancreas. - Obtain MRI without contrast (due to acute renal injury) (3) Urinary tract infection ICD Codes: N39.0 - Urinary tract infection, site not specified Status: Acute Plan: Urine with 300 protein, large occult blood, large leukocyte esterase, negative nitrites, many WBC clumps. Has some tachycardia, possibly related to her atrial fibrillation, and mild leukocytosis. No CVA tenderness on exam. - Continue Zosyn, started 11/12/17 - Follow urine cultures (4) REG (acute kidney injury) ICD Codes: N17.9 - Acute kidney failure, unspecified Status: Acute Plan: Cr 1.56 on admission; baseline of 0.74 per EMR. Renal ultrasound unremarkable. - Avoid nephrotoxic agents as much as possible - Renally dose medications - Giving normal saline at maintenance but be careful due to history of compensated heart failure - Urine eosinophils pending (5) Physical deconditioning ICD Codes: R53.81 - Other malaise Status: Acute Plan: Weakness per patient and EMR; recent hospitalization and rehabilitation - Will consult physical therapy for evaluation and treatment - Assess outpatient needs before discharge (6) Hyperkalemia ICD Codes: E87.5 - Hyperkalemia Status: Acute Plan: K 6 on admission; no visible changes on initial EKG. Improved with Kayexelate. - Will continue Kayexalate 15gm - Monitor potassium level, repeat this evening (7) Atrial fibrillation ICD Codes: I48.91 - Unspecified atrial fibrillation Status: Acute Plan: Chronic atrial fibrillation with [id number] >2; on Eliquis for anticoagulation. Rate controlled at this time -Continue rate control: -Continue Metoprolol 25mg BID -Continue Diltiazem ER 25mg daily (in PM) -Continue Anticoagulation: -Will reduce to Eliquis 2.5 mg BID (REG with Cr >1.5, age >80 yrs) -Continue telemetry (8) Hypertension ICD Codes: I10 - Essential (primary) hypertension Status: Chronic Plan: chronic HTN; recently lower BP per PCP records -Continue Enalapril 2.5mg daily (AM) -Continue Metoprolol 25mg BID -Continue Diltiazem ER 25mg daily (in PM) (9) Type 2 diabetes mellitus not at goal ICD Codes: E11.9 - Type 2 diabetes mellitus not at goal Status: Chronic Plan: T2DM on Lantus 10 U qHS and sliding scale Humalog -Will start low dose SS insulin with accuchecks -Will re-add long acting insulin once diet stable -Will order A1C while inpatient as was ordered as recent outpatient lab by PCP (10) Hypothyroidism ICD Codes: E03.9 - Hypothyroidism, unspecified Status: Chronic Plan: Hypothyroidism on chronic Levothyroxine 50 mcg daily. TSH normal. - Levothyroxine 50 mcg daily (11) DVT Prophylaxis Status: Acute Plan: -Bilateral SCD's -Will reduce to Eliquis 2.5 mg BID (REG with Cr >1.5, age >80 yrs) (12) Fluids, Electrolytes, and Nutrition Status: Acute Plan: Fluids: Will give NS at maintenance due to REG, monitor for fluid overload given compensated heart failure Electrolytes: metabolic panel on admission with K 6, improving - Continue Kayexalate and continue to monitor Nutrition: heart healthy diet (Óscar Gann MD R3) Problem Qualifiers (1) Atrial fibrillation: Qualified Codes: I48.91 - Unspecified atrial fibrillation (2) Hypertension: Qualified Codes: I10 - Essential (primary) hypertension Óscar Gann MD R3 Nov 12, 2017 14:29 Matt Walker MD Nov 13, 2017 15:25
--- NOTE | 2017-11-12 14:55 | PD.CONS ---
HPI History of Present Illness This is a 82 year old F who presented to the emergency department yesterday with complaints of SOB and weakness. GI was consulted for transaminitis. Pt denies history of liver issues. Was previously followed by Yamileth Hallman outpatient, however, she states her doctor moved away so she doesn't go to that clinic anymore. Her only GI symptoms at this time is intermittent right sided abdominal pain for the past year, she states relief with ice. Denies nausea, vomiting, acid reflux, unintentional weight loss, constipation, diarrhea, BRBPR , black, tarry stool. She reports last colonoscopy was a year ago, a few polyps were removed, she states they came back benign. She denies any new medication, OTC herbs or supplements. Does report taking one Tylenol at night, every day. Denies ETOH or previously being a heavy drinker. Abdominal surgeries include cholecystectomy, hysterectomy, and appendectomy. Current LFTs are as follows AST-467 ALT-211 Alk phos-133 and Total bilirubin-0.9. CT abdomen and pelvis W/O contrast (11/12) --> Possible cystic mass in the head of the pancreas and MRI examination with and without contrast suggested to further characterize. New compression fracture of L1 not present previously. Small right pleural effusion and slight fluid in the anterior perihepatic space. PFSH Past Medical History Arthritis Atrial fibrillation Dyslipidemia Diabetes Hypertension Asthma Myocardial infarction Past Surgical History Cholecystectomy Appendectomy Hysterectomy Metal plate in left ankle Tonsillectomy Coded Allergies: Influenza Virus Vaccines (Verified Allergy, Severe, Anaphylaxis, 11/11/17) pt denies reaction but refuses to have flu vaccine Social History Denies ETOH Denies alcohol Denies illicit drug use Review of Systems Gastrointestinal: COMPLAINS OF: Abdominal pain, DENIES: Black stools, Bloody stools, Constipation, Diarrhea, Nausea, Vomiting, Difficulty Swallowing, Swelling of Abdomen, Heartburn, Hematemesis GI Exam Vitals I&O Vital Signs Date Time Temp Pulse Resp B/P (MAP) Pulse Ox O2 Delivery O2 Flow Rate FiO2 11/12/17 12:04 97.5 128 22 129/69 (89) 94 11/12/17 08:53 98 Nasal Cannula 2.00 11/12/17 08:03 98.1 102 18 125/56 (79) 96 11/12/17 04:00 103 11/12/17 00:35 96 11/12/17 00:15 98.0 100 18 141/76 (97) 97 11/11/17 21:35 89 11/11/17 21:21 97.9 97 18 157/67 (97) 98 11/11/17 19:48 11/11/17 17:40 74 19 139/84 (102) 97 Nasal Cannula 3.00 11/11/17 16:23 97.0 73 19 113/77 (89) 100 Nasal Cannula 3.00 I/O 11/11/17 11/11/17 11/11/17 11/12/17 11/12/17 11/12/17 07:00 15:00 23:00 07:00 15:00 23:00 Intake Total 100 ml 500 ml 360 ml Balance 100 ml 500 ml 360 ml Intake Oral 360 ml IV Total 100 ml 500 ml Imaging Last Impressions Chest X-Ray 11/12/17 0600 Signed Impressions: Service Date/Time: November 06:09 - CONCLUSION: Mild cardiomegaly. Clear lungs. Ricardo Butler Jr., MD Abdomen/Pelvis CT 11/12/17 0000 Signed Impressions: Service Date/Time: November 13:50 - CONCLUSION: 1. Possible cystic mass in the head of the pancreas and MRI examination with and without contrast suggested to further characterize. 2. New compression fracture of L1 not present previously. 3. Small right pleural effusion and slight fluid in the anterior perihepatic space. Paulino Case MD Renal Ultrasound 11/11/17 0000 Signed Impressions: Service Date/Time: Saturday, November 11, 2017 20:25 - CONCLUSION: Unremarkable renal ultrasound. Paulino Case MD Laboratory Test 11/11/17 14:35 11/11/17 17:40 11/11/17 23:48 11/12/17 03:15 White Blood Count 12.9 TH/MM3 13.0 TH/MM3 Red Blood Count 4.20 MIL/MM3 4.01 MIL/MM3 Hemoglobin 12.4 GM/DL 11.8 GM/DL Hematocrit 37.8 % 35.5 % Mean Corpuscular Volume 90.0 FL 88.7 FL Mean Corpuscular Hemoglobin 29.5 PG 29.5 PG Mean Corpuscular Hemoglobin Concent 32.8 % 33.3 % Red Cell Distribution Width 18.0 % 18.0 % Platelet Count 162 TH/MM3 141 TH/MM3 Mean Platelet Volume 9.0 FL 9.4 FL Neutrophils (%) (Auto) 80.0 % 81.2 % Lymphocytes (%) (Auto) 10.7 % 10.4 % Monocytes (%) (Auto) 8.4 % 8.0 % Eosinophils (%) (Auto) 0.5 % 0.0 % Basophils (%) (Auto) 0.4 % 0.4 % Neutrophils # (Auto) 10.3 TH/MM3 10.5 TH/MM3 Lymphocytes # (Auto) 1.4 TH/MM3 1.3 TH/MM3 Monocytes # (Auto) 1.1 TH/MM3 1.0 TH/MM3 Eosinophils # (Auto) 0.1 TH/MM3 0.0 TH/MM3 Basophils # (Auto) 0.1 TH/MM3 0.1 TH/MM3 CBC Comment DIFF FINAL DIFF FINAL Differential Comment Blood Urea Nitrogen 21 MG/DL 26 MG/DL 25 MG/DL Creatinine 1.59 MG/DL 1.67 MG/DL 1.59 MG/DL Random Glucose 155 MG/DL 201 MG/DL 158 MG/DL Total Protein 7.1 GM/DL 7.4 GM/DL Albumin 3.4 GM/DL 3.5 GM/DL Calcium Level 8.4 MG/DL 8.7 MG/DL 8.5 MG/DL Magnesium Level 2.1 MG/DL Alkaline Phosphatase 103 U/L 133 U/L Aspartate Amino Transf (AST/SGOT) 61 U/L 467 U/L Alanine Aminotransferase (ALT/SGPT) 35 U/L 211 U/L Total Bilirubin 1.1 MG/DL 0.9 MG/DL Sodium Level 134 MEQ/L 134 MEQ/L 137 MEQ/L Potassium Level 6.0 MEQ/L 6.4 MEQ/L 5.4 MEQ/L Chloride Level 103 MEQ/L 101 MEQ/L 104 MEQ/L Carbon Dioxide Level 22.2 MEQ/L 23.3 MEQ/L 24.0 MEQ/L Anion Gap 9 MEQ/L 10 MEQ/L 9 MEQ/L Estimat Glomerular Filtration Rate 31 ML/MIN 29 ML/MIN 31 ML/MIN Troponin I LESS THAN 0.02 NG/ML B-Type Natriuretic Peptide 99 PG/ML Urine Color RED Urine Turbidity CLOUDY Urine pH 6.0 Urine Specific [place] 1.025 Urine Protein 300 mg/dL Urine Glucose (UA) NEG mg/dL Urine Ketones NEG mg/dL Urine Occult Blood LARGE Urine Nitrite NEG Urine Bilirubin NEG Urine Urobilinogen LESS THAN 2.0 MG/DL Urine Leukocyte Esterase LARGE Urine RBC /hpf Urine WBC /hpf Urine WBC Clumps MANY Urine Squamous Epithelial Cells 58 /hpf Urine Mucus FEW /lpf Microscopic Urinalysis Comment CULTURE INDICATED Lactic Acid Level 3.5 mmol/L Lactate Dehydrogenase 601 U/L Lipase 115 U/L Thyroid Stimulating Hormone 3rd Gen 2.670 uIU/ML Test 11/12/17 06:10 11/12/17 11:19 Lactic Acid Level 2.6 mmol/L Prothrombin Time 54.1 SEC Prothromb Time International Ratio 5.4 RATIO Activated Partial Thromboplast Time 44.1 SEC Hepatitis A IgM Antibody NEGATIVE Hepatitis B Surface Antigen NEGATIVE Hepatitis B Core IgM Antibody NEGATIVE Hepatitis C Antibody NEGATIVE Date/Time Source Procedure Growth Status 11/12/17 03:15 Blood Peripheral Aerobic Blood Culture Pending Received 11/12/17 03:15 Blood Peripheral Anaerobic Blood Culture Pending Received 11/11/17 17:40 Urine Clean Catch Urine Culture Pending Received Physical Examination HEENT: Normocephalic; atraumatic CHEST: Expiratory wheezing, 2 L NC CARDIAC: RRR ABDOMEN: Soft, nondistended, nontender; bowel sounds active x 4 EXTREMITIES: No clubbing, cyanosis, or edema. SKIN: Normal; no rash; no jaundice. HANDKERCHIEF CUTTER: No focal deficits; alert and oriented times three. Assessment and Plan Plan Assessment: - Transaminitis- Currently LFTs are AST-467 ALT-211 Alk phos-133 and Total bili 0.9. CT abdomen and pelvis W/O IV contrast (11/12) --> Possible cystic mass in the head of the pancreas and MRI examination with and without contrast suggested to further characterize. New compression fracture of L1 no present previously. Small right pleural effusion and slight fluid in the anterior perihepatic space. Lipase 115. Pt denies ETOH, new medication, OTC herbs or supplement. Does report one tablet of Tylenol every night denies taking it more often. Plan: - MRI abdomen W/O contrast- holding on contrast due to renal function - Liver workup - CA 19-9 - Monitor labs - Supportive care - Further recommendations to follow based on results of above Pt has been seen and examined by myself and Dr. Romero and this note is written on his behalf Natividad Mcgee Nov 12, 2017 14:55
[2017-11-12 18:03] LABS: IRON (FE) 29 MCG/DL (50-170)
[2017-11-12 18:07] LABS: % SATURATION IRON PROFILE 8.7 % (20-50); FERRITIN 82 NG/ML (8-252); TOTAL IRON BINDING CAPACITY 335 MCG/DL (250-450)
[2017-11-12] MEDS ORDERED: cefTRIAXone INJ 1,000 MG in SODIUM CHLORIDE 0.9% INJ 100 ML IV SCH (18:30)
[2017-11-12] MEDS ORDERED: GADOBENATE DIM PF 529 MG/ML 5 ML VIAL (for RAD MRI) IV ONE (18:53)
[2017-11-12 19:04] LABS: HEMOGLOBIN A1C 7.9 % (4.3-6.0)
--- NOTE | 2017-11-12 19:19 | RADRPT ---
EXAM DATE/TIME: 11/12/2017 18:27 [facility] COMPARISON: CT ABDOMEN & PELVIS W/O CONTRAST, November 12, 2017, 13:50. INDICATIONS : Pancreatic cystic mass. CONTRAST: 15 cc Multihance (gadobenate) IV MEDICAL HISTORY : Hypertension. Diabetes mellitus type 2. SURGICAL HISTORY : Hysterectomy. Cholecystectomy. Left ankle and left shoulder. ENCOUNTER: Initial ACUITY: 1 day PAIN SCORE: 0/10 LOCATION: Abdomen. TECHNIQUE: Multiplanar, multisequence magnetic resonance imaging of the abdomen was performed. High-resolution 3D dataset was utilized to reconstruct maximum-intensity projection (MIP) images. FINDINGS: There are bilateral pleural effusions right greater than left. There is a small amount of ascites in the anterior perihepatic region. There is diffuse pancreatic ductal dilatation up to 1 cm. There is p erinephric stranding bilaterally, right greater than left. There is fluid in the left anterior parare nal space and periduodenal region. A complex cystic-appearing mass like area is seen at the pancreati c head region measuring 3.6 x 2.7 cm. This corresponds to the area of hypodensity on the CT examinati on. The pancreatic duct appears dilated as well proximal to this point. There is marked sidebranch ec michael, and is difficult to exclude more pronounced ductal dilatation with side branch ectasia and tor tuosity accounting for this mass like area versus true complex cystic mass. There is a remote regino edd fracture of L4, L1 and T11. There are 2 subcentimeter proteinaceous cysts at the right midpole k idney. The study is limited by body habitus and motion. CONCLUSION: There is diffuse dilatation of the pancreatic duct as described above with significant side branch ec michael. Common bile duct is normal in caliber. There is a complex cystic-appearing mass like area at t he head of the pancreas as described above. Tj Blancas MD on November 12, 2017 at 19:11 Board Certified Radiologist. This report was verified electronically.
[2017-11-12] MEDS: GABAPENTIN 400 MG CAP PO SCH (21:00)
[2017-11-12 22:30] LABS: BICARBONATE 24.2 MEQ/L (21.0-32.0); CALCIUM 7.9 MG/DL (8.5-10.1); CREATININE 1.31 MG/DL (0.50-1.00)
[2017-11-13] VITALS (24 sets, daily range): BP systolic 111–178; BP diastolic 68–111; PULSE 82–145; RESP 16–20; TEMP 96.7–98.3; O2SAT 93–100
[2017-11-13] MEDS: SODIUM CHLOR 0.9% 1000 ML INJ 1,000 ML IV SCH ×2 (01:42→09:53)
[2017-11-13] MEDS: LEVOTHYROXINE SODIUM 50 MCG TAB PO SCH (06:00)
[2017-11-13] MEDS ORDERED: METOPROLOL TARTRATE 5 MG/5 ML VIAL IV PUSH ONE (06:15)
--- NOTE | 2017-11-13 06:37 | HHI.FPPN ---
Addendum to progress note ADDENDUM Reason for addendum: Additonal documentation Additional information Resident team was called overnight for a fall at approximately 0600 hrs. Subjective: When speaking with the patient, she reports that she was reaching for the bedside commode," the next thing I knew I was on the floor." She reports hitting her head on the left side. She did lose consciousness during this event. She denies feeling shortness of breath, having chest pain, having an irregular heartbeat, or feeling lightheaded prior to her fall. Currently, she denies any blurry vision, decreased sensation or strength down one side of her body, confusion, or headaches. She is having some tenderness over the left parietal scalp, and reports "I have a large egg there." Objective: Heart rate 120-150, 160/94, Pulse Ox 96% on 2 L Gen.: Is not appear in any acute distress, however has some labored breathing when speaking. Vascular: Tachycardia, irregular rate, no obvious murmurs. Respiratory: Clear to auscultation bilaterally. Neuro: He was equal round and reactive to light, extra her eye movements intact , decreased sensation on the right side of her face in comparison to the left, symmetric facies, shoulder shrug equal on both sides, 5 out of 5 senior portfolio manager strength on both sides, 5 out of 5 strength of flexion at the waist bilaterally. Normal sensation of her lower extremities. Head: Large hematoma on the left parietal scalp measuring approximately 4 cm round's. Tender to palpation. Assessment and Plan: 1) Fall with Loss of Consciousness Likely related to uncontrolled atrial fibrillation, imbalance, vs. orthostatic hypotension. Recommend transfer to a higher level of care, CICU. I spoke with the charge nurse, who recommended her going to the cardiac intermediate/stepdown unit. We will get a CT scan of her head without contrast. Rate control with IV metoprolol 2.5 mg, can repeat every 2-5 minutes for a total on 15 mg over a 15 minute period. If this does not control her rate, would start IV Cardizem. EKG Stat now. Neurologically intact at this point. Neurochecks q 15 minutes x 4. Hold Eliquis for now given large hematoma and head trauma. [facility] Hospitalist service. Eitan Pérez MD, R3 Nov 13, 2017 06:37
[2017-11-13] MEDS: PIPERACIL-TAZO 4.5 GM PREMIX 100 ML IV SCH (06:46)
--- NOTE | 2017-11-13 06:47 | RADRPT ---
EXAM DATE/TIME: 11/13/2017 06:28 [facility] COMPARISON: CT BRAIN W/O CONTRAST, October 12, 2017, 10:42. INDICATIONS : Fall with loss of consciousness. Large contusion on left parietal/occipital lobe. RADIATION DOSE: 56.35 CTDIvol (mGy) MEDICAL HISTORY : Cardiovascular disease. Hypertension. SURGICAL HISTORY : None. ENCOUNTER: Initial ACUITY: 1 day PAIN SCALE: 3/10 LOCATION: Left occipital TECHNIQUE: Multiple contiguous axial images were obtained of the head. Using automated exposure control and adj ustment of the mA and/or kV according to patient size, radiation dose was kept as low as reasonably a chievable to obtain optimal diagnostic quality images. DICOM format image data is available electro nically for review and comparison. FINDINGS: CEREBRUM: The ventricles are normal for age. No evidence of midline shift, mass lesion, hemorrhage or acute in farction. No extra-axial fluid collections are seen. POSTERIOR FOSSA: The cerebellum and brainstem are intact. The 4th ventricle is midline. The cerebellopontine angle i s unremarkable. EXTRACRANIAL: The visualized portion of the orbits is intact. SKULL: The calvaria is intact. No evidence of skull fracture. CONCLUSION: No acute intracranial findings. Ivan Nguyễn MD on November 13, 2017 at 6:41 Board Certified Radiologist. This report was verified electronically.
[2017-11-13] MEDS: INSULIN ASPART SUPPLEMENTAL SCALE SQ SCH ×4 (08:00→23:07)
[2017-11-13] MEDS: SODIUM CHLORIDE 0.9% FLUSH 10 ML FLUSH IV FLUSH SCH ×2 (08:15→23:01)
[2017-11-13] MEDS: PANTOPRAZOLE SOD 20 MG DELAYED RELEASE TAB PO SCH (08:16)
[2017-11-13] MEDS: MULTIVITAMINS/MINERALS THERAPEUTIC TAB PO SCH (08:16)
[2017-11-13] MEDS: METOPROLOL TARTRATE 25 MG TAB PO SCH ×2 (08:16→23:01)
[2017-11-13] MEDS: DILTIAZEM-CD 120 MG CAP ER PO SCH (09:53)
[2017-11-13] MEDS ORDERED: DILTIAZEM HCL 25 MG/5 ML VIAL IV PUSH ONE (10:30)
[2017-11-13] MEDS ORDERED: DILTIAZEM HCL 25 MG/5 ML VIAL IV PUSH PRN (10:45)
[2017-11-13] MEDS: DILTIAZEM INJ 125 MG in SODIUM CHLORIDE 0.9% INJ 100 ML IV PRN (10:55)
--- NOTE | 2017-11-13 11:01 | HHI.FPPN ---
Subjective Remarks Patient had a fall overnight. She was walking to the bathroom and fell. Fall sounds mechanical based on description. She's had some recent falls at home as well. She hit her head. CT scan of the brain is negative. She has a small knot on the back of her head. Otherwise she reports no headache, blurry vision, has no neurological deficits since the fall. She has the same feeling of lightheadedness that she had at admission that is unchanged. She continues to have vague right lower quadrant pain that is mild in nature. She does not report epigastric pain or pain boring through to the back. She has loose stools , but no blood or mucous in the stool. She reports normal urination. She has some urinary incontinence at baseline and has a condom catheter in place designed for women. She remains in atrial fibrillation with RVR, rate currently in the 130's and 140's. She is asymptomatic from that. Discussed starting a diltiazem drip this morning as she did not respond well enough to metoprolol doses overnight. She has no shortness of breath or chest pain currently. She has no dysuria or flank tenderness. (Óscar Gann MD R3) Objective Vitals Vital Signs Date Time Temp Pulse Resp B/P (MAP) Pulse Ox O2 Delivery O2 Flow Rate FiO2 11/13/17 10:00 114 11/13/17 09:00 122 11/13/17 08:00 135 11/13/17 08:00 97.0 130 16 145/95 (112) 97 11/13/17 07:10 97.9 145 20 153/111 (125) 99 11/13/17 05:40 96 2.00 11/13/17 05:32 143 160/94 (116) 95 11/13/17 04:10 98.1 112 18 111/68 (82) 93 11/13/17 03:44 107 11/13/17 00:53 Nasal Cannula 2.00 11/13/17 00:03 119 11/12/17 21:55 98.1 107 18 139/83 (101) 98 11/12/17 20:00 107 11/12/17 15:51 98.3 107 18 122/87 (99) 95 11/12/17 12:04 97.5 128 22 129/69 (89) 94 I/O 1/4/18 11/12/17 11/12/17 11/13/17 11/13/17 11/13/17 07:00 15:00 23:00 07:00 15:00 23:00 Intake Total 500 ml 360 ml Balance 500 ml 360 ml Intake Oral 360 ml IV Total 500 ml # Voids 1 # Bowel Movements 2 (Óscar Gann MD R3) Result Diagram: 11/12/17 0315 11/12/17 1722 Imaging Last [address] 11/13/17 0000 Signed Impressions: Service Date/Time: Monday, November 13, 2017 06:28 - CONCLUSION: No acute intracranial findings. Ivan Nguyễn MD Chest X-Ray 11/12/17 0600 Signed Impressions: Service Date/Time: November 06:09 - CONCLUSION: Mild cardiomegaly. Clear lungs. Ricardo Butler Jr., MD Cholangiopancreatography MRI 11/12/17 0000 Signed Impressions: Service Date/Time: November 18:27 - CONCLUSION: There is diffuse dilatation of the pancreatic duct as described above with significant side branch ectasia. Common bile duct is normal in caliber. There is a complex cystic-appearing mass like area at the head of the pancreas as described above. Tj Blancas MD Abdomen/Pelvis CT 11/12/17 0000 Signed Impressions: Service Date/Time: November 13:50 - CONCLUSION: 1. Possible cystic mass in the head of the pancreas and MRI examination with and without contrast suggested to further characterize. 2. New compression fracture of L1 not present previously. 3. Small right pleural effusion and slight fluid in the anterior perihepatic space. Paulino Case MD Chest X-Ray 11/11/17 1417 Signed Impressions: Service Date/Time: Saturday, November 11, 2017 14:29 - CONCLUSION: Compensated cardiomegaly otherwise negative Doroteo Perez MD FACR Renal Ultrasound 11/11/17 0000 Signed Impressions: Service Date/Time: Saturday, November 11, 2017 20:25 - CONCLUSION: Unremarkable renal ultrasound. Paulino Case MD Objective Remarks General: Lying in bed, no distress, pleasant demeanor Skin: Has small skin tear without surrounding erythema or drainage, no abscess located on the base of her left foot HEENT: Normocephalic, small lump where she hit her head after fall, no conjunctivitis or scleral icterus, no nasal discharge Neck: No thyromegaly or lymphadenopathy CV: rapid rate, irregular rhythm, no murmurs, normal cap refill, pulses intact distally Lungs: CTAB Abdomen: Soft, mildly tender to palpation in the right lower quadrant, no rebound tenderness or guarding, normal bowel sounds, no organomegaly Ext: No swelling, no calf tenderness Neuro: Awake, alert, no focal deficits (Óscar Gann MD R3) A/P Assessment and Plan 82 year old female presents with generalized weakness, mild shortness of breath , and right lower quadrant abdominal pain, with acute transaminitis and mild leukocytosis. Discharge Planning Pending completed workup and clinical stability, will have physical therapy evaluation to assess her post-discharge needs, case management on board for assistance. (Óscar Gann MD R3) Attending Attestation THIS CASE WAS DISCUSSED WITH THE RESIDENT PHYSICIAN Dr Darrell Gann, Patient seen and examined. I HAVE REVIEWED THE RECORD AND AGREE WITH THE ABOVE NOTE AND PLAN OF CARE WAS DISCUSSED. I HAVE AUTHORIZED THE ORDER SET (Matt Walker MD) Problem List: (1) Pancreatic cyst ICD Codes: K86.2 - Cyst of pancreas Status: Acute Plan: MRCP showing pancreatic duct dilation of 1 cm and a 3.6 x 2.7 complex cystic mass at the head of the pancreas. Differential broad, from benign cystic lesion to something malignant. Does not report jaundice, dark urine, or light stools. CA19-9 is normal, 28.7. - May require an endoscopic ultrasound with biopsy, will defer to the gastroenterology team. - Discussed findings with patient. (2) Transaminitis ICD Codes: R74.0 - Nonspecific elevation of levels of transaminase and lactic acid dehydrogenase [LDH] Status: Acute Plan: Liver enzymes fairly normal at admission, but increased to AST/ALT of 467 /211 overnight, ALP mildly elevated to 133. Lipase is normal. Total bilirubin is normal. Coag profile showing elevated INR, PT, and APTT. Hepatitis profile negative. She reports that she does not have a gallbladder. TSH is normal. Not an alcohol user, uses one tablet of Tylenol at night but not more, no new medications. CT abdomen showing possible cystic mass in the head of the pancreas. AFP normal at 0.9. Hepatitis profile negative. Iron studies not concerning for hemochromatosis. - Gastroenterology on board. - Follow tissue transglutaminase antibodies, rule out celiac disease - Follow RODNEY, ASMA, mitochondrial abs, ceruloplasmin, alpha 1 antitrypsin (3) Urinary tract infection ICD Codes: N39.0 - Urinary tract infection, site not specified Status: Acute Plan: Urine with 300 protein, large occult blood, large leukocyte esterase, negative nitrites, many WBC clumps. Has some tachycardia, possibly related to her atrial fibrillation, and mild leukocytosis. No CVA tenderness on exam. No dysuria or urgency. Has mild incontinence at baseline that is unchanged. Urine culture shows rollins-sensitive e.coli. - Zosyn, started 11/12/17, stopped 11/13/17. - Start Levaquin for complicated cystitis (history of diabetes), 250 mg for 10 days total. (4) Atrial fibrillation ICD Codes: I48.91 - Unspecified atrial fibrillation Status: Acute Plan: Chronic atrial fibrillation with [id number] >2; on Eliquis for anticoagulation. Currently with rapid ventricular response. -Continue rate control: -Continue Metoprolol 25mg BID -Diltiazem drip started 11/13/17 for RVR. -Once rate controlled, switch back to oral diltiazem. -Continue Anticoagulation: -Will reduce to Eliquis 2.5 mg BID (REG with Cr >1.5, age >80 yrs). Eliquis on hold in case of biopsy. -Continue telemetry (5) REG (acute kidney injury) ICD Codes: N17.9 - Acute kidney failure, unspecified Status: Acute Plan: Cr 1.56 on admission; baseline of 0.74 per EMR. Renal ultrasound unremarkable. Renal function improving. - Avoid nephrotoxic agents as much as possible - Renally dose medications - Encourage good oral hydration. (6) Physical deconditioning ICD Codes: R53.81 - Other malaise Status: Acute Plan: Weakness per patient and EMR; recent hospitalization and rehabilitation. Also with recent falls, as well as a fall in the hospital on 11/13/17. - Physical therapy is on board for evaluation and treatment. - Assess outpatient needs before discharge (7) Hypertension ICD Codes: I10 - Essential (primary) hypertension Status: Chronic Plan: Chronic HTN; recently lower BP per PCP records -Continue Enalapril 2.5mg daily (AM) -Continue Metoprolol 25mg BID -Continue Diltiazem ER 25mg daily (in PM), on hold for Diltiazem drip on . (8) Type 2 diabetes mellitus not at goal ICD Codes: E11.9 - Type 2 diabetes mellitus not at goal Status: Chronic Plan: T2DM on Lantus 10 U qHS and sliding scale Humalog -Will start low dose SS insulin with accuchecks -Will re-add long acting insulin once diet stable -Will order A1C while inpatient as was ordered as recent outpatient lab by PCP (9) Hypothyroidism ICD Codes: E03.9 - Hypothyroidism, unspecified Status: Chronic Plan: Hypothyroidism on chronic Levothyroxine 50 mcg daily. TSH normal. - Levothyroxine 50 mcg daily (10) DVT Prophylaxis Status: Acute Plan: -Bilateral SCD's -Will reduce to Eliquis 2.5 mg BID (REG with Cr >1.5, age >80 yrs), on hold for possible biopsy for pancreatic mass (11) Fluids, Electrolytes, and Nutrition Status: Acute Plan: Fluids: PO fluids, monitor hydration status Electrolytes: Hyperkalemia resolved, monitor. Has acute kidney injury. Nutrition: heart healthy diet (Óscar Gann MD R3) Problem Qualifiers (1) Atrial fibrillation: Qualified Codes: I48.91 - Unspecified atrial fibrillation (2) Hypertension: Qualified Codes: I10 - Essential (primary) hypertension Óscar Gann MD R3 Nov 13, 2017 11:01 Matt Walker MD Nov 13, 2017 15:29
[2017-11-13 12:47] LABS: HEMATOCRIT 33.7 % (35.0-46.0); HEMOGLOBIN 11.1 GM/DL (11.6-15.3); MEAN CELL VOLUME 88.5 FL (80.0-100.0); MEAN CORPUSCULAR HEMOGLOBIN 29.1 PG (27.0-34.0); MEAN CORPUSCULAR HGB CONC 32.9 % (32.0-36.0); MEAN PLATELET VOLUME 8.5 FL (7.0-11.0); PLATELET COUNT 119 TH/MM3 (150-450); RED CELL DISTRIBUTION WIDTH 17.9 % (11.6-17.2)
[2017-11-13 13:09] LABS: ALBUMIN 3.1 GM/DL (3.4-5.0); ALT (GPT) 126 U/L (10-53); AST (GOT) 113 U/L (15-37); BICARBONATE 23.8 MEQ/L (21.0-32.0); BLOOD UREA NITROGEN 17 MG/DL (7-18); CHLORIDE 104 MEQ/L (98-107); CREATININE 0.94 MG/DL (0.50-1.00); GLOMERULAR FILTRATION RATE 57 ML/MIN (>89); GLUCOSE,RANDOM 190 MG/DL (74-106); SODIUM (NA) 135 MEQ/L (136-145)
[2017-11-13 13:12] LABS: ALKALINE PHOSPHATASE 120 U/L (45-117); TOTAL BILIRUBIN ADULT 1.3 MG/DL (0.2-1.0); TOTAL PROTEIN 6.6 GM/DL (6.4-8.2)
--- NOTE | 2017-11-13 15:35 | HHI.GIFU ---
Subjective Remarks Pt resting in bed, in no apparent distress. She reports fall this morning, she is unsure what caused the fall. Reports trying to eat liquids and bland foods. Denies nausea, vomiting, abdominal pain. Per RN pt has been having liquid stools since yesterday. Objective Vitals I&O Vital Signs Date Time Temp Pulse Resp B/P (MAP) Pulse Ox O2 Delivery O2 Flow Rate FiO2 11/13/17 14:00 106 11/13/17 13:00 112 11/13/17 12:00 110 11/13/17 11:00 96.7 116 16 140/92 (108) 100 11/13/17 11:00 114 11/13/17 10:55 136 141/96 11/13/17 10:00 114 11/13/17 09:00 122 11/13/17 08:00 135 11/13/17 08:00 97.0 130 16 145/95 (112) 97 11/13/17 07:10 97.9 145 20 153/111 (125) 99 11/13/17 05:40 96 2.00 11/13/17 05:32 143 160/94 (116) 95 11/13/17 04:10 98.1 112 18 111/68 (82) 93 11/13/17 03:44 107 11/13/17 00:53 Nasal Cannula 2.00 11/13/17 00:03 119 11/12/17 21:55 98.1 107 18 139/83 (101) 98 11/12/17 20:00 107 11/12/17 15:51 98.3 107 18 122/87 (99) 95 I/O 11/12/17 11/12/17 11/12/17 11/13/17 11/13/17 11/13/17 07:00 15:00 23:00 07:00 15:00 23:00 Intake Total 500 ml 360 ml Balance 500 ml 360 ml Intake Oral 360 ml IV Total 500 ml # Voids 1 # Bowel Movements 2 Laboratory Laboratory Tests Test 11/12/17 17:22 11/12/17 17:24 11/13/17 10:00 11/13/17 10:50 Blood Urea Nitrogen 23 Creatinine 1.31 Random Glucose 156 Calcium Level 7.9 Sodium Level 138 Potassium Level 3.9 Chloride Level 102 Carbon Dioxide Level 24.2 Anion Gap 12 Estimat Glomerular Filtration Rate 39 Iron Level 29 Total Iron Binding Capacity 335 Percent Iron Saturation 8.7 Ferritin 82 Tumor Marker Alpha Fetoprotein 0.9 CA 19-9 Antigen 28.7 Anti-Nuclear Antibody Screen NEG Urine Eosinophils NONE SEEN Urine Random Sodium 125 Stool C. difficile Toxin (PCR) NEGATIVE Stl C. difficile Toxin Epiderm 027 PRESUMPTIVE NEGATIVE Test 11/13/17 12:35 White Blood Count 10.0 Red Blood Count 3.80 Hemoglobin 11.1 Hematocrit 33.7 Mean Corpuscular Volume 88.5 Mean Corpuscular Hemoglobin 29.1 Mean Corpuscular Hemoglobin Concent 32.9 Red Cell Distribution Width 17.9 Platelet Count 119 Mean Platelet Volume 8.5 Blood Urea Nitrogen 17 Creatinine 0.94 Random Glucose 190 Total Protein 6.6 Albumin 3.1 Calcium Level 8.0 Alkaline Phosphatase 120 Aspartate Amino Transf (AST/SGOT) 113 Alanine Aminotransferase (ALT/SGPT) 126 Total Bilirubin 1.3 Sodium Level 135 Potassium Level 4.1 Chloride Level 104 Carbon Dioxide Level 23.8 Anion Gap 7 Estimat Glomerular Filtration Rate 57 Lactic Acid Level 1.1 Total Creatine Kinase 146 Date/Time Source Procedure Growth Status 11/12/17 03:15 Blood Peripheral Aerobic Blood Culture - Preliminary NO GROWTH IN 1 DAY Resulted 11/12/17 03:15 Blood Peripheral Anaerobic Blood Culture - Preliminary NO GROWTH IN 1 DAY Resulted 11/11/17 17:40 Urine Clean Catch Urine Culture - Final Escherichia Coli Complete Imaging Last Impressions Head CT 11/13/17 0000 Signed Impressions: Service Date/Time: Monday, November 13, 2017 06:28 - CONCLUSION: No acute intracranial findings. Ivan Nguyễn MD Chest X-Ray 11/12/17 0600 Signed Impressions: Service Date/Time: November 06:09 - CONCLUSION: Mild cardiomegaly. Clear lungs. Ricardo Butler Jr., MD Cholangiopancreatography MRI 11/12/17 0000 Signed Impressions: Service Date/Time: November 18:27 - CONCLUSION: There is diffuse dilatation of the pancreatic duct as described above with significant side branch ectasia. Common bile duct is normal in caliber. There is a complex cystic-appearing mass like area at the head of the pancreas as described above. Tj Blancas MD Abdomen/Pelvis CT 11/12/17 0000 Signed Impressions: Service Date/Time: November 13:50 - CONCLUSION: 1. Possible cystic mass in the head of the pancreas and MRI examination with and without contrast suggested to further characterize. 2. New compression fracture of L1 not present previously. 3. Small right pleural effusion and slight fluid in the anterior perihepatic space. Paulino Case MD Renal Ultrasound 11/11/17 0000 Signed Impressions: Service Date/Time: Saturday, November 11, 2017 20:25 - CONCLUSION: Unremarkable renal ultrasound. Paulino Case MD Physical Exam HEENT: Normocephalic; atraumatic CHEST: Even/unlabored CARDIAC: Irregular- atrial flutter with RVR- on Cardizem drip ABDOMEN: Soft, nontender, bowel sounds active x 4. EXTREMITIES: No clubbing, cyanosis, or edema. SKIN: Normal; no rash; no jaundice. X RAY PHYSICIAN: No focal deficits; alert and oriented times three. Assessment and Plan Plan Assessment: - Transaminitis- LFTs improving. Currently AST-113 ALT-126 Alk phos-120. MRCP W and W/O contrast (11/12) --> There is diffuse dilation of the pancreatic duct as described above with significant side branch ectasia. Common bile duct is normal in caliber. There is a complex cystic-appearing mass like area at the head of the pancreas as described above. CA 19-9 28.7. RODNEY negative. Hepatitis panel negative. Rest of liver arnett still pending. Pt was transferred to the cardiac step down unit for closer monitoring after a fall this morning. She currently has atrial flutter with uncontrolled rate, on Diltiazem gtt. Would recommend EUS with FNA however timing dependent on patients cardiac status and stability for procedures. Eliquis currently on hold due to hematoma on posterior head obtained from fall this morning. - Diarrhea- per RN pt had formed BM yesterday but is now having diarrhea today. C diff negative. Will obtain stool studies Plan: - Liver ARNETT pending - EUS with FNA when pt is more stable and heart rate is controlled - Stool studies pending - Monitor labs - Supportive care - Pain control - Further recommendations to follow based on results of above Pt has been seen and examined by myself and Dr. Romero and this note is written on his behalf Natividad Mcgee Nov 13, 2017 15:35
[2017-11-13] MEDS ORDERED: SULFAMETHOXAZOLE-TRIMETHOPRIM DS 800-160 MG TAB PO SCH (21:00)
--- NOTE | 2017-11-13 21:08 | EKG ---
Date Performed: 11/13/2017 Time Performed: 10:34:50 PTAGE: 82 years EKG: Atrial fibrillation with rapid ventricular response rSr'(V1) - probable normal variant Infe rior T wave changes are nonspecific Abnormal ECG PREVIOUS TRACING : 11/12/2017 01.59 Compared to prior tracing no significant change DOCTOR: Mckay Riley Interpretating Date/Time 11/13/2017 21:08:19
[2017-11-13] MEDS: GABAPENTIN 400 MG CAP PO SCH (23:01)
--- NOTE | 2017-11-13 23:25 | EKG ---
Date Performed: 11/12/2017 Time Performed: 01:59:59 PTAGE: 82 years EKG: ATRIAL FIBRILLATION WITH RAPID VENTRICULAR RESPONSE INCOMPLETE RIGHT BUNDLE BRANCH BLOCK AB NORMAL RHYTHM ECG PREVIOUS TRACING : 11/11/2017 15.57 DOCTOR: Anahy Trevizo Interpretating Date/Time 11/13/2017 23:24:00
--- NOTE | 2017-11-13 23:47 | EKG ---
Date Performed: 11/11/2017 Time Performed: 15:57:40 PTAGE: 82 years EKG: ATRIAL Fibrillation INCOMPLETE RIGHT BUNDLE BRANCH BLOCK ABNORMAL RHYTHM ECG PREVIOUS TRACING : 10/12/2017 10.16 DOCTOR: Anahy Trevizo Interpretating Date/Time 11/13/2017 23:46:37
[2017-11-14] VITALS (27 sets, daily range): BP systolic 119–165; BP diastolic 58–72; PULSE 70–132; RESP 16–19; TEMP 97.5–98.6; O2SAT 95–100
[2017-11-14 05:06] LABS: HEMATOCRIT 30.4 % (35.0-46.0); HEMOGLOBIN 10.3 GM/DL (11.6-15.3); MEAN CELL VOLUME 86.5 FL (80.0-100.0); MEAN CORPUSCULAR HEMOGLOBIN 29.4 PG (27.0-34.0); MEAN PLATELET VOLUME 8.6 FL (7.0-11.0); PLATELET COUNT 128 TH/MM3 (150-450); RED BLOOD COUNT 3.51 MIL/MM3 (4.00-5.30); RED CELL DISTRIBUTION WIDTH 17.7 % (11.6-17.2); WHITE BLOOD COUNT 10.2 TH/MM3 (4.0-11.0)
[2017-11-14 05:33] LABS: BICARBONATE 25.8 MEQ/L (21.0-32.0); CREATININE 0.7 MG/DL (0.50-1.00)
[2017-11-14] MEDS: LEVOTHYROXINE SODIUM 50 MCG TAB PO SCH (05:53)
[2017-11-14] MEDS: INSULIN ASPART SUPPLEMENTAL SCALE SQ SCH ×4 (08:00→20:43)
[2017-11-14 08:04] LABS: DIRECT BILIRUBIN ADULT 0.5 MG/DL (0.0-0.2)
[2017-11-14 08:05] LABS: INDIRECT BILIRUBIN 0.8 MG/DL (0.0-0.8); TOTAL BILIRUBIN ADULT 1.3 MG/DL (0.2-1.0); TOTAL PROTEIN 6.5 GM/DL (6.4-8.2)
[2017-11-14] MEDS: METOPROLOL TARTRATE 25 MG TAB PO SCH ×2 (08:35→20:35)
[2017-11-14] MEDS: SODIUM CHLORIDE 0.9% FLUSH 10 ML FLUSH IV FLUSH SCH ×2 (08:35→20:34)
[2017-11-14] MEDS: LEVOFLOXACIN 250 MG TAB PO SCH (08:35)
[2017-11-14] MEDS: PANTOPRAZOLE SOD 20 MG DELAYED RELEASE TAB PO SCH (08:35)
[2017-11-14] MEDS: MULTIVITAMINS/MINERALS THERAPEUTIC TAB PO SCH (08:35)
--- NOTE | 2017-11-14 10:27 | HHI.FPPN ---
Subjective Remarks No acute events overnight. Heart rate well controlled on diltiazem drip at 10 mls/hr. Plan to continue weaning diltiazem drip today and hopefully transition to oral diltiazem. No chest pain or shortness of breath. Continuing to have right lower quadrant pain that is mild. No nausea or vomiting. Has soft pasty stools per the nurse, frequent small bowel movements. No calf tenderness or swelling. She is awake and alert and good spirits this morning. She has a good appetite this morning and is getting ready to eat breakfast. She still feels a sense of generalized weakness. (Óscar Gann MD R3) Objective Vitals Vital Signs Date Time Temp Pulse Resp B/P (MAP) Pulse Ox O2 Delivery O2 Flow Rate FiO2 11/14/17 09:04 95 Nasal Cannula 2.00 11/14/17 09:00 95 11/14/17 08:00 91 11/14/17 07:50 97.6 84 19 161/72 (101) 100 11/14/17 07:50 100 Nasal Cannula 3.00 11/14/17 07:00 83 11/14/17 06:00 79 11/14/17 05:31 98.6 73 18 124/63 (83) 100 11/14/17 05:00 76 11/14/17 04:43 73 124/63 11/14/17 04:00 70 11/14/17 03:00 77 11/14/17 02:00 84 11/14/17 01:00 90 11/14/17 00:00 96 11/13/17 23:24 98.3 82 18 137/77 (97) 100 11/13/17 23:00 100 11/13/17 22:00 94 11/13/17 21:58 82 137/77 11/13/17 21:00 96 11/13/17 20:25 98.3 100 18 178/74 (108) 100 11/13/17 20:00 102 11/13/17 20:00 100 178/74 11/13/17 19:00 101 11/13/17 18:00 106 11/13/17 17:00 104 11/13/17 16:23 Nasal Cannula 2.00 11/13/17 16:00 111 11/13/17 16:00 97.0 108 16 123/75 (91) 100 11/13/17 15:00 107 11/13/17 14:00 106 11/13/17 13:00 112 11/13/17 12:00 110 11/13/17 11:00 96.7 116 16 140/92 (108) 100 11/13/17 11:00 114 11/13/17 10:55 136 141/96 I/O 11/13/17 11/13/17 11/13/17 11/14/17 11/14/17 11/14/17 07:00 15:00 23:00 07:00 15:00 23:00 Intake Total 600 ml 240 ml Output Total 1100 ml 1001 ml Balance -500 ml -761 ml Intake Oral 600 ml 240 ml Output Urine Total 1000 ml 1000 ml Stool Total 100 ml 1 ml # Bowel Movements 5 (Óscar Gann MD R3) Result Diagram: 11/14/17 0441 11/14/17 0441 Objective Remarks General: Sitting up in bed, no distress Skin: Has small skin tear without surrounding erythema or drainage, no abscess located on the base of her left foot (examined prior) HEENT: Normocephalic, lump with surrounding hematoma where she hit her head after fall, not tender to palpation, no conjunctivitis or scleral icterus, no nasal discharge Neck: No thyromegaly or lymphadenopathy CV: regular, irregular rhythm, no murmurs, normal cap refill, pulses intact distally, on diltiazem drip at 10 mls/hr Lungs: CTAB Abdomen: Soft, mildly tender to palpation in the right lower quadrant, no rebound tenderness or guarding, normal bowel sounds, no organomegaly Ext: No swelling, no calf tenderness Neuro: Awake, alert, no focal deficits (Óscar Gann MD R3) A/P Assessment and Plan 82 year old female presents with generalized weakness, mild shortness of breath , and right lower quadrant abdominal pain, with acute transaminitis and mild leukocytosis, REG, UTI, cystic pancreatic mass. Discharge Planning Pending completed workup and clinical stability, will have physical therapy evaluation to assess her post-discharge needs, case management on board for assistance. Will likely undergo endoscopic ultrasound with fine needle aspiration of the cystic mass on the head of pancreas. Will need physical therapy at rehab. (Óscar Gann MD R3) Attending Attestation THIS CASE WAS DISCUSSED WITH THE RESIDENT PHYSICIANS.PATIENT SEEN AND EXAMINED, I HAVE REVIEWED THE RECORD AND AGREE WITH THE ABOVE NOTE AND PLAN OF CARE WAS DISCUSSED. I HAVE AUTHORIZED THE ORDER SET (Matt Walker MD) Problem List: (1) Pancreatic cyst ICD Codes: K86.2 - Cyst of pancreas Status: Acute Plan: MRCP showing pancreatic duct dilation of 1 cm and a 3.6 x 2.7 complex cystic mass at the head of the pancreas. Differential broad, from benign cystic lesion to something malignant. Does not report jaundice, dark urine, or light stools. Does have pasty stools per nurse. CA19-9 is normal, 28.7. - Will require an endoscopic ultrasound with biopsy, likely on Thursday. - Discussed findings with patient. (2) Transaminitis ICD Codes: R74.0 - Nonspecific elevation of levels of transaminase and lactic acid dehydrogenase [LDH] Status: Acute Plan: Liver enzymes fairly normal at admission, but increased to AST/ALT of 467 /211 overnight, ALP mildly elevated to 133. Liver enzymes now starting to trend down. Lipase is normal. Direct bilirubin is elevated mildly. Coag profile showing elevated INR, PT, and APTT. Hepatitis profile negative. She reports that she does not have a gallbladder. TSH is normal. Not an alcohol user, uses one tablet of Tylenol at night but not more, no new medications. CT abdomen showing possible cystic mass in the head of the pancreas. AFP normal at 0.9. Hepatitis profile negative. Iron studies not concerning for hemochromatosis. RODNEY is negative. - Gastroenterology on board. - Follow tissue transglutaminase antibodies, rule out celiac disease - Follow ASMA, mitochondrial abs, ceruloplasmin, alpha 1 antitrypsin - Monitor coag panel (3) Urinary tract infection ICD Codes: N39.0 - Urinary tract infection, site not specified Status: Acute Plan: Urine with 300 protein, large occult blood, large leukocyte esterase, negative nitrites, many WBC clumps. Has some tachycardia, possibly related to her atrial fibrillation, and mild leukocytosis. No CVA tenderness on exam. No dysuria or urgency. Has mild incontinence at baseline that is unchanged. Urine culture shows rollins-sensitive e.coli. - Zosyn, started 11/12/17, stopped 11/13/17. - Start Levaquin for complicated cystitis (history of diabetes), 250 mg for 10 days total. (4) Atrial fibrillation ICD Codes: I48.91 - Unspecified atrial fibrillation Status: Chronic Plan: Chronic atrial fibrillation with [id number] >2; on Eliquis for anticoagulation. Was RVR but resolved with diltiazem drip. -Continue rate control: -Continue Metoprolol 25mg BID -Diltiazem drip started 11/13/17 for RVR, plan to wean. -Once rate controlled, switch back to oral diltiazem. -Continue Anticoagulation: -Will reduce to Eliquis 2.5 mg BID (REG with Cr >1.5, age >80 yrs). Eliquis resumed 11/14/17 after fall. -Continue telemetry (5) REG (acute kidney injury) ICD Codes: N17.9 - Acute kidney failure, unspecified Status: Resolved Plan: Cr 1.56 on admission; baseline of 0.74 per EMR. Creatinine now back to normal. Renal ultrasound unremarkable. - Avoid nephrotoxic agents as much as possible - Renally dose medications - Encourage good oral hydration. (6) Physical deconditioning ICD Codes: R53.81 - Other malaise Status: Acute Plan: Weakness per patient and EMR; recent hospitalization and rehabilitation. Also with recent falls, as well as a fall in the hospital on 11/13/17. - Physical therapy is on board for evaluation and treatment. - Will likely need physical therapy at rehab. (7) Hypertension ICD Codes: I10 - Essential (primary) hypertension Status: Chronic Plan: Chronic HTN -Continue Enalapril 2.5mg daily (AM) -Continue Metoprolol 25mg BID -Continue Diltiazem ER 25mg daily (in PM), on hold for Diltiazem drip on . (8) Type 2 diabetes mellitus not at goal ICD Codes: E11.9 - Type 2 diabetes mellitus not at goal Status: Chronic Plan: T2DM on Lantus 10 U qHS and sliding scale Humalog -Will start low dose SS insulin with accuchecks -Will re-add long acting insulin once diet stable -Will order A1C while inpatient as was ordered as recent outpatient lab by PCP (9) Hypothyroidism ICD Codes: E03.9 - Hypothyroidism, unspecified Status: Chronic Plan: Hypothyroidism on chronic Levothyroxine 50 mcg daily. TSH normal. - Levothyroxine 50 mcg daily (10) DVT Prophylaxis Status: Acute Plan: -Bilateral SCD's -Will reduce to Eliquis 2.5 mg BID (REG with Cr >1.5, age >80 yrs), will resume anticoagulation due to elevated coagulation risk. (11) Fluids, Electrolytes, and Nutrition Status: Acute Plan: Fluids: PO fluids, monitor hydration status Electrolytes: Hyperkalemia resolved, monitor. Has acute kidney injury. Nutrition: heart healthy diet (Óscar Gann MD R3) Problem Qualifiers (1) Atrial fibrillation: Qualified Codes: I48.91 - Unspecified atrial fibrillation (2) Hypertension: Qualified Codes: I10 - Essential (primary) hypertension Óscar Gann MD R3 Nov 14, 2017 10:27 Matt Walker MD Nov 17, 2017 09:45
[2017-11-14] MEDS: DILTIAZEM INJ 125 MG in SODIUM CHLORIDE 0.9% INJ 100 ML IV PRN (11:54)
[2017-11-14 12:00] LABS: ALPHA-1-ANTITRYPSIN 171 mg/dL (100 - 190)
[2017-11-14] MEDS: APIXABAN 2.5 MG TABLET PO SCH ×2 (13:45→20:34)
[2017-11-14 13:46] LABS: SMOOTH MUSCLE TOTAL AUTOABS Negative (Negative)
[2017-11-14 19:52] LABS: CERULOPLASMIN 38 mg/dL (18-53)
[2017-11-14] MEDS: GABAPENTIN 400 MG CAP PO SCH (20:34)
[2017-11-15] VITALS (23 sets, daily range): BP systolic 124–170; BP diastolic 68–98; PULSE 73–119; RESP 16–20; TEMP 97.8–98.5; O2SAT 93–99
[2017-11-15 06:00] LABS: AUTOMATED NEUTROPHIL # 5.9 TH/MM3 (1.8-7.7); BASOPHIL % 0.4 % (0.0-2.0); EOSINOPHIL # 0.2 TH/MM3 (0-0.4); EOSINOPHIL % 2.1 % (0.0-4.0); HEMATOCRIT 31.2 % (35.0-46.0); HEMOGLOBIN 10.4 GM/DL (11.6-15.3); LYMPH % 12.2 % (9.0-44.0); MEAN CELL VOLUME 87.4 FL (80.0-100.0); MEAN CORPUSCULAR HEMOGLOBIN 29.1 PG (27.0-34.0); MEAN CORPUSCULAR HGB CONC 33.3 % (32.0-36.0); MONO % 10.7 % (0.0-8.0); MONOCYTE # 0.8 TH/MM3 (0-0.9); NEUT % 74.6 % (16.0-70.0); PLATELET COUNT 143 TH/MM3 (150-450); RED BLOOD COUNT 3.56 MIL/MM3 (4.00-5.30); RED CELL DISTRIBUTION WIDTH 17.7 % (11.6-17.2)
[2017-11-15 06:03] LABS: INTERNATIONAL NORMALIZED RATIO 1.6 RATIO; PROTHROMBIN TIME - PATIENT 15.7 SEC (9.8-11.6)
[2017-11-15] MEDS: LEVOTHYROXINE SODIUM 50 MCG TAB PO SCH (06:03)
[2017-11-15 06:23] LABS: ALBUMIN 2.8 GM/DL (3.4-5.0); AST (GOT) 34 U/L (15-37); BLOOD UREA NITROGEN 9 MG/DL (7-18); CALCIUM 8.3 MG/DL (8.5-10.1); CHLORIDE 104 MEQ/L (98-107); CREATININE 0.66 MG/DL (0.50-1.00); GLOMERULAR FILTRATION RATE 85 ML/MIN (>89); GLUCOSE,RANDOM 217 MG/DL (74-106); SODIUM (NA) 139 MEQ/L (136-145)
[2017-11-15 06:25] LABS: ALKALINE PHOSPHATASE 120 U/L (45-117); ALT (GPT) 73 U/L (10-53); TOTAL BILIRUBIN ADULT 1.1 MG/DL (0.2-1.0); TOTAL PROTEIN 6.4 GM/DL (6.4-8.2)
[2017-11-15] MEDS: INSULIN ASPART SUPPLEMENTAL SCALE SQ SCH ×4 (08:00→20:34)
[2017-11-15] MEDS: METOPROLOL TARTRATE 25 MG TAB PO SCH ×2 (09:37→20:25)
[2017-11-15] MEDS: APIXABAN 2.5 MG TABLET PO SCH ×2 (09:37→20:25)
[2017-11-15] MEDS: PANTOPRAZOLE SOD 20 MG DELAYED RELEASE TAB PO SCH (09:37)
[2017-11-15] MEDS: MULTIVITAMINS/MINERALS THERAPEUTIC TAB PO SCH (09:37)
[2017-11-15] MEDS: LEVOFLOXACIN 250 MG TAB PO SCH (09:37)
[2017-11-15] MEDS: DILTIAZEM-CD 120 MG CAP ER PO SCH (09:39)
[2017-11-15] MEDS: SODIUM CHLORIDE 0.9% FLUSH 10 ML FLUSH IV FLUSH SCH ×2 (09:41→20:26)
--- NOTE | 2017-11-15 09:44 | HHI.GIFU ---
Subjective Remarks Delayed entry, pt seen 11/14/17 @ 1130 Pt OOB to chair eating salmon, "they keep forgetting my lemon glaze." No other complaints. Per EMR still having frequent BM. Objective Vitals I&O Vital Signs Date Time Temp Pulse Resp B/P (MAP) Pulse Ox O2 Delivery O2 Flow Rate FiO2 11/15/17 09:00 112 11/15/17 08:00 105 11/15/17 07:28 97.8 105 16 137/68 (91) 96 11/15/17 07:28 96 Room Air 11/15/17 07:00 102 11/15/17 06:06 119 153/71 11/15/17 06:00 119 11/15/17 05:01 113 11/15/17 04:10 121 152/92 11/15/17 04:05 112 11/15/17 03:02 93 Room Air 11/15/17 03:01 98.5 103 18 124/85 (98) 93 11/15/17 03:01 101 11/15/17 02:03 96 11/15/17 01:00 96 11/15/17 00:15 87 11/14/17 23:39 88 132/66 11/14/17 23:09 95 148/69 11/14/17 23:00 98 Room Air 11/14/17 23:00 97 11/14/17 23:00 98.6 96 18 148/69 (95) 98 11/14/17 22:47 87 11/14/17 22:15 121 171/76 11/14/17 22:00 97 11/14/17 21:00 105 11/14/17 20:33 132 165/71 11/14/17 20:00 92 11/14/17 19:34 21 11/14/17 19:00 97 Room Air 11/14/17 19:00 98.3 132 16 165/71 (102) 97 11/14/17 19:00 120 11/14/17 18:00 102 11/14/17 17:52 122 11/14/17 17:00 111 11/14/17 16:00 91 11/14/17 15:00 75 11/14/17 15:00 96 Nasal Cannula 1.00 11/14/17 15:00 97.6 83 19 145/65 (91) 96 11/14/17 14:00 73 11/14/17 13:00 74 11/14/17 12:00 84 11/14/17 11:54 78 119/58 11/14/17 11:00 97.5 78 19 119/58 (78) 99 11/14/17 11:00 98 Nasal Cannula 2.00 11/14/17 11:00 76 11/14/17 10:00 71 I/O 11/14/17 11/14/17 11/14/17 11/15/17 11/15/17 11/15/17 07:00 15:00 23:00 07:00 15:00 23:00 Intake Total 240 ml 480 ml 560 ml Output Total 1001 ml Balance -761 ml 480 ml 560 ml Intake Oral 240 ml 480 ml 240 ml IV Total 320 ml Output Urine Total 1000 ml Stool Total 1 ml # Voids 5 5 # Bowel Movements 1 2 Laboratory Laboratory Tests Test 11/15/17 04:28 White Blood Count 8.0 Red Blood Count 3.56 Hemoglobin 10.4 Hematocrit 31.2 Mean Corpuscular Volume 87.4 Mean Corpuscular Hemoglobin 29.1 Mean Corpuscular Hemoglobin Concent 33.3 Red Cell Distribution Width 17.7 Platelet Count 143 Mean Platelet Volume 9.0 Neutrophils (%) (Auto) 74.6 Lymphocytes (%) (Auto) 12.2 Monocytes (%) (Auto) 10.7 Eosinophils (%) (Auto) 2.1 Basophils (%) (Auto) 0.4 Neutrophils # (Auto) 5.9 Lymphocytes # (Auto) 1.0 Monocytes # (Auto) 0.8 Eosinophils # (Auto) 0.2 Basophils # (Auto) 0.0 CBC Comment DIFF FINAL Differential Comment Prothrombin Time 15.7 Prothromb Time International Ratio 1.6 Activated Partial Thromboplast Time 35.2 Blood Urea Nitrogen 9 Creatinine 0.66 Random Glucose 217 Total Protein 6.4 Albumin 2.8 Calcium Level 8.3 Alkaline Phosphatase 120 Aspartate Amino Transf (AST/SGOT) 34 Alanine Aminotransferase (ALT/SGPT) 73 Total Bilirubin 1.1 Sodium Level 139 Potassium Level 3.5 Chloride Level 104 Carbon Dioxide Level 27.0 Anion Gap 8 Estimat Glomerular Filtration Rate 85 Date/Time Source Procedure Growth Status 11/12/17 03:15 Blood Peripheral Aerobic Blood Culture - Preliminary NO GROWTH IN 2 DAYS Resulted 11/12/17 03:15 Blood Peripheral Anaerobic Blood Culture - Preliminary NO GROWTH IN 2 DAYS Resulted 11/13/17 10:50 Stool Stool Cryptosporidium Exam Pending Received 11/13/17 10:50 Stool Stool Giardia Antigen (CATA) Pending Received 11/11/17 17:40 Urine Clean Catch Urine Culture - Final Escherichia Coli Complete Imaging Last Impressions Head CT 11/13/17 0000 Signed Impressions: Service Date/Time: Monday, November 13, 2017 06:28 - CONCLUSION: No acute intracranial findings. Ivan Nguyễn MD Chest X-Ray 11/12/17 0600 Signed Impressions: Service Date/Time: November 06:09 - CONCLUSION: Mild cardiomegaly. Clear lungs. Ricardo Butler Jr., MD Cholangiopancreatography MRI 11/12/17 0000 Signed Impressions: Service Date/Time: November 18:27 - CONCLUSION: There is diffuse dilatation of the pancreatic duct as described above with significant side branch ectasia. Common bile duct is normal in caliber. There is a complex cystic-appearing mass like area at the head of the pancreas as described above. Tj Blancas MD Abdomen/Pelvis CT 11/12/17 0000 Signed Impressions: Service Date/Time: November 13:50 - CONCLUSION: 1. Possible cystic mass in the head of the pancreas and MRI examination with and without contrast suggested to further characterize. 2. New compression fracture of L1 not present previously. 3. Small right pleural effusion and slight fluid in the anterior perihepatic space. Paulino Case MD Renal Ultrasound 11/11/17 0000 Signed Impressions: Service Date/Time: Saturday, November 11, 2017 20:25 - CONCLUSION: Unremarkable renal ultrasound. Paulino Case MD Physical Exam HEENT: Normocephalic; atraumatic CHEST: Even/unlabored CARDIAC: RRR ABDOMEN: Soft, nontender, bowel sounds active x 4. EXTREMITIES: No clubbing, cyanosis, or edema. SKIN: Normal; no rash; no jaundice. ELEVATOR SERVICE TECHNICIAN: No focal deficits; alert and oriented times three. Assessment and Plan Plan Assessment: - Transaminitis- LFTs improving. MRCP W and W/O contrast (11/12) --> There is diffuse dilation of the pancreatic duct as described above with significant side branch ectasia. Common bile duct is normal in caliber. There is a complex cystic-appearing mass like area at the head of the pancreas as described above. CA 19-9 28.7. liver w/u so far unremarkable, AMA still pending - Diarrhea- per RN pt having loose stools. C diff negative. enteric pathogens neg cryptosporidium & giardia still pending. could be abx associated. Plan: - consider lactinex - AMA pending - EUS with FNA as outpatient - giardia & cryptosporidium pending - Monitor labs - Supportive care - Further recommendations to follow based on results of above Pt d/w Dr. Romero and this note is written on his behalf Nikia Kellogg Nov 15, 2017 09:44
--- NOTE | 2017-11-15 09:44 | HHI.FPPN ---
Subjective Remarks No acute events overnight. She was able to be weaned off the Diltiazem drip yesterday, but then her heart rate increased to the 120's to 130's and she is back on the drip at 10 mls/hr. Her heart rate is well controlled again and we are attempting to wean her off. She has no nausea or vomiting, chest pain, shortness of breath. The RLQ pain is improved today but still present mildly. No calf tenderness or swelling. She has a good appetite. Normal urination. Pasty stools that are brown per report. No diarrhea. Objective Vitals Vital Signs Date Time Temp Pulse Resp B/P (MAP) Pulse Ox O2 Delivery O2 Flow Rate FiO2 11/15/17 09:00 112 11/15/17 08:00 105 11/15/17 07:28 97.8 105 16 137/68 (91) 96 11/15/17 07:28 96 Room Air 11/15/17 07:00 102 11/15/17 06:06 119 153/71 11/15/17 06:00 119 11/15/17 05:01 113 11/15/17 04:10 121 152/92 11/15/17 04:05 112 11/15/17 03:02 93 Room Air 11/15/17 03:01 98.5 103 18 124/85 (98) 93 11/15/17 03:01 101 11/15/17 02:03 96 11/15/17 01:00 96 11/15/17 00:15 87 11/14/17 23:39 88 132/66 11/14/17 23:09 95 148/69 11/14/17 23:00 98 Room Air 11/14/17 23:00 97 11/14/17 23:00 98.6 96 18 148/69 (95) 98 11/14/17 22:47 87 11/14/17 22:15 121 171/76 11/14/17 22:00 97 11/14/17 21:00 105 11/14/17 20:33 132 165/71 11/14/17 20:00 92 11/14/17 19:34 21 11/14/17 19:00 97 Room Air 11/14/17 19:00 98.3 132 16 165/71 (102) 97 11/14/17 19:00 120 11/14/17 18:00 102 11/14/17 17:52 122 11/14/17 17:00 111 11/14/17 16:00 91 11/14/17 15:00 75 11/14/17 15:00 96 Nasal Cannula 1.00 11/14/17 15:00 97.6 83 19 145/65 (91) 96 11/14/17 14:00 73 11/14/17 13:00 74 11/14/17 12:00 84 11/14/17 11:54 78 119/58 11/14/17 11:00 97.5 78 19 119/58 (78) 99 11/14/17 11:00 98 Nasal Cannula 2.00 11/14/17 11:00 76 11/14/17 10:00 71 I/O 11/14/17 11/14/17 11/14/17 11/15/17 11/15/17 11/15/17 07:00 15:00 23:00 07:00 15:00 23:00 Intake Total 240 ml 480 ml 560 ml Output Total 1001 ml Balance -761 ml 480 ml 560 ml Intake Oral 240 ml 480 ml 240 ml IV Total 320 ml Output Urine Total 1000 ml Stool Total 1 ml # Voids 5 5 # Bowel Movements 1 2 Result Diagram: 11/15/17 0428 11/15/17 0428 Imaging Last [address] 11/13/17 0000 Signed Impressions: Service Date/Time: Monday, November 13, 2017 06:28 - CONCLUSION: No acute intracranial findings. Ivan Nguyễn MD Objective Remarks General: Sitting up in chair, no distress, pleasant demeanor Skin: Has small skin tear without surrounding erythema or drainage, no abscess located on the base of her left foot (examined prior) HEENT: Normocephalic, lump with surrounding hematoma where she hit her head after fall, not tender to palpation, no conjunctivitis or scleral icterus, no nasal discharge Neck: No thyromegaly or lymphadenopathy CV: regular, irregular rhythm, no murmurs, normal cap refill, pulses intact distally, on diltiazem drip at 10 mls/hr Lungs: CTAB Abdomen: Soft, very mild tenderness in the right lower quadrant, no rebound tenderness or guarding, normal bowel sounds, no organomegaly Ext: No swelling, no calf tenderness Neuro: Awake, alert, no focal deficits Procedures Planning EUS with pancreatic mass biopsy A/P Assessment and Plan 82 year old female presents with generalized weakness, mild shortness of breath , and right lower quadrant abdominal pain, with acute transaminitis and mild leukocytosis, REG, UTI, cystic pancreatic mass. Discharge Planning Pending completed workup and clinical stability. Will undergo endoscopic ultrasound with fine needle aspiration of the cystic mass on the head of pancreas. Will need physical therapy at rehab. Problem List: (1) Pancreatic cyst ICD Codes: K86.2 - Cyst of pancreas Status: Acute Plan: MRCP showing pancreatic duct dilation of 1 cm and a 3.6 x 2.7 complex cystic mass at the head of the pancreas. Differential broad, from benign cystic lesion to something malignant. Does not report jaundice, dark urine, or light stools. Does have pasty stools per nurse but they are brown. CA19-9 is normal, 28.7. - Will require an endoscopic ultrasound with biopsy once heart rate controlled. - Will defer to GI on holding anticoagulation and NPO status. I wanted to restart the anticoagulation for now as she has several risk factors for hypercoagulation. - Discussed findings with patient. (2) Transaminitis ICD Codes: R74.0 - Nonspecific elevation of levels of transaminase and lactic acid dehydrogenase [LDH] Status: Acute Plan: Liver enzymes fairly normal at admission, but increased to AST/ALT of 467 /211 overnight, ALP mildly elevated to 133. Liver enzymes now trending down and almost back to normal. Lipase is normal. Direct bilirubin is elevated mildly. Coag profile showing elevated INR, PT, and APTT, repeat with normalized INR. Hepatitis profile negative. She reports that she does not have a gallbladder. TSH is normal. Not an alcohol user, uses one tablet of Tylenol at night but not more, no new medications. CT abdomen showing possible cystic mass in the head of the pancreas. AFP normal at 0.9. Hepatitis profile negative. Iron studies not concerning for hemochromatosis. RODNEY is negative. - Gastroenterology on board. - Follow tissue transglutaminase antibodies, rule out celiac disease - Follow ASMA (negative), mitochondrial abs, ceruloplasmin, alpha 1 antitrypsin - Monitor coag panel (3) Urinary tract infection ICD Codes: N39.0 - Urinary tract infection, site not specified Status: Acute Plan: Urine with 300 protein, large occult blood, large leukocyte esterase, negative nitrites, many WBC clumps. Has some tachycardia, possibly related to her atrial fibrillation, and mild leukocytosis. No CVA tenderness on exam. No dysuria or urgency. Has mild incontinence at baseline that is unchanged. Urine culture shows rollins-sensitive e.coli. - Zosyn, started 11/12/17, stopped 11/13/17. - Start Levaquin for complicated cystitis (history of diabetes), 250 mg for 10 days total, started 11/14/17. (4) Atrial fibrillation ICD Codes: I48.91 - Unspecified atrial fibrillation Status: Acute Plan: Chronic atrial fibrillation with [id number] >2; on Eliquis for anticoagulation. Intermittently RVR. -Continue rate control: -Continue Metoprolol 25mg BID -Diltiazem drip started 11/13/17 for RVR, weaning today. -Continue oral diltiazem at 120 mg daily. -Continue Anticoagulation: -Will reduce to Eliquis 2.5 mg BID (REG with Cr >1.5, age >80 yrs). Eliquis resumed 11/14/17 after fall. Defer holding Eliquis for EUS with biopsy to GI. -Continue telemetry (5) REG (acute kidney injury) ICD Codes: N17.9 - Acute kidney failure, unspecified Status: Resolved Plan: Cr 1.56 on admission; baseline of 0.74 per EMR. Creatinine now back to normal. Renal ultrasound unremarkable. - Avoid nephrotoxic agents as much as possible - Renally dose medications - Encourage good oral hydration. (6) Physical deconditioning ICD Codes: R53.81 - Other malaise Status: Acute Plan: Weakness per patient and EMR; recent hospitalization and rehabilitation. Also with recent falls, as well as a fall in the hospital on 11/13/17. - Physical therapy is on board for evaluation and treatment. - Will likely need physical therapy at rehab. (7) Hypertension ICD Codes: I10 - Essential (primary) hypertension Status: Chronic Plan: Chronic HTN -Continue Enalapril 2.5mg daily (AM) -Continue Metoprolol 25mg BID -Continue Diltiazem ER 25mg daily (in PM), on hold for Diltiazem drip on . (8) Type 2 diabetes mellitus not at goal ICD Codes: E11.9 - Type 2 diabetes mellitus not at goal Status: Chronic Plan: T2DM on Lantus 10 U qHS and sliding scale Humalog, A1C 7.9. -Will start low dose SS insulin with accuchecks -Start Levemir 5 units qHS, was on 10 units Lantus at home, increase as needed. (9) Hypothyroidism ICD Codes: E03.9 - Hypothyroidism, unspecified Status: Chronic Plan: Hypothyroidism on chronic Levothyroxine 50 mcg daily. TSH normal. - Levothyroxine 50 mcg daily (10) DVT Prophylaxis Status: Acute Plan: -Bilateral SCD's -Will reduce to Eliquis 2.5 mg BID (REG with Cr >1.5, age >80 yrs), will resume anticoagulation due to elevated coagulation risk. (11) Fluids, Electrolytes, and Nutrition Status: Acute Plan: Fluids: PO fluids, monitor hydration status Electrolytes: Hyperkalemia resolved, monitor. Has acute kidney injury. Nutrition: heart healthy diet Problem Qualifiers (1) Atrial fibrillation: Qualified Codes: I48.91 - Unspecified atrial fibrillation (2) Hypertension: Qualified Codes: I10 - Essential (primary) hypertension Óscar Gann MD R3 Nov 15, 2017 09:44
--- NOTE | 2017-11-15 10:33 | HHI.FPPN ---
Addendum to progress note ADDENDUM Reason for addendum: Additonal documentation Additional information OFF SERVICE NOTE: 82 year old female presented on 11/11/17 with generalized weakness, shortness of breath, mild RLQ abdominal pain, acute kidney injury, urinary tract infection, cystic pancreatic mass, and acute transaminitis. MRCP showed a pancreatic duct dilation of 1 cm and a 3.6 x 2.7 complex cystic mass at the head of the pancreas. Differential is broad and includes both benign and malignant entities. Her CA19-9 is normal. She does not have jaundice, dark urine, or light stools. She will require an endoscopic ultrasound with biopsy of the mass. Gastroenterology initially planned to perform this as an inpatient but now recommends performing it as an outpatient. Transaminitis is resolving. Hepatitis profile is negative. She does not have a gallbladder. TSH is normal. She's not an alcohol user and does not use significant amounts of Tylenol. AFP is normal. Iron studies are normal. More extensive workup for liver injury is pending but negative to date. For her urinary tract infection, she has rollins- sensitive e coli. She is currently asymptomatic other than some mild urinary incontinence that might be chronic. She is receiving Levaquin for it. She has atrial fibrillation with intermittent rapid ventricular response while in the hospital. She has required a Diltiazem drip that will hopefully be weaned off today, and she will continue her long acting oral Diltiazem and metoprolol. She is on Eliquis for anticoagulation. Her REG has resolved with IV fluids, and she is now only on PO fluids and eating and drinking well. For her physical deconditioning she will need physical therapy at rehab. She is probably able to be discharged in the next day or two as long as her heart rate stays reasonably well controlled and she is otherwise doing well. She will need to follow up with gastroenterology and with primary care after discharge. Óscar Gann MD R3 Nov 15, 2017 10:33
[2017-11-15] MEDS: DILTIAZEM INJ 125 MG in SODIUM CHLORIDE 0.9% INJ 100 ML IV PRN (17:35)
[2017-11-15] MEDS: GABAPENTIN 400 MG CAP PO SCH (20:25)
[2017-11-15] MEDS ORDERED: INSULIN DETEMIR 100 UNITS/ML VIAL SQ SCH (21:00)
[2017-11-16] VITALS (24 sets, daily range): BP systolic 129–172; BP diastolic 68–89; PULSE 76–132; RESP 18–20; TEMP 97.8–98.7; O2SAT 95–97
[2017-11-16 04:08] LABS: HEMATOCRIT 34.5 % (35.0-46.0); HEMOGLOBIN 11.6 GM/DL (11.6-15.3); MEAN CELL VOLUME 86.8 FL (80.0-100.0); MEAN CORPUSCULAR HEMOGLOBIN 29.2 PG (27.0-34.0); MEAN CORPUSCULAR HGB CONC 33.7 % (32.0-36.0); MEAN PLATELET VOLUME 8.1 FL (7.0-11.0); PLATELET COUNT 164 TH/MM3 (150-450); RED BLOOD COUNT 3.98 MIL/MM3 (4.00-5.30); RED CELL DISTRIBUTION WIDTH 17.6 % (11.6-17.2); WHITE BLOOD COUNT 8.8 TH/MM3 (4.0-11.0)
[2017-11-16 04:24] LABS: ALBUMIN 3.1 GM/DL (3.4-5.0); AST (GOT) 28 U/L (15-37); BICARBONATE 26.7 MEQ/L (21.0-32.0); BLOOD UREA NITROGEN 10 MG/DL (7-18); CHLORIDE 102 MEQ/L (98-107); CREATININE 0.82 MG/DL (0.50-1.00); GLOMERULAR FILTRATION RATE 66 ML/MIN (>89); GLUCOSE,RANDOM 231 MG/DL (74-106); SODIUM (NA) 135 MEQ/L (136-145)
[2017-11-16 04:26] LABS: ALT (GPT) 66 U/L (10-53)
[2017-11-16 04:27] LABS: ALKALINE PHOSPHATASE 133 U/L (45-117); TOTAL BILIRUBIN ADULT 1.1 MG/DL (0.2-1.0); TOTAL PROTEIN 7.3 GM/DL (6.4-8.2)
[2017-11-16 05:00] LABS: CA 19-9 31.9 U/ML (0.0-35.0)
[2017-11-16] MEDS: LEVOTHYROXINE SODIUM 50 MCG TAB PO SCH (06:27)
[2017-11-16] MEDS: INSULIN ASPART SUPPLEMENTAL SCALE SQ SCH ×4 (07:57→20:15)
[2017-11-16] MEDS: APIXABAN 2.5 MG TABLET PO SCH ×2 (08:00→20:04)
[2017-11-16] MEDS: SODIUM CHLORIDE 0.9% FLUSH 10 ML FLUSH IV FLUSH SCH ×2 (08:00→20:05)
[2017-11-16] MEDS: MULTIVITAMINS/MINERALS THERAPEUTIC TAB PO SCH (08:00)
[2017-11-16] MEDS: PANTOPRAZOLE SOD 20 MG DELAYED RELEASE TAB PO SCH (08:00)
[2017-11-16] MEDS: METOPROLOL TARTRATE 25 MG TAB PO SCH ×2 (08:00→20:05)
[2017-11-16] MEDS: DILTIAZEM-CD 120 MG CAP ER PO SCH (08:00)
[2017-11-16] MEDS: LEVOFLOXACIN 250 MG TAB PO SCH (08:00)
[2017-11-16] MEDS ORDERED: METOPROLOL TARTRATE 25 MG TAB PO ONE (10:00)
[2017-11-16] MEDS ORDERED: ENALAPRILAT 1.25 MG/ML VIAL IV PUSH PRN (10:15)
--- NOTE | 2017-11-16 10:20 | HHI.FPPN ---
Subjective Remarks No acute events overnight the patient was restarted on diltiazem drip. Vital signs significant for a pulse around 90 to 110s. BP intermittently elevated to a high of 170 systolic. This morning patient states that she is feeling well and has no complaints. Denies chest pain, SOB. (Caridad Torres MD, R3) Objective Vitals Vital Signs Date Time Temp Pulse Resp B/P (MAP) Pulse Ox O2 Delivery O2 Flow Rate FiO2 11/16/17 09:12 81 11/16/17 08:35 97.8 93 18 172/74 (106) 96 11/16/17 08:35 105 11/16/17 06:00 96 11/16/17 05:00 109 11/16/17 04:56 121 152/82 11/16/17 04:32 117 133/86 11/16/17 04:00 117 11/16/17 03:00 97.8 103 20 138/86 (103) 97 11/16/17 03:00 113 11/16/17 02:00 96 11/16/17 01:00 88 11/16/17 00:41 91 11/16/17 00:00 89 11/16/17 00:00 89 11/15/17 23:00 103 11/15/17 23:00 98.1 98 18 170/76 (107) 96 11/15/17 22:39 98 170/76 11/15/17 22:00 94 11/15/17 21:14 21 11/15/17 21:00 112 11/15/17 19:57 127 11/15/17 19:15 113 134/98 11/15/17 19:00 97.8 113 20 134/98 (110) 99 11/15/17 19:00 118 11/15/17 18:00 102 11/15/17 17:35 89 11/15/17 17:00 114 11/15/17 16:00 91 11/15/17 15:00 95 Room Air 11/15/17 15:00 95 11/15/17 15:00 98.2 73 18 136/82 (100) 95 11/15/17 13:00 105 11/15/17 12:00 109 11/15/17 11:00 105 11/15/17 11:00 98.1 110 17 155/74 (101) 95 11/15/17 11:00 95 Room Air 11/15/17 10:00 97 I/O 11/15/17 11/15/17 11/15/17 11/16/17 11/16/17 11/16/17 07:00 15:00 23:00 07:00 15:00 23:00 Intake Total 560 ml 543.6 ml Output Total 600 ml Balance 560 ml -56.4 ml Intake Oral 240 ml 480 ml IV Total 320 ml 63.6 ml Output Urine Total 600 ml # Voids 5 4 # Bowel Movements 2 1 (Caridad Torres MD, R3) Result Diagram: 11/16/17 0324 11/16/17 0324 Objective Remarks GEN: Well-developed, well-nourished patient. No acute distress. Eating breakfast without issue CV: Increased rate and irregularly irregular rhythm. No obvious murmurs, gallops, rubs. LUNGS: Clear to auscultation bilaterally. Normal respiratory effort. No wheezes , rales, rhonchi. GI: Nondistended. EXT: No edema. No calf tenderness. NEURO/PSYCH: Awake, alert. Appropriate insight and judgment. Normal speech (Caridad Torres MD, R3) A/P Assessment and Plan 82 year old female presents with generalized weakness, mild shortness of breath , and right lower quadrant abdominal pain, with acute transaminitis and mild leukocytosis, REG, UTI, cystic pancreatic mass. Admitted for evaluation of pancreatic cysts, A. fib with RVR, UTI. Discharge Planning Pending rate control on oral medications and needed procedure for cystic mass on the head of pancreas. * Will need physical therapy at rehab. sdw Dr. Walker (Caridad Torres MD, R3) Attending Attestation THIS CASE WAS DISCUSSED WITH THE RESIDENT PHYSICIAN DR Darrell GARCIA.PATIENT SEEN AND EXAMINED, I HAVE REVIEWED THE RECORD AND AGREE WITH THE ABOVE NOTE AND PLAN OF CARE WAS DISCUSSED. I HAVE AUTHORIZED THE ORDER SET (Matt Walker MD) Problem List: (1) Pancreatic cyst ICD Codes: K86.2 - Cyst of pancreas Status: Acute Plan: MRCP showing pancreatic duct dilation of 1 cm and a 3.6 x 2.7 complex cystic mass at the head of the pancreas. Differential broad, from benign cystic lesion to something malignant. Does not report jaundice, dark urine, or light stools. CEA elevated at 8.0 CA19-9 GI consulted: appreciate recommendations * Will require an endoscopic ultrasound with FNA as outpatient. (2) Atrial fibrillation ICD Codes: I48.91 - Unspecified atrial fibrillation Status: Chronic Plan: Chronic atrial fibrillation with intermittent RVR -Reattempt to wean off of Diltazem drip * Increased metoprolol to 50mg BID * continue oral Diltazem 120mg daily -Continue Anticoagulation: Eliquis increased to 5mg PO BID as REG has resolved. Reduced to Eliquis 2.5 mg BID (REG with Cr >1.5, age >80 yrs). Eliquis resumed after fall. Defer holding Eliquis for EUS with biopsy to GI. -Continue telemetry (3) Transaminitis ICD Codes: R74.0 - Nonspecific elevation of levels of transaminase and lactic acid dehydrogenase [LDH] Status: Acute Plan: Liver enzymes initially normal on admission but increase to 467/211 after the first night of admission. Liver enzymes trending down. Initial INR, PT, PTT elevated but also trended down. No known risk factors for acute transaminitis. No reported alcohol use, new medications or excessive Tylenol use. Hepatitis profile, RODNEY negative. -Iron studies concerning for hemochromatosis -ASMA, mitochondrial abs, ceruloplasmin, alpha 1 antitrypsin, CA 19-9, RODNEY -CEA elevated -celiac panel pending -Continue to monitor anticoag (4) Urinary tract infection ICD Codes: N39.0 - Urinary tract infection, site not specified Status: Acute Plan: Urine culture shows rollins-sensitive e.coli. - Zosyn, started 11/12/17-11/13/17. - Levaquin for complicated cystitis (history of diabetes), 250 mg for 10 days total, started 11/14/17. (5) Hypertension ICD Codes: I10 - Essential (primary) hypertension Status: Chronic Plan: Chronic HTN -Home Enalapril discontinued due to medication increase from afib. Consider resuming once afib is controlled. -Vasotec PRN (6) Physical deconditioning ICD Codes: R53.81 - Other malaise Status: Acute Plan: Weakness per patient and EMR; recent hospitalization and rehabilitation. Also with recent falls, as well as a fall in the hospital on 11/13/17. - Physical therapy is on board for evaluation and treatment. - Will need physical therapy at rehab at discharge (7) Type 2 diabetes mellitus not at goal ICD Codes: E11.9 - Type 2 diabetes mellitus not at goal Status: Chronic Plan: T2DM on Lantus 10 U qHS and sliding scale Humalog, A1C 7.9. -Increased to Levemir 5units BID -low dose sliding scale. (8) Hypothyroidism ICD Codes: E03.9 - Hypothyroidism, unspecified Status: Chronic Plan: Hypothyroidism on chronic Levothyroxine 50 mcg daily. TSH normal. - Levothyroxine 50 mcg daily (9) DVT Prophylaxis Status: Acute Plan: -Bilateral SCD's -On Eliquis (10) Fluids, Electrolytes, and Nutrition Status: Acute Plan: Fluids: PO fluids, monitor hydration status Electrolytes: Hyperkalemia resolved, monitor. Has acute kidney injury. Nutrition: heart healthy diet GI PPX: not indicated (Caridad Torres MD, R3) Problem Qualifiers (1) Atrial fibrillation: Qualified Codes: I48.91 - Unspecified atrial fibrillation (2) Hypertension: Qualified Codes: I10 - Essential (primary) hypertension Caridad Torres MD, R3 Nov 16, 2017 10:20 Matt Walker MD Nov 17, 2017 09:50
--- NOTE | 2017-11-16 13:01 | HHI.GIFU ---
Subjective Remarks Pt is OOB in chair, in no apparent distress. She reports that diarrhea has resolved. Denies nausea, vomiting, abdominal pain. Tolerating diet. (Natividad Mcgee) Objective Vitals I&O Vital Signs Date Time Temp Pulse Resp B/P (MAP) Pulse Ox O2 Delivery O2 Flow Rate FiO2 11/16/17 12:31 99 11/16/17 11:20 77 11/16/17 11:01 87 11/16/17 11:01 98.7 81 18 146/72 (96) 95 11/16/17 10:38 81 146/72 11/16/17 10:01 76 11/16/17 09:12 81 11/16/17 08:35 97.8 93 18 172/74 (106) 96 11/16/17 08:35 105 11/16/17 07:00 93 172/74 11/16/17 06:00 96 11/16/17 05:00 109 11/16/17 04:56 121 152/82 11/16/17 04:32 117 133/86 11/16/17 04:00 117 11/16/17 03:00 97.8 103 20 138/86 (103) 97 11/16/17 03:00 113 11/16/17 02:00 96 11/16/17 01:00 88 11/16/17 00:41 91 11/16/17 00:00 89 11/16/17 00:00 89 11/15/17 23:00 103 11/15/17 23:00 98.1 98 18 170/76 (107) 96 11/15/17 22:39 98 170/76 11/15/17 22:00 94 11/15/17 21:14 21 11/15/17 21:00 112 11/15/17 19:57 127 11/15/17 19:15 113 134/98 11/15/17 19:00 97.8 113 20 134/98 (110) 99 11/15/17 19:00 118 11/15/17 18:00 102 11/15/17 17:35 89 11/15/17 17:00 114 11/15/17 16:00 91 11/15/17 15:00 95 Room Air 11/15/17 15:00 95 11/15/17 15:00 98.2 73 18 136/82 (100) 95 11/15/17 13:00 105 I/O 11/15/17 11/15/17 11/15/17 11/16/17 11/16/17 11/16/17 07:00 15:00 23:00 07:00 15:00 23:00 Intake Total 560 ml 543.6 ml Output Total 600 ml Balance 560 ml -56.4 ml Intake Oral 240 ml 480 ml IV Total 320 ml 63.6 ml Output Urine Total 600 ml # Voids 5 4 # Bowel Movements 2 1 Laboratory Laboratory Tests Test 11/16/17 03:24 White Blood Count 8.8 Red Blood Count 3.98 Hemoglobin 11.6 Hematocrit 34.5 Mean Corpuscular Volume 86.8 Mean Corpuscular Hemoglobin 29.2 Mean Corpuscular Hemoglobin Concent 33.7 Red Cell Distribution Width 17.6 Platelet Count 164 Mean Platelet Volume 8.1 Blood Urea Nitrogen 10 Creatinine 0.82 Random Glucose 231 Total Protein 7.3 Albumin 3.1 Calcium Level 9.0 Alkaline Phosphatase 133 Aspartate Amino Transf (AST/SGOT) 28 Alanine Aminotransferase (ALT/SGPT) 66 Total Bilirubin 1.1 Sodium Level 135 Potassium Level 3.6 Chloride Level 102 Carbon Dioxide Level 26.7 Anion Gap 6 Estimat Glomerular Filtration Rate 66 Carcinoembryonic Antigen 8.0 CA 19-9 Antigen 31.9 Date/Time Source Procedure Growth Status 11/12/17 03:15 Blood Peripheral Aerobic Blood Culture - Preliminary NO GROWTH IN 4 DAYS Resulted 11/12/17 03:15 Blood Peripheral Anaerobic Blood Culture - Preliminary NO GROWTH IN 4 DAYS Resulted 11/13/17 10:50 Stool Stool Cryptosporidium Exam - Final NEGATIVE - NO CRYPTOSPORIDIUM ANTIGEN... Complete 11/13/17 10:50 Stool Stool Giardia Antigen (CATA) - Final NEGATIVE - NO GIARDIA ANTIGEN DETECTE... Complete 11/11/17 17:40 Urine Clean Catch Urine Culture - Final Escherichia Coli Complete Imaging Last Impressions Head CT 11/13/17 0000 Signed Impressions: Service Date/Time: Monday, November 13, 2017 06:28 - CONCLUSION: No acute intracranial findings. Ivan Nguyễn MD Chest X-Ray 11/12/17 0600 Signed Impressions: Service Date/Time: November 06:09 - CONCLUSION: Mild cardiomegaly. Clear lungs. Ricardo Butler Jr., MD Cholangiopancreatography MRI 11/12/17 Signed Impressions: Service Date/Time: November 18:27 - CONCLUSION: There is diffuse dilatation of the pancreatic duct as described above with significant side branch ectasia. Common bile duct is normal in caliber. There is a complex cystic-appearing mass like area at the head of the pancreas as described above. Tj Blancas MD Abdomen/Pelvis CT 11/12/17 Signed Impressions: Service Date/Time: November 13:50 - CONCLUSION: 1. Possible cystic mass in the head of the pancreas and MRI examination with and without contrast suggested to further characterize. 2. New compression fracture of L1 not present previously. 3. Small right pleural effusion and slight fluid in the anterior perihepatic space. Paulino Case MD Renal Ultrasound 11/11/17 Signed Impressions: Service Date/Time: Saturday, November 11, 2017 20:25 - CONCLUSION: Unremarkable renal ultrasound. Paulino Case MD Physical Exam HEENT: Normocephalic; atraumatic CHEST: Even/unlabored CARDIAC: Irregular ABDOMEN: Soft, nontender, bowel sounds active EXTREMITIES: No clubbing, cyanosis, or edema. SKIN: Normal; no rash; no jaundice. [employer]IC: No focal deficits; alert and oriented times three (Natividad Mcgee CHEMISTRY PHYSICS TEACHER) Assessment and Plan Plan Assessment: - Transaminitis- LFTs improving. MRCP W and W/O contrast (11/12) -->There is diffuse dilation of the pancreatic duct as described above with significant side branch ectasia. Common bile duct is normal in caliber. There is a complex cystic-appearing mass like area at the head of the pancreas as described above. CA 19-9 28.7. Liver w/u so far unremarkable, AMA still pending. IgG subclasses pending. CEA elevated at 8.0. - Diarrhea- pt reports improvement. C diff negative. Enteric pathogens neg. Cryptosporidium & Giardia negative. Could be abx associated. Celiac panel pending. - Atrial flutter with intermittent RVR- Diltiazem gtt discontinued, placed on oral. Eliquis has been restarted. Plan: - AMA pending - IBD panel pending - IgG subclasses pending - EUS with FNA as outpatient - Monitor labs - Supportive care - Further recommendations to follow based on results of above Patient has been seen and examined by myself and Dr. Gutierrez and this note is written on her behalf (Natividad Mcgee) Physician Comments seen, examined agree with above (Radha Gutierrez MD) Natividad Mcgee Nov 16, 2017 13:01 Radha Gutierrez MD Nov 16, 2017 18:15
[2017-11-16] MEDS: GABAPENTIN 400 MG CAP PO SCH (20:01)
[2017-11-16] MEDS: INSULIN DETEMIR 100 UNITS/ML VIAL SQ SCH (20:15)
[2017-11-16] MEDS: DILTIAZEM INJ 125 MG in SODIUM CHLORIDE 0.9% INJ 100 ML IV PRN (21:54)
[2017-11-17] VITALS (25 sets, daily range): BP systolic 117–189; BP diastolic 66–92; PULSE 93–138; RESP 16–20; TEMP 97.4–98.5; O2SAT 95–97
[2017-11-17 05:13] LABS: INTERNATIONAL NORMALIZED RATIO 1.1 RATIO; PROTHROMBIN TIME - PATIENT 11.4 SEC (9.8-11.6)
[2017-11-17] MEDS: LEVOTHYROXINE SODIUM 50 MCG TAB PO SCH (05:52)
[2017-11-17] MEDS: INSULIN ASPART SUPPLEMENTAL SCALE SQ SCH ×4 (07:47→20:26)
[2017-11-17] MEDS: SODIUM CHLORIDE 0.9% FLUSH 10 ML FLUSH IV FLUSH SCH ×2 (07:47→20:26)
[2017-11-17] MEDS: PANTOPRAZOLE SOD 20 MG DELAYED RELEASE TAB PO SCH (07:48)
[2017-11-17] MEDS: APIXABAN 2.5 MG TABLET PO SCH ×2 (07:48→20:25)
[2017-11-17] MEDS: DILTIAZEM-CD 180 MG CAP ER PO SCH (07:48)
[2017-11-17] MEDS: LEVOFLOXACIN 250 MG TAB PO SCH (07:48)
[2017-11-17] MEDS: MULTIVITAMINS/MINERALS THERAPEUTIC TAB PO SCH (07:48)
[2017-11-17] MEDS: METOPROLOL TARTRATE 25 MG TAB PO SCH ×2 (07:48→20:26)
[2017-11-17] MEDS: INSULIN DETEMIR 100 UNITS/ML VIAL SQ SCH ×2 (07:48→20:26)
--- NOTE | 2017-11-17 09:44 | HHI.FPPN ---
Subjective Remarks No acute events overnight. Vital signs unremarkable that pulse did increase to 130s early this morning. Patient has been off of diltiazem drip since yesterday evening. Patient denies any symptoms of tachycardia, palpitations, chest pain, SOB. She continues to feel well but is ready to be discharged home. (Caridad Torres MD, R3) Objective Vitals Vital Signs Date Time Temp Pulse Resp B/P (MAP) Pulse Ox O2 Delivery O2 Flow Rate FiO2 11/17/17 09:19 103 11/17/17 08:14 101 11/17/17 08:14 97.4 115 16 117/73 (88) 96 11/17/17 06:36 109 11/17/17 06:12 138 11/17/17 06:04 136 104/74 11/17/17 05:00 112 11/17/17 04:07 113 11/17/17 03:00 110 11/17/17 03:00 98.2 97 18 121/81 (94) 97 11/17/17 02:17 102 11/17/17 01:00 110 11/17/17 00:00 112 11/16/17 23:21 98 139/89 11/16/17 23:00 97 11/16/17 23:00 98.4 99 18 139/89 (106) 97 11/16/17 22:03 130 11/16/17 21:56 157/86 11/16/17 21:54 112 11/16/17 21:05 132 11/16/17 20:00 101 11/16/17 19:11 98.2 110 18 129/87 (101) 96 11/16/17 19:00 128 11/16/17 18:15 118 11/16/17 17:12 102 11/16/17 16:04 100 11/16/17 15:09 109 11/16/17 15:09 98.0 87 18 131/68 (89) 95 11/16/17 14:05 97 11/16/17 13:03 79 11/16/17 12:31 99 11/16/17 11:20 77 11/16/17 11:01 87 11/16/17 11:01 98.7 81 18 146/72 (96) 95 11/16/17 10:38 81 146/72 11/16/17 10:01 76 I/O 11/16/17 11/16/17 11/16/17 11/17/17 11/17/17 11/17/17 06:59 14:59 22:59 06:59 14:59 22:59 Intake Total 543.6 ml 640 ml 600 ml Output Total 600 ml 600 ml Balance -56.4 ml 640 ml 0 ml Intake Oral 480 ml 600 ml 600 ml IV Total 63.6 ml 40 ml Output Urine Total 600 ml 600 ml # Voids 4 4 4 # Bowel Movements 1 3 1 (Caridad Torres MD, R3) Result Diagram: 11/16/1732311/16/17 0324 Objective Remarks GEN: Well-developed, well-nourished patient. No acute distress. Sitting in chair without issue. CV: Increased rate and irregularly irregular rhythm. No obvious murmurs, gallops, rubs. LUNGS: Clear to auscultation bilaterally. Normal respiratory effort. No wheezes , rales, rhonchi. GI: Nondistended. EXT: No edema. No calf tenderness. NEURO/PSYCH: Awake, alert. Appropriate insight and judgment. Normal speech (Caridad Torres MD, R3) A/P Assessment and Plan 82 year old female presents with generalized weakness, mild shortness of breath , and right lower quadrant abdominal pain, with acute transaminitis and mild leukocytosis, REG, UTI, cystic pancreatic mass. Admitted for evaluation of pancreatic cysts, A. fib with RVR, UTI. Discharge Planning Pending rate control on oral medications. Hopefully in the next 1-2 days. * Will need physical therapy at rehab. sdw Dr. Walker (Caridad Torres MD, R3) Attending Attestation Medical rounds were performed with Dr Alejo, Patient was interviewed and examined, Agree with the contents of this note, See Assessment and Plan (Matt Walker MD) Problem List: (1) Pancreatic cyst ICD Codes: K86.2 - Cyst of pancreas Status: Acute Plan: MRCP showing pancreatic duct dilation of 1 cm and a 3.6 x 2.7 complex cystic mass at the head of the pancreas. Differential broad, from benign cystic lesion to something malignant. Does not report jaundice, dark urine, or light stools. CEA elevated at 8.0 CA19-9 GI consulted: appreciate recommendations * Will require an endoscopic ultrasound with FNA as outpatient. (2) Atrial fibrillation ICD Codes: I48.91 - Unspecified atrial fibrillation Status: Chronic Plan: Chronic atrial fibrillation with intermittent RVR. -Wean off of Diltazem drip * metoprolol to 50mg BID * Increased diltiazem 180 mg daily -Continue Anticoagulation: Eliquis increased to 5mg PO BID as REG has resolved. -Continue telemetry (3) Transaminitis ICD Codes: R74.0 - Nonspecific elevation of levels of transaminase and lactic acid dehydrogenase [LDH] Status: Resolved Plan: Liver enzymes initially normal on admission but increase to 467/211 after the first night of admission. Liver enzymes trending down. Initial INR, PT, PTT elevated but also trended down. No known risk factors for acute transaminitis. No reported alcohol use, new medications or excessive Tylenol use. Hepatitis profile, RODNEY negative. -Iron studies concerning for hemochromatosis -ASMA, mitochondrial abs, ceruloplasmin, alpha 1 antitrypsin, CA 19-9, RODNEY -CEA elevated -celiac panel pending -Continue to monitor anticoag (4) Urinary tract infection ICD Codes: N39.0 - Urinary tract infection, site not specified Status: Acute Plan: Urine culture shows rollins-sensitive e.coli. - Zosyn, started 11/12/17-11/13/17. - Levaquin for complicated cystitis (history of diabetes), 250 mg for 10 days total, started 11/14/17. (5) Hypertension ICD Codes: I10 - Essential (primary) hypertension Status: Chronic Plan: Chronic HTN -Home Enalapril discontinued due to medication increase from afib. Consider resuming once afib is controlled. -Vasotec PRN (6) Physical deconditioning ICD Codes: R53.81 - Other malaise Status: Acute Plan: Weakness per patient and EMR; recent hospitalization and rehabilitation. Also with recent falls, as well as a fall in the hospital on 11/13/17. - Physical therapy is on board for evaluation and treatment. - Will need physical therapy at rehab at discharge (7) Type 2 diabetes mellitus not at goal ICD Codes: E11.9 - Type 2 diabetes mellitus not at goal Status: Chronic Plan: T2DM on Lantus 10 U qHS and sliding scale Humalog, A1C 7.9. -Increased to Levemir 5units BID -low dose sliding scale. (8) Hypothyroidism ICD Codes: E03.9 - Hypothyroidism, unspecified Status: Chronic Plan: Hypothyroidism on chronic Levothyroxine 50 mcg daily. TSH normal. - Levothyroxine 50 mcg daily (9) DVT Prophylaxis Status: Acute Plan: -Bilateral SCD's -On Eliquis (10) Fluids, Electrolytes, and Nutrition Status: Acute Plan: Fluids: PO fluids, monitor hydration status Electrolytes: Hyperkalemia resolved, monitor. Has acute kidney injury. Nutrition: heart healthy diet GI PPX: not indicated (Caridad Torres MD, R3) Problem Qualifiers (1) Atrial fibrillation: Qualified Codes: I48.91 - Unspecified atrial fibrillation (2) Hypertension: Qualified Codes: I10 - Essential (primary) hypertension Caridad Torres MD, R3 Nov 17, 2017 09:44 Matt Walker MD Nov 18, 2017 14:48
[2017-11-17 15:26] LABS: TRANSGLUTAMINASE IGA AB <1.2 U/mL; TRANSGLUTAMINASE IGG AB <1.2 U/mL
[2017-11-17 15:50] LABS: MITOCHONDRIAL ABS LESS THAN 20.0 U (<=20.0)
[2017-11-17] MEDS ORDERED: METOPROLOL TARTRATE 25 MG TAB PO ONE (18:00)
[2017-11-17] MEDS: GABAPENTIN 400 MG CAP PO SCH (20:24)
[2017-11-18] VITALS (20 sets, daily range): BP systolic 139–183; BP diastolic 77–107; PULSE 86–132; RESP 18; TEMP 97.7–98.3; O2SAT 95–96
[2017-11-18] MEDS: LEVOFLOXACIN 250 MG TAB PO SCH (04:53)
[2017-11-18] MEDS: LEVOTHYROXINE SODIUM 50 MCG TAB PO SCH (05:00)
[2017-11-18 05:20] LABS: BICARBONATE 28.8 MEQ/L (21.0-32.0); BLOOD UREA NITROGEN 12 MG/DL (7-18); CALCIUM 8.9 MG/DL (8.5-10.1); CHLORIDE 102 MEQ/L (98-107); CREATININE 0.79 MG/DL (0.50-1.00); GLOMERULAR FILTRATION RATE 69 ML/MIN (>89); GLUCOSE,RANDOM 191 MG/DL (74-106); SODIUM (NA) 138 MEQ/L (136-145)
[2017-11-18 05:25] LABS: ALKALINE PHOSPHATASE 137 U/L (45-117); ALT (GPT) 53 U/L (10-53); AST (GOT) 33 U/L (15-37); TOTAL BILIRUBIN ADULT 0.9 MG/DL (0.2-1.0); TOTAL PROTEIN 7.2 GM/DL (6.4-8.2)
[2017-11-18] MEDS ORDERED: POTASSIUM CHLORIDE 20 MEQ CONTROLLED RELEASE TAB PO ONE ×2 (06:45→12:30)
[2017-11-18] MEDS: PANTOPRAZOLE SOD 20 MG DELAYED RELEASE TAB PO SCH (07:49)
[2017-11-18] MEDS: SODIUM CHLORIDE 0.9% FLUSH 10 ML FLUSH IV FLUSH SCH (07:49)
[2017-11-18] MEDS: MULTIVITAMINS/MINERALS THERAPEUTIC TAB PO SCH (07:49)
[2017-11-18] MEDS: DILTIAZEM-CD 180 MG CAP ER PO SCH (07:49)
[2017-11-18] MEDS: INSULIN ASPART SUPPLEMENTAL SCALE SQ SCH ×2 (08:00→11:59)
[2017-11-18] MEDS: INSULIN DETEMIR 100 UNITS/ML VIAL SQ SCH (08:06)
[2017-11-18] MEDS ORDERED: METOPROLOL TARTRATE 50 MG TAB PO SCH (09:00)
[2017-11-18] MEDS: APIXABAN 2.5 MG TABLET PO SCH (09:51)
[2017-11-18] MEDS ORDERED: LEVA250T14 PO (12:06)
[2017-11-18] MEDS ORDERED: METO-426 PO (12:06)
[2017-11-18] MEDS ORDERED: CARD180C5 PO (12:06)
--- NOTE | 2017-11-18 12:12 | HHI.FF ---
Face to Face Verification Diagnosis: (1) Atrial fibrillation with RVR (2) Physical deconditioning (3) Pancreatic cyst Physical Therapy Order: Evaluate and Treat Home Health Nursing Order: Medical education Signs/symptoms of disease process I have seen patient Betty Mccormick on 11/18/17. My clinical findings support the need for the requested home health care services because: Deconditioned w/ increased weakness I certify that my clinical findings support that this patient is homebound because: Unsteady gait/balance Unsafe to leave home unassisted Caridad Torres MD, R3 Nov 18, 2017 12:12
--- NOTE | 2017-11-18 12:13 | HHI.DCPOC ---
Discharge Care Plan Diagnosis: (1) Physical deconditioning (2) UTI (urinary tract infection) (3) Atrial fibrillation with RVR (4) Pancreatic cyst Goals to Promote Your Health * To prevent worsening of your condition and complications * To maintain your health at the optimal level Directions to Meet Your Goals Take your medications as prescribed Follow your dietary instruction Follow activity as directed Keep your appointments as scheduled Take your immunizations and boosters as scheduled If your symptoms worsen call your PCP, if no PCP go to Urgent Care Center or Emergency Room Smoking is Dangerous to Your Health. Avoid second hand smoke Call the 24-hour hour crisis hotline for domestic abuse at Caridad Torres MD, R3 Nov 18, 2017 12:13
--- NOTE | 2017-11-18 12:25 | HHI.FPPN ---
Subjective Remarks No acute events overnight. Vital signs unremarkable except for elevated pulse around 100s. Patient reports that she has been working with physical therapy and has been walking with a wheeled walker independently. Denies giving chest pain, SOB, lightheadedness. She does not want to go to rehabilitation. Reports that her is at home and will be able to help her and she does not have any stairs. (Caridad Torres MD, R3) Objective Vitals Vital Signs Date Time Temp Pulse Resp B/P (MAP) Pulse Ox O2 Delivery O2 Flow Rate FiO2 11/18/17 12:01 92 11/18/17 11:13 98.0 95 18 139/80 (99) 95 11/18/17 11:01 92 11/18/17 10:01 92 11/18/17 09:00 132 11/18/17 08:01 97.7 120 18 143/107 (119) 96 11/18/17 08:00 128 11/18/17 07:01 114 11/18/17 06:18 118 11/18/17 05:02 110 11/18/17 04:51 96 140/86 (104) 11/18/17 04:07 93 11/18/17 03:53 98.3 95 18 183/77 (112) 96 11/18/17 03:04 107 11/18/17 02:01 103 11/18/17 01:02 100 11/18/17 00:27 92 11/18/17 00:05 105 11/17/17 23:22 105 11/17/17 23:11 98.5 94 16 189/92 (124) 95 11/17/17 22:39 100 11/17/17 21:10 106 11/17/17 20:15 122 11/17/17 19:44 98.5 110 20 137/88 (104) 96 11/17/17 19:20 131 11/17/17 18:14 108 11/17/17 17:33 118 11/17/17 16:08 113 11/17/17 15:01 113 11/17/17 15:01 98.0 100 16 137/66 (89) 95 11/17/17 14:00 101 11/17/17 13:15 97 I/O 11/17/17 11/17/17 11/17/17 11/18/1711/18/18 1/10/18 07:00 15:00 23:00 07:00 15:00 23:00 Intake Total 600 ml 720 ml 360 ml Output Total 600 ml 700 ml Balance 0 ml 20 ml 360 ml Intake Oral 600 ml 720 ml 360 ml Output Urine Total 600 ml 700 ml # Voids 4 # Bowel Movements 1 3 2 (Caridad Torres MD, R3) Result Diagram: 11/16/17 0324 11/18/17 0439 Objective Remarks GEN: Well-developed, well-nourished patient. No acute distress. Sitting in chair without issue. CV: Rate around 90s but irregularly irregular rhythm. No obvious murmurs, gallops, rubs. LUNGS: Clear to auscultation bilaterally. Normal respiratory effort. No wheezes , rales, rhonchi. GI: Nondistended. EXT: No edema. No calf tenderness. NEURO/PSYCH: Awake, alert. Appropriate insight and judgment. Normal speech (Caridad Torres MD, R3) A/P Assessment and Plan 82 year old female presents with generalized weakness, mild shortness of breath , and right lower quadrant abdominal pain, with acute transaminitis and mild leukocytosis, REG, UTI, cystic pancreatic mass. Admitted for evaluation of pancreatic cysts, A. fib with RVR, UTI. Discharge Planning Today after noon as long as patient's heart rate remains less than 130s. Shortly after our evaluation around 8:30 AM, it was noted that patient's pulse was briefly in the 130s but she was asymptomatic. Patient had just received her medication at that time and she has since been in the 90s, and again asymptomatic. Based on patient's desire to go home and being off IV medications 24 hours, okay to be discharged home with home health with close follow-up. Reminded patient that she must follow-up with both her PCP and gastroenterology for continued care. sdw Dr. Walker (Caridad Torres MD, R3) Attending Attestation Medical rounds were performed with Dr Alejo, Patient was interviewed and examined, Agree with the contents of this note, See Assessment and Plan. Patient stable for discharge (Matt Walker MD) Problem List: (1) Pancreatic cyst ICD Codes: K86.2 - Cyst of pancreas Status: Acute Plan: MRCP showing pancreatic duct dilation of 1 cm and a 3.6 x 2.7 complex cystic mass at the head of the pancreas. Differential broad, from benign cystic lesion to something malignant. Does not report jaundice, dark urine, or light stools. CEA elevated at 8.0 CA19-9 GI consulted: appreciate recommendations * Will require an endoscopic ultrasound with FNA as outpatient. (2) Atrial fibrillation ICD Codes: I48.91 - Unspecified atrial fibrillation Status: Chronic Plan: Chronic atrial fibrillation with intermittent RVR. Rate has been around 100s. Was briefly at 1:30 shortly after receiving her morning medications. Otherwise she remains asymptomatic ambulation/exertion. -metoprolol to 75mg BID -diltiazem 180 mg daily -Continue Anticoagulation: Eliquis increased to 5mg PO BID as REG has resolved. -Continue telemetry (3) Transaminitis ICD Codes: R74.0 - Nonspecific elevation of levels of transaminase and lactic acid dehydrogenase [LDH] Status: Resolved Plan: Liver enzymes initially normal on admission but increase to 467/211 after the first night of admission. Liver enzymes trending down and resolved as well as INR. No known risk factors for acute transaminitis. No reported alcohol use, new medications or excessive Tylenol use. Hepatitis profile, RODNEY negative. -ASMA, mitochondrial abs, ceruloplasmin, alpha 1 antitrypsin, CA 19-9, RODNEY -CEA elevated -celiac panel pending (4) Urinary tract infection ICD Codes: N39.0 - Urinary tract infection, site not specified Status: Acute Plan: Urine culture shows rollins-sensitive e.coli. - Zosyn, started 11/12/17-11/13/17. - Levaquin for complicated cystitis (history of diabetes), 250 mg for 10 days total, started 11/14/17. (5) Hypertension ICD Codes: I10 - Essential (primary) hypertension Status: Chronic Plan: Chronic HTN -Home Enalapril discontinued due to medication increase from afib. Consider resuming once afib is controlled. -Vasotec PRN (6) Physical deconditioning ICD Codes: R53.81 - Other malaise Status: Acute Plan: Weakness per patient and EMR; recent hospitalization and rehabilitation. Also with recent falls, as well as a fall in the hospital on 11/13/17. - Physical therapy is on board for evaluation and treatment. - Will need physical therapy at rehab at discharge but patient declines. Will send for home health PT (7) Type 2 diabetes mellitus not at goal ICD Codes: E11.9 - Type 2 diabetes mellitus not at goal Status: Chronic Plan: T2DM on Lantus 10 U qHS and sliding scale Humalog, A1C 7.9. -Increased to Levemir 5units BID -low dose sliding scale. (8) Hypothyroidism ICD Codes: E03.9 - Hypothyroidism, unspecified Status: Chronic Plan: Hypothyroidism on chronic Levothyroxine 50 mcg daily. TSH normal. - Levothyroxine 50 mcg daily (9) DVT Prophylaxis Status: Acute Plan: -Bilateral SCD's -On Eliquis (10) Fluids, Electrolytes, and Nutrition Status: Acute Plan: Fluids: PO fluids, monitor hydration status Electrolytes: Hyperkalemia resolved, monitor. Has acute kidney injury. Nutrition: heart healthy diet GI PPX: PPI, continued home med (Caridad Torres MD, R3) Problem Qualifiers (1) Atrial fibrillation: Qualified Codes: I48.91 - Unspecified atrial fibrillation (2) Hypertension: Qualified Codes: I10 - Essential (primary) hypertension Caridad Torres MD, R3 Nov 18, 2017 12:25 Matt Walker MD Nov 18, 2017 14:56
--- NOTE | 2017-11-18 12:25 | HHI.DS ---
Discharge Summary Admission Date Nov 12, 2017 at 04:05 Discharge Date: Nov 18, 2017 Admitting Diagnosis dyspnea, acute renal failure, hyperkalemia (1) Pancreatic cyst Plan: MRCP showing pancreatic duct dilation of 1 cm and a 3.6 x 2.7 complex cystic mass at the head of the pancreas. Differential broad, from benign cystic lesion to something malignant. Does not report jaundice, dark urine, or light stools. CEA elevated at 8.0 CA19-9 GI consulted: appreciate recommendations * Will require an endoscopic ultrasound with FNA as outpatient. ICD Codes: K86.2 - Cyst of pancreas Status: Acute (2) Atrial fibrillation Plan: Chronic atrial fibrillation with intermittent RVR. Rate has been around 100s. Was briefly at 1:30 shortly after receiving her morning medications. Otherwise she remains asymptomatic ambulation/exertion. -metoprolol to 75mg BID -diltiazem 180 mg daily -Continue Anticoagulation: Eliquis increased to 5mg PO BID as REG has resolved. -Continue telemetry ICD Codes: I48.91 - Unspecified atrial fibrillation Status: Chronic (3) Transaminitis Plan: Liver enzymes initially normal on admission but increase to 467/211 after the first night of admission. Liver enzymes trending down and resolved as well as INR. No known risk factors for acute transaminitis. No reported alcohol use, new medications or excessive Tylenol use. Hepatitis profile, RODNEY negative. -ASMA, mitochondrial abs, ceruloplasmin, alpha 1 antitrypsin, CA 19-9, RODNEY -CEA elevated -celiac panel pending ICD Codes: R74.0 - Nonspecific elevation of levels of transaminase and lactic acid dehydrogenase [LDH] Status: Resolved (4) Urinary tract infection Plan: Urine culture shows rollins-sensitive e.coli. - Zosyn, started 11/12/17-11/13/17. - Levaquin for complicated cystitis (history of diabetes), 250 mg for 10 days total, started 11/14/17. ICD Codes: N39.0 - Urinary tract infection, site not specified Status: Acute (5) Hypertension Plan: Chronic HTN -Home Enalapril discontinued due to medication increase from afib. Consider resuming once afib is controlled. -Vasotec PRN ICD Codes: I10 - Essential (primary) hypertension Status: Chronic (6) Physical deconditioning Plan: Weakness per patient and EMR; recent hospitalization and rehabilitation. Also with recent falls, as well as a fall in the hospital on 11/13/17. - Physical therapy is on board for evaluation and treatment. - Will need physical therapy at rehab at discharge but patient declines. Will send for home health PT ICD Codes: R53.81 - Other malaise Status: Acute (7) Type 2 diabetes mellitus not at goal Plan: T2DM on Lantus 10 U qHS and sliding scale Humalog, A1C 7.9. -Increased to Levemir 5units BID -low dose sliding scale. ICD Codes: E11.9 - Type 2 diabetes mellitus not at goal Status: Chronic (8) Hypothyroidism Plan: Hypothyroidism on chronic Levothyroxine 50 mcg daily. TSH normal. - Levothyroxine 50 mcg daily ICD Codes: E03.9 - Hypothyroidism, unspecified Status: Chronic (9) DVT Prophylaxis Plan: -Bilateral SCD's -On Eliquis Status: Acute (10) Fluids, Electrolytes, and Nutrition Plan: Fluids: PO fluids, monitor hydration status Electrolytes: Hyperkalemia resolved, monitor. Has acute kidney injury. Nutrition: heart healthy diet GI PPX: PPI, continued home med Status: Acute Consultants GI Brief History Mrs. Lopez is a 82 yo F with PMH of Atrial fibrillation, HTN, T2DM who presents with weakness, shortness of breath, and lightheadedness. *Patient seemed somewhat disoriented at time of exam; she was able to answer questions but seemed to have altered time course of events and frequently referred to events years prior. In response to questions regarding orientation, patient stated that the year was "20" but was aware we were in the month of November. Attempts made to reach patient's and daughter using contact numbers in EMR were unsuccessful.* Mrs. Lopez reports that she began feeling weak and short of breath earlier today; patient patient reports that she was cleaning her house then got "real sick." Patient decided to lay down; when she tried to get up she felt that it was difficult to get up due to generalized weakness and nausea. Patient had a home health nurse present at that time; she states that she was encouraged to go to the ED. Prior to this, patient suggests that she recently received care at a "satellite hospital"; unclear if confusion present or if patient went to [facility] as I could not find records of [place] or [place] visit in EMR. Patient describes her shortness of breath as isolated and without associated fever, cough, or mucus production. Patient does not report associated chest pain, leg pain, or swelling. No recent abdominal pain. Patient also reports L ankle pain, but then suggested this was a symptom years prior. Patient reports normal urination and bowel movements. Patient states that she takes her own medications but that she is supported by her and home health nursing staff. [Supplemental history per EMR: patient last saw PCP Dr. Gramajo 11/04/2017; she was deconditioned after leaving inpatient rehab. Concerns regarding her mental status also present. Patient's insulin regimen was discussed; she takes 10 U Lantus HS and a sliding scale. Patient's atrial fibrillation rate control medications were also discussed] CBC/BMP: 11/16/17 0324 11/18/17 0439 Significant Findings Laboratory Tests Test 11/16/17 03:24 11/17/17 04:45 11/18/17 04:39 Red Blood Count 3.98 MIL/MM3 (4.00-5.30) Hematocrit 34.5 % (35.0-46.0) Red Cell Distribution Width 17.6 % (11.6-17.2) Random Glucose 231 MG/DL (74-106) 191 MG/DL (74-106) Albumin 3.1 GM/DL (3.4-5.0) 3.0 GM/DL (3.4-5.0) Alkaline Phosphatase 133 U/L (45-117) 137 U/L (45-117) Alanine Aminotransferase (ALT/SGPT) 66 U/L (10-53) Total Bilirubin 1.1 MG/DL (0.2-1.0) Sodium Level 135 MEQ/L (136-145) Estimat Glomerular Filtration Rate 66 ML/MIN (>89) 69 ML/MIN (>89) Carcinoembryonic Antigen 8.0 NG/ML (0.2-5.0) Potassium Level 3.4 MEQ/L (3.5-5.1) Imaging Last Impressions Head CT 11/13/17 0000 Signed Impressions: Service Date/Time: Monday, November 13, 2017 06:28 - CONCLUSION: No acute intracranial findings. Ivan Nguyễn MD Chest X-Ray 11/12/17 0600 Signed Impressions: Service Date/Time: November 06:09 - CONCLUSION: Mild cardiomegaly. Clear lungs. Ricardo Butler Jr., MD Cholangiopancreatography MRI 11/12/17 0000 Signed Impressions: Service Date/Time: November 18:27 - CONCLUSION: There is diffuse dilatation of the pancreatic duct as described above with significant side branch ectasia. Common bile duct is normal in caliber. There is a complex cystic-appearing mass like area at the head of the pancreas as described above. Tj Blancas MD Abdomen/Pelvis CT 11/12/17 0000 Signed Impressions: Service Date/Time: November 13:50 - CONCLUSION: 1. Possible cystic mass in the head of the pancreas and MRI examination with and without contrast suggested to further characterize. 2. New compression fracture of L1 not present previously. 3. Small right pleural effusion and slight fluid in the anterior perihepatic space. Paulino Case MD Renal Ultrasound 11/11/17 0000 Signed Impressions: Service Date/Time: Saturday, November 11, 2017 20:25 - CONCLUSION: Unremarkable renal ultrasound. Paulino Case MD PE at Discharge GEN: Well-developed, well-nourished patient. No acute distress. Sitting in chair without issue. CV: Rate around 90s but irregularly irregular rhythm. No obvious murmurs, gallops, rubs. LUNGS: Clear to auscultation bilaterally. Normal respiratory effort. No wheezes , rales, rhonchi. GI: Nondistended. EXT: No edema. No calf tenderness. NEURO/PSYCH: Awake, alert. Appropriate insight and judgment. Normal speech Hospital Course 82 year old female presented on 11/11/17 with weakness, SOB, REG, UTI, cystic pancreatic mass, and acute transaminitis. MRCP showed a pancreatic duct dilation of 1 cm and a 3.6 x 2.7 complex cystic mass at the head of the pancreas. Her CA19-9 is normal. She will require an endoscopic ultrasound with biopsy of the mass but this to be performed by GI as an outpatient. Transaminitis resolved with negative Hepatitis profile, AFP, and normal iron studies. For her urinary tract infection, she had rollins-sensitive e coli that was treated with Levaquin. Developed afib with RVR while hospitalized which required a Diltiazem drip. Weaned down to oral Diltiazem and metoprolol but rate did stay around 100s but patient was asymptomatic. Further management to be done as outpatient. On Eliquis for anticoagulation. REG resolved with IV fluids. Had physical deconditioning but patient requested going home with home health. This was deemed appropriate as patient was asymptomatic when walking independently with can around hospital. Pt discharged in stable condition with close follow up with GI for biopsy and PCP. Pt Condition on Discharge: Stable Discharge Disposition: Disch w/ Home Health Serv Discharge Instructions DIET: Follow Instructions for: Diabetic Diet Activities you can perform: Regular-No Restrictions Activities to Avoid: Strenuous Activity Follow up Referrals: Gastroenterology - 1 Week with Simeon Romero MD NEED BIOPSY OF PANCREATIC CYST PCP Follow-up - 1 Week with Rhianna Gramajo MD New Medications: Metoprolol Tartrate (Metoprolol Tartrate) 75 Mg Tab 75 MG PO BID, #60 TAB 0 Refills Diltiazem CD 24 HR (Cardizem CD 24 HR) 180 Mg Caper 180 MG PO DAILY, #30 CAP Levofloxacin (Levaquin) 250 Mg Tablet 250 MG PO DAILY, #5 TAB Start 11/19/2017 Continued Medications: Apixaban (Eliquis) 5 Mg Tab 5 MG PO BID for Blood Clot Prevention, #60 TAB 0 Refills Calcium Carbonate-Vitamin D (Sm Calcium 500/Vitamin D3 500-400 mg-Unit) 500 Mg- 400 Tab 1 TAB PO BID for Nutritional Supplement Gabapentin (Gabapentin) 400 Mg Cap 400 CAP PO HS, #90 CAP 3 Refills Imipramine HCL (Tofranil) 50 Mg Tab 50 MG PO HS for Control Depression, TAB 0 Refills Insulin Glargine Inj (Lantus Inj) 1,000 Unit/10 Ml Vial 10 UNITS SQ HS for Blood Sugar Management, #30 VIAL 2 Refills Levothyroxine (Levothyroxine) 50 Mcg Tab 50 MCG PO DAILY for Thyroid, #30 TAB 5 Refills Multiple Vitamins W/ Minerals (Multiple Vitamin/Minerals) 1 Tab Tab 1 TAB PO DAILY for Nutritional Supplement Nitroglycerin SL (Nitrostat SL) 0.4 Mg Subl 0.4 MG SL DIRECTED PRN for CHEST PAIN, #100 TAB.SL 0 Refills ONE TABLET UNDER THE TONGUE NEEDED FOR CHEST PAIN, MAY REPEAT EVERY FIVE MINUTES FOR A TOTAL OF 3 DOSES OR CALL 911 IF NO RELIEF Pantoprazole (Protonix) 20 Mg Tab 20 MG PO DAILY for Reflux, #30 TAB 0 Refills Pravastatin (Pravastatin) 40 Mg Tab 40 MG PO DAILY for Cholesterol Management, #30 TAB 0 Refills Discontinued Medications: Diltiazem CD 24 HR (Cardizem CD 24 HR) 120 Mg Caper 120 MG PO DAILY, #90 CAP 1 Refill Enalapril (Enalapril) 2.5 Mg Tab 2.5 MG PO DAILY, #30 TAB 5 Refills Metoprolol Tartrate (Metoprolol Tartrate) 25 Mg Tab 25 MG PO BID for Blood Pressure Management, #60 TAB 0 Refills Caridad Torres MD, R3 Nov 18, 2017 12:25
[2017-11-18 13:53] LABS: ENDOMYSIAL AB SCREEN ND (NEGATIVE); ENDOMYSIAL AB TITER ND (<1:5)
== END 2017-11-18 14:54 | disposition home health service (06) | DRG 683 ==
LOC: NEPE 13:11 → NEDA 18:16 → NEPHCDU 19:38 → OBSVTOIN 11-12 04:05 → HCPC 11-13 07:50
PROVIDERS: ADMIT Family Medicine; ATTEND Family Medicine
DX: N17.9 Acute kidney failure, unspecified (principal); I48.92 Unspecified atrial flutter; K86.2 Cyst of pancreas; M48.56XA Collapsed vertebra, not elsewhere classified, lumbar region, initial encounter for fracture; I50.9 Heart failure, unspecified; I11.0 Hypertensive heart disease with heart failure; I48.2 Chronic atrial fibrillation; N30.90 Cystitis, unspecified without hematuria; E87.5 Hyperkalemia; R55 Syncope and collapse; E11.9 Type 2 diabetes mellitus without complications; E03.9 Hypothyroidism, unspecified; R80.9 Proteinuria, unspecified; R74.0 Nonspecific elevation of levels of transaminase and lactic acid dehydrogenase [LDH]; R74.8 Abnormal levels of other serum enzymes; R10.31 Right lower quadrant pain; S00.03XA Contusion of scalp, initial encounter; R19.7 Diarrhea, unspecified; R97.0 Elevated carcinoembryonic antigen [CEA]; I25.2 Old myocardial infarction; E78.5 Hyperlipidemia, unspecified; R29.6 Repeated falls; M19.90 Unspecified osteoarthritis, unspecified site; B96.20 Unspecified Escherichia coli [E. coli] as the cause of diseases classified elsewhere; W18.30XA Fall on same level, unspecified, initial encounter; Y92.230 Patient room in hospital as the place of occurrence of the external cause; Z79.01 Long term (current) use of anticoagulants; Z79.4 Long term (current) use of insulin; Z88.7 Allergy status to serum and vaccine; Z91.81 History of falling
CPT/HCPCS: 70450; 71045; 74176; 74183; 76377; 76775; 80048; 80053; 80074; 80076; 81001; 82103; 82105; 82378; 82390; 82550; 82728; 82784; 82787; 82948; 83036; 83516; 83520; 83540; 83550; 83605; 83615; 83690; 83735; 83880; 84300; 84443; 84484; 85025; 85027; 85610; 85730; 86038; 86255; 86301; 87040; 87077; 87086; 87186; 87205; 87328; 87329; 87493; 87506; 93005; 99285; A9577; G0378; G8996-GN; G8997-GN; G8998-GN; G9168-GN; G9169-GN; G9170-GN; J0456; J0696; J1815; J2543; J7030; J7040; J7050; Q9963

== ENCOUNTER 2017-11-25 07:57 | Inpatient (IN) | payer MEDICARE, BC ==
[2017-11-25] VITALS (15 sets, daily range): BP systolic 107–130; BP diastolic 65–83; PULSE 95–118; RESP 13–18; TEMP 95.5–98.6; O2SAT 94–100
[~2017-11-25] VITALS: Ht 157.5 cm; Wt 77.5 kg
[~2017-11-25 07:57] MED LIST changes: -CARD120C4 PO; +CARD180C5 PO; -ENAL2.5T PO; +LEVA250T14 PO; +METO-426 PO; -METO25TA3 PO
[2017-11-25] MEDS ORDERED: SODIUM CHLOR 0.9% 1000 ML INJ 1,000 ML IV ONE (07:59)
--- NOTE | 2017-11-25 08:12 | RADRPT ---
EXAM DATE/TIME: 11/25/2017 08:04 [place] COMPARISON: No previous studies available for comparison. INDICATIONS : Stroke alert, slurred speech. Left side weakness. RADIATION DOSE: 35.70 CTDIvol (mGy) This report was called by Melina to [facility] at 8: 08am. MEDICAL HISTORY : Non-responsive. SURGICAL HISTORY : Non-responsive. ENCOUNTER: Initial ACUITY: 1 day PAIN SCALE: Non-responsive LOCATION: cranial TECHNIQUE: Multiple contiguous axial images were obtained of the head. Using automated exposure control and adj ustment of the mA and/or kV according to patient size, radiation dose was kept as low as reasonably a chievable to obtain optimal diagnostic quality images. DICOM format image data is available electro nically for review and comparison. FINDINGS: CEREBRUM: Areas of low-attenuation are seen throughout the white matter. The ventricles are normal for age. No evidence of midline shift, mass lesion, hemorrhage or acute infarction. No extra-axial fluid collec tions are seen. POSTERIOR FOSSA: The cerebellum and brainstem are intact. The 4th ventricle is midline. The cerebellopontine angle i s unremarkable. EXTRACRANIAL: The visualized portion of the orbits is intact. SKULL: The calvaria is intact. No evidence of skull fracture. CONCLUSION: 1. 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 2. No acute intracranial abnormality. Kj Summers MD on November 25, 2017 at 8:06 Board Certified Radiologist. This report was verified electronically.
--- NOTE | 2017-11-25 08:18 | PD ---
HPI Chief Complaint: Stroke Alert Time Seen by Provider: 07:59 Travel History International Travel<30 days: No Contact w/Intl Traveler<30days: No Traveled to known affect area: No History of Present Illness HPI 82-year-old female patient with history of atrial fibrillation currently on Eliquis, hypertension, AR, multiple medical issues, presents to the ER today brought in by EMS for possible stroke alert. She apparently was sitting and eating breakfast, dropped her coffee at around 7:10 AM, and has been having left -sided weakness, difficulty speaking. She currently is not able to give me much of a history. She is not able to lift her left arm. She is able to follow commands. There is a notable facial droop. Apparently, she was initially GCS 7 but in the ER, is GCS 14. EMS states that she is looking more oriented as they transported her. Modifying Factors: None Associated Signs & Symptoms: Stroke alert, left-sided weakness, slurred speech Risk Factors: Elderly, A. fib PFSH Past Medical History Hx Anticoagulant Therapy: Yes Arthritis: Yes Asthma: No Atrial Fibrillation: Yes Autoimmune Disease: No Blood Disorders: No Anxiety: No Depression: No Heart Rhythm Problems: Yes (A-FIB) Cancer: No Cardiac Catheterization: Yes Cardiovascular Problems: Yes High Cholesterol: Yes Chemotherapy: No Chest Pain: Yes Congestive Heart Failure: No COPD: No Cerebrovascular Accident: No Diabetes: Yes Diminished Hearing: No Endocrine: Yes Glaucoma: No Genitourinary: No Hypertension: Yes Immune Disorder: No Implanted Vascular Access Dvce: Yes Kidney Stones: No Musculoskeletal: Yes Neurologic: No Psychiatric: No Reproductive: No Respiratory: Yes (ASTHMA) Immunizations Current: Yes Myocardial Infarction: Yes Radiation Therapy: No Sickle Cell Disease: No Sleep Apnea: No Thyroid Disease: No : 5 Para: 5 Past Surgical History Abdominal Surgery: Yes (Gall Bladder, Apendix Removed.) AICD: No Appendectomy: Yes Arteriovenous Shunt: No Body Medical Devices: METAL PLATE IN LEFT ANKLE Cardiac Surgery: No Cholecystectomy: Yes Ear Surgery: No Endocrine Surgery: No Eye Surgery: No Genitourinary Surgery: No Gynecologic Surgery: Yes (MARTY) Hysterectomy: Yes Insulin Pump: No Joint Replacement: Yes (Metal implated in her left anckle) Oral Surgery: No Pacemaker: No Thoracic Surgery: No Tonsillectomy: Yes Other Surgery: Yes (HYSTERECTOMY, CHOLECYSECTOMY, LEFT ANKLE, APENDECTOMY) Social History Alcohol Use: No Tobacco Use: No Substance Use: No Allergies-Medications (Allergen,Severity, Reaction): Coded Allergies: Influenza Virus Vaccines (Verified Allergy, Severe, Anaphylaxis, 11/25/17) Reported Meds & Prescriptions Reported Meds & Active Scripts Active Cardizem CD 24 HR (Diltiazem CD 24 HR) 180 Mg Caper 180 Mg PO DAILY Metoprolol Tartrate 75 Mg Tab 75 Mg PO BID Pravastatin 40 Mg Tab 40 Mg PO DAILY Levothyroxine (Levothyroxine Sodium) 50 Mcg Tab 50 Mcg PO DAILY Lantus Inj (Insulin Glargine) 1,000 Unit/10 Ml Vial 10 Units SQ HS Eliquis (Apixaban) 5 Mg Tab 5 Mg PO BID Gabapentin 400 Mg Cap 400 Cap PO HS Reported Tofranil (Imipramine HCl) 50 Mg Tab 50 Mg PO HS Multiple Vitamin/Minerals (Multiple Vitamins W/ Minerals) 1 Tab Tab 1 Tab PO DAILY Sm Calcium 500/Vitamin D3 500-400 mg-Unit (Calcium Carbonate-Vitamin D) 500 Mg- 400 Tab 1 Tab PO BID Nitrostat SL (Nitroglycerin) 0.4 Mg Subl 0.4 Mg SL DIRECTED PRN ONE TABLET UNDER THE TONGUE NEEDED FOR CHEST PAIN, MAY REPEAT EVERY FIVE MINUTES FOR A TOTAL OF 3 DOSES OR CALL 911 IF NO RELIEF Protonix (Pantoprazole Sodium) 20 Mg Tab 20 Mg PO DAILY Review of Systems ROS Limitations: Altered Mental Status (unable to get much history), Speech Impaired Physical Exam Narrative GENERAL: Well-developed elderly white female patient currently in moderate distress. Awake, but aphasic, difficult to understand, following directions. SKIN: Focused skin assessment warm/dry. HEAD: Atraumatic. Normocephalic. EYES: Pupils equal and round. No scleral icterus. No injection or drainage. ENT: No nasal bleeding or discharge. Mucous membranes pink and moist. NECK: Trachea midline. No JVD. Supple. CARDIOVASCULAR: Regular rate and rhythm. No murmur appreciated. RESPIRATORY: No accessory muscle use. Clear to auscultation. Breath sounds equal bilaterally. GASTROINTESTINAL: Abdomen soft, non-tender, nondistended. Hepatic and splenic margins not palpable. MUSCULOSKELETAL: No obvious deformities. No clubbing. No cyanosis. No edema. NEUROLOGICAL: Awake and alert. Face shows left-sided facial droop. Looking to the right. Pupils are equal and reactive to light bilaterally. Left arm weakness. Aphasic speech. PSYCHIATRIC: Appropriate mood and affect; insight and judgment normal. Data Data Last Documented VS Vital Signs Date Time Temp Pulse Resp B/P (MAP) Pulse Ox O2 Delivery O2 Flow Rate FiO2 11/25/17 09:20 97.8 98 16 108/77 (87) 100 Nasal Cannula 2.00 Orders Orders Diet Npo (11/25/17 Breakfast) Activity Bed Rest (11/25/17 ) Electrocardiogram (11/25/17 ) I-Stat Profile (11/25/17 07:59) Prothrombin Time / Inr (Pt) (11/25/17 07:59) Act Partial Throm Time (Ptt) (11/25/17 07:59) Complete Blood Count With Diff (11/25/17 07:59) Fibrinogen (11/25/17 07:59) Creatine Kinase (Cpk) (11/25/17 07:59) Troponin I (11/25/17 07:59) Ua Includes Microscopic (11/25/17 07:59) Drug Screen, Random Urine (11/25/17 07:59) Type And Screen (11/25/17 07:59) Ct Brain W/O Iv Contrast(Rout) (11/25/17 ) Consult Neurology (11/25/17 ) Blood Glucose (11/25/17 07:59) Ecg Monitoring (11/25/17 07:59) Neuro Checks Q2HX12,Q4H (11/25/17 07:59) Nursing Bedside Swallow Assess .ONCE (11/25/17 07:59) Iv Access Insert/Monitor (11/25/17 07:59) NPO (11/25/17 07:59) Oximetry (11/25/17 07:59) Oxygen Administration (11/25/17 07:59) Sodium Chlor 0.9% 1000 Ml Inj (Ns 1000 M (11/25/17 07:59) Resp Oxygen Chao C Titrat 1-4 L (11/25/17 07:59) Cath For Specimen (11/25/17 07:59) (Hub Use Only)Inp Phy Cons/Ref (11/25/17 ) Cta Brain W Iv Contrast W 3d (11/25/17 08:28) Cta Neck W Iv Contrast W 3d (11/25/17 08:28) Iodixanol 320 Inj (Rad Ct) (Visipaque 32 (11/25/17 09:05) Angiogram, Cerebral Wo Arch (11/25/17 ) Verapamil Inj (Isoptin Inj) (11/25/17 09:17) Admit Order (Ed Use Only) (11/25/17 09:52) Labs Laboratory Tests Test 11/25/17 08:00 11/25/17 08:20 White Blood Count 8.7 TH/MM3 Red Blood Count 3.63 MIL/MM3 Hemoglobin 10.6 GM/DL Bedside Hemoglobin 10.9 G/DL Hematocrit 32.0 % Bedside Hematocrit 32.0 % Mean Corpuscular Volume 88.3 FL Mean Corpuscular Hemoglobin 29.3 PG Mean Corpuscular Hemoglobin Concent 33.1 % Red Cell Distribution Width 17.5 % Platelet Count 256 TH/MM3 Mean Platelet Volume 8.7 FL Neutrophils (%) (Auto) 65.8 % Lymphocytes (%) (Auto) 23.2 % Monocytes (%) (Auto) 8.6 % Eosinophils (%) (Auto) 1.6 % Basophils (%) (Auto) 0.8 % Neutrophils # (Auto) 5.7 TH/MM3 Lymphocytes # (Auto) 2.0 TH/MM3 Monocytes # (Auto) 0.7 TH/MM3 Eosinophils # (Auto) 0.1 TH/MM3 Basophils # (Auto) 0.1 TH/MM3 CBC Comment DIFF FINAL Differential Comment Prothrombin Time 10.6 SEC Prothromb Time International Ratio 1.0 RATIO Activated Partial Thromboplast Time 21.6 SEC Fibrinogen 424 mg/dL Bedside Sodium 139 MMOL/L Bedside Potassium 4.2 MMOL/L Bedside Chloride 102 MMOL/L Bedside Blood Urea Nitrogen 17 MG/DL Bedside Creatinine 0.9 MG/DL Bedside Glucose 125 MG/DL Total Creatine Kinase 76 U/L Troponin I LESS THAN 0.02 NG/ML Urine Color YELLOW Urine Turbidity CLEAR Urine pH 6.0 Urine Specific Eddy 1.009 Urine Protein NEG mg/dL Urine Glucose (UA) NEG mg/dL Urine Ketones NEG mg/dL Urine Occult Blood NEG Urine Nitrite NEG Urine Bilirubin NEG Urine Urobilinogen LESS THAN 2.0 MG/DL Urine Leukocyte Esterase NEG Urine RBC LESS THAN 1 /hpf Urine WBC 1 /hpf Urine Squamous Epithelial Cells 1 /hpf Urine Hyaline Casts 3 /lpf Urine Opiates Screen NEG Urine Barbiturates Screen NEG Urine Amphetamines Screen NEG Urine Benzodiazepines Screen NEG Urine Cocaine Screen NEG Urine Cannabinoids Screen NEG MDM Medical Decision Making Medical Screen Exam Complete: Yes Emergency Medical Condition: Yes Medical Record Reviewed: Yes Interpretation(s) EKG shows A. fib with RVR at a rate of 100 bpm. No signs of acute ST-T changes. Last [address] 11/25/17 0000 Signed Impressions: Service Date/Time: Saturday, November 25, 2017 08:04 - CONCLUSION: 1. 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 2. No acute intracranial abnormality. Kj Summers MD Laboratory Tests Test 11/25/17 08:00 11/25/17 08:20 Red Blood Count 3.63 MIL/MM3 (4.00-5.30) Hemoglobin 10.6 GM/DL (11.6-15.3) Bedside Hemoglobin 10.9 G/DL (11.6-15.3) Hematocrit 32.0 % (35.0-46.0) Bedside Hematocrit 32.0 % (35.0-46.0) Red Cell Distribution Width 17.5 % (11.6-17.2) Monocytes (%) (Auto) 8.6 % (0.0-8.0) Activated Partial Thromboplast Time 21.6 SEC (24.3-30.1) Fibrinogen 424 mg/dL (227-377) Bedside Glucose 125 MG/DL (68-110) Troponin I LESS THAN 0.02 NG/ML Differential Diagnosis Stroke alert: Ischemic CVA versus ICH versus TIA Narrative Course Stroke alert has been called and protocol was initiated. Patient is currently on Eliquis. It is unclear whether she took it this morning but considering her anticoagulation history, case had been discussed with who states that the patient would not be a TPA candidate based on anticoagulation. CAT scan is negative. At this point, plan would be to admit the patient for further treatment. NIH stroke score: 6 Case was also discussed with radiology, Dr. Espinal who did the CTA of the head, finds that there is a clot that could be amenable to interventional radiology treatment. Patient would be a candidate for this despite Eliquis use. At this point, she is taken up to interventional radiology for treatment. Patient is discussed with Dr. Perez for admission. Aggregate critical care time was 20 minutes. Time to perform other separately billable procedures was not included in the critical care time. My time did not include minutes spent treating any other patients simultaneously or on activities that did not directly contribute to the patient's treatment. The services I provided to this patient were to treat and/or prevent clinically significant deterioration that could result in: Worsening CVA, ICH, I provided critical care services requiring my management, as noted below: Chart data review, documentation time, medication orders and management, vital sign assessments/reviewing monitor data, ordering and reviewing lab tests, ordering and interpreting/reviewing x-rays and diagnostic studies, care of the patient and discussion of the patient with the admitting physicians. 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
[2017-11-25 08:25] LABS: AUTOMATED NEUTROPHIL # 5.7 TH/MM3 (1.8-7.7); BASOPHIL # 0.1 TH/MM3 (0-0.2); BASOPHIL % 0.8 % (0.0-2.0); EOSINOPHIL # 0.1 TH/MM3 (0-0.4); EOSINOPHIL % 1.6 % (0.0-4.0); HEMOGLOBIN 10.6 GM/DL (11.6-15.3); LYMPH % 23.2 % (9.0-44.0); MEAN CELL VOLUME 88.3 FL (80.0-100.0); MEAN CORPUSCULAR HEMOGLOBIN 29.3 PG (27.0-34.0); MEAN CORPUSCULAR HGB CONC 33.1 % (32.0-36.0); MEAN PLATELET VOLUME 8.7 FL (7.0-11.0); MONO % 8.6 % (0.0-8.0); MONOCYTE # 0.7 TH/MM3 (0-0.9); NEUT % 65.8 % (16.0-70.0); PLATELET COUNT 256 TH/MM3 (150-450); RED BLOOD COUNT 3.63 MIL/MM3 (4.00-5.30); RED CELL DISTRIBUTION WIDTH 17.5 % (11.6-17.2); WHITE BLOOD COUNT 8.7 TH/MM3 (4.0-11.0)
[2017-11-25 08:35] LABS: PROTHROMBIN TIME - PATIENT 10.6 SEC (9.8-11.6)
[2017-11-25 08:57] LABS: BILIRUBIN, URINE NEG (NEG); BLOOD, URINE NEG (NEG); GLUCOSE,URINE NEG (NEG); HYALINE CAST, URINE 3 /lpf (RARE); KETONE, URINE NEG (NEG); NITRITE,URINE NEG (NEG); SQUAMOUS EPITHELIAL CELL URINE 1 /hpf (0-5); URINE COLOR YELLOW (YELLW/STRAW); URINE LEUKOCYTE ESTERASE NEG (NEG)
[2017-11-25] MEDS ORDERED: IODIXANOL 320 MG/ML 10 ML VIAL (for Rad CT) IVCONTRAST ONE (09:05)
[2017-11-25 09:11] LABS: TROPONIN I LESS THAN 0.02 NG/ML (0.02-0.05)
[2017-11-25] MEDS ORDERED: VERAPAMIL HCL 5 MG/2 ML VIAL ONE (09:17)
--- NOTE | 2017-11-25 09:27 | RADRPT ---
EXAM DATE/TIME: 11/25/2017 08:58 [facility] COMPARISON: No previous studies available for comparison. INDICATIONS : Stoke Alert. Slurred speech, left sided weakness. IV CONTRAST: 89 cc Visipaque (iodixanol) IV ; Cumulative dose for multiple exams. RADIATION DOSE: 27.92 CTDIvol (mGy) MEDICAL HISTORY : Cardiovascular disease. Hypertension. SURGICAL HISTORY : Cholecystectomy. Appendectomy.Hysterectomy. ENCOUNTER: Initial ACUITY: 1 day PAIN SCALE: 0/10 LOCATION: cranial TECHNIQUE: Volumetric scanning was performed using a multi-row detector CT scanner. The data was post processed with a variety of visualization algorithms including full volume maximum intensity projection, multi -planar sliding thin slab reformation, curved planar reformation, and surface rendering techniques. Using automated exposure control and adjustment of the mA and/or kV according to patient size, radiat ion dose was kept as low as reasonably achievable to obtain optimal diagnostic quality images. DICO M format image data is available electronically for review and comparison. FINDINGS: There is abrupt cut off in the proximal right middle cerebral artery with distal collateralized blood flow. There is asymmetrically decreased blood flow in the distal right middle cerebral artery branch es compared to the left. The anterior cerebral arteries and anterior communicating artery are within normal limits. The patient is right vertebral artery dominant. Basilar artery demonstrates no abnormality. Posterior cerebral arteries demonstrate no acute finding. Please refer to carotid CTA report for description o f the neck findings. CONCLUSION: 1. 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 2. No other acute intracranial abnormality is identified. 3. These findings were telephoned to Dr. Reid. Peewee Fitzpatrick MD on November 25, 2017 at 9:16 Board Certified Radiologist. This report was verified electronically.
--- NOTE | 2017-11-25 09:54 | RADRPT ---
EXAM DATE/TIME: 11/25/2017 08:58 [facility] COMPARISON: No previous studies available for comparison. INDICATIONS : Stroke Alert. Slurred Speech, left sided weakness. IV CONTRAST: 89 cc Visipaque (iodixanol) IV ; Cumulative dose for multiple exams. RADIATION DOSE: 27.92 CTDIvol (mGy) MEDICAL HISTORY : Cardiovascular disease. Hypertension. SURGICAL HISTORY : Cholecystectomy. Appendectomy.Hysterectomy. ENCOUNTER: Initial ACUITY: 1 day PAIN SCALE: 0/10 LOCATION: neck Elevated flow velocities and ICA/CCA ratios have been found to correlate with increased degrees of vessel stenosis, calculated as percentage of diameter relative to a normal segment of distal ICA/CCA. TECHNIQUE: Volumetric scanning was performed using a multirow detector CT scanner. The data was post processed with a variety of visualization algorithms including full-volume maximum intensity projection, multip lanar sliding thin-slab reformation, curved-planar reformation, and surface-rendering techniques. Us ing automated exposure control and adjustment of the mA and/or kV according to patient size, radiatio n dose was kept as low as reasonably achievable to obtain optimal diagnostic quality images. DICOM f ormat image data is available electronically for review and comparison. FINDINGS: AORTIC ARCH: There is a three-vessel origin of the great vessels from the aorta. No evidence of ostial narrowing. There is moderate atherosclerotic calcification of the arch. RIGHT CAROTID: The common carotid artery is tortuous. It demonstrates mild atherosclerotic disease but no significan t stenosis. There is moderate to severe calcified plaque in the proximal right internal carotid arter y with less than 50% stenosis. External carotid artery demonstrates no significant abnormality. LEFT CAROTID: Common carotid artery is tortuous. It demonstrates mild atherosclerotic disease but no significant st enosis. There is moderate calcified and noncalcified plaque in the proximal internal carotid artery w ith less than 50% stenosis. VERTEBRALS: Right vertebral artery is dominant. The surrounding structures demonstrate no acute finding. CONCLUSION: 1. Moderate severity atherosclerotic plaque in the proximal internal cord arteries bilaterally with l ess than 50% stenosis bilaterally. 2. No acute abnormality is identified. Peewee Fitzpatrick MD on November 25, 2017 at 9:33 Board Certified Radiologist. This report was verified electronically.
[2017-11-25] MEDS ORDERED: HEPARIN SODIUM - IV 10,000 UNITS/10 ML VIAL ONE (09:56)
[2017-11-25] MEDS ORDERED: SODIUM CHLOR 0.9% 1000 ML INJ 1,000 ML IV SCH (10:40)
[2017-11-25] MEDS ORDERED: IODIXANOL 320 MG/ML 50 ML VIAL (for RAD SPEC) I-ARTERIAL ONE (10:57)
[2017-11-25] MEDS ORDERED: SODIUM CHLORIDE 0.9% FLUSH 10 ML FLUSH IV FLUSH PRN ×2 (11:00→11:15)
[2017-11-25] MEDS ORDERED: GLUCAGON 1 MG/ML VIAL OTHER PRN (11:00)
[2017-11-25] MEDS ORDERED: niCARdipine INJ 25 MG in SODIUM CHLOR 0.9% 250 ML INJ 240 ML IV PRN (11:00)
[2017-11-25] MEDS ORDERED: DEXTROSE 50% IN WATER 50 ML VIAL(D50) IV PUSH PRN (11:00)
[2017-11-25] MEDS ORDERED: LABETALOL HCL 100 MG/20 ML VIAL IV PUSH PRN (11:00)
--- NOTE | 2017-11-25 11:03 | HHI.HP ---
HPI Service Critical Care Medicine Primary Care Physician Unknown Admission Diagnosis stroke alert/intravascular TPA Diagnosis: (1) Cerebrovascular accident (CVA) due to embolism of right middle cerebral artery Diagnosis: Principal (2) BMI 31.0-31.9,adult Diagnosis: Principal (3) Coronary artery disease Diagnosis: Secondary (4) Peripheral vascular disease Diagnosis: Secondary (5) Gastroesophageal reflux disease Diagnosis: Secondary (6) Dyslipidemia Diagnosis: Principal (7) Colonic polyp Diagnosis: Secondary (8) Osteoarthritis Diagnosis: Secondary (9) Type 2 diabetes mellitus not at goal Diagnosis: Secondary (10) Hypothyroidism, unspecified Diagnosis: Secondary (11) Atrial fibrillation, chronic Diagnosis: Secondary (12) Diverticulosis of colon without diverticulitis Diagnosis: Secondary (13) Osteopenia Diagnosis: Secondary (14) Pancreatic cyst Diagnosis: Secondary (15) Elevated CEA Diagnosis: Secondary Chief Complaint: Patient's dropped copy cough with left hand at 6 AM. Aphasic. Travel History International Travel<30 Days: No Contact w/Intl Traveler <30 Da: No Traveled to Known Affected Are: No History of Present Illness 82-year-old female. Date of admission 11/25/2079. Past medical history includes past medical history includes chronic atrial fibrillation on Apixaban, hypertension, dyslipidemia, nonobstructive coronary artery disease, history of DE 19 [id number], diabetes mellitus hemoglobin A1c of 7.9, pancreatic cyst scheduled for outpatient EUS/FNA biopsy with elevated CEA, no mitral regurgitation colonic polyps. She is on imipramine along with gabapentin as well. See originally presented to [facility] today brought in by EMS for possible stroke alert. She apparently was sitting and eating breakfast, dropped her coffee at around 6AM in discussion with her . At that time, symptomatically expressing dysarthria, a fascia and focal left-sided weakness.. She currently is not able to give the emergency room physician much of a history. She is not able to lift her left arm. She is able to follow commands. There is a notable facial droop left-sided. Apparently, she was initially GCS 7 but in the ER, is GCS 14. EMS states that she is looking more oriented as they transported her. CT brain revealed chronic ischemic changes with no acute findings. CTA of the brain revealed right proximal MCA occlusion. CTA of the neck revealed less than 50% stenosis bilateral carotids. Since she was on Apixaban, she was not a candidate for alteplase infusion. Patient was taken back to IR for stent retrieval thrombus lysis which was successful. She is currently being seen in room 1303 in [facility]. She is currently arousable and follows commands with the right upper extremity and right lower extremity only. She withdraws her left lower extremity. She does not follow commands with her left upper extremity but does move spontaneously. Review of Systems ROS Limitations: Clinical Condition, Altered Mental Status, Uncooperative Past Family Social History Allergies: Coded Allergies: Influenza Virus Vaccines (Verified Allergy, Severe, Anaphylaxis, 11/25/17) Past Medical History History of pancreatic cyst - outpatient EUS/FNA with GI Elevated CEA Osteoarthritis Mitral regurgitation History of colonic polyps Hypertension Dyslipidemia Hypothyroidism History microinfarction Coronary artery disease - less than 20% cardiac catheterization 2011 Diabetes mellitus - hemoglobin A1c 7.9 Chronic atrial fibrillation rate controlled Chronic apixaban use Past Surgical History T&A Cholecystectomy Appendectomy MARTY Left ankle/hardware Reported Medications Active Cardizem CD 24 HR (Diltiazem CD 24 HR) 180 Mg Caper 180 Mg PO DAILY Metoprolol Tartrate 75 Mg Tab 75 Mg PO BID Pravastatin 40 Mg Tab 40 Mg PO DAILY Levothyroxine (Levothyroxine Sodium) 50 Mcg Tab 50 Mcg PO DAILY Lantus Inj (Insulin Glargine) 1,000 Unit/10 Ml Vial 10 Units SQ HS Eliquis (Apixaban) 5 Mg Tab 5 Mg PO BID Gabapentin 400 Mg Cap 400 Cap PO HS Reported Tofranil (Imipramine HCl) 50 Mg Tab 50 Mg PO HS Multiple Vitamin/Minerals (Multiple Vitamins W/ Minerals) 1 Tab Tab 1 Tab PO DAILY Sm Calcium 500/Vitamin D3 500-400 mg-Unit (Calcium Carbonate-Vitamin D) 500 Mg- 400 Tab 1 Tab PO BID Nitrostat SL (Nitroglycerin) 0.4 Mg Subl 0.4 Mg SL DIRECTED PRN ONE TABLET UNDER THE TONGUE NEEDED FOR CHEST PAIN, MAY REPEAT EVERY FIVE MINUTES FOR A TOTAL OF 3 DOSES OR CALL 911 IF NO RELIEF Protonix (Pantoprazole Sodium) 20 Mg Tab 20 Mg PO DAILY Active Ordered Medications Reviewed in EMR Family History Mother with diabetes. Father with carcinoma Social History No tobacco, alcohol or intravenous drug use Physical Exam Vital Signs Vital Signs Date Time Temp Pulse Resp B/P (MAP) Pulse Ox O2 Delivery O2 Flow Rate FiO2 11/25/17 09:20 97.8 98 16 108/77 (87) 100 Nasal Cannula 2.00 11/25/17 08:59 97.8 98 17 107/65 (79) 99 Nasal Cannula 2.00 11/25/17 08:10 98 18 121/70 (87) 100 Nasal Cannula 2.00 11/25/17 08:01 99 Nasal Cannula 3.00 11/25/17 08:00 18 98 Nasal Cannula 2.00 11/25/17 08:00 98 18 99 Nasal Cannula 2.00 11/25/17 08:00 98 Nasal Cannula 2.00 11/25/17 07:58 97.8 96 18 120/68 (85) 99 Physical Exam GENERAL: 82-year-old female currently resting in bed in distress on end tidal CO2 SKIN: Warm and dry. No rash. Patient with open sore on the medial aspect of left ankle HEAD: Atraumatic. Normocephalic. EYES: Pupils equal and round about 3 mm bilaterally and reactive. No scleral icterus. No injection or drainage. ENT: No nasal bleeding or discharge. Mucous membranes pink and moist. NECK: Trachea midline. No JVD. CARDIOVASCULAR: IRR. S1, S2 no S4. 2/murmur left lower sternal border RESPIRATORY: Clear to auscultation. Breath sounds equal bilaterally. GASTROINTESTINAL: Abdomen soft, non-tender, nondistended. Hypoactive bowel sounds are appreciated MUSCULOSKELETAL: Extremities trace bilateral lower extremity edema. NEUROLOGICAL: Arousable. Left facial droop. Strength 0-5 left upper extremity. Withdraws to pain. Strength 2 out of 5 left lower extremity. Strength 5 out of 5 right upper and lower extremity. Decreased sensation to noxious stimuli left upper extremity. Withdraws to left lower extremity. Intact and right upper lobe extremity. Unable to assess pronator drift. Gait was not assessed. Laboratory Laboratory Tests Test 11/25/17 08:00 11/25/17 08:20 White Blood Count 8.7 Red Blood Count 3.63 Hemoglobin 10.6 Bedside Hemoglobin 10.9 Hematocrit 32.0 Bedside Hematocrit 32.0 Mean Corpuscular Volume 88.3 Mean Corpuscular Hemoglobin 29.3 Mean Corpuscular Hemoglobin Concent 33.1 Red Cell Distribution Width 17.5 Platelet Count 256 Mean Platelet Volume 8.7 Neutrophils (%) (Auto) 65.8 Lymphocytes (%) (Auto) 23.2 Monocytes (%) (Auto) 8.6 Eosinophils (%) (Auto) 1.6 Basophils (%) (Auto) 0.8 Neutrophils # (Auto) 5.7 Lymphocytes # (Auto) 2.0 Monocytes # (Auto) 0.7 Eosinophils # (Auto) 0.1 Basophils # (Auto) 0.1 CBC Comment DIFF FINAL Differential Comment Prothrombin Time 10.6 Prothromb Time International Ratio 1.0 Activated Partial Thromboplast Time 21.6 Fibrinogen 424 Bedside Sodium 139 Bedside Potassium 4.2 Bedside Chloride 102 Bedside Blood Urea Nitrogen 17 Bedside Creatinine 0.9 Bedside Glucose 125 Total Creatine Kinase 76 Troponin I LESS THAN 0.02 Urine Color YELLOW Urine Turbidity CLEAR Urine pH 6.0 Urine Specific Cool 1.009 Urine Protein NEG Urine Glucose (UA) NEG Urine Ketones NEG Urine Occult Blood NEG Urine Nitrite NEG Urine Bilirubin NEG Urine Urobilinogen LESS THAN 2.0 Urine Leukocyte Esterase NEG Urine RBC LESS THAN 1 Urine WBC 1 Urine Squamous Epithelial Cells 1 Urine Hyaline Casts 3 Urine Opiates Screen NEG Urine Barbiturates Screen NEG Urine Amphetamines Screen NEG Urine Benzodiazepines Screen NEG Urine Cocaine Screen NEG Urine Cannabinoids Screen NEG Result Diagram: 11/25/17 0800 Imaging Last Impressions Neck CTA 11/25/17827 Signed Impressions: Service Date/Time: Saturday, November 25, 2017 08:58 - CONCLUSION: 1. Moderate severity atherosclerotic plaque in the proximal internal cord arteries bilaterally with less than 50%% stenosis bilaterally. 2. No acute abnormality is identified. Peewee Fitzpatrick MD Head CTA 11/25/17827 Signed Impressions: Service Date/Time: Saturday, November 25, 2017 08:58 - CONCLUSION: 1. 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 2. No other acute intracranial abnormality is identified. 3. These findings were telephoned to Dr. Reid. Peewee Fitzpatrick MD Head CT 11/25/17 0000 Signed Impressions: Service Date/Time: Saturday, November 25, 2017 08:04 - CONCLUSION: 1. 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 2. No acute intracranial abnormality. Kj Summers MD Septic Shock Reassessment Septic shock perfusion: reassessment completed Caprini VTE Risk Assessment Caprini VTE Risk Assessment: Mod/High Risk (score >= 2) VTE Pharm Contraindication: Documented Caprini Risk Assessment Model Point Value = 1 Point Value = 2 Point Value = 3 Point Value = 5 Age 41-60 Minor surgery BMI > 25 kg/m2 Swollen legs Varicose veins or History of unexplained or recurrent spontaneous Oral contraceptives or hormone replacement Sepsis (< 1 month) Serious lung disease, including pneumonia (< 1 month) Abnormal pulmonary function Acute myocardial infarction Congestive heart failure (< 1 month) History of inflammatory bowel disease Medical patient at bed rest Age 61-74 Arthroscopic surgery Major open surgery (> 45 min) Laparoscopic surgery (> 45 min) Malignancy Confined to bed (> 72 hours) Immobilizing plaster cast Central venous access Age >= 75 History of VTE Family history of VTE Factor V Leiden Prothrombin [id number] Lupus anticoagulant Anticardiolipin antibodies Elevated serum homocysteine Heparin-induced thrombocytopenia Other congenital or acquired thrombophilia Stroke (< 1 month) Elective arthroplasty Hip, pelvis, or leg fracture Acute spinal cord injury (< 1 month) Prophylaxis Regimen Total Risk Factor Score Risk Level Prophylaxis Regimen 0-1 Low Early ambulation 2 Moderate Order ONE of the following: *Sequential Compression Device (SCD) *Heparin 5000 units SQ BID 3-4 Higher Order ONE of the following medications: *Heparin 5000 units SQ TID *Enoxaparin/Lovenox 40 mg SQ daily (WT < 150 kg, CrCl > 30 mL/min) *Enoxaparin/Lovenox 30 mg SQ daily (WT < 150 kg, CrCl > 10-29 mL/min) *Enoxaparin/Lovenox 30 mg SQ BID (WT < 150 kg, CrCl > 30 mL/min) AND/OR *Sequential Compression Device (SCD) 5 or more Highest Order ONE of the following medications: *Heparin 5000 units SQ TID (Preferred with Epidurals) *Enoxaparin/Lovenox 40 mg SQ daily (WT < 150 kg, CrCl > 30 mL/min) *Enoxaparin/Lovenox 30 mg SQ daily (WT < 150 kg, CrCl > 10-29 mL/min) *Enoxaparin/Lovenox 30 mg SQ BID (WT < 150 kg, CrCl > 30 mL/min) AND *Sequential Compression Device (SCD) Assessment and Plan Assessment and Plan Neuro/Psych: Right MCA CVA Depression Peripheral neuropathy CT brain 11/25 revealed no acute intracranial findings CTA brain was essentially revealed right proximal MCA occlusion. CTA neck revealed less than 50% bilateral carotid stenosis. Status post stent retrieval thrombolysis by interventional radiology 11/25 right MCA Neurology consultation Holding gabapentin 400 mg by mouth daily and imipramine 50 mg at night. Resume when clinically indicated Hold full dose anticoagulation 12-24 hrs. post stent retrieval. Restart anticoagulation when okay by neurology further recommendations MRI/A of brain ordered CV: Chronic atrial fibrillation Hypertension Dyslipidemia Continue metoprolol tartrate 75 mg by mouth twice a day for hypertension/rate control Currently holding diltiazem extended release 180 mg by mouth daily resume when clinically indicated Continue pravastatin 40 mg by mouth daily for dyslipidemia Goal currently to maintain systolic blood pressure less than 180, diastolic blood pressure less than 105 Resp: Nasal cannula to maintain saturations greater than equal to 92% Incentive spirometry while awake Follow-up chest x-ray. Strict aspiration precautions when able. GI: Pancreatic cyst - 3.6 x 2.7 cm the pancreatic head plan for outpatient EUS/FNA biopsy by GI Gastroesophageal reflux disease History of colonic polyps Patient is currently nothing by mouth Pantoprazole 40 mg daily for GI prophylaxis/home medication for gastroesophageal reflux disease Docusate sodium/senna 1 tablet twice a day for bowel regimen : Sim catheter placed for accurate I's and O's in a critically ill patient Endo: Diabetes mellitus/poorly controlled hemoglobin A1c 7.9\ Hypothyroidism Holding insulin glargine 10 units subcutaneous daily/home medication dosage Sliding-scale insulin with Accu-Cheks to maintain euglycemia/low regimen before meals/at bedtime or every 6 hours Continue levothyroxine 50 g by mouth daily/switch to 25 mg IV daily unable to take by mouth in a.m. 11/26 Check TSH in a.m. Renal: Creatinine currently within normal limits Monitor urine output Accurate I's and O's Heme: Chronic Apixaban use Elevated CEA Monitor CBC daily. Follow trends ID: Monitor for infection FEN: Replace electrolytes as clinically indicated MSK: Osteoporosis/osteopenia Continue calcium with vitamin D 500/400 one tablet twice a day when clinically indicated PT/OT evaluate and treat Access - Utilize peripheral IV. Central line if indicated Prophylaxis - GI - pantoprazole - DVT - SCD/holding pharmacological prophylaxis 24 hours post stent retrieval. Likely will start full dose anticoagulation 12-24 hours post procedures Level III admission Code Status Full code Discussed Condition With Mark Lopez. Patient. Dr. Reid. Care plan discussed and all questions answered. Problem Qualifiers (1) Coronary artery disease: Qualified Codes: I25.10 - Atherosclerotic heart disease of teller coronary artery without angina pectoris (2) Gastroesophageal reflux disease: Qualified Codes: K21.9 - Gastro-esophageal reflux disease without esophagitis (3) Colonic polyp: Qualified Codes: K63.5 - Polyp of colon (4) Osteoarthritis: Qualified Codes: M19.90 - Unspecified osteoarthritis, unspecified site (5) Hypothyroidism, unspecified: Qualified Codes: E03.9 - Hypothyroidism, unspecified (6) Osteopenia: Qualified Codes: M85.80 - Other specified disorders of bone density and structure, unspecified site Jason Perez MD Nov 25, 2017 11:03
[2017-11-25] MEDS ORDERED: MORPHINE SULFATE 2 MG/ML INJ IV PUSH PRN (11:15)
[2017-11-25] MEDS ORDERED: ACETAMINOPHEN 325 MG TAB PO PRN (11:15)
[2017-11-25] MEDS ORDERED: RESP: ALBUTEROL 2.5 MG/3 ML NEB (PRN) INH (11:15)
[2017-11-25] MEDS ORDERED: MAGNESIUM HYDROXIDE SUSP 30 ML CUP PO PRN (11:15)
[2017-11-25] MEDS ORDERED: SENNOSIDES 8.6 MG TAB PO PRN (11:15)
[2017-11-25] MEDS ORDERED: MISCELLANEOUS NURSING INFORMATION XX SCH ×2 (11:15→12:30)
[2017-11-25] MEDS ORDERED: ONDANSETRON HCL 4 MG/2 ML VIAL IV PUSH PRN (11:15)
[2017-11-25] MEDS ORDERED: BISACODYL 10 MG SUPP RECTAL PRN (11:15)
[2017-11-25] MEDS ORDERED: ACETAMINOPHEN/HYDROcodone 325 MG/5 MG TAB PO PRN (11:15)
[2017-11-25] MEDS ORDERED: LACTULOSE SYRUP 20 GM/30 ML CUP PO PRN (11:15)
--- NOTE | 2017-11-25 11:22 | EKG ---
Date Performed: 11/25/2017 Time Performed: 08:14:12 PTAGE: 82 years EKG: ATRIAL FIBRILLATION WITH RAPID VENTRICULAR RESPONSE INCOMPLETE RIGHT BUNDLE BRANCH BLOCK AB NORMAL RHYTHM ECG NO PREVIOUS TRACING DOCTOR: Darrel Feliz Interpretating Date/Time 11/25/2017 11:21:34
--- NOTE | 2017-11-25 11:57 | RADRPT ---
EXAM DATE/TIME: 11/25/2017 09:24 This report includes an Addendum and supersedes previous reports for this exam. [facility] COMPARISON: No previous studies available for comparison. INDICATIONS : Patient with history of A fib here for a stroke alert. MEDICAL HISTORY : 1. A fib 2.DM 3. HTN 4. Asthma 5. VT SURGICAL HISTORY : 1. Gall bladder removed 2. metal plate in left ankle 3. Tonsillectomy ENCOUNTER: Initial ACUITY: 1 day PAIN SCORE: 0/10 FLUORO TIME: 25.9 minutes IMAGE SERIES: 8 ACCESS SITE: Right Femoral artery CONTRAST: 45 cc Visipaque (iodixanol) MEDICATION(S): 1.) 3000 units Heparin IV DEVICE(S): 1.) Right common femoral artery 8 fr Angio-Seal 2.) Right midddle cerebral artery ELSY 60 reperfusion cath mechanical thrombectomy TIMELINE: Interventional team called: 914 am Interventional team arrived: Interventional team ready: 0921 am Patient arrival: 0925 am Groin puncture: 0942 am Recanalization: 1029 am Anesthesia and pain control was provided by the Anesthesia department. PROCEDURE : 1. Ultrasound-guided puncture of the right common femoral artery access site. 2. Angiography of the access site prior to closure device. 3. monitoring and sedation assistance performed by department of anesthesia. 4. Percutaneous closure of the right common femoral artery access site. 5. subselective catheterization, right middle cerebral artery 6. Angiography of the right internal carotid artery 7. intracranial thrombectomy 8. Follow up arteriography post thrombectomy, right internal carotid artery The risks, benefits and alternatives to the procedure were explained and verbal and written consent w as obtained. The site was prepped in sterile fashion. Full sterile technique was used, including ca p, mask, sterile gloves and gown and a large sterile sheet. Hand hygiene and 2% chlorhexidine and/or betadine/alcohol prep was utilized per protocol for cutaneous antisepsis. Sterile gel and sterile p robe cover were utilized for ultrasound guidance. The skin and subcutaneous tissues were infiltrated with local anesthetic solution. With ultrasound and fluoroscopic guidance the selected artery was punctured and a vascular sheath was placed. Angiography of the common femoral artery was performed for evaluation prior to percutaneous closure device placement. A 4 Vincentian JB2 catheter was then introduced and used to select the right common carotid artery. Right carotid cervical and cerebral arteriography was performed. This evaluation confirmed the presence of a right MCA occlusion with poor reconstitution of parenchymal branch vessels. Utilizing road mapping guidance, a neuron sheath was introduced and manipulated into the high cervica l internal carotid artery. This was connected to pressure bag infusion with heparinized saline and ve rapamil. Through this, a 0.068 penumbra catheter, microcatheter and microguidewire combination was in troduced and the microcatheter was gently manipulated into the right middle cerebral artery, past the level of occlusion into sylvian branch vessel. The O68 catheter could not be induced to enter the ren praclinoid carotid secondary to tortuosity. Catheter exchange was performed with placement of an 060 catheter which was then successfully manipul ated up into the middle cerebral artery and placed at the face of the occlusion. The microcatheter an d microwire were removed. The penumbra catheter was connected to regulated suction and allowed to eng age the presumed thromboembolic material. After approximately 2 minutes and 45 seconds, the catheter was slowly withdrawn. Suction was simultaneously applied to the neuron sheath. The lumbar catheter wa s removed. The hemostatic valve was removed from the groin sheath and the sheath was allowed to back bleed. A small chevron-shaped thrombus was retrieved from the aspirate. Followup arteriography reveal ed excellent recanalization of the MCA with no evidence of residual branch vessel injury or occlusion . Flow in the anterior cerebral artery was stable. Sheath arteriography was performed to assess for femoral arteriotomy closure. The sheath was removed and the arteriotomy was closed with the Angio-Seal device. Hemostasis was obtained with the prescribed medicated closure device. Anesthesia department represent atives were present to assist with monitoring and sedation during the procedure. EKG and oximetry rem ained stable throughout the procedure. Dr. Iván Perez assisted with all of the above described procedures as co-black oxide operator. CONCLUSION: Successful intracranial thrombectomy for acute stroke as described in detail above. Peewee Espinal MD on November 25, 2017 at 11:28 Board Certified Radiologist. This report was verified electronically. ADDENDUM: Pre-treatment TICI score 0 Posttreatment TICI score 3 Peewee Espinal MD on November 26, 2017 at 14:56 Board Certified Radiologist. This report was verified electronically.
[2017-11-25] MEDS: INSULIN ASPART SUPPLEMENTAL SCALE SQ SCH ×3 (12:00→21:00)
[2017-11-25] MEDS: SODIUM CHLOR 0.9% 1000 ML INJ 1,000 ML IV SCH (12:00)
[2017-11-25] MEDS: ARTIFICIAL TEARS OPTH SOLN 15 ML BTL EACH EYE SCH ×2 (12:27→17:46)
[2017-11-25] MEDS ORDERED: CHLORHEXIDINE GLUCONATE 2 % 1 PACK (2 CLOTHS) TOP PRN (12:30)
[2017-11-25] MEDS ORDERED: CARD180C5 PO (13:01)
[2017-11-25] MEDS ORDERED: METO-426 PO (13:01)
--- NOTE | 2017-11-25 15:07 | RADRPT ---
EXAM DATE/TIME: 11/25/2017 14:30 [facility] COMPARISON: No previous studies available for comparison. INDICATIONS : CVA. MEDICAL HISTORY : Diabetes mellitus type 2. SURGICAL HISTORY : Appendectomy. Cholecystectomy. Left shoulder. ENCOUNTER: Initial ACUITY: 2 day PAIN SCORE: Nonresponsive. LOCATION: head TECHNIQUE: Multiplanar, multisequence MRI of the brain was performed without contrast. FINDINGS: CEREBRUM: The ventricles are normal for age. No evidence of midline shift, mass lesion, hemorrhage or acute in farction. No extraaxial fluid collections are seen. The pituitary gland and suprasellar cistern are normal in configuration. WHITE MATTER: Chronic ischemic demyelinization change. POSTERIOR FOSSA: The cerebellum and brainstem are intact. The 4th ventricle is midline. The cerebellopontine angle is unremarkable. The cerebellar tonsils are normal in position. DIFFUSION IMAGING: There 2 very small areas of focal increased signal on the diffusion weighted sequences adjacent to th e right lateral ventricle in the deep white matter tracks. Both could be a tiny lacunar infarct. Ther e is study is unremarkable. EXTRACRANIAL: The visualized portions of the orbits and paranasal sinuses are unremarkable. CONCLUSION: Some increased signal on the diffusion weighted sequences and 2 small areas in the periventricular wh ite matter could be tiny lacunar infarcts. No significant mass or mass effect. Darrel Marti MD on November 25, 2017 at 15:02 Board Certified Radiologist. This report was verified electronically.
--- NOTE | 2017-11-25 15:11 | RADRPT ---
EXAM DATE/TIME: 11/25/2017 14:30 [facility] COMPARISON: No previous studies available for comparison. INDICATIONS : CVA. MEDICAL HISTORY : Diabetes mellitus type 2. SURGICAL HISTORY : Cholecystectomy. Appendectomy. Left shoulder. ENCOUNTER: Initial ACUITY: 2 day PAIN SCORE: Nonresponsive. LOCATION: head Please note a normal MRA of the brain does not entirely exclude the possibility of a small aneurysm, nor the possibility of distal intracranial vessel disease. TECHNIQUE: 3D time of flight MRA was performed. Source images, multiplanar STS MIP, and 3D volume MIP reconstru ctions were reviewed. FINDINGS: There is excellent visualization of the major intracranial arteries out to the second-order branch ve ssels. The abrupt cut off of the right middle through artery has essentially resolved. There is no e vidence for aneurysm, vessel truncation or stenosis, and no evidence for vascular malformation. There are absent posterior communicating arteries CONCLUSION: The right middle cerebral artery cutoff is now resolved with symmetric flow to the right middle cereb ral circulation. Marked improvement. Darrel Marti MD on November 25, 2017 at 15:06 Board Certified Radiologist. This report was verified electronically.
--- NOTE | 2017-11-25 15:29 | PD.RAD ---
Post Procedure Progress Note Pre Procedure Diagnosis: (1) Cerebrovascular accident (CVA) due to embolism of right middle cerebral artery Post Procedure Diagnosis: (1) Cerebrovascular accident (CVA) due to embolism of right middle cerebral artery Procedure Date: Nov 25, 2017 Supervising Radiologist: Peewee Espinal Assisting Radiologist: Iván Perez MD Proceduralist/Assist: Peña Ramirez, RT(R) Estimated blood loss: none Anesthesia: MAC Plan of Activity Patient to Unit: Critical Care Patient Condition: Fair See PACS Report for procedural detail/treatment Vascular-Arterial Procedure Procedure 1 Procedure Site: Cerebral Procedure(s): Embolectomy Access Access Site(s): Right Femoral Artery Closure Site(s): Right vascular closure device Treament Area: right MCA embolectomy Peewee Espinal MD Nov 25, 2017 15:29
[2017-11-25] MEDS ORDERED: DILTIAZEM INJ 125 MG in SODIUM CHLORIDE 0.9% INJ 100 ML IV PRN (15:30)
--- NOTE | 2017-11-25 16:55 | MB ---
cc: JANE MEJÍA M.D. DATE OF CONSULTATION 11/25/2017 DATE OF 1935, 82 years old REASON FOR CONSULTATION Stroke alert. HISTORY OF THE PRESENT ILLNESS This is an 82-year-old woman who was brought in by EMS for possible stroke alert. Apparently sitting eating breakfast when she dropped her coffee about 7:10 in the morning. Left-sided weakness, trouble speaking. I was informed that she has a history of A fib, hypertension, cardiac disease on Eliquis. She was sent to CT. CT was unremarkable but there was a clot in the left MCA. It was decided at that point that clot extraction will be completed by interventional radiology which it was and the patient now is in the ICU status post MRI, MRA. She is now able to lift her left arm. She is still a little confused, may be from sedation of propofol. The patient I find out now that was apparently off her Eliquis due to supposedly having a pancreatic biopsy today. How long she was off of it is unknown. PAST MEDICAL HISTORY 1. Pancreatic cyst. 2. Elevated CEA. 3. Osteoarthritis. 4. Mitral regurgitation. 5. Colon polyps. 6. Hypertension. 7. Hyperlipidemia. 8. Hypothyroidism. 9. History of [place] in 2011. 10. Heart disease. 11. Diabetes. 12. Chronic atrial fibrillation. 13. Chronic anticoagulation use. MEDICATIONS Home medicines are: 1. Cardizem. 2. Metoprolol. 3. Pravastatin. 4. Synthroid. 5. Lantus. 6. Eliquis. 7. Gabapentin. 8. Tofranil. 9. Multivitamin. 10. Nitrostat. 11. Protonix. SOCIAL HISTORY Apparently lives with her . No tobacco, alcohol or drugs. PHYSICAL EXAMINATION VITAL SIGNS: On exam vitals were temperature not listed. Blood pressure has been stable in the ICU. GENERAL: Lying in bed in no acute distress. NECK: Supple. HEART: Irregularly irregular. NEUROLOGIC: She is arousable. No significant facial droop at this point in time. Still very confused. Can lift her left arm up. She is at best a 4/5 in arms, 5/5 in the leg left side. Does not follow for cerebellar but toes go down bilaterally. DTRs are 1+, withdraws to pain. LABORATORY DATA Labs reviewed. Hemoglobin 10.6. Her platelets returned to 56,000. Coag panel PTT 21.6, fibrinogen 424. Chemistries, glucose 125. Troponin less than 0.02. Toxicology negative. Urine unremarkable. IMAGING STUDIES CT head was unremarkable. Neck CTA showed moderate atherosclerotic plaque in the proximal internal carotids bilateral less than 50%. Head CTA occlusion of proximal right MCA with mild distal reconstitution. No other findings. . The right MCA cut off is now resolved with symmetric flow in the right middle cerebral circulation marked improvement. MRI of the brain shows some increased signal on diffusion sequence, there are two small areas of periventricular white matter lacuna infarcts. IMPRESSION 1. A 82 year-old woman status post stroke status post thrombus removal by interventional radiology now improved. 2. Atrial fibrillation. 3. Hypertension. 4. Hyperlipidemia. 5. Coronary artery disease. PLAN Recommend restarting her Eliquis tomorrow. PT, OT, speech therapy. Rehab consult. Subcu Lovenox for DVT prophylaxis. N.p.o. today with normal saline at 70 mL an hour. Continue current care and further recommendations will be made if and as needed. MD SHERI Bradshaw/MANJULA /3:14 PM /4:19 PM
[2017-11-25] MEDS: CALCIUM CARBONATE 1.25 GM (CA 500 MG) TAB PO SCH (20:16)
[2017-11-25] MEDS: SODIUM CHLORIDE 0.9% FLUSH 10 ML FLUSH IV FLUSH SCH (20:16)
[2017-11-25] MEDS: DOCUSATE SODIUM 50 MG/SENNA 8.6 MG TAB PO SCH (20:16)
[2017-11-25] MEDS: METOPROLOL TARTRATE 25 MG TAB PO SCH (20:16)
[2017-11-25] MEDS: CHOLECALCIFEROL (VIT D3) 400 UNIT TAB PO SCH (20:16)
[2017-11-25] MEDS ORDERED: METOPROLOL TARTRATE 25 MG TAB PO SCH (21:00)
[2017-11-25] MEDS ORDERED: SODIUM CHLORIDE 0.9% FLUSH 10 ML FLUSH IV FLUSH SCH (21:00)
[2017-11-26] VITALS (9 sets, daily range): BP systolic 132–173; BP diastolic 64–90; PULSE 74–111; RESP 15–24; TEMP 97.2–99.3; O2SAT 94–99
[2017-11-26] MEDS: SODIUM CHLOR 0.9% 1000 ML INJ 1,000 ML IV SCH (02:09)
[2017-11-26] MEDS: CHLORHEXIDINE GLUCONATE 2 % 1 PACK (2 CLOTHS) TOP SCH (04:00)
[2017-11-26 04:32] LABS: INTERNATIONAL NORMALIZED RATIO 3.7 RATIO; PROTHROMBIN TIME - PATIENT 37.5 SEC (9.8-11.6)
[2017-11-26 04:52] LABS: ALBUMIN 3.3 GM/DL (3.4-5.0); ALT (GPT) 38 U/L (10-53); AST (GOT) 37 U/L (15-37); BICARBONATE 25.3 MEQ/L (21.0-32.0); BLOOD UREA NITROGEN 15 MG/DL (7-18); CALCIUM 8.7 MG/DL (8.5-10.1); CHLORIDE 107 MEQ/L (98-107); CHOLESTEROL 125 MG/DL (120-200); CREATININE 0.83 MG/DL (0.50-1.00); GLOMERULAR FILTRATION RATE 65 ML/MIN (>89); GLUCOSE,RANDOM 103 MG/DL (74-106); SODIUM (NA) 139 MEQ/L (136-145)
[2017-11-26 04:56] LABS: ALKALINE PHOSPHATASE 126 U/L (45-117); CHOLESTEROL/ HDL RATIO 2.41 RATIO; HDL CHOLESTEROL 51.7 MG/DL (40.0-60.0); LDL CHOLESTEROL 50 MG/DL (0-99); PHOSPHORUS 3.2 MG/DL (2.5-4.9); TOTAL PROTEIN 7.4 GM/DL (6.4-8.2); TRIGLYCERIDES 116 MG/DL (42-150)
[2017-11-26] MEDS: LEVOTHYROXINE SODIUM 50 MCG TAB PO SCH (05:01)
[2017-11-26 05:40] LABS: AUTOMATED NEUTROPHIL # 9.4 TH/MM3 (1.8-7.7); BASOPHIL # 0.1 TH/MM3 (0-0.2); BASOPHIL % 0.8 % (0.0-2.0); EOSINOPHIL # 0.1 TH/MM3 (0-0.4); EOSINOPHIL % 0.5 % (0.0-4.0); HEMATOCRIT 37.2 % (35.0-46.0); HEMOGLOBIN 12.3 GM/DL (11.6-15.3); LYMPH % 13.2 % (9.0-44.0); LYMPHOCYTE # 1.6 TH/MM3 (1.0-4.8); MEAN CELL VOLUME 88.3 FL (80.0-100.0); MEAN CORPUSCULAR HEMOGLOBIN 29.2 PG (27.0-34.0); MEAN CORPUSCULAR HGB CONC 33.1 % (32.0-36.0); MEAN PLATELET VOLUME 9.6 FL (7.0-11.0); MONO % 6.9 % (0.0-8.0); MONOCYTE # 0.8 TH/MM3 (0-0.9); NEUT % 78.6 % (16.0-70.0); PLATELET COUNT 233 TH/MM3 (150-450); RED BLOOD COUNT 4.21 MIL/MM3 (4.00-5.30); RED CELL DISTRIBUTION WIDTH 17.5 % (11.6-17.2); WHITE BLOOD COUNT 11.9 TH/MM3 (4.0-11.0)
--- NOTE | 2017-11-26 07:44 | HHI.CCPN ---
Subjective Remarks/Hospital Course 82-year-old female. Date of admission 11/25/2079. Past medical history includes past medical history includes chronic atrial fibrillation on Apixaban, hypertension, dyslipidemia, nonobstructive coronary artery disease, history of MT 19 ,012, diabetes mellitus hemoglobin A1c of 7.9, pancreatic cyst scheduled for outpatient EUS/FNA biopsy with elevated CEA, no mitral regurgitation colonic polyps. She is on imipramine along with gabapentin as well. See originally presented to [place] ER today brought in by EMS for possible stroke alert. She apparently was sitting and eating breakfast, dropped her coffee at around 6AM in discussion with her . At that time, symptomatically expressing dysarthria, a fascia and focal left-sided weakness.. She currently is not able to give the emergency room physician much of a history. She is not able to lift her left arm. She is able to follow commands. There is a notable facial droop left-sided. Apparently, she was initially GCS 7 but in the ER, is GCS 14. EMS states that she is looking more oriented as they transported her. CT brain revealed chronic ischemic changes with no acute findings. CTA of the brain revealed right proximal MCA occlusion. CTA of the neck revealed less than 50% stenosis bilateral carotids. Since she was on Apixaban, she was not a candidate for alteplase infusion. Patient was taken back to IR for stent retrieval thrombus lysis which was successful. She is currently being seen in room 1303 in [facility]. She is currently arousable and follows commands with the right upper extremity and right lower extremity only. She withdraws her left lower extremity. She does not follow commands with her left upper extremity but does move spontaneously. Subjective 11/26: Remarkable improvement. More awake and alert and interactive this AM. Passed swallow evaluation. Left upper extremity strength and coordination much improved. Objective Vital Signs Date Time Temp Pulse Resp B/P (MAP) Pulse Ox O2 Delivery O2 Flow Rate FiO2 11/26/17 07:00 99 Room Air 11/26/17 06:00 74 11/26/17 04:00 98.2 17 132/64 (86) 11/25/17 19:29 3.00 Intake and Output 11/26/17 11/26/17 11/27/17 08:00 16:00 00:00 Intake Total 1399.5 ml Output Total 500 ml Balance 899.5 ml Result Diagram: 11/26/17 0408 11/26/17 0408 Imaging Last Impressions Cerebral Arteriogram 11/25/17 1056 Signed Impressions: Service Date/Time: Saturday, November 25, 2017 09:24 - CONCLUSION: Successful intracranial thrombectomy for acute stroke as described in detail above. Peewee Espinal MD Neck CTA 11/25/17 0828 Signed Impressions: Service Date/Time: Saturday, November 25, 2017 08:58 - CONCLUSION: 1. Moderate severity atherosclerotic plaque in the proximal internal cord arteries bilaterally with less than 50%% stenosis bilaterally. 2. No acute abnormality is identified. Peewee Fitzpatrick MD Head CTA 11/25/1728 Signed Impressions: Service Date/Time: Saturday, November 25, 2017 08:58 - CONCLUSION: 1. 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 2. No other acute intracranial abnormality is identified. 3. These findings were telephoned to Dr. Reid. Peewee Fitzpatrick MD Head Magnetic Resonance Angiography 11/25/17 0000 Signed Impressions: Service Date/Time: Saturday, November 25, 2017 14:30 - CONCLUSION: The right middle cerebral artery cutoff is now resolved with symmetric flow to the right middle cerebral circulation. Marked improvement. Darrel Marti MD Head CT 11/25/17 0000 Signed Impressions: Service Date/Time: Saturday, November 25, 2017 08:04 - CONCLUSION: 1. 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 2. No acute intracranial abnormality. Kj Summers MD Brain MRI 11/25/17 0000 Signed Impressions: Service Date/Time: Saturday, November 25, 2017 14:30 - CONCLUSION: Some increased signal on the diffusion weighted sequences and 2 small areas in the periventricular white matter could be tiny lacunar infarcts. No significant mass or mass effect. Darrel Marti MD Objective Remarks GENERAL: 82-year-old female currently resting in bed in no acute distress SKIN: Warm and dry. No rash. Patient with open sore on the medial aspect of left ankle HEAD: Atraumatic. Normocephalic. EYES: Pupils equal and round about 3 mm bilaterally and reactive. No scleral icterus. No injection or drainage. ENT: No nasal bleeding or discharge. Mucous membranes pink and moist. NECK: Trachea midline. No JVD. CARDIOVASCULAR: IRR. S1, S2 no S4. 2/6 systolic murmur left lower sternal border RESPIRATORY: Clear to auscultation. Breath sounds equal bilaterally. GASTROINTESTINAL: Abdomen soft, non-tender, nondistended. Hypoactive bowel sounds are appreciated MUSCULOSKELETAL: Extremities trace bilateral lower extremity edema. NEUROLOGICAL: Arousable. Left facial droop much improved. Strength 4-5 left upper and lower extremity. 5 out of 5 right upper and lower extremity strength 5 out of 5 right upper and lower extremity. Decreased sensation to noxious stimuli left upper extremity. Slight left greater than right pronator drift. Gait was not assessed. Urinary Catheter: No Assessment to: Continue Vascular Central Line Catheter: No Assessment to: Continue A/P Assessment and Plan Neuro/Psych: Right MCA CVA Depression Peripheral neuropathy CT brain 11/25 revealed no acute intracranial findings CTA brain was essentially revealed right proximal MCA occlusion. CTA neck revealed less than 50% bilateral carotid stenosis. Status post stent retrieval thrombolysis by interventional radiology 11/25 right MCA Neurology consultation with Dr. Tan Holding gabapentin 400 mg by mouth daily and imipramine 50 mg at night. Resume when clinically indicated on 11/27 Hold full dose anticoagulation 12-24 hrs. post stent retrieval. Restart anticoagulation when okay by neurology further recommendations MRI/A 11/25 revealed 2 tiny lacunar infarcts in right lateral ventricle. MRA brain revealed resolution of thrombus CV: Chronic atrial fibrillation Hypertension Dyslipidemia Continue metoprolol tartrate 75 mg by mouth twice a day for hypertension/rate control Will resume diltiazem at 60 mg every 6 hours. She is on Extended release 180 mg by mouth daily at home Continue pravastatin 40 mg by mouth daily for dyslipidemia 2-D echocardiogram ordered Resp: Nasal cannula to maintain saturations greater than equal to 92% Incentive spirometry while awake GI: Pancreatic cyst - 3.6 x 2.7 cm the pancreatic head plan for outpatient EUS/FNA biopsy by GI Gastroesophageal reflux disease History of colonic polyps Hypoalbuminemia ADA diet. Advance per speech therapy Pantoprazole 40 mg daily for GI prophylaxis/home medication for gastroesophageal reflux disease Docusate sodium/senna 1 tablet twice a day for bowel regimen : Sim catheter placed for accurate I's and O's in a critically ill patient Endo: Diabetes mellitus/poorly controlled hemoglobin A1c 7.9 Hypothyroidism Holding insulin glargine 10 units subcutaneous daily/home medication dosage Sliding-scale insulin with Accu-Cheks to maintain euglycemia/low regimen before meals/at bedtime Continue levothyroxine 50 g by mouth daily Check TSH in a.m. 11/27 Renal: Creatinine currently within normal limits Monitor urine output Accurate I's and O's Heme: Leukocytosis Chronic Apixaban use Elevated CEA Elevated PT/INR/PTT 11/26 question lab error Monitor CBC daily. Follow trends Repeat coags. Resume Apixaban if coags within normal limits ID: Monitor for infection FEN: Replace electrolytes as clinically indicated MSK: Osteoporosis/osteopenia Continue calcium with vitamin D 500/400 one tablet twice a day when clinically indicated PT/OT evaluate and treat Access - Utilize peripheral IV. Central line if indicated Prophylaxis - GI - pantoprazole - DVT - SCD/holding pharmacological prophylaxis 24 hours post stent retrieval. Okay for enoxaparin per neurology. We'll start Apixaban today if coags within normal limits Level II follow-up. Patient is stable from a critical care medicine standpoint. Assign care to hospitalist in a.m. 11/27. Okay to transfer from ICU Jason Perez MD Nov 26, 2017 07:44
[2017-11-26] MEDS: INSULIN ASPART SUPPLEMENTAL SCALE SQ SCH ×4 (08:00→21:13)
[2017-11-26] MEDS: ARTIFICIAL TEARS OPTH SOLN 15 ML BTL EACH EYE SCH ×3 (08:50→18:00)
[2017-11-26] MEDS: SODIUM CHLORIDE 0.9% FLUSH 10 ML FLUSH IV FLUSH SCH ×2 (08:50→20:46)
[2017-11-26] MEDS ORDERED: APIXABAN 5 MG TABLET PO SCH (09:00)
[2017-11-26] MEDS: MULTIVITAMINS/MINERALS THERAPEUTIC TAB PO SCH (09:17)
[2017-11-26] MEDS: CALCIUM CARBONATE 1.25 GM (CA 500 MG) TAB PO SCH ×2 (09:17→20:47)
[2017-11-26] MEDS: PRAVASTATIN SOD 40 MG TAB PO SCH (09:17)
[2017-11-26] MEDS: METOPROLOL TARTRATE 25 MG TAB PO SCH ×2 (09:17→20:47)
[2017-11-26] MEDS: DOCUSATE SODIUM 50 MG/SENNA 8.6 MG TAB PO SCH ×2 (09:17→20:47)
[2017-11-26] MEDS: PANTOPRAZOLE SOD 20 MG DELAYED RELEASE TAB PO SCH (09:17)
[2017-11-26] MEDS: CHOLECALCIFEROL (VIT D3) 400 UNIT TAB PO SCH ×2 (09:17→20:47)
[2017-11-26] MEDS: DILTIAZEM HCL 60 MG TAB PO SCH ×3 (12:00→23:59)
[2017-11-26 16:05] LABS: INTERNATIONAL NORMALIZED RATIO 1.1 RATIO; PROTHROMBIN TIME - PATIENT 11.4 SEC (9.8-11.6)
[2017-11-26 16:09] LABS: HEMOGLOBIN A1C 7.9 % (4.3-6.0)
--- NOTE | 2017-11-26 16:37 | ECHRPT ---
Indication: CVA/TIA CONCLUSIONS Normal left ventricular size. Wall thickness is normal. The left ventricular systolic function is severely reduced with an estimated ejection fraction in th e range of 25-30%. The right ventricular systoilc function is moderately decreased. The left atrial size is moderately dilated. The right atrial size is mildly dilated. [id number] mitral valve regurgitation. There is severe tricuspid regurgitation. The estimated pulmonary arterial pressure is 66 mmHg. BP: 108 / 77 HR: 98 Rhythm: MEASUREMENTS (Male / Female) Normal Values Technical Quality:Good 2D ECHO LV Diastolic Diameter PLAX 4.5 cm 4.2 - 5.9 / 3.9 - 5.3 cm LV Systolic Diameter PLAX 4.2 cm IVS Diastolic Thickness 1.1 cm 0.6 - 1.0 / 0.6 - 0.9 cm LVPW Diastolic Thickness 0.7 cm 0.6 - 1.0 / 0.6 - 0.9 cm LV Relative Wall Thickness 0.4 RV Internal Dim ED PLAX 2.8 cm LA Systolic Diameter LX 3.7 cm 3.0 - 4.0 / 2.7 - 3.8 cm DOPPLER Mitral E Point Velocity 85.4 cm/s TR Peak Velocity 390.0 cm/s TR Peak Gradient 60.8 mmHg FINDINGS LEFT VENTRICLE Normal left ventricular size. Wall thickness is normal. The left ventricular systolic function is severely reduced with an estimated ejection fraction in th e range of 25-30%. RIGHT VENTRICLE The right ventricular systoilc function is moderately decreased. LEFT ATRIUM The left atrial size is moderately dilated. RIGHT ATRIUM The right atrial size is mildly dilated. ATRIAL SEPTUM Normal atrial septal thickness without atrial level shunting by limited color doppler interrogation. AORTA The aortic root and proximal ascending aorta are normal in size on limited imaging. MITRAL VALVE Yxuuyjno-kq-voinog mitral valve regurgitation. AORTIC VALVE Trileaflet aortic valve. No aortic valve stenosis or regurgitation. TRICUSPID VALVE There is severe tricuspid regurgitation. The estimated pulmonary arterial pressure is 66 mmHg. PULMONARY VALVE The pulmonary valve is not well visualized. VESSELS The inferior vena cava is normal in size. PERICARDIUM No pericardial effusion. Donnell Crowe MD (Electronically Signed) Final Date:26 November 2017 16:36
[2017-11-26] MEDS ORDERED: GABAPENTIN 400 MG CAP PO SCH (21:00)
[2017-11-26] MEDS ORDERED: IMIPRAMINE HCL 25 MG TAB PO SCH (21:00)
[2017-11-27] VITALS: BP 124/69; PULSE 78; RESP 24; TEMP 98.8; O2SAT 97
[2017-11-27 02:00] VITALS: PULSE 64
[2017-11-27] MEDS: CHLORHEXIDINE GLUCONATE 2 % 1 PACK (2 CLOTHS) TOP SCH (03:03)
[2017-11-27 04:00] VITALS: BP 94/55; PULSE 76; RESP 17; TEMP 98.2; O2SAT 97
[2017-11-27 04:42] LABS: MEAN CELL VOLUME 88.3 FL (80.0-100.0); MEAN CORPUSCULAR HEMOGLOBIN 29.3 PG (27.0-34.0); MEAN CORPUSCULAR HGB CONC 33.2 % (32.0-36.0); MEAN PLATELET VOLUME 9.1 FL (7.0-11.0); PLATELET COUNT 219 TH/MM3 (150-450); RED BLOOD COUNT 3.74 MIL/MM3 (4.00-5.30); RED CELL DISTRIBUTION WIDTH 17.2 % (11.6-17.2); WHITE BLOOD COUNT 8.6 TH/MM3 (4.0-11.0)
[2017-11-27] MEDS: LEVOTHYROXINE SODIUM 50 MCG TAB PO SCH (05:14)
[2017-11-27] MEDS: DILTIAZEM HCL 60 MG TAB PO SCH ×2 (05:14→11:59)
[2017-11-27 05:17] LABS: CALCIUM 8.7 MG/DL (8.5-10.1); CREATININE 0.73 MG/DL (0.50-1.00)
[2017-11-27 06:00] VITALS: PULSE 82
--- NOTE | 2017-11-27 07:56 | HHI.CCPN ---
Subjective Remarks/Hospital Course 82-year-old female. Date of admission 11/25/2079. Past medical history includes past medical history includes chronic atrial fibrillation on Apixaban, hypertension, dyslipidemia, nonobstructive coronary artery disease, history of [place] 19 ,012, diabetes mellitus hemoglobin A1c of 7.9, pancreatic cyst scheduled for outpatient EUS/FNA biopsy with elevated CEA, no mitral regurgitation colonic polyps. She is on imipramine along with gabapentin as well. See originally presented to [facility] ER today brought in by EMS for possible stroke alert. She apparently was sitting and eating breakfast, dropped her coffee at around 6AM in discussion with her . At that time, symptomatically expressing dysarthria, a fascia and focal left-sided weakness.. She currently is not able to give the emergency room physician much of a history. She is not able to lift her left arm. She is able to follow commands. There is a notable facial droop left-sided. Apparently, she was initially GCS 7 but in the ER, is GCS 14. EMS states that she is looking more oriented as they transported her. CT brain revealed chronic ischemic changes with no acute findings. CTA of the brain revealed right proximal MCA occlusion. CTA of the neck revealed less than 50% stenosis bilateral carotids. Since she was on Apixaban, she was not a candidate for alteplase infusion. Patient was taken back to IR for stent retrieval thrombus lysis which was successful. She is currently being seen in room 1303 in [facility]. She is currently arousable and follows commands with the right upper extremity and right lower extremity only. She withdraws her left lower extremity. She does not follow commands with her left upper extremity but does move spontaneously. Subjective 11/26: Remarkable improvement. More awake and alert and interactive this AM. Passed swallow evaluation. Left upper extremity strength and coordination much improved. 11/27: neuro intact. started on apixiban. stable for inpatient rehab discharge. strength on the left continues to improve. Objective Vital Signs Date Time Temp Pulse Resp B/P (MAP) Pulse Ox O2 Delivery O2 Flow Rate FiO2 11/27/17 07:00 93 Room Air 11/27/17 06:00 82 11/27/17 04:00 98.2 17 94/55 (68) 11/26/17 19:35 21 11/25/17 19:29 3.00 Intake and Output 11/27/17 11/27/17 11/28/17 08:00 16:00 00:00 Output Total 1425 ml Balance -1425 ml Result Diagram: 11/27/17 0342 11/27/17 0342 Imaging Last Impressions Cerebral Arteriogram 11/25/17 1056 Signed Impressions: Service Date/Time: Saturday, November 25, 2017 09:24 - CONCLUSION: Successful intracranial thrombectomy for acute stroke as described in detail above. Peewee Espinal MD Neck CTA 11/25/1728 Signed Impressions: Service Date/Time: Saturday, November 25, 2017 08:58 - CONCLUSION: 1. Moderate severity atherosclerotic plaque in the proximal internal cord arteries bilaterally with less than 50%% stenosis bilaterally. 2. No acute abnormality is identified. Peewee Fitzpatrick MD Head CTA 11/25/1728 Signed Impressions: Service Date/Time: Saturday, November 25, 2017 08:58 - CONCLUSION: 1. 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 2. No other acute intracranial abnormality is identified. 3. These findings were telephoned to Dr. Reid. Peewee Fitzpatrick MD Head Magnetic Resonance Angiography 11/25/17 0000 Signed Impressions: Service Date/Time: Saturday, November 25, 2017 14:30 - CONCLUSION: The right middle cerebral artery cutoff is now resolved with symmetric flow to the right middle cerebral circulation. Marked improvement. Darrel Marti MD Head CT 11/25/17 0000 Signed Impressions: Service Date/Time: Saturday, November 25, 2017 08:04 - CONCLUSION: 1. 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 2. No acute intracranial abnormality. Kj Summers MD Brain MRI 11/25/17 0000 Signed Impressions: Service Date/Time: Saturday, November 25, 2017 14:30 - CONCLUSION: Some increased signal on the diffusion weighted sequences and 2 small areas in the periventricular white matter could be tiny lacunar infarcts. No significant mass or mass effect. Darrel Marti MD Objective Remarks GENERAL: 82-year-old female currently resting in bed in no acute distress SKIN: Warm and dry. No rash. HEAD: Atraumatic. Normocephalic. EYES: Pupils equal and round about 3 mm bilaterally and reactive. ENT: No nasal bleeding or discharge. Mucous membranes pink and moist. NECK: Trachea midline. No JVD. CARDIOVASCULAR: IRR. RESPIRATORY: room air. unlabored. equal chest rise. GASTROINTESTINAL: Abdomen soft, non-tender, nondistended. MUSCULOSKELETAL: Extremities trace bilateral lower extremity edema. NEUROLOGICAL: Arousable. no appreciable facial droop. strength improving on left 4+/5. 5/5 on right. A/P Assessment and Plan Assessment: 82yF with afib and now with right MCA CVA s/p mechanical thrombectomy. clinically improving. stable for transfer to [place]. Neuro/Psych: Right MCA CVA Depression Peripheral neuropathy CT brain 11/25 revealed no acute intracranial findings CTA brain was essentially revealed right proximal MCA occlusion. CTA neck revealed less than 50% bilateral carotid stenosis. Status post stent retrieval thrombolysis by interventional radiology 11/25 right MCA Neurology consultation with Dr. Tan Holding gabapentin 400 mg by mouth daily and imipramine 50 mg at night. Resume when clinically indicated on 11/27 restart apixiban. MRI/A 11/25 revealed 2 tiny lacunar infarcts in right lateral ventricle. MRA brain revealed resolution of thrombus CV: Chronic atrial fibrillation Hypertension Dyslipidemia Continue metoprolol tartrate 75 mg by mouth twice a day for hypertension/rate control diltiazem at 60 mg every 6 hours. She is on Extended release 180 mg by mouth daily at home Continue pravastatin 40 mg by mouth daily for dyslipidemia 2-D echocardiogram: ef 25%, mod-severe MR. Resp: Nasal cannula to maintain saturations greater than equal to 92% Incentive spirometry while awake currently on room air. GI: Pancreatic cyst - 3.6 x 2.7 cm the pancreatic head plan for outpatient EUS/FNA biopsy by GI Gastroesophageal reflux disease History of colonic polyps Hypoalbuminemia ADA diet. Advance per speech therapy Pantoprazole 40 mg daily for GI prophylaxis/home medication for gastroesophageal reflux disease Docusate sodium/senna 1 tablet twice a day for bowel regimen : d/c howard catheter lasix 20mg iv x 1. Endo: Diabetes mellitus/poorly controlled hemoglobin A1c 7.9 Hypothyroidism Holding insulin glargine 10 units subcutaneous daily/home medication dosage Sliding-scale insulin with Accu-Cheks to maintain euglycemia/low regimen before meals/at bedtime Continue levothyroxine 50 g by mouth daily Renal: Creatinine currently within normal limits Monitor urine output Accurate I's and O's Heme: Leukocytosis Chronic Apixaban use Elevated CEA Elevated PT/INR/PTT 11/26 question lab error Monitor CBC daily. Follow trends Repeat coags. Resume Apixaban ID: Monitor for infection FEN: Replace electrolytes as clinically indicated MSK: Osteoporosis/osteopenia Continue calcium with vitamin D 500/400 one tablet twice a day when clinically indicated PT/OT evaluate and treat Access - Utilize peripheral IV. Prophylaxis - GI - pantoprazole - DVT - SCD/holding pharmacological prophylaxis 24 hours post stent retrieval. Okay for enoxaparin per neurology. We'll start Apixaban today if coags within normal limits stable for transfer to [facility] today. Chris Chiang MD Nov 27, 2017 07:56
[2017-11-27] MEDS ORDERED: DILT60TA33 PO (07:58)
[2017-11-27 08:00] VITALS: BP 154/73; PULSE 89; RESP 18; TEMP 97.3; O2SAT 92
[2017-11-27] MEDS: INSULIN ASPART SUPPLEMENTAL SCALE SQ SCH (08:00)
--- NOTE | 2017-11-27 08:01 | HHI.DS ---
Discharge Summary Admission Date Nov 25, 2017 at 09:54 Discharge Date: Nov 27, 2017 Admitting Diagnosis stroke alert/intravascular TPA (1) Cerebrovascular accident (CVA) due to embolism of right middle cerebral artery ICD Code: I63.411 - Cerebral infarction due to embolism of right middle cerebral artery Diagnosis: Principal (2) BMI 31.0-31.9,adult ICD Code: Z68.31 - Body mass index (BMI) 31.0-31.9, adult Diagnosis: Principal (3) Coronary artery disease ICD Code: I25.10 - Atherosclerotic heart disease of [place] coronary artery without angina pectoris Diagnosis: Secondary (4) Peripheral vascular disease ICD Code: I73.9 - Peripheral vascular disease, unspecified Diagnosis: Secondary (5) Gastroesophageal reflux disease ICD Code: K21.9 - Gastro-esophageal reflux disease without esophagitis Diagnosis: Secondary (6) Dyslipidemia ICD Code: E78.5 - Hyperlipidemia, unspecified Diagnosis: Principal (7) Colonic polyp ICD Code: K63.5 - Polyp of colon Diagnosis: Secondary (8) Osteoarthritis ICD Code: M19.90 - Unspecified osteoarthritis, unspecified site Diagnosis: Secondary (9) Type 2 diabetes mellitus not at goal ICD Code: E11.9 - Type 2 diabetes mellitus not at goal Diagnosis: Secondary Status: Chronic (10) Hypothyroidism, unspecified ICD Code: E03.9 - Hypothyroidism, unspecified Diagnosis: Secondary Status: Chronic (11) Atrial fibrillation, chronic ICD Code: I48.2 - Chronic atrial fibrillation Diagnosis: Secondary Status: Chronic (12) Diverticulosis of colon without diverticulitis Diagnosis: Secondary Status: Chronic (13) Osteopenia Diagnosis: Secondary Status: Chronic (14) Pancreatic cyst ICD Code: K86.2 - Cyst of pancreas Diagnosis: Secondary Status: Acute (15) Elevated CEA ICD Code: R97.0 - Elevated carcinoembryonic antigen [CEA] Diagnosis: Secondary Brief History 82-year-old female. Date of admission 11/25/2079. Past medical history includes past medical history includes chronic atrial fibrillation on Apixaban, hypertension, dyslipidemia, nonobstructive coronary artery disease, history of CO ,012, diabetes mellitus hemoglobin A1c of 7.9, pancreatic cyst scheduled for outpatient EUS/FNA biopsy with elevated CEA, no mitral regurgitation colonic polyps. She is on imipramine along with gabapentin as well. See originally presented to [facility] today brought in by EMS for possible stroke alert. She apparently was sitting and eating breakfast, dropped her coffee at around 6AM in discussion with her . At that time, symptomatically expressing dysarthria, a fascia and focal left-sided weakness.. She currently is not able to give the emergency room physician much of a history. She is not able to lift her left arm. She is able to follow commands. There is a notable facial droop left-sided. Apparently, she was initially GCS 7 but in the ER, is GCS 14. EMS states that she is looking more oriented as they transported her. CT brain revealed chronic ischemic changes with no acute findings. CTA of the brain revealed right proximal MCA occlusion. CTA of the neck revealed less than 50% stenosis bilateral carotids. Since she was on Apixaban, she was not a candidate for alteplase infusion. Patient was taken back to IR for stent retrieval thrombus lysis which was successful. She is currently being seen in room 1303 in [facility]. She is currently arousable and follows commands with the right upper extremity and right lower extremity only. She withdraws her left lower extremity. She does not follow commands with her left upper extremity but does move spontaneously. CBC/BMP: 11/27/17 0342 11/27/17 0342 Significant Findings Laboratory Tests Test 11/25/17 08:00 11/25/17 08:20 11/26/17 04:08 11/26/17 14:40 Red Blood Count 3.63 MIL/MM3 (4.00-5.30) Hemoglobin 10.6 GM/DL (11.6-15.3) Bedside Hemoglobin 10.9 G/DL (11.6-15.3) Hematocrit 32.0 % (35.0-46.0) Bedside Hematocrit 32.0 % (35.0-46.0) Red Cell Distribution Width 17.5 % (11.6-17.2) 17.5 % (11.6-17.2) Monocytes (%) (Auto) 8.6 % (0.0-8.0) Activated Partial Thromboplast Time 21.6 SEC (24.3-30.1) 35.5 SEC (24.3-30.1) Fibrinogen 424 mg/dL (227-377) 451 mg/dL (227-377) Bedside Glucose 125 MG/DL (68-110) Troponin I LESS THAN 0.02 NG/ML White Blood Count 11.9 TH/MM3 (4.0-11.0) Neutrophils (%) (Auto) 78.6 % (16.0-70.0) Neutrophils # (Auto) 9.4 TH/MM3 (1.8-7.7) Prothrombin Time 37.5 SEC (9.8-11.6) Albumin 3.3 GM/DL (3.4-5.0) Alkaline Phosphatase 126 U/L (45-117) Estimat Glomerular Filtration Rate 65 ML/MIN (>89) Hemoglobin A1c 7.9 % (4.3-6.0) Test 11/27/17 03:42 Red Blood Count 3.74 MIL/MM3 (4.00-5.30) Hemoglobin 11.0 GM/DL (11.6-15.3) Hematocrit 33.0 % (35.0-46.0) Random Glucose 175 MG/DL (74-106) Estimat Glomerular Filtration Rate 76 ML/MIN (>89) Thyroid Stimulating Hormone 3rd Gen 4.810 uIU/ML (0.358-3.740) Hospital Course 82-year-old female. Date of admission 11/25/2079. Past medical history includes past medical history includes chronic atrial fibrillation on Apixaban, hypertension, dyslipidemia, nonobstructive coronary artery disease, history of CO 19 , diabetes mellitus hemoglobin A1c of 7.9, pancreatic cyst scheduled for outpatient EUS/FNA biopsy with elevated CEA, no mitral regurgitation colonic polyps. She is on imipramine along with gabapentin as well. See originally presented to [place] [facility] today brought in by EMS for possible stroke alert. She apparently was sitting and eating breakfast, dropped her coffee at around 6AM in discussion with her . At that time, symptomatically expressing dysarthria, a fascia and focal left-sided weakness.. She currently is not able to give the emergency room physician much of a history. She is not able to lift her left arm. She is able to follow commands. There is a notable facial droop left-sided. Apparently, she was initially GCS 7 but in the ER, is GCS 14. EMS states that she is looking more oriented as they transported her. CT brain revealed chronic ischemic changes with no acute findings. CTA of the brain revealed right proximal MCA occlusion. CTA of the neck revealed less than 50% stenosis bilateral carotids. Since she was on Apixaban, she was not a candidate for alteplase infusion. Patient was taken back to for stent retrieval thrombus lysis which was successful. She is currently being seen in room 1303 in [facility]. She is currently arousable and follows commands with the right upper extremity and right lower extremity only. She withdraws her left lower extremity. She does not follow commands with her left upper extremity but does move spontaneously. 11/26: Remarkable improvement. More awake and alert and interactive this AM. Passed swallow evaluation. Left upper extremity strength and coordination much improved. 11/27: neuro intact. started on apixiban. stable for inpatient rehab discharge. strength on the left continues to improve. stable for transfer to [facility]. Of note, will need repeat TSH, free t4 eval at 4-6 weeks post-inpatient admission and may need titration of her home synthroid at that point. Pt Condition on Discharge: Stable Discharge Disposition: Rehab Inpatient Discharge Instructions DIET: Follow Instructions for: Heart Healthy Diet, Soft Diet Speech Therapy-Diet Recommends: Mechanical Soft Activities you can perform: Regular-No Restrictions Additional Information I spent less than 30 minutes in the evaluation, management, and care coordination in the discharge planning of this patient. Chris Chiang MD Nov 27, 2017 08:01
[2017-11-27] MEDS: ARTIFICIAL TEARS OPTH SOLN 15 ML BTL EACH EYE SCH ×2 (08:36→11:43)
[2017-11-27] MEDS: CHOLECALCIFEROL (VIT D3) 400 UNIT TAB PO SCH (08:36)
[2017-11-27] MEDS: SODIUM CHLORIDE 0.9% FLUSH 10 ML FLUSH IV FLUSH SCH (08:36)
[2017-11-27] MEDS: MULTIVITAMINS/MINERALS THERAPEUTIC TAB PO SCH (08:36)
[2017-11-27] MEDS: METOPROLOL TARTRATE 25 MG TAB PO SCH (08:36)
[2017-11-27] MEDS: PANTOPRAZOLE SOD 20 MG DELAYED RELEASE TAB PO SCH (08:36)
[2017-11-27] MEDS: DOCUSATE SODIUM 50 MG/SENNA 8.6 MG TAB PO SCH (08:37)
[2017-11-27] MEDS: CALCIUM CARBONATE 1.25 GM (CA 500 MG) TAB PO SCH (08:37)
[2017-11-27] MEDS: PRAVASTATIN SOD 40 MG TAB PO SCH (08:37)
[2017-11-27] MEDS ORDERED: FUROSEMIDE 20 MG/2 ML VIAL IV PUSH SCH (09:00)
== END 2017-11-27 12:35 | DRG 24 ==
LOC: NEPC 07:57 → NEDA 09:54 → N03A 10:55
PROVIDERS: ADMIT Internal Medicine Critical Care Medicine; ATTEND Internal Medicine Critical Care Medicine
PROC: 03CG3ZZ Extirpation of Matter from Intracranial Artery, Percutaneous Approach (ICD-10-PCS; principal; 2017-11-26)
PROC: B3161ZZ Fluoroscopy of Right Internal Carotid Artery using Low Osmolar Contrast (ICD-10-PCS; 2017-11-26)
DX: I63.411 Cerebral infarction due to embolism of right middle cerebral artery (principal); K86.2 Cyst of pancreas; E11.51 Type 2 diabetes mellitus with diabetic peripheral angiopathy without gangrene; G81.94 Hemiplegia, unspecified affecting left nondominant side; I48.2 Chronic atrial fibrillation; G62.9 Polyneuropathy, unspecified; E88.09 Other disorders of plasma-protein metabolism, not elsewhere classified; I10 Essential (primary) hypertension; F32.9 Major depressive disorder, single episode, unspecified; E03.9 Hypothyroidism, unspecified; R29.810 Facial weakness; R47.81 Slurred speech; J45.909 Unspecified asthma, uncomplicated; I25.10 Atherosclerotic heart disease of native coronary artery without angina pectoris; I25.2 Old myocardial infarction; E78.5 Hyperlipidemia, unspecified; Z68.31 Body mass index [BMI] 31.0-31.9, adult; K21.9 Gastro-esophageal reflux disease without esophagitis; M19.90 Unspecified osteoarthritis, unspecified site; K57.30 Diverticulosis of large intestine without perforation or abscess without bleeding; R97.0 Elevated carcinoembryonic antigen [CEA]; I65.23 Occlusion and stenosis of bilateral carotid arteries; M81.0 Age-related osteoporosis without current pathological fracture; R47.1 Dysarthria and anarthria; Z86.010 Personal history of colon polyps; Z79.4 Long term (current) use of insulin; Z79.01 Long term (current) use of anticoagulants; Z83.3 Family history of diabetes mellitus
CPT/HCPCS: 61645; 70450; 70496; 70498; 70544; 70551; 76937; 80048; 80053; 80061; 80307; 81001; 82550; 82948; 83036; 83605; 83735; 84100; 84443; 84484; 85025; 85027; 85384; 85610; 85730; 86850; 86900; 86901; 93005; 93306; 94150; 96361; 96374; C1760; C1769; C1887; C1894; J1644; J1815; J1940; J2270; J7030; P9612; Q9967

== ENCOUNTER → 2018-01-01 | Outpatient (CLI) | payer MEDICARE, BC ==
[~2018-01-01] MED LIST changes: -CARD180C5 PO; +DILT60TA33 PO; +ENAL2.5T PO; -LANTUS2P SQ; -LEVA250T14 PO; +LEVEMIR SQ; +VITD400 PO; +WHEEMIS3
[2018-01-01 09:05] LABS: HEMATOCRIT 37.3 % (35.0-46.0); HEMOGLOBIN 12.7 GM/DL (11.6-15.3); MEAN CELL VOLUME 86.8 FL (80.0-100.0); MEAN CORPUSCULAR HEMOGLOBIN 29.6 PG (27.0-34.0); MEAN CORPUSCULAR HGB CONC 34.1 % (32.0-36.0); MEAN PLATELET VOLUME 8.5 FL (7.0-11.0); PLATELET COUNT 193 TH/MM3 (150-450); RED BLOOD COUNT 4.29 MIL/MM3 (4.00-5.30); WHITE BLOOD COUNT 6.2 TH/MM3 (4.0-11.0)
[2018-01-01 09:09] LABS: ALBUMIN 3.6 GM/DL (3.4-5.0); AST (GOT) 24 U/L (15-37); BICARBONATE 33.7 MEQ/L (21.0-32.0); BLOOD UREA NITROGEN 16 MG/DL (7-18); CALCIUM 9.2 MG/DL (8.5-10.1); CHLORIDE 102 MEQ/L (98-107); CREATININE 0.83 MG/DL (0.50-1.00); GLOMERULAR FILTRATION RATE 65 ML/MIN (>89); GLUCOSE,FASTING 151 MG/DL (74-99); SODIUM (NA) 138 MEQ/L (136-145)
[2018-01-01 09:11] LABS: CHOLESTEROL 126 MG/DL (120-200)
[2018-01-01 09:19] LABS: ALKALINE PHOSPHATASE 103 U/L (45-117); ALT (GPT) 19 U/L (10-53); FREE T4 0.99 NG/DL (0.76-1.46); LDL CHOLESTEROL 39 MG/DL (0-99); TOTAL BILIRUBIN ADULT 0.6 MG/DL (0.2-1.0); TOTAL PROTEIN 7.6 GM/DL (6.4-8.2); TRIGLYCERIDES 106 MG/DL (42-150)
[2018-01-01 14:29] LABS: HEMOGLOBIN A1C 9.3 % (4.3-6.0)
== END ==
LOC: PLAB 06:42
PROVIDERS: ATTEND Family Medicine
DX: E03.9 Hypothyroidism, unspecified (principal); I48.91 Unspecified atrial fibrillation; E11.40 Type 2 diabetes mellitus with diabetic neuropathy, unspecified; E78.00 Pure hypercholesterolemia, unspecified
CPT/HCPCS: 36415; 80053; 80061; 83036; 84439; 84443; 85027

== ENCOUNTER → 2018-03-31 | Outpatient (CLI) | payer MEDICARE, BC ==
[~2018-03-31] VITALS: Ht 165.1 cm; Wt 68.8 kg
[~2018-03-31] MED LIST changes: +CHLORHEXIDINE GLUCONATE 2 % 1 PACK (2 CLOTHS) TOPICAL PRN; +DILT120C7 PO; -DILT60TA33 PO; +INSULIN HUMAN REGULAR 1,000 UNITS/10 ML VIAL SQ PRN; +LACTATED RINGER'S 1000 ML IV PRN; -METO-426 PO; +METO1TAB9 PO; +METOPROLOL TARTRATE 25 MG TAB PO PRN; +METOPROLOL TARTRATE 5 MG/5 ML VIAL ONE; +POVIDONE IODINE 5% (ANTISEPSIS KIT) 4 APPLICATIONS EACH NARE PRN; +SODIUM CHLORID 0.9% 500 ML IV PRN; -VITD400 PO
--- NOTE | 2018-03-31 12:26 | HHI.GIFU ---
Subjective Remarks Patient comfortable in bed denies any chest pain shortness of breath lightheadedness or dizziness this was also confirmed with her Objective Vitals I&O Vital Signs Date Time Temp Pulse Resp B/P (MAP) Pulse Ox O2 Delivery O2 Flow Rate FiO2 03/31/18 10:03 122 16 109/72 (84) 97 03/31/18 09:51 122 16 115/86 (96) 98 03/31/18 09:41 125 16 105/81 (89) 95 03/31/18 09:36 125 16 100/71 (81) 96 03/31/18 09:28 97.8 148 16 151/110 (124) 98 Physical Exam HEENT: Pupils round and reactive to light; normocephalic; atraumatic; no jaundice. Throat is clear. NECK: Neck is supple, no JVD, no lymphadenopathy. CHEST: Chest is clear to auscultation and percussion. CARDIAC: Irregularly irregular tachycardic. ABDOMEN: Soft, nondistended, nontender; no hepatosplenomegaly; bowel sounds are present in all four quadrants. EXTREMITIES: No clubbing, cyanosis, or edema. SKIN: Normal; no rash; no jaundice. BUILDING COORDINATOR: No focal deficits; alert and oriented times three. Assessment and Plan Plan Patient with pancreatic cystic mass was here for an EGD and endoscopic ultrasound Patient is found to be severely tachycardic and not responding to medications Patient apparently did not take her home medications which included metoprolol and diltiazem Patient advised to seek advice from her linen keeper and return to the clinic for further evaluation prior to rescheduling EGD with EUS to be rescheduled Patient to report any new symptoms promptly The above was all discussed with her also Sebas Artis MD March 31, 2018 12:26
[2018-03-31 12:30] VITALS: BP 124/94; PULSE 136; RESP 20; TEMP 98.9; O2SAT 96
--- NOTE | 2018-03-31 13:54 | EKG ---
Date Performed: 03/31/2018 Time Performed: 09:32:17 PTAGE: 82 years EKG: ATRIAL FIBRILLATION WITH RAPID VENTRICULAR RESPONSE WITH ABERRANT CONDUCTION OR VENTRICULAR PREMATURE COMPLEXES INCOMPLETE RIGHT BUNDLE BRANCH BLOCK MINIMAL VOLTAGE CRITERIA FOR LVH, CONSIDER NORMAL VARIANT NONSPECIFIC ST & T-WAVE ABNORMALITY ABNORMAL RHYTHM ECG Compared to prior electrocardi ogram, rate has increased . PREVIOUS TRACING : 11/25/2017 08.14 DOCTOR: Chris An Interpretating Date/Time 03/31/2018 13:53:03
== END ==
LOC: HSDC 08:31
PROVIDERS: ATTEND Internal Medicine Gastroenterology
DX: Z53.09 Procedure and treatment not carried out because of other contraindication (principal); I48.91 Unspecified atrial fibrillation
CPT/HCPCS: 93005; G0463; J7120; 99211

== ENCOUNTER 2018-05-12 17:31 | Inpatient (IN) ==
[2018-05-12] MEDS ORDERED: Morphine Sulfate Inj 2 MG/ML Vial IV.PUSH ONE (18:01)
--- NOTE | 2018-05-12 18:12 | ED ---
HPI General Chief Complaint: Fall Stated Complaint: Fall/lft hip pain [id number] Time Seen by Provider: 05/12/18 17:49 Source: patient History of Present Illness HPI Narrative: 82yo F with PMH of afib on eliquis, DM presents to the ED with c/ o left hip pain s/p fall about 30 minutes ago. Pt was bending down to put something on the fridge and lose her balance and fell on left hip. Denies any head trauma, LOC, chest pain, sob, dizziness, n/v, abdominal pain, focal weakness or numbness. Pt had stroke in November and does not have much deficit except for some balance issues. Pt was not able to get up after the fall. MD complaint: fall Onset (ago): minute(s) (30) Fall from: standing Place fall occurred: home Loss of consciousness: none Prolonged down time: no Context: other Location of injury: pelvis Location of injury - extremities: Left: lower leg Severity: severe Severity scale (1-10): 10 Quality: sharp Associated symptoms (after fall): denies Related Data Home Medications Medication Instructions Recorded Confirmed apixaban [Eliquis] 5 mg PO BID 05/12/18 05/12/18 calcium carbonate-vitamin D3 1 tab PO BID 05/12/18 05/12/18 [Calcium 500 + D (D3)] diltiazem HCl [Cardizem CD] 180 mg PO DAILY 05/12/18 05/12/18 gabapentin 400 mg PO DAILY 05/12/18 05/12/18 imipramine HCl [Tofranil] 50 mg PO DAILY 05/12/18 05/12/18 insulin detemir U-100 [Levemir 10 unit SUB-Q BID 05/12/18 05/12/18 U-100 Insulin] levothyroxine 50 mcg PO DAILY 05/12/18 05/12/18 metoprolol tartrate 75 mg PO BID 05/12/18 05/12/18 multivitamin with minerals 2 tab PO TID 05/12/18 05/12/18 [Multiple Vitamin-Minerals] nitroglycerin [Nitrostat] 0.4 mg SUBLINGUAL Q5-15M PRN 05/12/18 05/12/18 pantoprazole [Protonix] 20 mg PO DAILY 05/12/18 05/12/18 pravastatin 40 mg PO DAILY 05/12/18 05/12/18 Previous Rx's Medication Instructions Recorded hydrocodone-acetaminophen 1 tab PO Q4H PRN #40 tab 05/14/18 Allergies Allergy/AdvReac Type Severity Reaction Status Date / Time Influenza Virus Vaccines Allergy Severe Anaphylaxis Verified 05/12/18 17:34 Review of Systems ROS Unobtainable All other systems reviewed negative except as stated in HPI PMFSH History History Provided By: Patient Family History Family History Mother Stroke Father Unknown cause of morbidity or mortality Social History Social History Substance History: No History of Abuse Second Hand Smoke Exposure: No Smoking Status: Former smoker Tobacco Type: Cigarettes How Often Do You Have a Drink Containing Alcohol: Never Recent Travel in [facility] within the Last 8 Weeks: No Recent Out of Country Travel within the Last 8 Weeks: No Exam Narrative Exam Narrative: GENERAL: 82yo F in moderate distress. SKIN: Focused skin assessment warm/dry. HEAD: Atraumatic. Normocephalic. EYES: Pupils equal and round. No scleral icterus. No injection or drainage. ENT: No nasal bleeding or discharge. Mucous membranes pink and moist. NECK: No midline cervical spine ttp. CARDIOVASCULAR: Regular rate and rhythm. No murmur appreciated. RESPIRATORY: No accessory muscle use. Clear to auscultation. Breath sounds equal bilaterally. GASTROINTESTINAL: Abdomen soft, non-tender, nondistended. MUSCULOSKELETAL: LLE: Left hip is externally rotated and shortened. +TTP left proximal femur. Sensation intact. Distal pulses 2+. NEUROLOGICAL: Awake and alert. No obvious cranial nerve deficits. Motor grossly within normal limits. Normal speech. PSYCHIATRIC: Appropriate mood and affect; insight and judgment normal. Course Initial Documented Vital Signs Temperature 97.6 F 05/12/18 17:34 Pulse Rate 100 H 05/12/18 17:34 Respiratory Rate 22 05/12/18 17:34 Blood Pressure 180/107 H 05/12/18 17:34 Pulse Oximetry 95 05/12/18 17:34 Last Documented Vital Signs Temperature 98.3 F 05/16/18 16:00 Pulse Rate 87 05/16/18 17:29 Respiratory Rate 18 05/16/18 16:00 Blood Pressure 117/58 L 05/16/18 16:00 Pulse Oximetry 95 05/16/18 16:00 Medical Decision Making [facility] Narrative Medical decision making narrative: 82yo F with left hip pain s/p mechanical fall. Impression is femoral neck fracture. Pt is in a lot of pain, will give morphine 2mg IV. Pt reevaluated at bedside and it did help with the pain but is starting to come back. Will give another 2mg. Labs reviewed, no leukocytosis. H/H normal. BMP showed mildly elevated glucose at 199. Xray left hip showed left femoral neck fracture with angular deformity. Orthopedic consult placed. Discussed with Dr. Lay and accepted to his service. Will transfer pt to [facility] for surgery. Differential Diagnosis Differential Diagnosis: Fracture vs. contusion Lab Data Result diagrams: 05/16/18 08:15 05/16/18 08:15 Lab Results 05/12/18 05/12/18 05/12/18 Range/Units 18:20 18:20 18:20 CBC w Diff Auto diff final WBC 7.9 (4.0-11.0) th/mm3 RBC 4.46 (4.00-5.30) mil/mm3 Hgb 13.4 (11.6-15.3) gm/dL Hct 40.0 (35.0-46.0) % MCV 89.7 (80.0-100.0) fL MCH 30.0 (27.0-34.0) pg MCHC 33.5 (32.0-36.0) % RDW 14.4 (11.6-17.2) % Plt Count 200 (150-450) th/mm3 MPV 8.3 (7.0-11.0) fL Neut % (Auto) 73.6 H (16.0-70.0) % Lymph % (Auto) 18.2 (9.0-44.0) % [place] % (Auto) 6.6 (0.0-8.0) % Eos % (Auto) 1.3 (0.0-4.0) % Baso % (Auto) 0.3 (0.0-2.0) % Neut # (Auto) 5.8 (1.8-7.7) th/mm3 Lymph # (Auto) 1.4 (1.0-4.8) th/mm3 [place] # (Auto) 0.5 (0.0-0.9) th/mm3 Eos # (Auto) 0.1 (0.0-0.4) th/mm3 Baso # (Auto) 0.0 (0.0-0.2) th/mm3 WBC Differential . Diff Scan Differential Comment PT 11.3 (9.8-11.6) sec INR 1.1 Ratio APTT 28.2 (24.3-30.1) sec Sodium 135 L (136-145) meq/L Potassium 4.0 (3.5-5.1) meq/L Chloride 101 (98-107) meq/L Carbon Dioxide 24.7 (21.0-32.0) meq/L Anion Gap 9 (5-15) meq/L BUN 19 H (7-18) mg/dL Creatinine 0.91 (0.50-1.00) mg/dL Estimated GFR 59 L (>89) mL/min POC Glucose (68-110) mg/dl Random Glucose 199 H (74-106) mg/dL Calcium 8.9 (8.5-10.1) mg/dL Blood Type Blood Type Recheck Antibody Screen 05/12/18 05/13/18 05/13/18 Range/Units 18:20 04:07 08:54 CBC w Diff WBC (4.0-11.0) th/mm3 RBC (4.00-5.30) mil/mm3 Hgb (11.6-15.3) gm/dL Hct (35.0-46.0) % MCV (80.0-100.0) fL MCH (27.0-34.0) pg MCHC (32.0-36.0) % RDW (11.6-17.2) % Plt Count (150-450) th/mm3 MPV (7.0-11.0) fL Neut % (Auto) (16.0-70.0) % Lymph % (Auto) (9.0-44.0) % [place] % (Auto) (0.0-8.0) % Eos % (Auto) (0.0-4.0) % Baso % (Auto) (0.0-2.0) % Neut # (Auto) (1.8-7.7) th/mm3 Lymph # (Auto) (1.0-4.8) th/mm3 [place] # (Auto) (0.0-0.9) th/mm3 Eos # (Auto) (0.0-0.4) th/mm3 Baso # (Auto) (0.0-0.2) th/mm3 WBC Differential Diff Scan Differential Comment PT (9.8-11.6) sec INR Ratio APTT (24.3-30.1) sec Sodium (136-145) meq/L Potassium (3.5-5.1) meq/L Chloride (98-107) meq/L Carbon Dioxide (21.0-32.0) meq/L Anion Gap (5-15) meq/L BUN (7-18) mg/dL Creatinine (0.50-1.00) mg/dL Estimated GFR (>89) mL/min POC Glucose 228 H 279 H (68-110) mg/dl Random Glucose (74-106) mg/dL Calcium (8.5-10.1) mg/dL Blood Type A Positive Blood Type Recheck Not needed Antibody Screen Negative 05/13/18 05/13/18 05/13/18 Range/Units 12:23 15:43 15:43 CBC w Diff WBC 13.6 H D (4.0-11.0) th/mm3 RBC 4.17 (4.00-5.30) mil/mm3 Hgb 12.6 (11.6-15.3) gm/dL Hct 38.2 (35.0-46.0) % MCV 91.6 (80.0-100.0) fL MCH 30.2 (27.0-34.0) pg MCHC 32.9 (32.0-36.0) % RDW 14.7 (11.6-17.2) % Plt Count 156 (150-450) th/mm3 MPV 8.5 (7.0-11.0) fL Neut % (Auto) 92.3 H (16.0-70.0) % Lymph % (Auto) 4.5 L (9.0-44.0) % [place] % (Auto) 2.8 (0.0-8.0) % Eos % (Auto) 0.3 (0.0-4.0) % Baso % (Auto) 0.1 (0.0-2.0) % Neut # (Auto) 12.5 H (1.8-7.7) th/mm3 Lymph # (Auto) 0.6 L (1.0-4.8) th/mm3 [place] # (Auto) 0.4 (0.0-0.9) th/mm3 Eos # (Auto) 0.0 (0.0-0.4) th/mm3 Baso # (Auto) 0.0 (0.0-0.2) th/mm3 WBC Differential . Diff Scan Auto diff confirmed Differential Comment PT (9.8-11.6) sec INR Ratio APTT (24.3-30.1) sec Sodium 139 (136-145) meq/L Potassium 4.0 (3.5-5.1) meq/L Chloride 106 (98-107) meq/L Carbon Dioxide 24.2 (21.0-32.0) meq/L Anion Gap 9 (5-15) meq/L BUN 16 (7-18) mg/dL Creatinine 0.88 (0.50-1.00) mg/dL Estimated GFR 61 L (>89) mL/min POC Glucose 198 H (68-110) mg/dl Random Glucose 190 H (74-106) mg/dL Calcium 8.3 L (8.5-10.1) mg/dL Blood Type Blood Type Recheck Antibody Screen 05/13/18 05/13/18 05/14/18 Range/Units 17:14 21:28 04:59 CBC w Diff WBC (4.0-11.0) th/mm3 RBC (4.00-5.30) mil/mm3 Hgb 12.6 (11.6-15.3) gm/dL Hct 38.0 (35.0-46.0) % MCV (80.0-100.0) fL MCH (27.0-34.0) pg MCHC (32.0-36.0) % RDW (11.6-17.2) % Plt Count (150-450) th/mm3 MPV (7.0-11.0) fL Neut % (Auto) (16.0-70.0) % Lymph % (Auto) (9.0-44.0) % [place] % (Auto) (0.0-8.0) % Eos % (Auto) (0.0-4.0) % Baso % (Auto) (0.0-2.0) % Neut # (Auto) (1.8-7.7) th/mm3 Lymph # (Auto) (1.0-4.8) th/mm3 [place] # (Auto) (0.0-0.9) th/mm3 Eos # (Auto) (0.0-0.4) th/mm3 Baso # (Auto) (0.0-0.2) th/mm3 WBC Differential Diff Scan Differential Comment PT (9.8-11.6) sec INR Ratio APTT (24.3-30.1) sec Sodium (136-145) meq/L Potassium (3.5-5.1) meq/L Chloride (98-107) meq/L Carbon Dioxide (21.0-32.0) meq/L Anion Gap (5-15) meq/L BUN (7-18) mg/dL Creatinine (0.50-1.00) mg/dL Estimated GFR (>89) mL/min POC Glucose 202 H 207 H (68-110) mg/dl Random Glucose (74-106) mg/dL Calcium (8.5-10.1) mg/dL Blood Type Blood Type Recheck Antibody Screen 05/14/18 05/14/18 05/14/18 Range/Units 08:17 10:51 10:51 CBC w Diff WBC 16.0 H (4.0-11.0) th/mm3 RBC 4.01 (4.00-5.30) mil/mm3 Hgb 11.9 (11.6-15.3) gm/dL Hct 36.3 (35.0-46.0) % MCV 90.4 (80.0-100.0) fL MCH 29.6 (27.0-34.0) pg MCHC 32.8 (32.0-36.0) % RDW 15.0 (11.6-17.2) % Plt Count 179 (150-450) th/mm3 MPV 8.9 (7.0-11.0) fL Neut % (Auto) 88.8 H (16.0-70.0) % Lymph % (Auto) 6.2 L (9.0-44.0) % [place] % (Auto) 4.8 (0.0-8.0) % Eos % (Auto) 0.0 (0.0-4.0) % Baso % (Auto) 0.2 (0.0-2.0) % Neut # (Auto) 14.2 H (1.8-7.7) th/mm3 Lymph # (Auto) 1.0 (1.0-4.8) th/mm3 [place] # (Auto) 0.8 (0.0-0.9) th/mm3 Eos # (Auto) 0.0 (0.0-0.4) th/mm3 Baso # (Auto) 0.0 (0.0-0.2) th/mm3 WBC Differential . Diff Scan Differential Comment Auto diff final PT (9.8-11.6) sec INR Ratio APTT (24.3-30.1) sec Sodium 138 (136-145) meq/L Potassium 4.5 (3.5-5.1) meq/L Chloride 105 (98-107) meq/L Carbon Dioxide 22.2 (21.0-32.0) meq/L Anion Gap 11 (5-15) meq/L BUN 16 (7-18) mg/dL Creatinine 0.79 (0.50-1.00) mg/dL Estimated GFR 69 L (>89) mL/min POC Glucose 231 H (68-110) mg/dl Random Glucose 289 H (74-106) mg/dL Calcium 8.3 L (8.5-10.1) mg/dL Blood Type Blood Type Recheck Antibody Screen 05/14/18 05/14/18 05/14/18 Range/Units 13:20 18:07 21:25 CBC w Diff WBC (4.0-11.0) th/mm3 RBC (4.00-5.30) mil/mm3 Hgb (11.6-15.3) gm/dL Hct (35.0-46.0) % MCV (80.0-100.0) fL MCH (27.0-34.0) pg MCHC (32.0-36.0) % RDW (11.6-17.2) % Plt Count (150-450) th/mm3 MPV (7.0-11.0) fL Neut % (Auto) (16.0-70.0) % Lymph % (Auto) (9.0-44.0) % [place] % (Auto) (0.0-8.0) % Eos % (Auto) (0.0-4.0) % Baso % (Auto) (0.0-2.0) % Neut # (Auto) (1.8-7.7) th/mm3 Lymph # (Auto) (1.0-4.8) th/mm3 [place] # (Auto) (0.0-0.9) th/mm3 Eos # (Auto) (0.0-0.4) th/mm3 Baso # (Auto) (0.0-0.2) th/mm3 WBC Differential Diff Scan Differential Comment PT (9.8-11.6) sec INR Ratio APTT (24.3-30.1) sec Sodium (136-145) meq/L Potassium (3.5-5.1) meq/L Chloride (98-107) meq/L Carbon Dioxide (21.0-32.0) meq/L Anion Gap (5-15) meq/L BUN (7-18) mg/dL Creatinine (0.50-1.00) mg/dL Estimated GFR (>89) mL/min POC Glucose 329 H 309 H 317 H (68-110) mg/dl Random Glucose (74-106) mg/dL Calcium (8.5-10.1) mg/dL Blood Type Blood Type Recheck Antibody Screen 05/15/18 05/15/18 05/15/18 Range/Units 07:26 07:26 11:54 CBC w Diff WBC 16.4 H (4.0-11.0) th/mm3 RBC 4.29 (4.00-5.30) mil/mm3 Hgb 12.9 (11.6-15.3) gm/dL Hct 38.3 (35.0-46.0) % MCV 89.3 (80.0-100.0) fL MCH 30.2 (27.0-34.0) pg MCHC 33.8 (32.0-36.0) % RDW 14.7 (11.6-17.2) % Plt Count 181 (150-450) th/mm3 MPV 8.5 (7.0-11.0) fL Neut % (Auto) (16.0-70.0) % Lymph % (Auto) (9.0-44.0) % [place] % (Auto) (0.0-8.0) % Eos % (Auto) (0.0-4.0) % Baso % (Auto) (0.0-2.0) % Neut # (Auto) (1.8-7.7) th/mm3 Lymph # (Auto) (1.0-4.8) th/mm3 [place] # (Auto) (0.0-0.9) th/mm3 Eos # (Auto) (0.0-0.4) th/mm3 Baso # (Auto) (0.0-0.2) th/mm3 WBC Differential Diff Scan Differential Comment PT (9.8-11.6) sec INR Ratio APTT (24.3-30.1) sec Sodium 135 L (136-145) meq/L Potassium 4.4 (3.5-5.1) meq/L Chloride 100 (98-107) meq/L Carbon Dioxide 22.4 (21.0-32.0) meq/L Anion Gap 13 (5-15) meq/L BUN 18 (7-18) mg/dL Creatinine 0.95 (0.50-1.00) mg/dL Estimated GFR 56 L (>89) mL/min POC Glucose 441 H (68-110) mg/dl Random Glucose 252 H (74-106) mg/dL Calcium 9.4 D (8.5-10.1) mg/dL Blood Type Blood Type Recheck Antibody Screen 05/15/18 05/15/18 05/16/18 Range/Units 17:59 20:19 08:15 CBC w Diff WBC 10.7 (4.0-11.0) th/mm3 RBC 4.24 (4.00-5.30) mil/mm3 Hgb 12.8 (11.6-15.3) gm/dL Hct 37.9 (35.0-46.0) % MCV 89.4 (80.0-100.0) fL MCH 30.2 (27.0-34.0) pg MCHC 33.8 (32.0-36.0) % RDW 14.7 (11.6-17.2) % Plt Count 175 (150-450) th/mm3 MPV 8.6 (7.0-11.0) fL Neut % (Auto) 74.0 H (16.0-70.0) % Lymph % (Auto) 15.4 (9.0-44.0) % [place] % (Auto) 6.8 (0.0-8.0) % Eos % (Auto) 3.3 (0.0-4.0) % Baso % (Auto) 0.5 (0.0-2.0) % Neut # (Auto) 7.9 H (1.8-7.7) th/mm3 Lymph # (Auto) 1.6 (1.0-4.8) th/mm3 [place] # (Auto) 0.7 (0.0-0.9) th/mm3 Eos # (Auto) 0.3 (0.0-0.4) th/mm3 Baso # (Auto) 0.1 (0.0-0.2) th/mm3 WBC Differential . Diff Scan Differential Comment Auto diff final PT (9.8-11.6) sec INR Ratio APTT (24.3-30.1) sec Sodium (136-145) meq/L Potassium (3.5-5.1) meq/L Chloride (98-107) meq/L Carbon Dioxide (21.0-32.0) meq/L Anion Gap (5-15) meq/L BUN (7-18) mg/dL Creatinine (0.50-1.00) mg/dL Estimated GFR (>89) mL/min POC Glucose 289 H 231 H (68-110) mg/dl Random Glucose (74-106) mg/dL Calcium (8.5-10.1) mg/dL Blood Type Blood Type Recheck Antibody Screen 05/16/18 05/16/18 05/16/18 Range/Units 08:15 08:15 11:48 CBC w Diff WBC (4.0-11.0) th/mm3 RBC (4.00-5.30) mil/mm3 Hgb (11.6-15.3) gm/dL Hct (35.0-46.0) % MCV (80.0-100.0) fL MCH (27.0-34.0) pg MCHC (32.0-36.0) % RDW (11.6-17.2) % Plt Count (150-450) th/mm3 MPV (7.0-11.0) fL Neut % (Auto) (16.0-70.0) % Lymph % (Auto) (9.0-44.0) % [place] % (Auto) (0.0-8.0) % Eos % (Auto) (0.0-4.0) % Baso % (Auto) (0.0-2.0) % Neut # (Auto) (1.8-7.7) th/mm3 Lymph # (Auto) (1.0-4.8) th/mm3 [place] # (Auto) (0.0-0.9) th/mm3 Eos # (Auto) (0.0-0.4) th/mm3 Baso # (Auto) (0.0-0.2) th/mm3 WBC Differential Diff Scan Differential Comment PT (9.8-11.6) sec INR Ratio APTT (24.3-30.1) sec Sodium 138 (136-145) meq/L Potassium 3.7 (3.5-5.1) meq/L Chloride 101 (98-107) meq/L Carbon Dioxide 23.8 (21.0-32.0) meq/L Anion Gap 13 (5-15) meq/L BUN 16 (7-18) mg/dL Creatinine 0.79 (0.50-1.00) mg/dL Estimated GFR 69 L (>89) mL/min POC Glucose 201 H 275 H (68-110) mg/dl Random Glucose 192 H (74-106) mg/dL Calcium 8.9 (8.5-10.1) mg/dL Blood Type Blood Type Recheck Antibody Screen 05/16/18 Range/Units 17:02 CBC w Diff WBC (4.0-11.0) th/mm3 RBC (4.00-5.30) mil/mm3 Hgb (11.6-15.3) gm/dL Hct (35.0-46.0) % MCV (80.0-100.0) fL MCH (27.0-34.0) pg MCHC (32.0-36.0) % RDW (11.6-17.2) % Plt Count (150-450) th/mm3 MPV (7.0-11.0) fL Neut % (Auto) (16.0-70.0) % Lymph % (Auto) (9.0-44.0) % [place] % (Auto) (0.0-8.0) % Eos % (Auto) (0.0-4.0) % Baso % (Auto) (0.0-2.0) % Neut # (Auto) (1.8-7.7) th/mm3 Lymph # (Auto) (1.0-4.8) th/mm3 [place] # (Auto) (0.0-0.9) th/mm3 Eos # (Auto) (0.0-0.4) th/mm3 Baso # (Auto) (0.0-0.2) th/mm3 WBC Differential Diff Scan Differential Comment PT (9.8-11.6) sec INR Ratio APTT (24.3-30.1) sec Sodium (136-145) meq/L Potassium (3.5-5.1) meq/L Chloride (98-107) meq/L Carbon Dioxide (21.0-32.0) meq/L Anion Gap (5-15) meq/L BUN (7-18) mg/dL Creatinine (0.50-1.00) mg/dL Estimated GFR (>89) mL/min POC Glucose 278 H (68-110) mg/dl Random Glucose (74-106) mg/dL Calcium (8.5-10.1) mg/dL Blood Type Blood Type Recheck Antibody Screen Imaging Data Radiologist's impression: ITS Impressions Hip X-Ray 05/12/18 17:58 CONCLUSION: Left femoral neck fracture with angular deformity. Ankle X-Ray 05/13/18 00:00 CONCLUSION: No acute findings. Hip X-Ray 05/13/18 00:00 CONCLUSION: Postoperative left hip replacement. No complications identified. Head CT 05/14/18 00:00 CONCLUSION: 1. Moderate periventricular and subcortical white matter small vessel skin changes bilaterally. 2. Diffuse cerebral artery. 3. 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 4. No acute infarct, acute hemorrhage, midline shift or extra-axial fluid collections. Discharge Plan Discharge Disposition Patient Disposition: 30 Still Patient Discharge Condition Condition: Stable Discharge Details Discharge Problem: Femoral neck fracture Physicians Team ED Provider: Anamika Hannon Primary Care Provider: Rhianna Royal Attending Provider: Rhianna Royal Other Providers: Kourtney Quinones ; Clem Sutton Discharge Interventions Interventions: ED Discharge Assessment Last Done: 05/13/18 00:19 Vital Signs Last Done: 05/13/18 00:22 Status ED Status: Left Department Discharge Information Discharge Date/Time: 05/13/18 00:22
--- NOTE | 2018-05-12 18:34 | XR ---
EXAM DATE: 05/12/2018 6:30 PM EDT AGE/SEX: 82 years / Female INDICATIONS: Pain post fall. CLINICAL DATA: This is the patient's initial encounter. Patient reports that signs and symptoms have been present for 1 day and indicates a pain score of 10/10. MEDICAL/SURGICAL HISTORY: None. None. COMPARISON: [facility], [facility] ONLY, 12/15/2010. . FINDINGS: There is a fracture of the left femoral neck with angulation and foreshortening. Right hip appears in tact. Bones osteopenic. CONCLUSION: Left femoral neck fracture with angular deformity. Electronically signed by: Ravinder Chun MD 05/12/2018 6:32 PM EDT
[2018-05-12 18:39] LABS: Baso % (Auto) 0.3 % (0.0-2.0); Eos # (Auto) 0.1 th/mm3 (0.0-0.4); Eos % (Auto) 1.3 % (0.0-4.0); Hemoglobin 13.4 gm/dL (11.6-15.3); Lymph # (Auto) 1.4 th/mm3 (1.0-4.8); Lymph % (Auto) 18.2 % (9.0-44.0); Mean Corpuscular HGB Conc 33.5 % (32.0-36.0); Mean Corpuscular Volume 89.7 fL (80.0-100.0); Mean Platelet Volume 8.3 fL (7.0-11.0); Mono # (Auto) 0.5 th/mm3 (0.0-0.9); Mono % (Auto) 6.6 % (0.0-8.0); Neut # (Auto) 5.8 th/mm3 (1.8-7.7); Neut % (Auto) 73.6 % (16.0-70.0); Platelet Count 200 th/mm3 (150-450); Red Blood Count 4.46 mil/mm3 (4.00-5.30); Red Cell Distribution Width 14.4 % (11.6-17.2); White Blood Count 7.9 th/mm3 (4.0-11.0)
[2018-05-12 18:54] LABS: Calcium 8.9 mg/dL (8.5-10.1)
[2018-05-12 18:55] LABS: Carbon Dioxide 24.7 meq/L (21.0-32.0)
[2018-05-12 18:58] LABS: Activated Partial Thrombo Time 28.2 sec (24.3-30.1); INR 1.1 Ratio; Prothrombin Time 11.3 sec (9.8-11.6)
[2018-05-12] MEDS ORDERED: Morphine Inj 4 MG/ML Vial IV.PUSH ONE (19:19)
[2018-05-12] MEDS ORDERED: Bisacodyl 10 MG Supp RECTAL PRN (19:22)
[2018-05-12] MEDS ORDERED: Temazepam 15 MG Capsule PO PRN (19:22)
[2018-05-12] MEDS ORDERED: Naloxone Inj 0.4 MG/ML Vial IV.PUSH PRN (19:24)
[2018-05-12] MEDS ORDERED: Dextrose 50% in Water 50 ML Vial IV.PUSH PRN (19:24)
[2018-05-13] MEDS ORDERED: dilTIAZem 30 MG Tablet PO ONE (03:00)
[2018-05-13] MEDS ORDERED: Metoprolol Tartrate 100 MG Tablet PO SCH (03:00)
[2018-05-13] MEDS ORDERED: Chlorhexidine Gluconate 2% 1 Pack (2 Cloths) TOPICAL SCH ×2 (04:15→10:45)
[2018-05-13] MEDS ORDERED: Sodium Chlor 0.9% Inj 500 ML IV.SIG SCH ×2 (05:00→11:00)
[2018-05-13] MEDS ORDERED: Sod Chloride 0.9% Inj 1,000 ML IV.CONT SCH (05:45)
--- NOTE | 2018-05-13 05:50 | P.HPIM ---
History of Present Illness Primary Care Physician: Rhianna Royal MD Chief Complaint: Left hip pain History of Present Illness: 82-year-old female with history of diabetes mellitus, atrial fibrillation on Eliquis, recent ischemic stroke in November of this year of the right proximal middle cerebral artery which fortunately responded to thrombectomy, and with minimal residual deficit. She presents with mechanical fall last night around 7: 30 PM, followed by continued nonradiating sharp pain of the left hip. She says she was bending down to put a magnet on the bottom of her refrigerator when she stumbled, falling on her left hip. She denies any loss of consciousness. Patient denies any lightheadedness, dizziness, chest pain, shortness of breath. Of note, patient missed her nighttime dose of metoprolol, and now appears to be tachycardic in the 140s. Denies any palpitations or chest pain. I discussed with nurse. Will give patient 100 mg of p.o. metoprolol now, as well as diltiazem. - Inpatient Certification If this patient has been admitted as an Inpatient: I certify that the inpatient services were ordered in accordance with Medicare regulations governing the order. This includes certification that hospital inpatient services are reasonable and necessary and in the case of services not specified as inpatient-only under 42 CFR 419.22(n), that they are appropriately provided as inpatient services in accordance to with the 2-midnight benchmark under 43 CFR 412.3(e) Estimated Total Length of Stay (Days): 2 Plans for Post Hospital Care: SNF Review of Systems All other systems reviewed negative except as stated in HPI [facility] - History History Provided By: Patient - Medical History Medical History: Medical History (Last Updated 05/13/18 @ 05:44 by Tonio Lay MD) Arthritis Asthma Atrial fibrillation CAD (coronary artery disease) Cardiomyopathy Diabetes Dyslipidemia FHx: MARTY-BSO (total abdominal hysterectomy and bilateral salpingo-oophorectomy) Hypertension Hypothyroidism Myocardial infarct Pancreatic cyst Stroke - Surgical History Surgical History: Surgical History (Last Updated 05/12/18 @ 18:48 by Jaimee Morales) AICD (automatic cardioverter/defibrillator) present History of appendectomy History of tonsillectomy Hx of cholecystectomy - Family History Family History: Family History (Last Updated 05/13/18 @ 05:44 by Tonio Lay MD) Mother Stroke Father Unknown cause of morbidity or mortality - Tobacco History Second Hand Smoke Exposure: No Tobacco Use In Past 30 Days: No Smoking Status: Former smoker Tobacco Type: Cigarettes - Alcohol History How Often Do You Have a Drink Containing Alcohol: Never - Substance Use History Substance History: No History of Abuse - Travel History Recent Travel in the [place] Within the Last 8 Weeks: No Recent Travel Out of the Country Within the Last 8 Weeks: No - Immunization History Tetanus Immunization: <5 Years Hx Influenza Vaccine This Season: No Medications and Allergies Active Medications: Active Medications Hydrocodone Bitart/Acetaminophen ([place] 7.5/325) 1 tab PO Q4H PRN PRN Reason: PAIN SCALE 6 TO 10 Last Admin: 05/13/18 01:19 Dose: 1 tab Hydrocodone Bitart/Acetaminophen ([place] 5/325) 1 tab PO Q4H PRN PRN Reason: PAIN SCALE 3 TO 5 Al Hydroxide/Mg Hydroxide (Milk Of Magnesia Liq) 30 ml PO Q12H PRN PRN Reason: Mild Constipation Bisacodyl (Dulcolax Supp) 10 mg RECTAL DAILY PRN PRN Reason: SEVERE CONSITIPATION Chlorhexidine Gluconate (Chlorhexidine 2% Cloth) 3 pack [employer] [facility] Stop: 05/16/18 04:16 Dextrose (D50w Vial) 50 ml IV.PUSH UNSCH PRN PRN Reason: PER HYPOGLYCEMIA PROTOCOL Diltiazem HCl (Cardizem Cd 24hr) 180 mg PO DAILY [facility] Enalaprilat (Vasotec Inj) 1.25 mg IV.PUSH Q6H PRN PRN Reason: SYS BP GREATER THAN 150 MMHG Gabapentin (Neurontin) 400 mg PO DAILY [facility] Glucagon (Glucagon Inj) 1 mg OTHER PRN PRN PRN Reason: for Hypoglycemia Protocol Lactated Ringer's (Lr 1000 Ml Inj) 1,000 mls @ 30 mls/hr IV.SIG .Q24H [facility] Stop: 05/16/18 04:16 Sodium Chloride (Ns Inj) 500 mls @ 30 mls/hr IV.SIG .Q10H [facility] Stop: 05/16/18 04:16 Sodium Chloride (Ns Inj) 1,000 mls @ 84 mls/hr IV.CONT .[id number] [facility] Insulin Aspart (Novolog Insulin Suppl Scale Inj) 0 unit SQ ACHS PENNY; Protocol Lactulose (Lactulose Liq) 30 ml PO DAILY PRN PRN Reason: SEVERE CONSITIPATION Levothyroxine Sodium (Synthroid) 50 mcg PO DAILY@0600 [facility] Metoprolol Tartrate (Lopressor) 75 mg PO BID [facility] Naloxone HCl (Narcan Inj) 0.4 mg IV.PUSH UNSCH PRN PRN Reason: SEE LABEL COMMENTS Pantoprazole Sodium (Protonix) 20 mg PO DAILY [facility] Povidone Iodine (Betadine 5% Antisepsis Kit) 1 applicatio EACH [employer] [facility] Stop: 05/16/18 04:16 Pravastatin Sodium (Pravachol) 40 mg PO DAILY [facility] Sennosides (Senokot) 17.2 mg PO Q12H PRN PRN Reason: Moderate Constipation Temazepam (Restoril) 15 mg PO HS PRN PRN Reason: INSOMNIA Allergies Allergy/AdvReac Type Severity Reaction Status Date / Time Influenza Virus Vaccines Allergy Severe Anaphylaxis Verified 05/12/18 17:34 Home Medications Medication Instructions Recorded Confirmed Type apixaban [Eliquis] 5 mg PO BID 05/12/18 05/12/18 History calcium carbonate-vitamin D3 1 tab PO BID 05/12/18 05/12/18 History [Calcium 500 + D (D3)] diltiazem HCl [Cardizem CD] 180 mg PO DAILY 05/12/18 05/12/18 History gabapentin 400 mg PO DAILY 05/12/18 05/12/18 History imipramine HCl [Tofranil] 50 mg PO DAILY 05/12/18 05/12/18 History insulin detemir U-100 [Levemir 10 unit SUB-Q BID 05/12/18 05/12/18 History U-100 Insulin] levothyroxine 50 mcg PO DAILY 05/12/18 05/12/18 History metoprolol tartrate 75 mg PO BID 05/12/18 05/12/18 History multivitamin with minerals 2 tab PO TID 05/12/18 05/12/18 History [Multiple Vitamin-Minerals] nitroglycerin [Nitrostat] 0.4 mg SUBLINGUAL Q5-15M PRN 05/12/18 05/12/18 History pantoprazole [Protonix] 20 mg PO DAILY 05/12/18 05/12/18 History pravastatin 40 mg PO DAILY 05/12/18 05/12/18 History Exam Vital signs: Vital Signs 05/12/18 17:34 05/12/18 18:30 05/12/18 18:55 Temperature 97.6 F Pulse Rate 100 H 103 H Respiratory Rate 22 20 16 Blood Pressure 180/107 H 129/74 Pulse Oximetry 95 93 L 05/12/18 20:01 05/12/18 22:00 05/12/18 23:55 Temperature Pulse Rate 104 H 104 H 116 H Respiratory Rate 18 18 18 Blood Pressure 119/65 124/89 146/80 H Pulse Oximetry 98 98 99 05/13/18 00:00 05/13/18 00:22 Temperature 97.8 F Pulse Rate 140 H 108 H Respiratory Rate 22 18 Blood Pressure 168/96 H Pulse Oximetry 96 97 Intake & Output 05/12/18 05/12/18 05/13/18 06:59 18:59 06:59 Weight 71.4 kg 70.76 kg Other: Weight On Admission 70.76 kg Narrative: GENERAL: Patient lying in bed. Appears uncomfortable. She is alert, disoriented to year. Oriented to month. SKIN: Warm and dry. HEAD: Atraumatic. Normocephalic. EYES: Pupils equal and round. No scleral icterus. No injection or drainage. ENT: No nasal bleeding or discharge. Mucous membranes pink and moist. NECK: Trachea midline. No JVD. CARDIOVASCULAR: Heart rate elevated, irregularly irregular. RESPIRATORY: No accessory muscle use. Clear to auscultation. Breath sounds equal bilaterally. GASTROINTESTINAL: Abdomen soft, non-tender, nondistended. Hepatic and splenic margins not palpable. MUSCULOSKELETAL: Extremities without clubbing, cyanosis, or edema. No obvious deformities. Patient does have small subcentimeter chronic ulcer of medial malleolus on the left without any surrounding erythema. Good pedal pulses bilaterally. NEUROLOGICAL: Awake and alert. No obvious cranial nerve deficits. Motor grossly within normal limits. 5 out of 5 strength in bilateral arms. Patient unable to move left leg secondary to pain. PSYCHIATRIC: Appropriate mood and affect; insight and judgment normal. Results - Labs CBC & Chem 7: 05/12/18 18:20 05/12/18 18:20 Labs: Short CBC 05/12/18 Range/Units 18:20 WBC 7.9 (4.0-11.0) th/mm3 Hgb 13.4 (11.6-15.3) gm/dL Hct 40.0 (35.0-46.0) % Plt Count 200 (150-450) th/mm3 BMP 05/12/18 18:20 Sodium 135 L Potassium 4.0 Chloride 101 Carbon Dioxide 24.7 BUN 19 H Creatinine 0.91 Calcium 8.9 - Imaging Impressions Hip X-Ray 05/12/18 17:58 CONCLUSION: Left femoral neck fracture with angular deformity. Caprini VTE Risk Assessment Caprini VTE Risk Assessment: Moderate/High Risk (score >= 2) Caprini Risk Assessment Model: Point Value = 1 Point Value = 2 Point Value = 3 Point Value = 5 Age 41-60 Minor surgery BMI > 25 kg/m2 Swollen legs Varicose veins or History of unexplained or recurrent spontaneous Oral contraceptives or hormone replacement Sepsis (< 1 month) Serious lung disease, including pneumonia (< 1 month) Abnormal pulmonary function Acute myocardial infarction Congestive heart failure (< 1 month) History of inflammatory bowel disease Medical patient at bed rest Age 61-74 Arthroscopic surgery Major open surgery (> 45 min) Laparoscopic surgery (> 45 min) Malignancy Confined to bed (> 72 hours) Immobilizing plaster cast Central venous access Age >= 75 History of VTE Family history of VTE Factor V Leiden Prothrombin [id number] Lupus anticoagulant Anticardiolipin antibodies Elevated serum homocysteine Heparin-induced thrombocytopenia Other congenital or acquired thrombophilia Stroke (< 1 month) Elective arthroplasty Hip, pelvis, or leg fracture Acute spinal cord injury (< 1 month) Prophylaxis Regimen: Total Risk Factor Score Risk Level Prophylaxis Regimen 0-1 Low Early ambulation 2 Moderate Order ONE of the following: *Sequential Compression Device (SCD) *Heparin 5000 units SQ BID 3-4 Higher Order ONE of the following medications: *Heparin 5000 units SQ TID *Enoxaparin/Lovenox 40 mg SQ daily (WT < 150 kg, CrCl > 30 mL/min) *Enoxaparin/Lovenox 30 mg SQ daily (WT < 150 kg, CrCl > 10-29 mL/min) *Enoxaparin/Lovenox 30 mg SQ BID (WT < 150 kg, CrCl > 30 mL/min) AND/OR *Sequential Compression Device (SCD) 5 or more Highest Order ONE of the following medications: *Heparin 5000 units SQ TID (Preferred with Epidurals) *Enoxaparin/Lovenox 40 mg SQ daily (WT < 150 kg, CrCl > 30 mL/min) *Enoxaparin/Lovenox 30 mg SQ daily (WT < 150 kg, CrCl > 10-29 mL/min) *Enoxaparin/Lovenox 30 mg SQ BID (WT < 150 kg, CrCl > 30 mL/min) AND *Sequential Compression Device (SCD) Assessment and Plan - Plan //Acute left femoral neck fracture with angular deformity = Status post ground-level mechanical fall. = Consult orthopedics. Patient is n.p.o. 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 -Patient reportedly with surgery in the past her ankle with indwelling hardware. -We will order x-ray. Orthopedics to evaluate. //Atrial fibrillation. With RVR. //Cardiomyopathy. EF 25% on echocardiogram last year. History of AICD //Recent stroke in November of this year. = Appears to be asymptomatic. RVR is likely secondary to missing nighttime dose of metoprolol. = Would recommend heart rate be under 100 prior to any surgery = Consult lead cargoman Dr. Quinones. = We will hold anticoagulation for now. If no surgery today, would consider heparin drip for bridging //Diabetes mellitus. With hypoglycemia in the 200s on admission. Patient will be n.p.o., with insulin sliding scale. //Hypothyroidism. Chronic. Continue home medication. TSH pending. //Depression. Chronic. Continue home medication. Discussed Condition With: Patient, nurse, ED physician Discharge Planning: Patient will likely need rehab. H&P: Quality - VTE Deep Vein Thrombosis/Pulmonary Embolism Present on Admission: No
--- NOTE | 2018-05-13 06:16 | XR ---
EXAM DATE: 05/13/2018 6:08 AM EDT AGE/SEX: 82 years / Female INDICATIONS: Inflammation, pain in left ankle. CLINICAL DATA: This is the patient's subsequent encounter. Patient reports that signs and symptoms h ave been present for 2 days and indicates a pain score of 8/10. MEDICAL/SURGICAL HISTORY: None. . ORIF left ankle. [place] [facility] [place]/2015. . FINDINGS: 2 screws in the medial malleolus and lateral fibular plate in place. The hardware appears intact. No significant soft tissue swelling. There is irregularity of the tibial talar cortical margins suggesti ng posttraumatic degenerative changes. Transverse lucencies through the proximal shaft of the third f ourth and fifth metatarsal bones suggesting healed fractures. Moderately large plantar calcaneal spur . CONCLUSION: No acute findings. Electronically signed by: Ricardo Sexton MD 05/13/2018 6:14 AM EDT
[2018-05-13] MEDS: Levothyroxine 50 MCG Tablet PO SCH (06:48)
--- NOTE | 2018-05-13 07:17 | P.PNOP ---
Subjective Interval history: Mechanical fall at home. Pain to left hip and is unable to ambulate Physical Exam Vital signs: Vital Signs 05/12/18 17:34 05/12/18 18:30 05/12/18 18:55 Temperature 97.6 F Pulse Rate 100 H 103 H Respiratory Rate 22 20 16 Blood Pressure 180/107 H 129/74 Pulse Oximetry 95 93 L 05/12/18 20:01 05/12/18 22:00 05/12/18 23:55 Temperature Pulse Rate 104 H 104 H 116 H Respiratory Rate 18 18 18 Blood Pressure 119/65 124/89 146/80 H Pulse Oximetry 98 98 99 05/13/18 00:00 05/13/18 00:22 Temperature 97.8 F Pulse Rate 140 H 108 H Respiratory Rate 22 18 Blood Pressure 168/96 H Pulse Oximetry 96 97 Intake & Output 05/12/18 05/13/18 05/13/18 18:59 06:59 18:59 Weight 71.4 kg 70.76 kg Other: Weight On Admission 70.76 kg - Constitutional no acute distress - Routine Extremities Exam Comments: Bilateral upper extremities: Full range of motion and neurovascularly intact Right lower extremity: Full range of motion and neurovascularly intact Left lower extremity: Pain to palpation of hip. No pain with gentle knee motion or ankle motion. Distally intact sensation with good capillary refills Results - Labs CBC & Chem 7: 05/12/18 18:20 05/12/18 18:20 Laboratory Results - last 24 hr 05/12/18 05/12/18 05/12/18 18:20 18:20 18:20 CBC w Diff Auto diff final WBC 7.9 RBC 4.46 Hgb 13.4 Hct 40.0 MCV 89.7 MCH 30.0 MCHC 33.5 RDW 14.4 Plt Count 200 MPV 8.3 Neut % (Auto) 73.6 H Lymph % (Auto) 18.2 Mcdonald % (Auto) 6.6 Eos % (Auto) 1.3 Baso % (Auto) 0.3 Neut # (Auto) 5.8 Lymph # (Auto) 1.4 Mcdonald # (Auto) 0.5 Eos # (Auto) 0.1 Baso # (Auto) 0.0 WBC Differential . PT 11.3 INR 1.1 APTT 28.2 Sodium 135 L Potassium 4.0 Chloride 101 Carbon Dioxide 24.7 Anion Gap 9 BUN 19 H Creatinine 0.91 Estimated GFR 59 L POC Glucose Random Glucose 199 H Calcium 8.9 Blood Type Blood Type Recheck Antibody Screen 05/12/18 05/13/18 18:20 04:07 CBC w Diff WBC RBC Hgb Hct MCV MCH MCHC RDW Plt Count MPV Neut % (Auto) Lymph % (Auto) Mcdonald % (Auto) Eos % (Auto) Baso % (Auto) Neut # (Auto) Lymph # (Auto) Mcdonald # (Auto) Eos # (Auto) Baso # (Auto) WBC Differential PT INR APTT Sodium Potassium Chloride Carbon Dioxide Anion Gap BUN Creatinine Estimated GFR POC Glucose 228 H Random Glucose Calcium Blood Type A Positive Blood Type Recheck Not needed Antibody Screen Negative - Imaging Impressions Hip X-Ray 05/12/18 17:58 CONCLUSION: Left femoral neck fracture with angular deformity. Ankle X-Ray 05/13/18 00:00 CONCLUSION: No acute findings. Assessment and Plan - Problem List (1) Left displaced femoral neck fracture Code(s): S72.002A - Fracture of unspecified part of neck of left femur, initial encounter for closed fracture Status: Acute - Assessment and Plan Left femoral neck fracture N.p.o. Surgery this morning for left hip hemiarthroplasty Sign consents
[2018-05-13] MEDS: Insulin NovoLOG Aspart Correctional Sugar Inj SQ SCH ×6 (07:40→23:31)
[2018-05-13] MEDS: Metoprolol Tartrate 25 MG Tablet PO SCH ×3 (07:40→21:34)
[2018-05-13] MEDS ORDERED: Morphine Inj 4 MG/ML Vial IV.PUSH PRN (08:21)
[2018-05-13] MEDS: Gabapentin 400 MG Capsule PO SCH (08:40)
[2018-05-13] MEDS: Pantoprazole Sodium 20 MG DR Tablet PO SCH (08:40)
[2018-05-13] MEDS ORDERED: Sodium Chlor 0.9% Inj 250 ML ONE (08:48)
[2018-05-13] MEDS ORDERED: TRANEXAMIC ACID IV.SIG SCH (09:00)
[2018-05-13] MEDS ORDERED: dilTIAZem CD 180 MG Capsule PO SCH (09:00)
[2018-05-13] MEDS ORDERED: SODIUM CHLOR 0.9% IV.SIG SCH (09:00)
[2018-05-13] MEDS ORDERED: Metoprolol Inj 5 MG/5 ML Vial IV.PUSH PRN (09:43)
[2018-05-13] MEDS ORDERED: Post-op Orders (for Pharmacy) OTHER STA (10:42)
[2018-05-13] MEDS ORDERED: Metoprolol Tartrate 25 MG Tablet PO SCH (10:45)
--- NOTE | 2018-05-13 11:01 | MB ---
cc: Александр Swanson MD DATE: 05/13/2018 REASON FOR CONSULTATION: Evaluation of atrial fibrillation with rapid ventricular response. HISTORY OF PRESENT ILLNESS: Betty Lopez is an 82-year-old female followed by Dr. Quinones. The patient is known to have chronic atrial fibrillation. She has been on metoprolol, looks like 100 mg b.i.d. and Diltiazem 180 daily. It is hard to tell for sure if those are the exact doses of the medications. She is groggy from the pain medications she has received, complaining of a lot of hip pain. Denies any shortness of breath or chest pain. She apparently has not been found to have severe coronary artery disease before, just had mild disease on a catheterization 6 years ago. She does have chronic atrial fibrillation, however, and is on Eliquis. Her last dose of Eliquis was 05/11/2018 in the evening, so it has been more than 24 hours since her last dose. PAST MEDICAL AND SURGICAL HISTORY: Includes diabetes, colon polyps, rectal bleeding 02/22, has been on Eliquis instead of Xarelto, hypothyroidism. She has had pa previous fracture of the right patella, previous left lower leg fracture, cholecystectomy, hysterectomy, and appendectomy. ALLERGIES: NONE. SOCIAL HISTORY: Quit smoking 60 years ago. PHYSICAL EXAMINATION: GENERAL: Elderly white female that is somewhat groggy from pain medications, I believe. VITAL SIGNS: Charted. She is in atrial fibrillation. She has gotten metoprolol and diltiazem this morning. Her heart rate is mildly elevated. HEENT: Unremarkable. NECK: No JVD. No bruits. CHEST: Clear to auscultation. CARDIOVASCULAR: S1, S2, irregular rate and rhythm. She has I-II/ systolic murmur. ABDOMEN: Soft. EXTREMITIES: Reveal intact pedal and radial pulses. DIAGNOSTIC STUDIES: Her EKG, I cannot find in the chart. Her labs are charted. IMPRESSION AND RECOMMENDATIONS: Chronic atrial fibrillation. Ventricular rate is mildly elevated. Suspect some of this is due to the acute pain. I have upped her metoprolol from 75 b.i.d. to 100 b.i.d. I have written an order for IV Lopressor p.r.n. for heart rates greater than 105. She is on the way to the OR currently for getting her hip repaired. I am okay with that. If she needs to receive some IV metoprolol for heart rate control, that would be acceptable. I will follow up again tomorrow. MD JOE Olievros/GRETTA , 10:18 AM , 10:59 AM
--- NOTE | 2018-05-13 11:06 | MB ---
cc: Clem Mayorga MD DATE: 05/13/2018 REASON FOR CONSULTATION: Left femoral neck fracture. HISTORY OF PRESENT ILLNESS: Betty is an 82-year-old female who has a history of diabetes, atrial fibrillation and history of stroke. She describes a mechanical fall. She was bending over to pick something up when she lost her balance. She subsequently fell and landed on her left side. She had immediate left hip pain. She was unable to stand or ambulate after this. She presented in the Emergency Room where x-rays revealed a displaced left femoral neck fracture. She is currently awake and alert on the orthopedic floor. Her only complaint is her left hip. The pain is worse with movement and is improved with rest. She denies dizziness, syncope or loss of consciousness. PAST MEDICAL HISTORY: Arthritis, asthma, atrial fibrillation, coronary artery disease, cardiomyopathy, diabetes, high cholesterol, hypertension, hypothyroidism, and stroke. PAST SURGICAL HISTORY: Hysterectomy, AICD placement, appendectomy, tonsillectomy, cholecystectomy. ALLERGIES: INFLUENZA VACCINE. MEDICATIONS: Please see EMR for complete list of inpatient medications. OUTPATIENT MEDICATIONS: 1. Include Eliquis. 2. Calcium. 3. Diltiazem. 4. Gabapentin. 5. Insulin. 6. Levothyroxine. 7. Metoprolol. 8. Nitroglycerin. 9. Pantoprazole. 10. Pravastatin. SOCIAL HISTORY: The patient denies alcohol, tobacco or drug use. FAMILY HISTORY: Noncontributory. She denies any familial medical problems. REVIEW OF SYSTEMS: The patient denies fevers or chills, weight loss, headache, visual changes, hearing loss, neck pain, chest pain, palpitations, shortness of breath, nausea, vomiting, urinary changes, neck or back pain, skin rashes, weakness or numbness of extremities, depression or anxiety. LABORATORY DATA: The patient has white blood cell count of 7.9, hematocrit of 40, platelet count of 200. INR of 1.1, BUN 19, creatinine 0.91. X-rays of the left hip were reviewed. X-rays reveal a displaced left femoral neck fracture. PHYSICAL EXAMINATION: GENERAL: The patient is a pleasant 82-year-old female. She is awake and alert. She is alert and oriented x3. She appears well-developed and well-nourished. VITAL SIGNS: Temperature 98.4, pulse 109, respirations 18, blood pressure 124/75, O2 saturations 96% on room air. HEENT: Head: The patient is normocephalic. Eyes: Pupils are equal. NECK: Soft, nontender. The trachea is in the midline. ABDOMEN: Soft, nontender, nondistended. EXTREMITIES: Examination of bilateral upper extremities reveals no pain with shoulder, elbow or wrist motion. She has intact sensation in the radial, ulnar, and median nerve distributions bilaterally. Skin is intact. Radial pulses are palpable. Examination of right leg reveals no pain with hip, knee or ankle motion. Skin is intact. Dorsalis pedis pulses palpable. Sensation is intact. Examination of left leg reveals pain with any hip motion. She is tender to palpation around the proximal femur. She has no tenderness around her knee, tibia or ankle. Skin is intact. Dorsalis pedis pulses palpable. Sensation intact to left foot. IMPRESSION: 1. Atrial fibrillation. 2. History of stroke. 3. Osteoporosis. 4. Displaced left femoral neck fracture. PLAN: Treatment options were discussed with the patient. At this point, I would recommend a left hip hemiarthroplasty. The risks of surgery include bleeding, infection, injuries to arteries, nerves and blood vessels, nonunion, hip dislocation, leg length discrepancies, hip pain, bursitis, as well as medical complications including blood clot, stroke, heart attack and . All questions were answered. I will plan on surgery today if she is medically cleared. Postoperatively, physical therapy will be consulted. She will be placed on calcium and vitamin D. She will be placed on appropriate DVT prophylaxis. A mid-level provider in my office, nurse practitioner or PA, may see this patient on a follow-up basis and continue to implement the objective of this plan including: Starting or adjusting medications, injections of muscle, tendon, bursa or joints, cast application, orthotic or brace application, physical therapy, further radiographic studies including x-ray, MRI, CT, ultrasounds or bone scan, vascular studies, neurologic studies, or other specialist consultations, and proceeding with surgical management as appropriate. The [employer] prescription drug monitoring database has been queried and verified prior to prescribing controlled substances. This patient has acute pain exception. She has a normal predicted physiological and time limited response to trauma and surgery. There is a lack of alternative treatment options other than prescribed narcotic medication. MD ISRA Friend , 10:41 AM , 11:04 AM
[2018-05-13] MEDS ORDERED: Sugammadex Inj 200 MG/2 ML Vial IV.PUSH ONE (11:36)
--- NOTE | 2018-05-13 11:47 | P.OP ---
Date of procedure: 05/13/18 Procedure: Left hip bipolar hemiarthroplasty Anesthesia: GETA Surgeon: Clem Sutton MD Assistant Food Service Director: WINSTON Cid PA-C The surgical procedure was assisted by my physician sales operations assistant. My P.A. presence was necessary throughout this case for the manipulation and positioning of the surgical extremity. My P.A. was assisting me throughout the duration of this procedure. The skill set of a physician sales operations assistant was medically necessary to complete this procedure. During the surgical case the instructor adjunct surgical technician was working at the back table and the physician sales operations assistant was directly assisting me. Estimated blood loss (mL): 100 Operation and Findings: PLAN OF ACTIVITY Weight bear as tolerated. IMPLANTS USED DePuy cemented Tioga size 5 stem with size [46] bipolar head and [+1] neck. DETAILS OF PROCEDURE This patient was brought into the operating room and placed on the OR table. The patient was given anesthesia. The patient received IV antibiotics. The patient was then placed in lateral decubitus position. The hip and leg were prepped with alcohol, followed by Hibiclens and draped in a usual sterile fashion. Clean air was used for this procedure. Time out procedure was performed. The procedure began with a 5 inch incision over the posterolateral hip. The subcutaneous tissue was dissected with the Bovie. The iliotibial band were split in line with fibers. The Charnley retractor was placed. The piriformis and external rotators were released from the femur and tagged with a #1 Vicryl suture. The capsule is now incised and tagged with #1 Vicryl. The femoral neck fracture was now visualized. A corkscrew was now used to remove the femoral head. The femoral head was sized and measured. Soft tissue was now protected. The hip skid was placed underneath the femoral neck. An oscillating saw was used to make a femoral neck cut. At this point attention was turned to preparation of the proximal femur. A box osteotome was used to remove the lateral cortex of the femoral neck. The T- handle reamer was used to open the femoral canal. The canal was now reamed. Next , the canal was broached up to appropriate size. A lateralizing reamer was used to help lateralize the prosthesis. At this point a trial head and neck were placed. The hip was reduced. The patient was found to have excellent stability with good range of motion. Trial components were removed. Soft tissue and bone were thoroughly irrigated. The summit stem was now opened. Cement was mixed with vancomycin powder. Cement was pressurized into the femoral canal. The stem was now placed into the proximal femur. Care was taken to keep appropriate anteversion. excess cement was removed. After cement was set, the head and neck were now impacted onto the stem. The hip was again reduced. The hip was found to have good range of motion and good stability. Leg lengths were clinically equal. The wound was thoroughly irrigated. The capsule, piriformis and iliotibial band were closed with #1 Vicryl. Subcutaneous tissue was closed with 3-0 Vicryl. The skin was closed with Dermabond. A sterile dressing was applied with Primapore. The patient was placed into a knee immobilizer. The patient was awakened and transferred to the recovery room in stable condition. Needle and sponge counts were correct.
[2018-05-13] MEDS ORDERED: Phenylephrine/NS 1000 MCG/10ML Syringe IV.PUSH ONE (12:00)
[2018-05-13] MEDS ORDERED: Lidocaine PF 1% Inj 5 ML Syringe INFILTRATN ONE (12:00)
--- NOTE | 2018-05-13 12:08 | P.DCO ---
- Physical Therapy Physical Therapy: Gait training, Safety evaluation Hip: Total hip, Protocol: Left, Posterior hip precautions Canvas Knee Splint: Other (when in bed) Left Lower Extremity Weight Bearing: Weight bearing as tolerated - Nursing Dressing changes: Daily dressing change (beginning 05/19/18 with primapore. leave surgical tape in place) - Certification Need for Home Health services: I have seen patient Betty Mccormick on 05/13/18. My clinical findings support the need for the requested home health care services because: Need for Home Health Services: Limited mobility due to disease progression Homebound Certification: I certify that my clinical findings support that this patient is homebound because: Homebound Certification: Post-op weakness
[2018-05-13] MEDS ORDERED: fentaNYL Citrate Inj 100 MCG/2 ML Ampul ONE (12:16)
--- NOTE | 2018-05-13 12:56 | XR ---
EXAM DATE: 05/13/2018 12:53 PM EDT AGE/SEX: 82 years / Female INDICATIONS: Post-op total left hip arthroplasty. CLINICAL DATA: This is the patient's subsequent encounter. Patient reports that signs and symptoms h ave been present for 2 days and indicates a pain score of Nonresponsive. MEDICAL/SURGICAL HISTORY: Non-responsive. Non-responsive. COMPARISON: No prior exams available for comparison. FINDINGS: Postoperative left hip replacement. Normal alignment. No acute fracture or dislocation. CONCLUSION: Postoperative left hip replacement. No complications identified. Electronically signed by: Ravinder Chun MD 05/13/2018 12:55 PM EDT
[2018-05-13] MEDS: ceFAZolin 2 GM Premix Inj 2 GM/50 ML PIGGYBACK IV.SIG SCH ×2 (15:10→21:33)
[2018-05-13 16:21] LABS: Baso % (Auto) 0.1 % (0.0-2.0); Eos % (Auto) 0.3 % (0.0-4.0); Hematocrit 38.2 % (35.0-46.0); Hemoglobin 12.6 gm/dL (11.6-15.3); Lymph # (Auto) 0.6 th/mm3 (1.0-4.8); Lymph % (Auto) 4.5 % (9.0-44.0); Mean Corpuscular HGB Conc 32.9 % (32.0-36.0); Mean Corpuscular Hemoglobin 30.2 pg (27.0-34.0); Mean Corpuscular Volume 91.6 fL (80.0-100.0); Mean Platelet Volume 8.5 fL (7.0-11.0); Mono # (Auto) 0.4 th/mm3 (0.0-0.9); Mono % (Auto) 2.8 % (0.0-8.0); Neut # (Auto) 12.5 th/mm3 (1.8-7.7); Neut % (Auto) 92.3 % (16.0-70.0); Platelet Count 156 th/mm3 (150-450); Red Blood Count 4.17 mil/mm3 (4.00-5.30); Red Cell Distribution Width 14.7 % (11.6-17.2); White Blood Count 13.6 th/mm3 (4.0-11.0)
[2018-05-13 16:47] LABS: Calcium 8.3 mg/dL (8.5-10.1); Carbon Dioxide 24.2 meq/L (21.0-32.0)
[2018-05-14] MEDS: ceFAZolin 2 GM Premix Inj 2 GM/50 ML PIGGYBACK IV.SIG SCH (04:23)
[2018-05-14 05:13] LABS: Hemoglobin 12.6 gm/dL (11.6-15.3)
[2018-05-14] MEDS: Levothyroxine 50 MCG Tablet PO SCH (06:59)
--- NOTE | 2018-05-14 07:13 | P.PNOP ---
Subjective Interval history: Resting comfortably with no new complaints Physical Exam Vital signs: Vital Signs 05/13/18 08:00 05/13/18 09:35 05/13/18 12:00 Temperature 98.5 F 98.4 F 98.2 F Pulse Rate 124 H 109 H 110 H Respiratory Rate 18 18 14 Blood Pressure 140/82 124/75 96/68 L Pulse Oximetry 94 L 96 96 05/13/18 12:02 05/13/18 12:15 05/13/18 12:30 Temperature 98.1 F Pulse Rate 117 H 112 H 113 H Respiratory Rate 18 15 17 Blood Pressure 109/72 115/71 120/75 Pulse Oximetry 98 100 98 05/13/18 12:45 05/13/18 13:00 05/13/18 13:15 Temperature Pulse Rate 120 H 121 H 118 H Respiratory Rate 15 15 15 Blood Pressure 100/58 L 97/61 L 99/66 L Pulse Oximetry 97 96 96 05/13/18 13:30 05/13/18 14:53 05/13/18 16:00 Temperature 98.5 F Pulse Rate 113 H 111 H 89 Respiratory Rate 12 14 19 Blood Pressure 115/63 110/62 119/66 Pulse Oximetry 97 95 95 05/13/18 20:00 05/14/18 00:00 05/14/18 04:00 Temperature 98.5 F 97.4 F L 97.6 F Pulse Rate 113 H 114 H 120 H Respiratory Rate 18 18 18 Blood Pressure 117/81 139/78 141/75 H Pulse Oximetry 99 98 99 Intake & Output 05/13/18 05/14/18 05/14/18 18:59 06:59 18:59 Intake Total 1150 / 1150 50 / 50 Output Total 100 / 100 Balance 1050 / 1050 50 / 50 Weight 70.1 kg Intake: IV 300 / 300 50 / 50 NS Inj 250 ML @ 0 mls/hr .ROUTE 250 / 250 .STK-MED ONE Rx#:[id number] Ancef 2 GM Premix Inj 2 gm In 50 / 50 50 / 50 50 ml @ 100 mls/hr IV.SIG Q6H PENNY Rx#:[id number] Anesthesia Amount 850 / 850 Output: Estimated Blood Loss 100 / 100 Other: # Voids 1 6 # Incontinent Voids 1 Date of Last Bowel Movement 07/04/18 07/04/18 Narrative: Left lower extremity: Clean dry dressings intact. Moderate swelling. Knee immobilizer in place. Distally intact sensation with good capillary refills. She has active dorsiflexion plantar flexion of foot - Constitutional no acute distress Results - Labs CBC & Chem 7: 05/14/18 04:59 05/13/18 15:43 Laboratory Results - last 24 hr 05/13/18 05/13/18 05/13/18 08:54 12:23 15:43 WBC 13.6 H D RBC 4.17 Hgb 12.6 Hct 38.2 MCV 91.6 MCH 30.2 MCHC 32.9 RDW 14.7 Plt Count 156 MPV 8.5 Neut % (Auto) 92.3 H Lymph % (Auto) 4.5 L Johnson % (Auto) 2.8 Eos % (Auto) 0.3 Baso % (Auto) 0.1 Neut # (Auto) 12.5 H Lymph # (Auto) 0.6 L Johnson # (Auto) 0.4 Eos # (Auto) 0.0 Baso # (Auto) 0.0 WBC Differential . Diff Scan Auto diff confirmed Sodium Potassium Chloride Carbon Dioxide Anion Gap BUN Creatinine Estimated GFR POC Glucose 279 H 198 H Random Glucose Calcium 05/13/18 05/13/18 05/13/18 15:43 17:14 21:28 WBC RBC Hgb Hct MCV MCH MCHC RDW Plt Count MPV Neut % (Auto) Lymph % (Auto) Johnson % (Auto) Eos % (Auto) Baso % (Auto) Neut # (Auto) Lymph # (Auto) Johnson # (Auto) Eos # (Auto) Baso # (Auto) WBC Differential Diff Scan Sodium 139 Potassium 4.0 Chloride 106 Carbon Dioxide 24.2 Anion Gap 9 BUN 16 Creatinine 0.88 Estimated GFR 61 L POC Glucose 202 H 207 H Random Glucose 190 H Calcium 8.3 L 05/14/18 04:59 WBC RBC Hgb 12.6 Hct 38.0 MCV MCH MCHC RDW Plt Count MPV Neut % (Auto) Lymph % (Auto) Johnson % (Auto) Eos % (Auto) Baso % (Auto) Neut # (Auto) Lymph # (Auto) Johnson # (Auto) Eos # (Auto) Baso # (Auto) WBC Differential Diff Scan Sodium Potassium Chloride Carbon Dioxide Anion Gap BUN Creatinine Estimated GFR POC Glucose Random Glucose Calcium - Imaging Impressions Hip X-Ray 05/13/18 00:00 CONCLUSION: Postoperative left hip replacement. No complications identified. Assessment and Plan - Problem List (1) Left displaced femoral neck fracture Code(s): S72.002A - Fracture of unspecified part of neck of left femur, initial encounter for closed fracture Status: Acute - Assessment and Plan Left hip hemiarthroplasty POD 1 Weightbearing as tolerated left lower extremity with posterior hip precautions Knee immobilizer while in bed Maintain dressing over incision for 6 days then remove and apply Primapore. Ensuring that surgical tape remains over incision. Lovenox Incentive spirometry Discharge plan to rehab versus home Follow up with Dr. Mayorga or PA in 2 weeks
--- NOTE | 2018-05-14 07:23 | P.PNCA ---
Subjective Interval history: No complaints. No CP or SOB> Physical Exam Vital signs: Vital Signs 05/13/18 08:00 05/13/18 09:35 05/13/18 12:00 Temperature 98.5 F 98.4 F 98.2 F Pulse Rate 124 H 109 H 110 H Respiratory Rate 18 18 14 Blood Pressure 140/82 124/75 96/68 L Pulse Oximetry 94 L 96 96 05/13/18 12:02 05/13/18 12:15 05/13/18 12:30 Temperature 98.1 F Pulse Rate 117 H 112 H 113 H Respiratory Rate 18 15 17 Blood Pressure 109/72 115/71 120/75 Pulse Oximetry 98 100 98 05/13/18 12:45 05/13/18 13:00 05/13/18 13:15 Temperature Pulse Rate 120 H 121 H 118 H Respiratory Rate 15 15 15 Blood Pressure 100/58 L 97/61 L 99/66 L Pulse Oximetry 97 96 96 05/13/18 13:30 05/13/18 14:53 05/13/18 16:00 Temperature 98.5 F Pulse Rate 113 H 111 H 89 Respiratory Rate 12 14 19 Blood Pressure 115/63 110/62 119/66 Pulse Oximetry 97 95 95 05/13/18 20:00 05/14/18 00:00 05/14/18 04:00 Temperature 98.5 F 97.4 F L 97.6 F Pulse Rate 113 H 114 H 120 H Respiratory Rate 18 18 18 Blood Pressure 117/81 139/78 141/75 H Pulse Oximetry 99 98 99 Intake & Output 05/13/18 05/14/18 05/14/18 18:59 06:59 18:59 Intake Total 1150 / 1150 50 / 50 Output Total 100 / 100 Balance 1050 / 1050 50 / 50 Weight 70.1 kg Intake: IV 300 / 300 50 / 50 NS Inj 250 ML @ 0 mls/hr .ROUTE 250 / 250 .STK-MED ONE Rx#:[id number] Ancef 2 GM Premix Inj 2 gm In 50 / 50 50 / 50 50 ml @ 100 mls/hr IV.SIG Q6H PENNY Rx#:[id number] Anesthesia Amount 850 / 850 Output: Estimated Blood Loss 100 / 100 Other: # Voids 1 6 # Incontinent Voids 1 Date of Last Bowel Movement 05/12/18 05/12/18 Narrative: Alert Chest clear anteriorly CV S1S2 irr irr Abd soft No edema Tele Afib with increased rate despite metoprolol 100mg bid and Dilt 180 daily - Constitutional no acute distress - Routine HEENT Exam Head: Present: normocephalic Assessment and Plan - Assessment (1) Atrial fibrillation Code(s): I48.91 - Unspecified atrial fibrillation Status: Acute Plan: Rate not well controlled. Increase Dilt to 240mg this evening. She might need a PM dose in addition. (1) Atrial fibrillation Qualifiers: Atrial fibrillation type: chronic Qualified Code(s): I48.2 - Chronic atrial fibrillation
[2018-05-14] MEDS: Gabapentin 400 MG Capsule PO SCH (08:19)
[2018-05-14] MEDS: Metoprolol Tartrate 25 MG Tablet PO SCH ×2 (08:19→21:43)
[2018-05-14] MEDS: Pantoprazole Sodium 20 MG DR Tablet PO SCH (08:20)
[2018-05-14] MEDS: dilTIAZem CD 240 MG Capsule PO SCH (08:20)
[2018-05-14 11:29] LABS: Baso % (Auto) 0.2 % (0.0-2.0); Hematocrit 36.3 % (35.0-46.0); Hemoglobin 11.9 gm/dL (11.6-15.3); Lymph % (Auto) 6.2 % (9.0-44.0); Mean Corpuscular HGB Conc 32.8 % (32.0-36.0); Mean Corpuscular Hemoglobin 29.6 pg (27.0-34.0); Mean Corpuscular Volume 90.4 fL (80.0-100.0); Mean Platelet Volume 8.9 fL (7.0-11.0); Mono # (Auto) 0.8 th/mm3 (0.0-0.9); Mono % (Auto) 4.8 % (0.0-8.0); Neut # (Auto) 14.2 th/mm3 (1.8-7.7); Neut % (Auto) 88.8 % (16.0-70.0); Platelet Count 179 th/mm3 (150-450); Red Blood Count 4.01 mil/mm3 (4.00-5.30)
[2018-05-14 11:55] LABS: Calcium 8.3 mg/dL (8.5-10.1); Carbon Dioxide 22.2 meq/L (21.0-32.0); Potassium 4.5 meq/L (3.5-5.1)
[2018-05-14] MEDS: Insulin NovoLOG Aspart Correctional Sugar Inj SQ SCH ×4 (13:31→21:44)
--- NOTE | 2018-05-14 14:51 | P.PNADD ---
Addendum to Inpatient Note Reason for Addendum: Additional Documentation Additional information: Please see the resident note from today for more historical documentation: Patient seen on rounds at 2:30pm, her that is the primary sheep killer for this patient is in the room at her bedside. He reports that she has been having hallucinations which has never happened to her before. She reports that she is overall doing well. She has not required any opiate pain medication today. She did have an episode of vomiting this am that has resolved with no new nausea or vomiting. She reports that there are boxes all over her room with baby items inside and that people have been coming in the room telling her the room will be converted to a nursery. Even after her and I tell her that this is not true she will not believe this. She denies any weakness, numbness, change in speech or worsening memory. reports she appears ok except more confused. She called him on her cell phone all night long asking him questions and then with the hallucinations. GENERAL: oriented to person, place and time, having visual and auditory hallucinations without recognition that they are not real SKIN: Warm and dry. HEAD: Atraumatic. Normocephalic. EYES: Pupils equal and round. No scleral icterus. No injection or drainage. ENT: No nasal bleeding or discharge. Mucous membranes pink and moist. NECK: Trachea midline. No JVD. CARDIOVASCULAR: irr, irr RESPIRATORY: No accessory muscle use. Clear to auscultation. Breath sounds equal bilaterally anteriorly - pt having difficulty moving so that I can listen to her back GASTROINTESTINAL: Abdomen soft, non-tender, nondistended. Hepatic and splenic margins not palpable, maybe slightly distended MUSCULOSKELETAL: Extremities without clubbing, cyanosis, or edema. No obvious deformities. NEUROLOGICAL: Awake and alert. No obvious cranial nerve deficits. Motor grossly within normal limits. Five out of 4/5 muscle strength in the arms and legs (except the left leg which is immobile at this time) Normal speech. AP 1. Hallucinations - likely this is secondary to the anesthesia and her underlying dementia. She has not received any opiates since yesterday so unlikely that is the cause. DW the patient and her that I do not feel this is a stroke and if it were she is not really a candidate for any emergent treatment so for now will be conservative and check CT head, UA and then monitor. Will also add on neuro checks to monitor closely for any clinical change. 2. Afib/CHF -- heart rate better controlled with the elevated diltiazem per Dr. Swanson's recommendations. Will monitor BP and pulse closely as the patient seems to have increased dizziness and freq falls at home when her BP and pulse are pushed to low. 3. Left hip fracture -- post-op day 1 she is doing well. Pt will need rehab on discharge as her frail elderly will not be able to provide much physical assist upon discharge. DW her nurse on the floor. Will dw the resident team.
--- NOTE | 2018-05-14 18:45 | CT ---
EXAM DATE: 05/14/2018 6:28 PM EDT AGE/SEX: 82 years / Female INDICATIONS: Altered mental status. CLINICAL DATA: This is the patient's initial encounter. Patient reports that signs and symptoms have been present for 1 day and indicates a pain score of 4/10. MEDICAL/SURGICAL HISTORY: Hypertension. Cardiovascular disease. Stroke. Cholecystectomy. Appende ctomy. RADIATION DOSE: 50.61 CTDI (mGy) [place] [facility] [place] [facility] [place] 3[place]ON[place]. . TECHNIQUE: CT of the head without contrast. Using automated exposure control and adjustment of the mA and/or kV according to patient size, radiation dose was kept as low as reasonably achievable to ob tain optimal diagnostic quality images. DICOM format image data is available electronically for revi ew and comparison. FINDINGS: Diffuse cerebral atrophy is noted. Moderate periventricular and subcortical white matter sm all vessel ischemic changes are noted bilaterally. There is no acute infarct, acute hemorrhage, midli ne shift or extra-axial fluid collections. An old lacunar infarct is noted within the right cerebella r hemisphere. The bone windows are unremarkable. CONCLUSION: 1. Moderate periventricular and subcortical white matter small vessel skin changes bilaterally. 2. Diffuse cerebral artery. 3. 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 4. No acute infarct, acute hemorrhage, midline shift or extra-axial fluid collections. Electronically signed by: Jeremy Darby MD 05/14/2018 6:43 PM EDT
--- NOTE | 2018-05-14 19:46 | P.PNFP ---
Subjective Interval history: Patient seen and examined this morning with in the room. Patient complains on moderate left hip pain following left femur hemiarthroplasty yesterday. She states that she has not asked for any pain medication since the procedure and that placing ice packs on the hip is currently reducing her pain. She vomited once following the procedure, which she thinks is due to the anesthesia and morphine, but has not vomited again since then. She states that she has had a similar response to morphine in the past. She is not nauseated currently. Denies fever, chills, chest pain, palpitations, shortness of breath, abdominal pain, calf pain or urinary problems. While speaking with her she states that the room is going to be converted into a nursery and is filled with boxes all night. When told that there are no boxes in the room now, she states that someone must have taken them away. Her states that she has had visual hallucinations like this "all the time at home" for a while and is not concerned. <Snehal Weems B - 05/15/18 00:10> Results - Labs Result diagrams: 05/14/18 10:51 05/14/18 10:51 <Rhianna Royal R - 05/15/18 07:57> Abnormal lab results 05/14/18 05/14/18 05/14/18 Range/Units 08:17 10:51 10:51 WBC 16.0 H (4.0-11.0) th/mm3 Neut % (Auto) 88.8 H (16.0-70.0) % Lymph % (Auto) 6.2 L (9.0-44.0) % Neut # (Auto) 14.2 H (1.8-7.7) th/mm3 Estimated GFR 69 L (>89) mL/min POC Glucose 231 H (68-110) mg/dl Random Glucose 289 H (74-106) mg/dL Calcium 8.3 L (8.5-10.1) mg/dL 05/14/18 05/14/18 05/14/18 Range/Units 13:20 18:07 21:25 WBC (4.0-11.0) th/mm3 Neut % (Auto) (16.0-70.0) % Lymph % (Auto) (9.0-44.0) % Neut # (Auto) (1.8-7.7) th/mm3 Estimated GFR (>89) mL/min POC Glucose 329 H 309 H 317 H (68-110) mg/dl Random Glucose (74-106) mg/dL Calcium (8.5-10.1) mg/dL Short CBC 05/14/18 Range/Units 10:51 WBC 16.0 H (4.0-11.0) th/mm3 Hgb 11.9 (11.6-15.3) gm/dL Hct 36.3 (35.0-46.0) % Plt Count 179 (150-450) th/mm3 [facility] 05/14/18 10:51 Sodium 138 Potassium 4.5 Chloride 105 Carbon Dioxide 22.2 BUN 16 Creatinine 0.79 Calcium 8.3 L <Rhianna Royal - 05/15/18 07:57> Abnormal lab results 05/13/18 05/14/18 05/14/18 Range/Units 21:28 08:17 10:51 WBC 16.0 H (4.0-11.0) th/mm3 Neut % (Auto) 88.8 H (16.0-70.0) % Lymph % (Auto) 6.2 L (9.0-44.0) % Neut # (Auto) 14.2 H (1.8-7.7) th/mm3 Estimated GFR (>89) mL/min POC Glucose 207 H 231 H (68-110) mg/dl Random Glucose (74-106) mg/dL Calcium (8.5-10.1) mg/dL 05/14/18 05/14/18 05/14/18 Range/Units 10:51 13:20 18:07 WBC (4.0-11.0) th/mm3 Neut % (Auto) (16.0-70.0) % Lymph % (Auto) (9.0-44.0) % Neut # (Auto) (1.8-7.7) th/mm3 Estimated GFR 69 L (>89) mL/min POC Glucose 329 H 309 H (68-110) mg/dl Random Glucose 289 H (74-106) mg/dL Calcium 8.3 L (8.5-10.1) mg/dL Short CBC 05/14/18 05/14/18 Range/Units 04:59 10:51 WBC 16.0 H (4.0-11.0) th/mm3 Hgb 12.6 11.9 (11.6-15.3) gm/dL Hct 38.0 36.3 (35.0-46.0) % Plt Count 179 (150-450) th/mm3 [facility] 05/14/18 10:51 Sodium 138 Potassium 4.5 Chloride 105 Carbon Dioxide 22.2 BUN 16 Creatinine 0.79 Calcium 8.3 L <Snehal Weems - 05/14/18 19:46> - Imaging Impressions Head CT 05/14/18 00:00 CONCLUSION: 1. Moderate periventricular and subcortical white matter small vessel skin changes bilaterally. 2. Diffuse cerebral artery. 3. 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 4. No acute infarct, acute hemorrhage, midline shift or extra-axial fluid collections. <Rhianna Royal - 05/15/18 07:57> Impressions Head CT 05/14/18 00:00 CONCLUSION: 1. Moderate periventricular and subcortical white matter small vessel skin changes bilaterally. 2. Diffuse cerebral artery. 3. 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 4. No acute infarct, acute hemorrhage, midline shift or extra-axial fluid collections. <Snehal Weems - 05/14/18 19:46> Physical Exam Vital signs: Vital Signs 05/14/18 08:00 05/14/18 12:20 05/14/18 16:12 Temperature 97.5 F L 97.8 F 97.4 F L Pulse Rate 145 H 76 57 L Respiratory Rate 20 20 20 Blood Pressure 121/88 108/56 L 121/58 L Pulse Oximetry 99 99 95 05/14/18 20:00 05/15/18 00:00 05/15/18 04:00 Temperature 98.2 F 98.6 F 98.2 F Pulse Rate 86 86 108 H Respiratory Rate 18 18 19 Blood Pressure 148/62 H 143/67 H 136/81 Pulse Oximetry 95 96 98 Intake & Output 05/14/18 05/15/18 05/15/18 18:59 06:59 18:59 Intake Total 600 / 600 Balance 600 / 600 Weight 75.1 kg Intake: Oral 600 / 600 Other: # Voids 2 1 # Incontinent Voids 2 Date of Last Bowel Movement 05/12/18 # Bowel Movements 1 1 <Rhianna Royal R - 05/15/18 07:57> Vital Signs 05/13/18 20:00 05/14/18 00:00 05/14/18 01:30 Temperature 98.5 F 97.4 F L Pulse Rate 113 H 114 H Respiratory Rate 18 18 15 Blood Pressure 117/81 139/78 Pulse Oximetry 99 98 05/14/18 04:00 05/14/18 08:00 05/14/18 12:20 Temperature 97.6 F 97.5 F L 97.8 F Pulse Rate 120 H 145 H 76 Respiratory Rate 18 20 20 Blood Pressure 141/75 H 121/88 108/56 L Pulse Oximetry 99 99 99 05/14/18 16:12 Temperature 97.4 F L Pulse Rate 57 L Respiratory Rate 20 Blood Pressure 121/58 L Pulse Oximetry 95 Intake & Output 05/14/18 05/14/18 05/15/18 06:59 18:59 06:59 Intake Total 50 / 50 Balance 50 / 50 Weight 70.1 kg Intake: IV 50 / 50 Ancef 2 GM Premix Inj 2 gm In 50 / 50 50 ml @ 100 mls/hr IV.SIG Q6H PENNY Rx#:[id number] Other: # Voids 6 2 Date of Last Bowel Movement 05/12/18 # Bowel Movements 1 <[facility] 05/14/18 19:46> - Constitutional no acute distress <[facility] 05/14/18 20:56> Comments: sitting up in bed <[facility] 05/14/18 20:56> - Routine HEENT Exam Head: Present: normocephalic, atraumatic <[facility] 05/14/18 20:56> Eye: Present: EOMI, PERRL <[facility] 05/14/18 20:56> - Routine Respiratory Exam Present: CTA bilaterally. Absent: accessory muscle use, wheezes, crackles < [facility] 05/14/18 20:56> - Routine Cardiovascular Exam Present: irregularly irregular <[facility] 05/14/18 20:56> - Routine Abdominal Exam Present: soft, normoactive bowel sounds. Absent: tenderness <[facility] 05/14/18 20:56> - Routine Extremities Exam Present: pulses intact, normal capillary refill. Absent: edema, calf tenderness <Snehal Weems 05/14/18 20:56> Comments: left lower extremity in knee immobilizer throughout exam <Snehal Weems 05/14/18 20:56> - Routine Skin Exam Present: dry, warm <Snehal Weems 05/14/18 20:56> - Routine Neurological Exam Present: alert, normal speech <Snehal Weems 05/14/18 20:56> - Routine Psychiatric Exam Comments: visual hallucinations of boxes in the room, states that this is normal for her <Snehal Weems 05/14/18 20:56> Assessment and Plan - Assessment (1) Atrial fibrillation Code(s): I48.91 - Unspecified atrial fibrillation Status: Acute (2) Left displaced femoral neck fracture Code(s): S72.002A - Fracture of unspecified part of neck of left femur, initial encounter for closed fracture Status: Acute (3) Nutrition, metabolism, and development symptoms Code(s): R63.8 - Other symptoms and signs concerning food and fluid intake Status: Acute (4) DVT prophylaxis Status: Acute <Rhianna Royal 05/15/18 07:57> (1) Atrial fibrillation Code(s): I48.91 - Unspecified atrial fibrillation Status: Acute Plan: Hx of atrial fibrillation with RVR. Not well controlled following surgery. -Cardiology consult: Recommends increase to Diltiazem 240 mg from 180 mg daily. Consider additional dose if remains uncontrolled. -Patient remains on Elliquis 5mg PO BID (2) Left displaced femoral neck fracture Code(s): S72.002A - Fracture of unspecified part of neck of left femur, initial encounter for closed fracture Status: Acute Plan: POD #1 s/p left femur hemiarthropasty. Patient is stable and only complains of mild left hip pain. -Discharge with rehab pending surgical clearance (3) Nutrition, metabolism, and development symptoms Code(s): R63.8 - Other symptoms and signs concerning food and fluid intake Status: Acute Plan: Fluids: NS IV at 84 mls/hr Nutrition: Tolerating diabetic diet Electrolytes: Monitor and replete as needed (4) DVT prophylaxis Status: Acute Plan: DVT prophylaxis: Elliquis 5 mg PO BID <Snehal Weems - 05/15/18 00:09> - Attending Attestation The exam, history, and the medical decision-making described in the above note were completed with the assistance of the resident physician. I reviewed and agree with the findings presented. I attest that I had a [id number] encounter with the patient on the same day, and personally performed and documented my assessment and findings in the medical record. <Rhianna Royal - 05/15/18 07:57> <Snehal Weems - Last Filed: 05/15/18 00:09> (1) Atrial fibrillation Qualifiers: Atrial fibrillation type: chronic Qualified Code(s): I48.2 - Chronic atrial fibrillation <Rhianna Royal R - Last Filed: 05/15/18 07:57> (1) Atrial fibrillation Qualifiers: Qualified Code(s): I48.2 - Chronic atrial fibrillation <Snehal Weems - Last Filed: 05/15/18 00:09> (1) Atrial fibrillation Qualifiers: Atrial fibrillation type: chronic Qualified Code(s): I48.2 - Chronic atrial fibrillation <Rhianna Royal - Last Filed: 05/15/18 07:57> (1) Atrial fibrillation Qualifiers: Qualified Code(s): I48.2 - Chronic atrial fibrillation
[2018-05-15] MEDS: Levothyroxine 50 MCG Tablet PO SCH (06:20)
--- NOTE | 2018-05-15 08:01 | P.PNOP ---
Subjective Interval history: Left hip hemiarthroplasty POD 2 Patient is awake and alert. Aide is at bedside. She states she has mild amount of tenderness. No other complaints Physical Exam Vital signs: Vital Signs 05/14/18 08:00 05/14/18 12:20 05/14/18 16:12 Temperature 97.5 F L 97.8 F 97.4 F L Pulse Rate 145 H 76 57 L Respiratory Rate 20 20 20 Blood Pressure 121/88 108/56 L 121/58 L Pulse Oximetry 99 99 95 05/14/18 20:00 05/15/18 00:00 05/15/18 04:00 Temperature 98.2 F 98.6 F 98.2 F Pulse Rate 86 86 108 H Respiratory Rate 18 18 19 Blood Pressure 148/62 H 143/67 H 136/81 Pulse Oximetry 95 96 98 Intake & Output 05/14/18 05/15/18 05/15/18 18:59 06:59 18:59 Intake Total 600 / 600 Balance 600 / 600 Weight 75.1 kg Intake: Oral 600 / 600 Other: # Voids 2 1 # Incontinent Voids 2 Date of Last Bowel Movement 05/12/18 # Bowel Movements 1 1 Narrative: Alert Chest clear anteriorly CV S1S2 irr irr Abd soft No edema LLE: Dressing dry and intact, minimal pain and swelling noted over incision site , range of motion not tested, no calf pain, good cap refill Results - Labs CBC & Chem 7: 05/14/18 10:51 05/14/18 10:51 Laboratory Results - last 24 hr 05/14/18 05/14/18 05/14/18 08:17 10:51 10:51 WBC 16.0 H RBC 4.01 Hgb 11.9 Hct 36.3 MCV 90.4 MCH 29.6 MCHC 32.8 RDW 15.0 Plt Count 179 MPV 8.9 Neut % (Auto) 88.8 H Lymph % (Auto) 6.2 L [place] % (Auto) 4.8 Eos % (Auto) 0.0 Baso % (Auto) 0.2 Neut # (Auto) 14.2 H Lymph # (Auto) 1.0 [place] # (Auto) 0.8 Eos # (Auto) 0.0 Baso # (Auto) 0.0 WBC Differential . Differential Comment Auto diff final Sodium 138 Potassium 4.5 Chloride 105 Carbon Dioxide 22.2 Anion Gap 11 BUN 16 Creatinine 0.79 Estimated GFR 69 L POC Glucose 231 H Random Glucose 289 H Calcium 8.3 L 05/14/18 05/14/18 05/14/18 13:20 18:07 21:25 WBC RBC Hgb Hct MCV MCH MCHC RDW Plt Count MPV Neut % (Auto) Lymph % (Auto) [place] % (Auto) Eos % (Auto) Baso % (Auto) Neut # (Auto) Lymph # (Auto) [place] # (Auto) Eos # (Auto) Baso # (Auto) WBC Differential Differential Comment Sodium Potassium Chloride Carbon Dioxide Anion Gap BUN Creatinine Estimated GFR POC Glucose 329 H 309 H 317 H Random Glucose Calcium - Imaging Impressions Head CT 05/14/18 00:00 CONCLUSION: 1. Moderate periventricular and subcortical white matter small vessel skin changes bilaterally. 2. Diffuse cerebral artery. 3. 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 4. No acute infarct, acute hemorrhage, midline shift or extra-axial fluid collections. Assessment and Plan - Problem List (1) Left displaced femoral neck fracture Code(s): S72.002A - Fracture of unspecified part of neck of left femur, initial encounter for closed fracture Status: Acute - Assessment and Plan Left hip hemiarthroplasty POD 2 Weightbearing as tolerated left lower extremity with posterior hip precautions Knee immobilizer while in bed Ice PRN Maintain dressing over incision for 6 days then remove and apply Primapore. Ensuring that surgical tape remains over incision. Lovenox Incentive spirometry Clear for d/c from an orthopedic standpoint Discharge plan to rehab versus home Follow up with Dr. Mayorga or [place] in 2 weeks
[2018-05-15 08:36] LABS: Hematocrit 38.3 % (35.0-46.0); Hemoglobin 12.9 gm/dL (11.6-15.3); Mean Corpuscular HGB Conc 33.8 % (32.0-36.0); Mean Corpuscular Hemoglobin 30.2 pg (27.0-34.0); Mean Corpuscular Volume 89.3 fL (80.0-100.0); Mean Platelet Volume 8.5 fL (7.0-11.0); Platelet Count 181 th/mm3 (150-450); Red Blood Count 4.29 mil/mm3 (4.00-5.30); Red Cell Distribution Width 14.7 % (11.6-17.2); White Blood Count 16.4 th/mm3 (4.0-11.0)
[2018-05-15 09:08] LABS: Calcium 9.4 mg/dL (8.5-10.1); Carbon Dioxide 22.4 meq/L (21.0-32.0); Potassium 4.4 meq/L (3.5-5.1)
--- NOTE | 2018-05-15 09:35 | P.PNCA ---
Subjective Interval history: Rapid palpitations this morning associated with dyspnea though she has been trying to get out of bed for the last hour. No CP, dizziness, near syncope, leg pain. Physical Exam Vital signs: Vital Signs 05/14/18 12:20 05/14/18 16:12 05/14/18 20:00 Temperature 97.8 F 97.4 F L 98.2 F Pulse Rate 76 57 L 86 Respiratory Rate 20 20 18 Blood Pressure 108/56 L 121/58 L 148/62 H Pulse Oximetry 99 95 95 05/15/18 00:00 05/15/18 01:30 05/15/18 04:00 Temperature 98.6 F 98.2 F Pulse Rate 86 108 H Respiratory Rate 18 16 19 Blood Pressure 143/67 H 136/81 Pulse Oximetry 96 98 Intake & Output 05/14/18 05/15/18 05/15/18 18:59 06:59 18:59 Intake Total 600 / 600 Balance 600 / 600 Weight 75.1 kg Intake: Oral 600 / 600 Other: # Voids 2 1 # Incontinent Voids 2 Date of Last Bowel Movement 05/12/18 # Bowel Movements 1 1 - Constitutional mild distress - Routine Neck Exam Absent: JVD - Routine Respiratory Exam Present: CTA bilaterally - Routine Cardiovascular Exam Present: S1, S2, tachycardia, irregularly irregular. Absent: murmur, gallop - Routine Abdominal Exam Present: soft, normoactive bowel sounds. Absent: tenderness, organomegaly - Routine Extremities Exam Absent: cyanosis, clubbing, edema Assessment and Plan - Assessment (1) Atrial fibrillation Code(s): I48.91 - Unspecified atrial fibrillation Status: Acute Plan: Rate not well controlled. Increase Dilt to 240mg this evening. She might need a PM dose in addition. (2) Chronic atrial fibrillation Code(s): I48.2 - Chronic atrial fibrillation Status: Chronic Plan: HR's 140's this morning. Recommend change to IV Cardizem for time being. Patient denies pain. She has been struggling to try to get out of bed however likely contributing to elevated HR's. (3) Coronary artery disease Code(s): I25.10 - Atherosclerotic heart disease of [place] coronary artery without angina pectoris Status: Chronic Plan: Stable. No angina. Only mild disease on cath about 6 years ago. - Plan Code Status: full code Discussed Condition With: patient (1) Atrial fibrillation Qualifiers: Atrial fibrillation type: chronic Qualified Code(s): I48.2 - Chronic atrial fibrillation (3) Coronary artery disease Qualifiers: Coronary Disease-Associated Artery/Lesion type: [place] artery [place] vs. transplanted heart: [place] heart Associated angina: without angina Qualified Code(s): I25.10 - Atherosclerotic heart disease of [place] coronary artery without angina pectoris
[2018-05-15] MEDS: Gabapentin 400 MG Capsule PO SCH (10:17)
[2018-05-15] MEDS: Metoprolol Tartrate 25 MG Tablet PO SCH ×2 (10:18→22:52)
[2018-05-15] MEDS: Pantoprazole Sodium 20 MG DR Tablet PO SCH (10:18)
[2018-05-15] MEDS: Insulin NovoLOG Aspart Correctional Sugar Inj SQ SCH ×4 (12:49→22:52)
--- NOTE | 2018-05-15 15:45 | P.PNFP ---
Subjective Interval history: Patient seen and examined this morning by medical team. No acute events overnight reported by nursing staff. Patient states that she did not sleep well overnight. She continues to endorse visual hallucinations as well as delusions stating that "the overnight nurse was spraying urine everywhere" and that there were "boxes everywhere stacked up in her room." Her initially stated that this was her baseline, however he states that today this is "completely unlike her." Patient is currently AAO 3 and reports that she has no other complaints. She denies any fevers, chills, shortness of breath, chest pain, NVD, or abdominal pain. <Luis Roberson H - 05/15/18 15:51> Results - Labs Result diagrams: 05/17/18 05:45 05/17/18 05:45 <Rhianna Royal R - 05/17/18 15:50> Abnormal lab results 05/16/18 05/16/18 05/17/18 Range/Units 17:02 19:51 05:45 RBC 3.97 L (4.00-5.30) mil/mm3 Potassium (3.5-5.1) meq/L Estimated GFR (>89) mL/min POC Glucose 278 H 312 H (68-110) mg/dl Random Glucose (74-106) mg/dL Calcium (8.5-10.1) mg/dL 05/17/18 05/17/18 05/17/18 Range/Units 05:45 09:16 13:21 RBC (4.00-5.30) mil/mm3 Potassium 3.4 L (3.5-5.1) meq/L Estimated GFR 85 L (>89) mL/min POC Glucose 239 H 276 H (68-110) mg/dl Random Glucose 204 H (74-106) mg/dL Calcium 8.1 L D (8.5-10.1) mg/dL Short CBC 05/17/18 Range/Units 05:45 WBC 9.6 (4.0-11.0) th/mm3 Hgb 12.1 (11.6-15.3) gm/dL Hct 35.0 (35.0-46.0) % Plt Count 200 (150-450) th/mm3 BMP 05/17/18 05:45 Sodium 136 Potassium 3.4 L Chloride 99 Carbon Dioxide 23.9 BUN 10 Creatinine 0.66 Calcium 8.1 L D <Rhianna Royal R - 05/17/18 15:50> Abnormal lab results 05/14/18 05/14/18 05/15/18 Range/Units 18:07 21:25 07:26 WBC 16.4 H (4.0-11.0) th/mm3 Sodium (136-145) meq/L Estimated GFR (>89) mL/min POC Glucose 309 H 317 H (68-110) mg/dl Random Glucose (74-106) mg/dL 05/15/18 05/15/18 Range/Units 07:26 11:54 WBC (4.0-11.0) th/mm3 Sodium 135 L (136-145) meq/L Estimated GFR 56 L (>89) mL/min POC Glucose 441 H (68-110) mg/dl Random Glucose 252 H (74-106) mg/dL Short CBC 05/15/18 Range/Units 07:26 WBC 16.4 H (4.0-11.0) th/mm3 Hgb 12.9 (11.6-15.3) gm/dL Hct 38.3 (35.0-46.0) % Plt Count 181 (150-450) th/mm3 BMP 05/15/18 07:26 Sodium 135 L Potassium 4.4 Chloride 100 Carbon Dioxide 22.4 BUN 18 Creatinine 0.95 Calcium 9.4 D <Luis Roberson H - 05/15/18 15:51> - Imaging Impressions Head CT 05/14/18 00:00 CONCLUSION: 1. Moderate periventricular and subcortical white matter small vessel skin changes bilaterally. 2. Diffuse cerebral artery. 3. 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 4. No acute infarct, acute hemorrhage, midline shift or extra-axial fluid collections. <Luis Roberson H - 05/15/18 15:51> Physical Exam Vital signs: Vital Signs 05/16/18 16:00 05/16/18 17:29 05/16/18 20:00 Temperature 98.3 F 98.8 F Pulse Rate 89 87 97 H Respiratory Rate 18 18 Blood Pressure 117/58 L 144/63 H Pulse Oximetry 95 94 L 05/17/18 00:00 05/17/18 04:00 05/17/18 08:00 Temperature 97.9 F 98.0 F 98 F Pulse Rate 83 96 H 107 H Respiratory Rate 16 18 20 Blood Pressure 114/56 L 115/73 155/85 H Pulse Oximetry 95 92 L 92 L 05/17/18 09:00 05/17/18 12:00 Temperature 97.9 F Pulse Rate 109 H 97 H Respiratory Rate 20 Blood Pressure 104/78 Pulse Oximetry 94 L Intake & Output 05/16/18 05/17/18 05/17/18 18:59 06:59 18:59 Intake Total 480 / 480 240 / 240 125 / 125 Output Total 500 / 500 Balance 480 / 480 -260 / -260 125 / 125 Intake: IV 125 / 125 Oral 480 / 480 240 / 240 Output: Urine 500 / 500 Other: # Voids 1 # Incontinent Voids 1 <Rhianna Royal R - 05/17/18 15:50> Vital Signs 05/14/18 16:12 05/14/18 20:00 05/15/18 00:00 Temperature 97.4 F L 98.2 F 98.6 F Pulse Rate 57 L 86 86 Respiratory Rate 20 18 18 Blood Pressure 121/58 L 148/62 H 143/67 H Pulse Oximetry 95 95 96 05/15/18 01:30 05/15/18 04:00 Temperature 98.2 F Pulse Rate 108 H Respiratory Rate 16 19 Blood Pressure 136/81 Pulse Oximetry 98 Intake & Output 05/14/18 05/15/18 05/15/18 18:59 06:59 18:59 Intake Total 600 / 600 Balance 600 / 600 Weight 75.1 kg Intake: Oral 600 / 600 Other: # Voids 2 1 # Incontinent Voids 2 Date of Last Bowel Movement 05/12/18 05/15/18 # Bowel Movements 1 1 <Luis Roberson H - 05/15/18 15:51> Narrative: GENERAL: Elderly female lying in bed in no acute distress with at bedside. SKIN: Cool and dry. No rash. HEENT: Atraumatic, normocephalic with extraocular motions intact. No rhinorrhea. No visible lymphadenopathy or jugulovenous distension appreciated. CARDIOVASCULAR: Irregular rate and rhythm without obvious murmurs, gallops, or rubs. 2+ pulses in all four extremities. RESPIRATORY: Clear to auscultation bilaterally with no crackles, wheezes, or rhonchi. No increased work of breathing. GASTROINTESTINAL: Abdomen soft, non-tender, nondistended with positive bowel sounds. No masses appreciated. MUSCULOSKELETAL: No cyanosis or edema. No calf tenderness. LLE: Left leg and knee immobilizer wrapped in clean, dry, intact Perry bandage. Patient with appropriate strength, range of motion, and sensation at the foot. 2+ DP/PT pulses appreciated. No pedal edema appreciated. Patient denies calf pain or pain throughout the left lower extremity. NEURO/PSYCH: Afocal. Awake, alert, and oriented x3. Normal speech and judgement. Patient continues to endorse "room filled with boxes" hallucinations and delusions as her "night nurse was spraying urine everywhere. " No facial asymmetry. No dysarthria or dysphasia. Patient able to move all 4 extremities spontaneously with sensation. <Luis Roberson H - 05/15/18 15:51> Assessment and Plan - Assessment (1) Left displaced femoral neck fracture Code(s): S72.002A - Fracture of unspecified part of neck of left femur, initial encounter for closed fracture Status: Acute (2) Atrial fibrillation Code(s): I48.91 - Unspecified atrial fibrillation Status: Chronic (3) Diabetes Code(s): E11.9 - Type 2 diabetes mellitus without complications Status: Acute (4) Urinary incontinence Code(s): R32 - Unspecified urinary incontinence Status: Acute (5) Hallucinations Code(s): R44.3 - Hallucinations, unspecified Status: Resolved (6) Nutrition, metabolism, and development symptoms Code(s): R63.8 - Other symptoms and signs concerning food and fluid intake Status: Acute (7) DVT prophylaxis Status: Acute <Rhianna Royal - 05/17/18 15:50> (1) Hallucinations Code(s): R44.3 - Hallucinations, unspecified Status: Acute Plan: Patient with no hallucinations and delusions not consistent with patient's baseline per . Patient remains AAO 3 during exam. Initially believed to be side effects of anesthesia with her hip replacement, however the symptoms have persisted. Physical exam not consistent with acute stroke. differential remains wide as this could be possible anesthesia effect versus dementia versus hospital delirium. -Nursing staff to reorientate patient with new symptoms -Neurology consulted, appreciate recommendations (2) Left displaced femoral neck fracture Code(s): S72.002A - Fracture of unspecified part of neck of left femur, initial encounter for closed fracture Status: Acute Plan: POD #2 s/p left femur hemiarthropasty. Patient is stable and only complains of mild left hip pain. -Orthopedic surgery consulted -Cleared from orthopedic standpoint for discharge -Left lower extremity remain in the immobilizer while in bed, ice as needed, dressing to be maintained for 6 days then change to Primapore Medications: -Hydrocodone as needed for pain with morphine as needed for breakthrough pain -Continue Eliquis for anticoagulation -Patient has been accepted to inpatient [facility] for continued therapy and rehabilitation (3) Atrial fibrillation Code(s): I48.91 - Unspecified atrial fibrillation Status: Acute Plan: Hx of atrial fibrillation with RVR. Not well controlled following surgery. -Cardiology consult: Patient given Diltiazem bolus this morning and started on diltiazem drip as rate remains uncontrolled, continue metoprolol, hold oral diltiazem -Continue Eliquis 5mg PO BID for anticoagulation -Discontinue IVF (4) Diabetes Code(s): E11.9 - Type 2 diabetes mellitus without complications Status: Acute Plan: Patient with history of type 2 diabetes mellitus. -Hold home Levemir during hospitalization -Sliding scale insulin per protocol -Plan to resume home Levemir 12 units twice a day upon discharge (5) Urinary incontinence Code(s): R32 - Unspecified urinary incontinence Status: Acute Plan: Patient with chronic urinary incontinence Medications: -Continue imipramine 50 mg daily (6) Nutrition, metabolism, and development symptoms Code(s): R63.8 - Other symptoms and signs concerning food and fluid intake Status: Acute Plan: Fluids: Patient tolerating oral fluids Nutrition: Tolerating diabetic diet Electrolytes: Monitor and replete as needed (7) DVT prophylaxis Status: Acute Plan: DVT prophylaxis: Continue Elliquis 5 mg PO BID <Luis Robesron H - 05/15/18 14:43> - Attending Attestation The exam, history, and the medical decision-making described in the above note were completed with the assistance of the resident physician. I reviewed and agree with the findings presented. I attest that I had a [id number] encounter with the patient on the same day, and personally performed and documented my assessment and findings in the medical record. <Rhianna Royal R - 05/17/18 15:50> <Luis Roberson H - Last Filed: 05/15/18 14:43> (3) Atrial fibrillation Qualifiers: Atrial fibrillation type: chronic Qualified Code(s): I48.2 - Chronic atrial fibrillation (4) Diabetes Qualifiers: Diabetes mellitus type: type 2 Diabetes mellitus fci insulin use: with buttermaker helper use Diabetes mellitus complication status: with unspecified complications Qualified Code(s): E11.8 - Type 2 diabetes mellitus with unspecified complications; Z79.4 - [facility] (current) use of insulin (5) Urinary incontinence Qualifiers: Urinary Incontinence type: unspecified incontinence Qualified Code(s): R32 - Unspecified urinary incontinence <Rhianna Royal R - Last Filed: 05/17/18 15:50> (2) Atrial fibrillation Qualifiers: Atrial fibrillation type: chronic Qualified Code(s): I48.2 - Chronic atrial fibrillation (3) Diabetes Qualifiers: Diabetes mellitus type: type 2 Diabetes mellitus buttermaker helper insulin use: with buttermaker helper use Diabetes mellitus complication status: with hyperglycemia Qualified Code(s): E11.65 - Type 2 diabetes mellitus with hyperglycemia; Z79.4 - long term care pharmacist (current) use of insulin (4) Urinary incontinence Qualifiers: Urinary Incontinence type: unspecified incontinence Qualified Code(s): R32 - Unspecified urinary incontinence <Luis Roberson H - Last Filed: 05/15/18 14:43> (3) Atrial fibrillation Qualifiers: Atrial fibrillation type: chronic Qualified Code(s): I48.2 - Chronic atrial fibrillation (4) Diabetes Qualifiers: Diabetes mellitus type: type 2 Diabetes mellitus fci insulin use: with buttermaker helper use Diabetes mellitus complication status: with unspecified complications Qualified Code(s): E11.8 - Type 2 diabetes mellitus with unspecified complications; Z79.4 - long term care pharmacist (current) use of insulin (5) Urinary incontinence Qualifiers: Urinary Incontinence type: unspecified incontinence Qualified Code(s): R32 - Unspecified urinary incontinence <Rhianna Royal R - Last Filed: 05/17/18 15:50> (2) Atrial fibrillation Qualifiers: Atrial fibrillation type: chronic Qualified Code(s): I48.2 - Chronic atrial fibrillation (3) Diabetes Qualifiers: Diabetes mellitus type: type 2 Diabetes mellitus fci insulin use: with buttermaker helper use Diabetes mellitus complication status: with hyperglycemia Qualified Code(s): E11.65 - Type 2 diabetes mellitus with hyperglycemia; Z79.4 - [facility] (current) use of insulin (4) Urinary incontinence Qualifiers: Urinary Incontinence type: unspecified incontinence Qualified Code(s): R32 - Unspecified urinary incontinence
[2018-05-15] MEDS: dilTIAZem Inj 125 MG in Sodium Chlor 0.9% Inj 100 ML IV.CONT PRN (17:53)
[2018-05-16] MEDS: dilTIAZem Inj 125 MG in Sodium Chlor 0.9% Inj 100 ML IV.CONT PRN (04:35)
[2018-05-16] MEDS: Levothyroxine 50 MCG Tablet PO SCH (07:48)
[2018-05-16] MEDS: Metoprolol Tartrate 25 MG Tablet PO SCH ×2 (08:51→21:30)
[2018-05-16] MEDS: Gabapentin 400 MG Capsule PO SCH (08:51)
[2018-05-16] MEDS: Pantoprazole Sodium 20 MG DR Tablet PO SCH (08:52)
[2018-05-16] MEDS: Insulin NovoLOG Aspart Correctional Sugar Inj SQ SCH ×4 (08:53→21:32)
--- NOTE | 2018-05-16 08:58 | P.PNFP ---
Subjective Interval history: Overnight patient had no new issues. She denies any complaints. currently no hallucinations -- she is oriented times 3. Denies CP, SOB, changes in bowels or bladder. Results - Labs Result diagrams: 05/15/18 07:26 05/15/18 07:26 Abnormal lab results 05/15/18 05/15/18 05/15/18 Range/Units 07:26 11:54 17:59 Sodium 135 L (136-145) meq/L Estimated GFR 56 L (>89) mL/min POC Glucose 441 H 289 H (68-110) mg/dl Random Glucose 252 H (74-106) mg/dL 05/15/18 05/16/18 Range/Units 20:19 08:15 Sodium (136-145) meq/L Estimated GFR (>89) mL/min POC Glucose 231 H 201 H (68-110) mg/dl Random Glucose (74-106) mg/dL BMP 05/15/18 07:26 Sodium 135 L Potassium 4.4 Chloride 100 Carbon Dioxide 22.4 BUN 18 Creatinine 0.95 Calcium 9.4 D Physical Exam Vital signs: Vital Signs 05/15/18 12:00 05/15/18 17:56 05/15/18 20:00 Temperature 98 F 98.2 F 98.2 F Pulse Rate 113 H 140 H 96 H Respiratory Rate 16 17 18 Blood Pressure 153/64 H 132/86 111/63 Pulse Oximetry 93 L 95 93 L 05/16/18 00:00 05/16/18 04:00 Temperature 98.1 F 97.7 F Pulse Rate 80 84 Respiratory Rate 18 20 Blood Pressure 95/53 L 127/57 L Pulse Oximetry 90 L 96 Intake & Output 05/15/18 05/16/18 05/16/18 18:59 06:59 18:59 Intake Total 215 / 215 Balance 215 / 215 Weight 76.3 kg Intake: IV 125 / 125 Cardizem Inj 125 MG In NS Inj 125 / 125 100 ML @ 5 MG/HR 5 mls/hr IV. CONT TITRATE PRN Rx#:[id number] Oral 90 / 90 Other: # Incontinent Voids 3 Date of Last Bowel Movement 05/15/18 # Bowel Movements 1 Narrative: GENERAL: Elderly female lying in bed in no acute distress- sleeping when we entered the room but easily arousable SKIN: Cool and dry. No rash. HEENT: Atraumatic, normocephalic with extraocular motions intact. No rhinorrhea. No visible lymphadenopathy CARDIOVASCULAR: Irregular rate and rhythm without obvious murmurs, gallops, or rubs. 2+ pulses in all four extremities. RESPIRATORY: Clear to auscultation bilaterally with no crackles, wheezes, or rhonchi. No increased work of breathing. GASTROINTESTINAL: Abdomen soft, non-tender, nondistended with positive bowel sounds. No masses appreciated. MUSCULOSKELETAL: No cyanosis or edema. No calf tenderness. LLE: Left leg and knee immobilizer wrapped in clean, dry, intact Perry bandage. Patient with appropriate strength, range of motion, and sensation at the foot. 2+ DP/PT pulses appreciated. No pedal edema appreciated. Patient denies calf pain or pain throughout the left lower extremity. NEURO/PSYCH: Afocal. Awake, alert, and oriented x3. Normal speech and judgement. No hallucinations. Assessment and Plan - Assessment (1) Hallucinations Code(s): R44.3 - Hallucinations, unspecified Status: Resolved Plan: Patients hallucinations have resolved. CT head was negative. At this time this is likely just due to her underlying dementia following the surgery. Will cancel the neurology consult. (2) Left displaced femoral neck fracture Code(s): S72.002A - Fracture of unspecified part of neck of left femur, initial encounter for closed fracture Status: Acute Plan: POD #3 s/p left femur hemiarthropasty. Patient is stable and only complains of mild left hip pain. -Orthopedic surgery consulted -Cleared from orthopedic standpoint for discharge -Left lower extremity remain in the immobilizer while in bed, ice as needed, dressing to be maintained for 6 days then change to Primapore Medications: -Hydrocodone as needed for pain with morphine as needed for breakthrough pain -Continue Eliquis for anticoagulation -Patient has been accepted to inpatient [facility] for continued therapy and rehabilitation (3) Atrial fibrillation Code(s): I48.91 - Unspecified atrial fibrillation Status: Acute Plan: Hx of atrial fibrillation with RVR. Not well controlled following surgery. -Cardiology following this patient. Patient remains on Cardizem drip with continued variable HR. As outpatient her HR does vary quite a bit as well and suspect some variation now may be due to pain and/or agitation. - Patient will need cardiology input to be transitioned to PO Cardizem regimen prior to being transferred to [facility] -Continue Eliquis 5mg PO BID for anticoagulation (4) Diabetes Code(s): E11.9 - Type 2 diabetes mellitus without complications Status: Acute Plan: Patient with history of type 2 diabetes mellitus. -Hold home Levemir during hospitalization -Sliding scale insulin per protocol -Her blood sugars continue to be very high -- will restart her Levemir but at a lower dose than home and increase to her home dose of 12 BID as tolerated (5) Urinary incontinence Code(s): R32 - Unspecified urinary incontinence Status: Acute Plan: Patient with chronic urinary incontinence Medications: -Continue imipramine 50 mg daily (6) Nutrition, metabolism, and development symptoms Code(s): R63.8 - Other symptoms and signs concerning food and fluid intake Status: Acute Plan: Fluids: Patient tolerating oral fluids Nutrition: Tolerating diabetic diet Electrolytes: Monitor and replete as needed Her overall weight is up. Fluids were just stopped yesterday. Am going to give one time PO lasix today. (7) DVT prophylaxis Status: Acute Plan: DVT prophylaxis: Continue Eliquis 5 mg PO BID - Assessment and Plan Discussed Condition With: The resident team - Dr. Weems Discharge Planning: Anticipate dc to [facility] in 1-2 days. Patient stable for discharge except for her HR. Once that is stable she will be ready for transition to [facility] for Inpatient rehab (3) Atrial fibrillation Qualifiers: Atrial fibrillation type: chronic Qualified Code(s): I48.2 - Chronic atrial fibrillation (4) Diabetes Qualifiers: Diabetes mellitus type: type 2 Diabetes mellitus m[facility] insulin use: with supervisor intermediates use Diabetes mellitus complication status: with unspecified complications Qualified Code(s): E11.8 - Type 2 diabetes mellitus with unspecified complications; Z79.4 - halfway (current) use of insulin (5) Urinary incontinence Qualifiers: Urinary Incontinence type: unspecified incontinence Qualified Code(s): R32 - Unspecified urinary incontinence
[2018-05-16] MEDS ORDERED: Furosemide 20 MG Tablet PO ONE (09:01)
[2018-05-16] MEDS: Insulin Detemir Inj 1,000 UNIT/10 ML Vial SQ SCH ×2 (09:14→21:31)
[2018-05-16 09:35] LABS: Baso # (Auto) 0.1 th/mm3 (0.0-0.2); Baso % (Auto) 0.5 % (0.0-2.0); Eos # (Auto) 0.3 th/mm3 (0.0-0.4); Eos % (Auto) 3.3 % (0.0-4.0); Hematocrit 37.9 % (35.0-46.0); Hemoglobin 12.8 gm/dL (11.6-15.3); Lymph # (Auto) 1.6 th/mm3 (1.0-4.8); Lymph % (Auto) 15.4 % (9.0-44.0); Mean Corpuscular HGB Conc 33.8 % (32.0-36.0); Mean Corpuscular Hemoglobin 30.2 pg (27.0-34.0); Mean Corpuscular Volume 89.4 fL (80.0-100.0); Mean Platelet Volume 8.6 fL (7.0-11.0); Mono # (Auto) 0.7 th/mm3 (0.0-0.9); Mono % (Auto) 6.8 % (0.0-8.0); Neut # (Auto) 7.9 th/mm3 (1.8-7.7); Platelet Count 175 th/mm3 (150-450); Red Blood Count 4.24 mil/mm3 (4.00-5.30); Red Cell Distribution Width 14.7 % (11.6-17.2); White Blood Count 10.7 th/mm3 (4.0-11.0)
--- NOTE | 2018-05-16 09:46 | P.PNCA ---
Subjective Interval history: Feels "fine". Denies palpitations, dizziness, dyspnea, CP. Physical Exam Vital signs: Vital Signs 05/15/18 12:00 05/15/18 17:56 05/15/18 20:00 Temperature 98 F 98.2 F 98.2 F Pulse Rate 113 H 140 H 96 H Respiratory Rate 16 17 18 Blood Pressure 153/64 H 132/86 111/63 Pulse Oximetry 93 L 95 93 L 05/16/18 00:00 05/16/18 04:00 05/16/18 08:00 Temperature 98.1 F 97.7 F 98.2 F Pulse Rate 80 84 84 Respiratory Rate 18 20 18 Blood Pressure 95/53 L 127/57 L 118/56 L Pulse Oximetry 90 L 96 96 Intake & Output 05/15/18 05/16/18 05/16/18 18:59 06:59 18:59 Intake Total 215 / 215 Balance 215 / 215 Weight 76.3 kg Intake: IV 125 / 125 Cardizem Inj 125 MG In NS Inj 125 / 125 100 ML @ 5 MG/HR 5 mls/hr IV. CONT TITRATE PRN Rx#:[id number] Oral 90 / 90 Other: # Incontinent Voids 3 Date of Last Bowel Movement 05/15/18 # Bowel Movements 1 - Constitutional no acute distress - Routine Neck Exam Absent: JVD - Routine Respiratory Exam Present: CTA bilaterally - Routine Cardiovascular Exam Present: S1, S2, irregular rhythm. Absent: murmur, S3 - Routine Abdominal Exam Present: soft, normoactive bowel sounds. Absent: tenderness, organomegaly - Routine Extremities Exam Absent: cyanosis, clubbing, edema Assessment and Plan - Assessment (1) Chronic atrial fibrillation Code(s): I48.2 - Chronic atrial fibrillation Status: Chronic Plan: HR's better overnight. Recommend change back to oral Cardizem. Continue Eliquis, metoprolol. OK to discharge late today if HR's remain controlled. (2) Coronary artery disease Code(s): I25.10 - Atherosclerotic heart disease of [place] coronary artery without angina pectoris Status: Chronic Plan: Stable. No angina. Only mild disease on cath about 6 years ago. - Plan Code Status: full code Discussed Condition With: patient (2) Coronary artery disease Qualifiers: Coronary Disease-Associated Artery/Lesion type: [place] artery [place] vs. transplanted heart: [place] heart Associated angina: without angina Qualified Code(s): I25.10 - Atherosclerotic heart disease of [place] coronary artery without angina pectoris
[2018-05-16 09:53] LABS: Calcium 8.9 mg/dL (8.5-10.1); Carbon Dioxide 23.8 meq/L (21.0-32.0); Potassium 3.7 meq/L (3.5-5.1)
--- NOTE | 2018-05-16 15:05 | P.PNOP ---
Subjective Interval history: Pt moved floors d/t rapid palpations. She admits her leg is 'sore'. Resting comfortably. No other complaints. Physical Exam Vital signs: Vital Signs 05/15/18 17:56 05/15/18 20:00 05/16/18 00:00 Temperature 98.2 F 98.2 F 98.1 F Pulse Rate 140 H 96 H 80 Respiratory Rate 17 18 18 Blood Pressure 132/86 111/63 95/53 L Pulse Oximetry 95 93 L 90 L 05/16/18 04:00 05/16/18 08:00 05/16/18 12:00 Temperature 97.7 F 98.2 F 97.4 F L Pulse Rate 84 87 77 Respiratory Rate 20 18 18 Blood Pressure 127/57 L 118/56 L 108/71 Pulse Oximetry 96 96 95 Intake & Output 05/15/18 05/16/18 05/16/18 18:59 06:59 18:59 Intake Total 215 / 215 Balance 215 / 215 Weight 76.3 kg Intake: IV 125 / 125 Cardizem Inj 125 MG In NS Inj 125 / 125 100 ML @ 5 MG/HR 5 mls/hr IV. CONT TITRATE PRN Rx#:[id number] Oral 90 / 90 Other: # Voids 1 # Incontinent Voids 3 1 Date of Last Bowel Movement 05/15/18 # Bowel Movements 1 Narrative: Dressing dry and intact. Brace in place. Tender to palpation with mild swelling around incision site. Appropriate range of motion expected post operatively. Freely able to move distal digits. Minimal tenderness of calf. Negative Blair's sign. Good cap refill. 2+ pedal pulses. Neurovascular intact. Results - Labs CBC & Chem 7: 05/16/18 08:15 05/16/18 08:15 Laboratory Results - last 24 hr 05/15/18 05/15/18 05/16/18 17:59 20:19 08:15 WBC 10.7 RBC 4.24 Hgb 12.8 Hct 37.9 MCV 89.4 MCH 30.2 MCHC 33.8 RDW 14.7 Plt Count 175 MPV 8.6 Neut % (Auto) 74.0 H Lymph % (Auto) 15.4 [place] % (Auto) 6.8 Eos % (Auto) 3.3 Baso % (Auto) 0.5 Neut # (Auto) 7.9 H Lymph # (Auto) 1.6 [place] # (Auto) 0.7 Eos # (Auto) 0.3 Baso # (Auto) 0.1 WBC Differential . Differential Comment Auto diff final Sodium Potassium Chloride Carbon Dioxide Anion Gap BUN Creatinine Estimated GFR POC Glucose 289 H 231 H Random Glucose Calcium 05/16/18 05/16/18 05/16/18 08:15 08:15 11:48 WBC RBC Hgb Hct MCV MCH MCHC RDW Plt Count MPV Neut % (Auto) Lymph % (Auto) [place] % (Auto) Eos % (Auto) Baso % (Auto) Neut # (Auto) Lymph # (Auto) [place] # (Auto) Eos # (Auto) Baso # (Auto) WBC Differential Differential Comment Sodium 138 Potassium 3.7 Chloride 101 Carbon Dioxide 23.8 Anion Gap 13 BUN 16 Creatinine 0.79 Estimated GFR 69 L POC Glucose 201 H 275 H Random Glucose 192 H Calcium 8.9 Assessment and Plan - Problem List (1) Left displaced femoral neck fracture Code(s): S72.002A - Fracture of unspecified part of neck of left femur, initial encounter for closed fracture Status: Acute - Assessment and Plan Left hip hemiarthroplasty POD 3 Weightbearing as tolerated left lower extremity with posterior hip precautions Knee immobilizer while in bed, sore calf noted. Ice PRN Maintain dressing over incision for 6 days then remove and apply Primapore. Ensuring that surgical tape remains over incision. Lovenox for DVT prophylaxis Incentive spirometry Clear for d/c from an orthopedic standpoint Discharge plan to rehab versus home Follow up with Dr. Mayorga or PA in 2 weeks
[2018-05-17] MEDS: dilTIAZem CD 240 MG Capsule PO SCH ×2 (04:27→09:16)
[2018-05-17] MEDS: Levothyroxine 50 MCG Tablet PO SCH (06:08)
[2018-05-17 06:52] LABS: Hemoglobin 12.1 gm/dL (11.6-15.3); Mean Corpuscular HGB Conc 34.6 % (32.0-36.0); Mean Corpuscular Hemoglobin 30.5 pg (27.0-34.0); Mean Corpuscular Volume 88.1 fL (80.0-100.0); Mean Platelet Volume 8.4 fL (7.0-11.0); Platelet Count 200 th/mm3 (150-450); Red Blood Count 3.97 mil/mm3 (4.00-5.30); Red Cell Distribution Width 14.7 % (11.6-17.2); White Blood Count 9.6 th/mm3 (4.0-11.0)
[2018-05-17 07:21] LABS: Calcium 8.1 mg/dL (8.5-10.1); Carbon Dioxide 23.9 meq/L (21.0-32.0); Potassium 3.4 meq/L (3.5-5.1)
[2018-05-17] MEDS ORDERED: Calcium Carbonate 500 MG Tablet PO ONE (08:55)
[2018-05-17] MEDS: Insulin NovoLOG Aspart Correctional Sugar Inj SQ SCH ×4 (09:16→21:02)
[2018-05-17] MEDS: Pantoprazole Sodium 20 MG DR Tablet PO SCH (09:17)
[2018-05-17] MEDS: Gabapentin 400 MG Capsule PO SCH (09:17)
[2018-05-17] MEDS: Metoprolol Tartrate 25 MG Tablet PO SCH ×2 (09:17→21:02)
[2018-05-17] MEDS: Insulin Detemir Inj 1,000 UNIT/10 ML Vial SQ SCH ×2 (09:19→21:02)
--- NOTE | 2018-05-17 11:18 | P.PNFP ---
Subjective Interval history: Update 05/17: Patient seen by cardiology this afternoon, who increased her Diltiazem dose to 180 mg BID PO. They would like to keep her overnight for observation following the medication change. If heart rate well controlled tomorrow, patient can be discharged to [facility], per cardio. Patient seen and examined at 8:50 am this morning. She is POD 4 s/p left femur hemiarthroplasty, complaining of very mild pain in the left hip, well controlled with pain medication. Patient denies fever, chills, nausea, vomiting , chest pain, palpitations, shortness of breath or problems with bowel or bladder. She denies any visual hallucinations today. <Snehal Weems B - 05/18/18 08:40> Results - Labs Result diagrams: 05/18/18 05:50 05/18/18 05:50 <Rhianna Royal R - 05/18/18 08:59> Abnormal lab results 05/17/18 05/17/18 05/17/18 Range/Units 09:16 13:21 17:14 RBC (4.00-5.30) mil/mm3 Potassium (3.5-5.1) meq/L Estimated GFR (>89) mL/min POC Glucose 239 H 276 H 266 H (68-110) mg/dl Random Glucose (74-106) mg/dL Calcium (8.5-10.1) mg/dL Urine Clarity (Clear) Urine Glucose (UA) (Negative) mg/dL Urine Ketones (Negative) mg/dL Urine Occult Blood (Negative) Urine Bacteria (None) /hpf Urine Yeast (None) /hpf 05/17/18 05/18/18 05/18/18 Range/Units 20:53 03:30 05:50 RBC 3.98 L (4.00-5.30) mil/mm3 Potassium (3.5-5.1) meq/L Estimated GFR (>89) mL/min POC Glucose 238 H (68-110) mg/dl Random Glucose (74-106) mg/dL Calcium (8.5-10.1) mg/dL Urine Clarity Hazy H (Clear) Urine Glucose (UA) 150 H (Negative) mg/dL Urine Ketones Trace H (Negative) mg/dL Urine Occult Blood Small H (Negative) Urine Bacteria Rare H (None) /hpf Urine Yeast Many H (None) /hpf 05/18/18 05/18/18 Range/Units 05:50 08:46 RBC (4.00-5.30) mil/mm3 Potassium 3.3 L (3.5-5.1) meq/L Estimated GFR 84 L (>89) mL/min POC Glucose 157 H (68-110) mg/dl Random Glucose 160 H (74-106) mg/dL Calcium 8.1 L (8.5-10.1) mg/dL Urine Clarity (Clear) Urine Glucose (UA) (Negative) mg/dL Urine Ketones (Negative) mg/dL Urine Occult Blood (Negative) Urine Bacteria (None) /hpf Urine Yeast (None) /hpf Short CBC 05/18/18 Range/Units 05:50 WBC 8.4 (4.0-11.0) th/mm3 Hgb 12.2 (11.6-15.3) gm/dL Hct 35.6 (35.0-46.0) % Plt Count 200 (150-450) th/mm3 BMP 05/18/18 05:50 Sodium 138 Potassium 3.3 L Chloride 100 Carbon Dioxide 26.6 BUN 13 Creatinine 0.67 Calcium 8.1 L Urine 05/18/18 Range/Units 03:30 Urine Color Yellow (Yellw/Straw) Urine Clarity Hazy H (Clear) Urine pH 6.0 (5.0-8.5) Ur Specific [place] 1.010 (1.002-1.035) Urine Protein Negative (Neg-Trace) mg/dL Urine Glucose (UA) 150 H (Negative) mg/dL <Rhianna Royal R - 05/18/18 08:59> Abnormal lab results 05/16/18 05/16/18 05/16/18 Range/Units 11:48 17:02 19:51 RBC (4.00-5.30) mil/mm3 Potassium (3.5-5.1) meq/L Estimated GFR (>89) mL/min POC Glucose 275 H 278 H 312 H (68-110) mg/dl Random Glucose (74-106) mg/dL Calcium (8.5-10.1) mg/dL 05/17/18 05/17/18 05/17/18 Range/Units 05:45 05:45 09:16 RBC 3.97 L (4.00-5.30) mil/mm3 Potassium 3.4 L (3.5-5.1) meq/L Estimated GFR 85 L (>89) mL/min POC Glucose 239 H (68-110) mg/dl Random Glucose 204 H (74-106) mg/dL Calcium 8.1 L D (8.5-10.1) mg/dL Short CBC 05/17/18 Range/Units 05:45 WBC 9.6 (4.0-11.0) th/mm3 Hgb 12.1 (11.6-15.3) gm/dL Hct 35.0 (35.0-46.0) % Plt Count 200 (150-450) th/mm3 BMP 05/17/18 05:45 Sodium 136 Potassium 3.4 L Chloride 99 Carbon Dioxide 23.9 BUN 10 Creatinine 0.66 Calcium 8.1 L D <Snehal Weems B - 05/17/18 11:18> Physical Exam Vital signs: Vital Signs 05/17/18 09:00 05/17/18 12:00 05/17/18 16:00 Temperature 97.9 F 97.2 F L Pulse Rate 109 H 97 H 60 Respiratory Rate 20 20 Blood Pressure 104/78 101/52 L Pulse Oximetry 94 L 97 05/17/18 20:00 05/18/18 00:00 05/18/18 01:14 Temperature 98.3 F 97.8 F Pulse Rate 65 75 70 Respiratory Rate 17 17 Blood Pressure 103/52 L 121/61 Pulse Oximetry 96 96 05/18/18 04:00 Temperature 98.0 F Pulse Rate 79 Respiratory Rate 17 Blood Pressure 107/71 Pulse Oximetry 94 L Intake & Output 05/17/18 05/18/18 05/18/18 18:59 06:59 18:59 Intake Total 725 / 725 0 / 0 Output Total 0 / 0 Balance 725 / 725 0 / 0 Weight 74.5 kg Intake: IV 125 / 125 Oral 600 / 600 0 / 0 Output: Urine 0 / 0 Other: # Voids 4 # Bowel Movements 2 0 <Rhianna Royal - 05/18/18 08:59> Vital Signs 05/16/18 12:00 05/16/18 16:00 05/16/18 17:29 Temperature 97.4 F L 98.3 F Pulse Rate 77 89 87 Respiratory Rate 18 18 Blood Pressure 108/71 117/58 L Pulse Oximetry 95 95 05/16/18 20:00 05/17/18 00:00 05/17/18 04:00 Temperature 98.8 F 97.9 F 98.0 F Pulse Rate 97 H 83 96 H Respiratory Rate 18 16 18 Blood Pressure 144/63 H 114/56 L 115/73 Pulse Oximetry 94 L 95 92 L 05/17/18 09:00 Temperature Pulse Rate 109 H Respiratory Rate Blood Pressure Pulse Oximetry Intake & Output 05/16/18 05/17/18 05/17/18 18:59 06:59 18:59 Intake Total 480 / 480 240 / 240 Output Total 500 / 500 Balance 480 / 480 -260 / -260 Intake: Oral 480 / 480 240 / 240 Output: Urine 500 / 500 Other: # Voids 1 # Incontinent Voids 1 <[facility] 05/17/18 11:18> Narrative: patient laying down comfortably in bed with knee immobilizer in place <[facility] 05/17/18 11:18> - Constitutional no acute distress, cooperative <[facility] 05/17/18 11:18> - Routine HEENT Exam Head: Present: normocephalic, atraumatic <[facility] 05/17/18 11:18> Eye: Present: EOMI. Absent: scleral injection <[facility] 05/17/18 11: 18> - Routine Respiratory Exam Present: CTA bilaterally. Absent: prolonged expiratory phase, rhonchi, stridor , wheezes, crackles <[facility] 05/17/18 11:18> - Routine Cardiovascular Exam Present: irregularly irregular <[facility] 05/17/18 11:18> - Routine Abdominal Exam Present: soft, normoactive bowel sounds. Absent: tenderness <[facility] 05/17/18 11:18> - Routine Extremities Exam Present: pulses intact. Absent: edema, calf tenderness <[facility] 07/27 11:18> - Routine Skin Exam Present: dry, warm <[facility] 05/17/18 11:18> - Routine Neurological Exam Present: alert, oriented X3 <[facility] - 05/17/18 11:18> - Routine Psychiatric Exam Present: normal affect, cooperative <Snehal Weems 05/17/18 11:18> Comments: denies visual hallucinations <Snehal Weems 05/17/18 11:18> Assessment and Plan - Assessment (1) Left displaced femoral neck fracture Code(s): S72.002A - Fracture of unspecified part of neck of left femur, initial encounter for closed fracture Status: Acute (2) Atrial fibrillation Code(s): I48.91 - Unspecified atrial fibrillation Status: Chronic (3) Diabetes Code(s): E11.9 - Type 2 diabetes mellitus without complications Status: Acute (4) Urinary incontinence Code(s): R32 - Unspecified urinary incontinence Status: Acute (5) Hallucinations Code(s): R44.3 - Hallucinations, unspecified Status: Resolved (6) Nutrition, metabolism, and development symptoms Code(s): R63.8 - Other symptoms and signs concerning food and fluid intake Status: Acute (7) DVT prophylaxis Status: Acute <Rhianna Royal R - 05/18/18 08:59> (1) Left displaced femoral neck fracture Code(s): S72.002A - Fracture of unspecified part of neck of left femur, initial encounter for closed fracture Status: Acute Plan: POD #4 s/p left femur hemiarthropasty. Patient is stable and only complains of mild left hip pain. -Orthopedic surgery consulted -Cleared from orthopedic standpoint for discharge -Left lower extremity remain in the immobilizer while in bed, ice as needed, dressing to be maintained for 6 days then change to [place] Medications: -Hydrocodone as needed for pain with morphine as needed for breakthrough pain -Continue Eliquis for anticoagulation -Patient has been accepted to inpatient [facility] for continued therapy and rehabilitation (2) Atrial fibrillation Code(s): I48.91 - Unspecified atrial fibrillation Status: Chronic Plan: Hx of atrial fibrillation with RVR. Not well controlled following surgery. -Cardiology following this patient. Patient changed to PO Cardizem on 05/16. Per Dr. Royal, As outpatient her HR does vary quite a bit as well and suspect some variation now may be due to pain and/or agitation. HR currently 109, just prior to receiving medications, per nursing staff. Awaiting cardio clearance for discharge following medication change. -Continue Eliquis 5mg PO BID for anticoagulation (3) Diabetes Code(s): E11.9 - Type 2 diabetes mellitus without complications Status: Acute Plan: Patient with history of type 2 diabetes mellitus. -Hold home Levemir during hospitalization -Sliding scale insulin per protocol -Her blood sugars continue to be very high -- will restart her Levemir but at a lower dose than home and increase to her home dose of 12 BID as tolerated (4) Urinary incontinence Code(s): R32 - Unspecified urinary incontinence Status: Acute Plan: Patient with chronic urinary incontinence Medications: -Continue imipramine 50 mg daily (5) Hallucinations Code(s): R44.3 - Hallucinations, unspecified Status: Resolved Plan: Patients hallucinations have resolved. CT head was negative. At this time this is likely just due to her underlying dementia following the surgery. Will cancel the neurology consult. (6) Nutrition, metabolism, and development symptoms Code(s): R63.8 - Other symptoms and signs concerning food and fluid intake Status: Acute Plan: Fluids: Patient tolerating oral fluids Nutrition: Tolerating diabetic diet Electrolytes: Monitor and replete as needed Her overall weight is up. Fluids were just stopped 05/15. One time PO lasix given 05/16. (7) DVT prophylaxis Status: Acute Plan: DVT prophylaxis: Continue Eliquis 5 mg PO BID <Snehal Weems - 05/18/18 08:37> - Assessment and Plan Discharge Planning: Anticipate dc to [facility] today/ Patient stable for discharge except for her HR. Once that is stable she will be ready for transition to [facility] for Inpatient rehab <Snehal Weems - 05/17/18 11:18> - Attending Attestation The exam, history, and the medical decision-making described in the above note were completed with the assistance of the resident physician. I reviewed and agree with the findings presented. I attest that I had a [id number] encounter with the patient on the same day, and personally performed and documented my assessment and findings in the medical record. <Rhianna Royal - 05/18/18 08:59> <Rhianna Royal R - Last Filed: 05/18/18 08:59> (2) Atrial fibrillation Qualifiers: Atrial fibrillation type: chronic Qualified Code(s): I48.2 - Chronic atrial fibrillation (3) Diabetes Qualifiers: Diabetes mellitus type: type 2 Diabetes mellitus group home insulin use: with group home use Diabetes mellitus complication status: with hyperglycemia Qualified Code(s): E11.65 - Type 2 diabetes mellitus with hyperglycemia; Z79.4 - keno terminal operator (current) use of insulin (4) Urinary incontinence Qualifiers: Urinary Incontinence type: unspecified incontinence Qualified Code(s): R32 - Unspecified urinary incontinence <GennyRhianna R - Last Filed: 05/18/18 08:59> (2) Atrial fibrillation Qualifiers: Atrial fibrillation type: chronic Qualified Code(s): I48.2 - Chronic atrial fibrillation (3) Diabetes Qualifiers: Diabetes mellitus type: type 2 Diabetes mellitus termite treater helper insulin use: with termite treater helper use Diabetes mellitus complication status: with hyperglycemia Qualified Code(s): E11.65 - Type 2 diabetes mellitus with hyperglycemia; Z79.4 - USP (current) use of insulin (4) Urinary incontinence Qualifiers: Urinary Incontinence type: unspecified incontinence Qualified Code(s): R32 - Unspecified urinary incontinence
--- NOTE | 2018-05-17 11:42 | P.PNCA ---
Subjective Interval history: No CV complaints Physical Exam Vital signs: Vital Signs 05/16/18 12:00 05/16/18 16:00 05/16/18 17:29 Temperature 97.4 F L 98.3 F Pulse Rate 77 89 87 Respiratory Rate 18 18 Blood Pressure 108/71 117/58 L Pulse Oximetry 95 95 05/16/18 20:00 05/17/18 00:00 05/17/18 04:00 Temperature 98.8 F 97.9 F 98.0 F Pulse Rate 97 H 83 96 H Respiratory Rate 18 16 18 Blood Pressure 144/63 H 114/56 L 115/73 Pulse Oximetry 94 L 95 92 L 05/17/18 09:00 Temperature Pulse Rate 109 H Respiratory Rate Blood Pressure Pulse Oximetry Intake & Output 05/16/18 05/17/18 05/17/18 18:59 06:59 18:59 Intake Total 480 / 480 240 / 240 125 / 125 Output Total 500 / 500 Balance 480 / 480 -260 / -260 125 / 125 Intake: IV 125 / 125 Oral 480 / 480 240 / 240 Output: Urine 500 / 500 Other: # Voids 1 # Incontinent Voids 1 Narrative: Alert Chest clear CV S1S2 irr irr No edema Tele Afib - rate slightly fast Assessment and Plan - Assessment (1) Chronic atrial fibrillation Code(s): I48.2 - Chronic atrial fibrillation Status: Chronic Plan: Heart rate a little fast. Will increase Dilt (2) Coronary artery disease Code(s): I25.10 - Atherosclerotic heart disease of [place] coronary artery without angina pectoris Status: Chronic Plan: Stable. No angina. Only mild disease on cath about 6 years ago. (2) Coronary artery disease Qualifiers: Coronary Disease-Associated Artery/Lesion type: [place] artery [place] vs. transplanted heart: [place] heart Associated angina: without angina Qualified Code(s): I25.10 - Atherosclerotic heart disease of [place] coronary artery without angina pectoris
[2018-05-17] MEDS: dilTIAZem CD 180 MG Capsule PO SCH (21:02)
[2018-05-18 04:07] LABS: Bacteria,Urine Rare /hpf; Bilirubin,Urine Negative (Negative); Clarity,Urine Hazy (Clear); Color,Urine Yellow (Yellw/Straw); Glucose,Urine (UA) 150 mg/dL (Negative); Leukocyte Esterase,Urine Negative (Negative); Nitrite,Urine Negative (Negative); Squamous Epithelial Cell,Urine 3 /hpf (0-5)
[2018-05-18] MEDS: Levothyroxine 50 MCG Tablet PO SCH (05:51)
[2018-05-18 06:53] LABS: Hematocrit 35.6 % (35.0-46.0); Hemoglobin 12.2 gm/dL (11.6-15.3); Mean Corpuscular HGB Conc 34.2 % (32.0-36.0); Mean Corpuscular Hemoglobin 30.6 pg (27.0-34.0); Mean Corpuscular Volume 89.4 fL (80.0-100.0); Mean Platelet Volume 8.2 fL (7.0-11.0); Platelet Count 200 th/mm3 (150-450); Red Blood Count 3.98 mil/mm3 (4.00-5.30); Red Cell Distribution Width 14.4 % (11.6-17.2); White Blood Count 8.4 th/mm3 (4.0-11.0)
[2018-05-18 07:15] LABS: Calcium 8.1 mg/dL (8.5-10.1); Carbon Dioxide 26.6 meq/L (21.0-32.0); Potassium 3.3 meq/L (3.5-5.1)
--- NOTE | 2018-05-18 08:38 | P.PNCA ---
Subjective Interval history: no complaints Physical Exam Vital signs: Vital Signs 05/17/18 09:00 05/17/18 12:00 05/17/18 16:00 Temperature 97.9 F 97.2 F L Pulse Rate 109 H 97 H 60 Respiratory Rate 20 20 Blood Pressure 104/78 101/52 L Pulse Oximetry 94 L 97 05/17/18 20:00 05/18/18 00:00 05/18/18 01:14 Temperature 98.3 F 97.8 F Pulse Rate 65 75 70 Respiratory Rate 17 17 Blood Pressure 103/52 L 121/61 Pulse Oximetry 96 96 05/18/18 04:00 Temperature 98.0 F Pulse Rate 79 Respiratory Rate 17 Blood Pressure 107/71 Pulse Oximetry 94 L Intake & Output 05/17/18 05/18/18 05/18/18 18:59 06:59 18:59 Intake Total 725 / 725 0 / 0 Output Total 0 / 0 Balance 725 / 725 0 / 0 Weight 74.5 kg Intake: IV 125 / 125 Oral 600 / 600 0 / 0 Output: Urine 0 / 0 Other: # Voids 4 # Bowel Movements 2 0 Narrative: Sleepy when I made rounds. No change in exam Assessment and Plan - Assessment (1) Chronic atrial fibrillation Code(s): I48.2 - Chronic atrial fibrillation Status: Deleted Plan: Now on Diltiazem 180mg bid (2) Coronary artery disease Code(s): I25.10 - Atherosclerotic heart disease of [place] coronary artery without angina pectoris Status: Deleted Plan: Stable. No angina. Only mild disease on cath about 6 years ago. - Plan OK with me to go to rehab (2) Coronary artery disease Qualifiers: Coronary Disease-Associated Artery/Lesion type: [place] artery [place] vs. transplanted heart: [place] heart Associated angina: without angina Qualified Code(s): I25.10 - Atherosclerotic heart disease of [place] coronary artery without angina pectoris
[2018-05-18] MEDS: Insulin NovoLOG Aspart Correctional Sugar Inj SQ SCH (08:46)
[2018-05-18] MEDS: dilTIAZem CD 180 MG Capsule PO SCH (08:46)
[2018-05-18] MEDS: Metoprolol Tartrate 25 MG Tablet PO SCH (08:47)
[2018-05-18] MEDS: Pantoprazole Sodium 20 MG DR Tablet PO SCH (08:47)
[2018-05-18] MEDS: Gabapentin 400 MG Capsule PO SCH (08:47)
[2018-05-18] MEDS: Insulin Detemir Inj 1,000 UNIT/10 ML Vial SQ SCH (08:48)
--- NOTE | 2018-05-18 14:51 | P.PNFP ---
Subjective Interval history: Patient seen and examined this morning. She states that she is feeling well. She is ready to be discharged to rehab. No fevers or chills, pain is well controlled, no chest pain, shortness of breath, no abdominal pain. <JanetSussy G - 05/18/18 19:23> Results - Labs Result diagrams: 05/18/18 05:50 05/18/18 05:50 <Rhianna Royal - 05/19/18 12:10> Abnormal lab results 05/17/18 05/17/18 05/18/18 Range/Units 17:14 20:53 03:30 RBC (4.00-5.30) mil/mm3 Potassium (3.5-5.1) meq/L Estimated GFR (>89) mL/min POC Glucose 266 H 238 H (68-110) mg/dl Random Glucose (74-106) mg/dL Calcium (8.5-10.1) mg/dL Urine Clarity Hazy H (Clear) Urine Glucose (UA) 150 H (Negative) mg/dL Urine Ketones Trace H (Negative) mg/dL Urine Occult Blood Small H (Negative) Urine Bacteria Rare H (None) /hpf Urine Yeast Many H (None) /hpf 05/18/18 05/18/18 05/18/18 Range/Units 05:50 05:50 08:46 RBC 3.98 L (4.00-5.30) mil/mm3 Potassium 3.3 L (3.5-5.1) meq/L Estimated GFR 84 L (>89) mL/min POC Glucose 157 H (68-110) mg/dl Random Glucose 160 H (74-106) mg/dL Calcium 8.1 L (8.5-10.1) mg/dL Urine Clarity (Clear) Urine Glucose (UA) (Negative) mg/dL Urine Ketones (Negative) mg/dL Urine Occult Blood (Negative) Urine Bacteria (None) /hpf Urine Yeast (None) /hpf Short CBC 05/18/18 Range/Units 05:50 WBC 8.4 (4.0-11.0) th/mm3 Hgb 12.2 (11.6-15.3) gm/dL Hct 35.6 (35.0-46.0) % Plt Count 200 (150-450) th/mm3 BMP 05/18/18 05:50 Sodium 138 Potassium 3.3 L Chloride 100 Carbon Dioxide 26.6 BUN 13 Creatinine 0.67 Calcium 8.1 L Urine 05/18/18 Range/Units 03:30 Urine Color Yellow (Yellw/Straw) Urine Clarity Hazy H (Clear) Urine pH 6.0 (5.0-8.5) Ur Specific [place] 1.010 (1.002-1.035) Urine Protein Negative (Neg-Trace) mg/dL Urine Glucose (UA) 150 H (Negative) mg/dL <Sussy Gonzales G - 05/18/18 14:51> Physical Exam Vital signs: Vital Signs 05/17/18 16:00 05/17/18 20:00 05/18/18 00:00 Temperature 97.2 F L 98.3 F Pulse Rate 60 65 75 Respiratory Rate 20 17 Blood Pressure 101/52 L 103/52 L Pulse Oximetry 97 96 05/18/18 01:14 05/18/18 04:00 05/18/18 08:00 Temperature 97.8 F 98.0 F 97.8 F Pulse Rate 70 79 57 L Respiratory Rate 17 17 16 Blood Pressure 121/61 107/71 135/63 Pulse Oximetry 96 94 L 93 L 05/18/18 09:00 Temperature Pulse Rate 92 H Respiratory Rate Blood Pressure Pulse Oximetry Intake & Output 05/17/18 05/18/18 05/18/18 18:59 06:59 18:59 Intake Total 725 / 725 0 / 0 Output Total 0 / 0 Balance 725 / 725 0 / 0 Weight 74.5 kg Intake: IV 125 / 125 Oral 600 / 600 0 / 0 Output: Urine 0 / 0 Other: # Voids 4 # Bowel Movements 2 0 <Sussy Gonzales - 05/18/18 14:51> Narrative: GENERAL: Elderly white female sitting up in bed eating breakfast, in no acute distress SKIN: Warm and dry. HEAD: Atraumatic. Normocephalic. EYES: No scleral icterus. No injection or drainage. ENT: No nasal bleeding or discharge. NECK: Trachea midline. No JVD. CARDIOVASCULAR: Irregular irregular rate and rhythm. RESPIRATORY: No accessory muscle use. Clear to auscultation. Breath sounds equal bilaterally. GASTROINTESTINAL: Abdomen soft, non-tender, nondistended. MUSCULOSKELETAL: Extremities without clubbing, cyanosis, or edema. No obvious deformities. NEUROLOGICAL: Awake and alert. No obvious cranial nerve deficits. Motor grossly within normal limits. Normal speech. <Sussy Gonzales G - 05/18/18 19:23> Assessment and Plan - Assessment (1) Left displaced femoral neck fracture Code(s): S72.002A - Fracture of unspecified part of neck of left femur, initial encounter for closed fracture Status: Acute (2) Atrial fibrillation Code(s): I48.91 - Unspecified atrial fibrillation Status: Chronic (3) Diabetes Code(s): E11.9 - Type 2 diabetes mellitus without complications Status: Acute (4) Urinary incontinence Code(s): R32 - Unspecified urinary incontinence Status: Acute (5) Nutrition, metabolism, and development symptoms Code(s): R63.8 - Other symptoms and signs concerning food and fluid intake Status: Acute (6) DVT prophylaxis Status: Acute <Rhianna Royal R - 05/19/18 12:10> (1) Left displaced femoral neck fracture Code(s): S72.002A - Fracture of unspecified part of neck of left femur, initial encounter for closed fracture Status: Acute Plan: POD #5 s/p left femur hemiarthropasty. Patient is stable and only complains of mild left hip pain with movement, but pain is well controlled. -Orthopedic surgery consulted -Cleared from orthopedic standpoint for discharge -Left lower extremity remain in the immobilizer while in bed, ice as needed, dressing to be maintained for 6 days then change to [place] Medications: -Hydrocodone as needed for pain with morphine as needed for breakthrough pain -Continue Eliquis for anticoagulation -Patient has been accepted to inpatient [facility] for continued therapy and rehabilitation and will be discharged there today. (2) Atrial fibrillation Code(s): I48.91 - Unspecified atrial fibrillation Status: Chronic Plan: Hx of atrial fibrillation with RVR. Initially, not well controlled following surgery. However, has been controlled since yesterday afternoon. -Cardiology following this patient. Cleared for discharge this morning on diltiazem 180 mg twice daily. -Continue Eliquis 5mg PO BID for anticoagulation (3) Diabetes Code(s): E11.9 - Type 2 diabetes mellitus without complications Status: Acute Plan: Patient with history of type 2 diabetes mellitus. -Levemir 8 units twice daily, sugars continued to be high so will increase to home dose upon discharge today -Sliding scale insulin per protocol (4) Urinary incontinence Code(s): R32 - Unspecified urinary incontinence Status: Acute Plan: Patient with chronic urinary incontinence Medications: -Continue imipramine 50 mg daily (5) Nutrition, metabolism, and development symptoms Code(s): R63.8 - Other symptoms and signs concerning food and fluid intake Status: Acute Plan: Fluids: Patient tolerating oral fluids Nutrition: Tolerating diabetic diet Electrolytes: Monitor and replete as needed (6) DVT prophylaxis Status: Acute Plan: DVT prophylaxis: Continue Eliquis 5 mg PO BID <Sussy Gonzales - 05/18/18 19:16> - Attending Attestation The exam, history, and the medical decision-making described in the above note were completed with the assistance of the resident physician. I reviewed and agree with the findings presented. I attest that I had a [id number] encounter with the patient on the same day, and personally performed and documented my assessment and findings in the medical record. <Rhianna Royal - 05/19/18 12:10> <Sussy Gonzales G - Last Filed: 05/18/18 19:16> (2) Atrial fibrillation Qualifiers: Atrial fibrillation type: chronic Qualified Code(s): I48.2 - Chronic atrial fibrillation (3) Diabetes Qualifiers: Diabetes mellitus type: type 2 Diabetes mellitus fci insulin use: with fci use Diabetes mellitus complication status: with hyperglycemia Qualified Code(s): E11.65 - Type 2 diabetes mellitus with hyperglycemia; Z79.4 - shelter (current) use of insulin (4) Urinary incontinence Qualifiers: Urinary Incontinence type: unspecified incontinence Qualified Code(s): R32 - Unspecified urinary incontinence <Rhianna Royal R - Last Filed: 05/19/18 12:10> (2) Atrial fibrillation Qualifiers: Qualified Code(s): I48.2 - Chronic atrial fibrillation (3) Diabetes Qualifiers: Qualified Code(s): E11.65 - Type 2 diabetes mellitus with hyperglycemia; Z79.4 - shelter (current) use of insulin (4) Urinary incontinence Qualifiers: Qualified Code(s): R32 - Unspecified urinary incontinence <Sussy Gonzales G - Last Filed: 05/18/18 19:16> (2) Atrial fibrillation Qualifiers: Atrial fibrillation type: chronic Qualified Code(s): I48.2 - Chronic atrial fibrillation (3) Diabetes Qualifiers: Diabetes mellitus type: type 2 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 Diabetes mellitus complication status: with hyperglycemia Qualified Code(s): E11.65 - Type 2 diabetes mellitus with hyperglycemia; Z79.4 - exterminator helper termite (current) use of insulin (4) Urinary incontinence Qualifiers: Urinary Incontinence type: unspecified incontinence Qualified Code(s): R32 - Unspecified urinary incontinence <Rhianna Royal R - Last Filed: 05/19/18 12:10> (2) Atrial fibrillation Qualifiers: Qualified Code(s): I48.2 - Chronic atrial fibrillation (3) Diabetes Qualifiers: Qualified Code(s): E11.65 - Type 2 diabetes mellitus with hyperglycemia; Z79.4 - shelter (current) use of insulin (4) Urinary incontinence Qualifiers: Qualified Code(s): R32 - Unspecified urinary incontinence
--- NOTE | 2018-05-30 12:12 | P.DS ---
Date of admission: 05/12/18 19:24 Primary care physician: Rhianna Royal MD Brief History from admission: 82-year-old female with history of diabetes mellitus, atrial fibrillation on Eliquis, recent ischemic stroke in November of this year of the right proximal middle cerebral artery which fortunately responded to thrombectomy, and with minimal residual deficit. She presents with mechanical fall last night around 7: 30 PM, followed by continued nonradiating sharp pain of the left hip. She says she was bending down to put a magnet on the bottom of her refrigerator when she stumbled, falling on her left hip. She denies any loss of consciousness. Patient denies any lightheadedness, dizziness, chest pain, shortness of breath. Of note, patient missed her nighttime dose of metoprolol, and now appears to be tachycardic in the 140s. Denies any palpitations or chest pain. I discussed with nurse. Will give patient 100 mg of p.o. metoprolol now, as well as diltiazem. DS: Diagnosis - Discharge Diagnosis (1) Left displaced femoral neck fracture Status: Acute (2) Atrial fibrillation Status: Chronic (3) Diabetes Status: Acute (4) Urinary incontinence Status: Acute (5) Nutrition, metabolism, and development symptoms Status: Acute (6) DVT prophylaxis Status: Acute DS: Medications - Discharge Medications Prescriptions: hydrocodone-acetaminophen 1 tab PO Q4H PRN #40 tab PRN Reason: Pain Scale 6 To 10 DS: Summary Hospital Course: 82-year-old female with history of diabetes, atrial fibrillation on Eliquis, and CVA with minimal residual deficit admitted for mechanical fall causing left femoral neck fracture. X-ray of the left hip show a femoral neck fracture with angular deformity. Orthopedics consulted who performed left hip bipolar hemiarthroplasty on 05/13. Cardiology consulted due to patient's history atrial fibrillation and elevated heart rate following procedure. Patient's metoprolol increased to 100 mg twice daily and Cardizem increased to 180mg twice daily. Patient tolerated well prior to discharge. Patient's home Eliquis dose continued in hospital. Postoperatively patient noted hallucinations of people moving boxes to convert her hospital room into the nursery. CT head revealed No acute infarct, no acute hemorrhage, no midline shift and stable old lacunar infarct. Patient's hallucinations most likely to to anesthesia reaction and resolved < 48 hours following surgery. Patient discharged in stable condition to [facility] on 05/18 with prescription for diltiazem and pain medication. Patient to follow-up with orthopedic surgeon in 2 weeks. - Time Spent with Patient Total time spent providing and/or coordinating discharge services: - Quality: VTE Deep Vein Thrombosis/Pulmonary Embolism Present on Admission: No Results Procedures completed during hospitalization: Left hip hemiarthroplasty on 05/13 by orthopedics - Impressions ITS Impressions Ankle X-Ray 05/13/18 00:00 CONCLUSION: No acute findings. Hip X-Ray 05/13/18 00:00 CONCLUSION: Postoperative left hip replacement. No complications identified. Head CT 05/14/18 00:00 CONCLUSION: 1. Moderate periventricular and subcortical white matter small vessel skin changes bilaterally. 2. Diffuse cerebral artery. 3. 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 4. No acute infarct, acute hemorrhage, midline shift or extra-axial fluid collections. Discharge Plan - Discharge Disposition Patient Disposition: [facility] Rehab Inpatient - Discharge Condition Condition: Stable - Discharge Order Discharge Orders: Discharge Order (Routine); Ordered 05/18/18 Ordered By: Sussy Gonzales - Physicians Team Primary Care Provider: Rhianna Royal Attending Provider: Cristina Lauren Other Providers: Kourtney Quinones MD ; Clem Sutton MD ; Александр Swanson MD
== END 2018-05-18 11:30 ==
LOC: PHED 17:31 → PHEDA 19:24 → N06 05-13 00:46 → N04 05-15 17:03
PROVIDERS: ADMIT Family Medicine; ATTEND Family Medicine

== ENCOUNTER 2018-10-09 11:02 | Observation (INO) ==
--- NOTE | 2018-10-09 12:07 | XR ---
EXAM DATE: 10/09/2018 12:04 PM EST AGE/SEX: 83 years / Female INDICATIONS: Chest Pain CLINICAL DATA: This is the patient's initial encounter. Patient reports that signs and symptoms have been present for 1 day and indicates a pain score of 4/10. MEDICAL/SURGICAL HISTORY: . Myocardial infarction. Diabetes. Stroke. Asthma. . Appendectomy . Hysterectomy. section. Cholecystectomy. COMPARISON: [facility] [place], CHEST SINGLE AP, 11/12/2017. . FINDINGS: A single AP view of the chest demonstrates the lungs to be symmetrically aerated without evidence of mass, infiltrate or effusion. The heart size is mildly enlarged but stable compared to the prior exa mination.. Osseous structures are intact. CONCLUSION: No focal or acute intrathoracic disease. Stable mild cardiomegaly. Electronically signed by: Bryan Aguila MD 10/09/2018 12:06 PM EST
[2018-10-09 12:14] LABS: Baso % (Auto) 0.5 % (0.0-2.0); Eos # (Auto) 0.2 th/mm3 (0.0-0.4); Eos % (Auto) 2.2 % (0.0-4.0); Hematocrit 40.1 % (35.0-46.0); Hemoglobin 13.7 gm/dL (11.6-15.3); Lymph # (Auto) 1.8 th/mm3 (1.0-4.8); Lymph % (Auto) 21.8 % (9.0-44.0); Mean Corpuscular HGB Conc 34.2 % (32.0-36.0); Mean Corpuscular Hemoglobin 35.5 pg (27.0-34.0); Mean Corpuscular Volume 103.8 fL (80.0-100.0); Mean Platelet Volume 9.1 fL (7.0-11.0); Mono # (Auto) 0.6 th/mm3 (0.0-0.9); Mono % (Auto) 7.7 % (0.0-8.0); Neut # (Auto) 5.6 th/mm3 (1.8-7.7); Neut % (Auto) 67.8 % (16.0-70.0); Platelet Count 205 th/mm3 (150-450); Red Blood Count 3.87 mil/mm3 (4.00-5.30); Red Cell Distribution Width 14.6 % (11.6-17.2); White Blood Count 8.2 th/mm3 (4.0-11.0)
[2018-10-09 12:22] LABS: Activated Partial Thrombo Time 28.1 sec (23.4-31.7); Prothrombin Time 10.1 sec (9.8-11.6)
--- NOTE | 2018-10-09 12:26 | ED ---
HPI General Chief Complaint: Chest Pain Stated Complaint: Upper Left chest pain & dizziness Time Seen by Provider: 10/09/18 11:21 Source: patient and family Mode of arrival: ambulatory Limitations: no limitations History of Present Illness HPI narrative: Ms Lopez is an 83 year old female who presents to the ED with chest pain since 5am this morning. She states the pain across is located on the left side of her chest, into the axilla, and down to her fingers on the left arm. She describes the pain as "nagging like a toothache" and is 8/10. She has taken no analgesic medications today and nothing makes the pain better. She also describes an episode of dizziness and nausea this morning when trying to get out of bed. She denies vomiting, syncope, SOB, cough, diarrhea, constipation , or abdominal pain, but does mention one episode of bright red blood in her stool yesterday. The patient states she has had chest pain in the past but is not sure what she has been diagnosed with other than AFib. She did suffer an ischemic stroke in 11/2017, and has a history of DVTs. The patient also had a pancreatic stent and biopsy 2 weeks ago and her and daughter state they think she looks jaundiced today. They state that this is intermittent. The patient has not smoked cigarettes in more than 40 years, and denies alcohol or drug use. MD complaint: Reports chest pain Onset (ago): hour(s) Related Data Home Medications Medication Instructions Recorded Confirmed insulin detemir U-100 [Levemir 14 unit SUBCUT AC BREAKFAST 09/02/18 10/09/18 U-100 Insulin] metoprolol tartrate 25 mg PO BID 09/02/18 10/09/18 diltiazem HCl [Cardizem CD] 180 mg PO DAILY 10/09/18 10/09/18 gabapentin 100 mg PO BID 10/09/18 10/09/18 hydroxyzine HCl 10 mg PO QID PRN 10/09/18 10/09/18 insulin detemir U-100 [Levemir 16 unit SUBCUT QPM 10/09/18 10/09/18 U-100 Insulin] Previous Rx's Medication Instructions Recorded acetaminophen 650 mg PO Q4H PRN #100 tab 06/04/18 calcium carbonate-vitamin D3 1 tab PO BID #60 tab 06/04/18 [Calcium 500 + D (D3)] levothyroxine [Synthroid] 50 mcg PO DAILY@0600 #30 tab 06/04/18 multivitamin with minerals 1 tab PO DAILY #30 tab 06/04/18 [Multiple Vitamin-Minerals] pantoprazole [Protonix] 20 mg PO DAILY #30 tab 06/04/18 pravastatin 40 mg PO DAILY #30 tab 06/04/18 sennosides-docusate sodium [Senna 1 tab PO BID #60 tab 06/04/18 Plus] Allergies Allergy/AdvReac Type Severity Reaction Status Date / Time Influenza Virus Vaccines Allergy Severe Anaphylaxis Verified 10/09/18 11:13 Review of Systems ROS: all other systems reviewed are negative [facility] Medical History Medical History CAD (coronary artery disease) (Acute) Hypothyroidism (Chronic) Dyslipidemia (Chronic) Cardiomyopathy (Chronic) Stroke (Chronic) Diabetes (Acute) Atrial fibrillation (Acute) Arthritis (Acute) Asthma (Acute) Atrial fibrillation (Acute) FHx: MARTY-BSO (total abdominal hysterectomy and bilateral salpingo-oophorectomy) (Acute) History of blood product transfusion (Acute) Hx of hysterectomy (Acute) Hypertension (Acute) Mitral regurgitation (Acute) Myocardial infarct (Acute) Osteoporosis (Acute) Pancreatic cyst (Acute) Surgical History Surgical History History of total left hip arthroplasty (Acute) History of appendectomy (Acute) History of tonsillectomy (Acute) Hx of section (Acute) Hx of cholecystectomy (Acute) Family History Family History Mother Diabetes Stroke Father Cancer Social History Social History Substance History: No History of Abuse Second Hand Smoke Exposure: No Smoking Status: Former smoker Tobacco Type: Cigarettes How Often Do You Have a Drink Containing Alcohol: Never Hx Recent Travel: No Recent Travel in [facility] within the Last 8 Weeks: No Recent Out of Country Travel within the Last 8 Weeks: No Immunization History Tetanus Immunization: >5 Years Exam Narrative Exam Narrative: GENERAL: Patient is a well developed well nourished female in [facility]. SKIN: Warm and dry. No rashes noted on the chest or abdomen. Early signs of a pressure wound on the buttocks is noted. HEAD: Atraumatic. Normocephalic. EYES: Pupils equal reactive and round. No scleral icterus. No injection or drainage. ENT: No nasal bleeding or discharge. Mucous membranes pink and moist. Tongue is midline. No uvula deviation. NECK: Trachea midline. No JVD. CARDIOVASCULAR: Tachycardic. Irregularly irregular rhythm. No murmurs rubs or gallops. RESPIRATORY: No accessory muscle use. Clear to auscultation. Breath sounds equal bilaterally. GASTROINTESTINAL: Abdomen soft and nondistended. Mild pain with palpation of the epigastric area. Hepatic and splenic margins not palpable. MUSCULOSKELETAL: Extremities without clubbing, cyanosis, or edema. No obvious deformities. Full ROM of the upper and lower extremities bilaterally. 2+ pulses in the upper and lower extremities bilaterally. NEUROLOGICAL: Awake and alert. No obvious cranial nerve deficits. Motor grossly within normal limits. Five out of 5 muscle strength in the arms and legs. Normal speech. PSYCHIATRIC: Appropriate mood and affect; insight and judgment normal. Procedures Hemaprompt Stool Procedural Steps Taken: specimen placed in appropriate test area, developer placed on specimen and control areas and controls appropriately positive and negative Hemaprompt Stool Result: negative Course Initial Documented Vital Signs Temperature 97.5 F L 10/09/18 11:07 Pulse Rate 95 H 10/09/18 11:07 Respiratory Rate 20 10/09/18 11:07 Blood Pressure 89/61 L 10/09/18 11:07 Pulse Oximetry 97 10/09/18 11:07 Last Documented Vital Signs Temperature 97.7 F 10/10/18 07:47 Pulse Rate 86 10/10/18 07:47 Respiratory Rate 16 10/10/18 07:47 Blood Pressure 168/67 H 10/10/18 07:47 Pulse Oximetry 98 10/10/18 07:47 Medical Decision Making ALBER Attestation ALBER supervised visit: Yes Attestation: I, Dr. Herndon, have reviewed the advance practice practitioner's documentation and am in agreement, met with the patient face to face, made the diagnosis, and the medical decision making was done by me. *My assessment and Findings: Chest pain MDM Narrative Medical decision making narrative: 83 yo female here for evaluation of chest pain. labs and imaging ordered. CTA ordered as patient had recent surgery. Labs and imaging showed no sign of acute disease. Specifically no PE or no sign of ischemic event. Case was discussed with my attending Dr. Herndon who recommends because of the patient's comorbidities definitive chest pain center for chest pain center rule out. This was discussed with the patient and the family member who agree with this admission plan. Patient understands reasons for admission. Patient was admitted to the chest pain center by me. Currently patient is chest pain-free and no nitroglycerin was given. Medical Screen Exam Complete: Yes Emergency Medical Condition: Yes Differential Diagnosis Differential Diagnosis: chest pain vs ACS vs PE vs atypical chest pain vs pancreatitis Medical Records Medical records reviewed: Yes I reviewed the patient's medical records. Lab Data Lab results reviewed: Yes I reviewed the patient's lab results. Result diagrams: 10/09/18 11:38 10/09/18 11:38 Lab Results 10/09/18 10/09/18 10/09/18 Range/Units 11:38 11:38 11:38 WBC 8.2 (4.0-11.0) th/mm3 RBC 3.87 L (4.00-5.30) mil/mm3 Hgb 13.7 (11.6-15.3) gm/dL Hct 40.1 (35.0-46.0) % MCV 103.8 H (80.0-100.0) fL MCH 35.5 H (27.0-34.0) pg MCHC 34.2 (32.0-36.0) % RDW 14.6 (11.6-17.2) % Plt Count 205 (150-450) th/mm3 MPV 9.1 (7.0-11.0) fL Neut % (Auto) 67.8 (16.0-70.0) % Lymph % (Auto) 21.8 (9.0-44.0) % [place] % (Auto) 7.7 (0.0-8.0) % Eos % (Auto) 2.2 (0.0-4.0) % Baso % (Auto) 0.5 (0.0-2.0) % Neut # (Auto) 5.6 (1.8-7.7) th/mm3 Lymph # (Auto) 1.8 (1.0-4.8) th/mm3 [place] # (Auto) 0.6 (0.0-0.9) th/mm3 Eos # (Auto) 0.2 (0.0-0.4) th/mm3 Baso # (Auto) 0.0 (0.0-0.2) th/mm3 WBC Differential . Differential Comment Auto diff final PT 10.1 (9.8-11.6) sec INR 1.0 Ratio APTT 28.1 (23.4-31.7) sec Sodium 139 (136-145) meq/L Potassium 4.1 (3.5-5.1) meq/L Chloride 105 (98-107) meq/L Carbon Dioxide 27.5 (21.0-32.0) meq/L Anion Gap 7 (5-15) meq/L BUN 16 (7-18) mg/dL Creatinine 0.72 (0.50-1.00) mg/dL Estimated GFR 77 L (>89) mL/min POC Glucose (68-110) mg/dl Random Glucose 252 H (74-106) mg/dL Calcium 8.9 (8.5-10.1) mg/dL Total Bilirubin 1.9 H (0.2-1.0) mg/dL AST 27 (15-37) U/L ALT 38 (10-53) U/L Alkaline Phosphatase 466 H (45-117) U/L Total Creatine Kinase 37 (26-192) U/L Troponin I Less than 0.02 L (0.02-0.05) ng/mL Total Protein 6.6 (6.4-8.2) g/dL Albumin 2.8 L (3.4-5.0) g/dL Lipase (73-393) U/L Urine Color (Yellw/Straw) Urine Clarity (Clear) Urine pH (5.0-8.5) Ur Specific [place] (1.002-1.035) Urine Protein (Neg-Trace) mg/dL Urine Glucose (UA) (Negative) mg/dL Urine Ketones (Negative) mg/dL Urine Occult Blood (Negative) Urine Nitrate (Negative) Urine Bilirubin (Negative) Urine Urobilinogen (Less than 2) mg/dL Ur Leukocyte Esterase (Negative) Urine RBC (0-3) /hpf Urine WBC (0-5) /hpf Ur Squamous Epith Cells (0-5) /hpf Ur Renal Epithelial Cell (None) /hpf Urine Mucus (Occasional) /lpf Micro UA Comment Ur Microscopic Review Urine Culture Comments 12/01/18 12/01/18 12/01/18 Range/Units 11:38 16:40 20:10 WBC (4.0-11.0) th/mm3 RBC (4.00-5.30) mil/mm3 Hgb (11.6-15.3) gm/dL Hct (35.0-46.0) % MCV (80.0-100.0) fL MCH (27.0-34.0) pg MCHC (32.0-36.0) % RDW (11.6-17.2) % Plt Count (150-450) th/mm3 MPV (7.0-11.0) fL Neut % (Auto) (16.0-70.0) % Lymph % (Auto) (9.0-44.0) % [place] % (Auto) (0.0-8.0) % Eos % (Auto) (0.0-4.0) % Baso % (Auto) (0.0-2.0) % Neut # (Auto) (1.8-7.7) th/mm3 Lymph # (Auto) (1.0-4.8) th/mm3 [place] # (Auto) (0.0-0.9) th/mm3 Eos # (Auto) (0.0-0.4) th/mm3 Baso # (Auto) (0.0-0.2) th/mm3 WBC Differential Differential Comment PT (9.8-11.6) sec INR Ratio APTT (23.4-31.7) sec Sodium (136-145) meq/L Potassium (3.5-5.1) meq/L Chloride (98-107) meq/L Carbon Dioxide (21.0-32.0) meq/L Anion Gap (5-15) meq/L BUN (7-18) mg/dL Creatinine (0.50-1.00) mg/dL Estimated GFR (>89) mL/min POC Glucose (68-110) mg/dl Random Glucose (74-106) mg/dL Calcium (8.5-10.1) mg/dL Total Bilirubin (0.2-1.0) mg/dL AST (15-37) U/L ALT (10-53) U/L Alkaline Phosphatase (45-117) U/L Total Creatine Kinase 37 (26-192) U/L Troponin I Less than 0.02 L (0.02-0.05) ng/mL Total Protein (6.4-8.2) g/dL Albumin (3.4-5.0) g/dL Lipase 21 L (73-393) U/L Urine Color Yellow (Yellw/Straw) Urine Clarity Hazy H (Clear) Urine pH 5.0 (5.0-8.5) Ur Specific [place] 1.052 H (1.002-1.035) Urine Protein Negative (Neg-Trace) mg/dL Urine Glucose (UA) 500 or greater (Negative) mg/dL Urine Ketones Negative (Negative) mg/dL Urine Occult Blood Negative (Negative) Urine Nitrate Positive H (Negative) Urine Bilirubin Negative (Negative) Urine Urobilinogen 4 or greater (Less than 2) mg/dL Ur Leukocyte Esterase Large H (Negative) Urine RBC 16 H (0-3) /hpf Urine WBC 108 H (0-5) /hpf Ur Squamous Epith Cells 3 (0-5) /hpf Ur Renal Epithelial Cell 3 (None) /hpf Urine Mucus Few H (Occasional) /lpf Micro UA Comment Culture indicated Ur Microscopic Review Not Reportable Urine Culture Comments Culture indicated 10/09/18 10/09/18 10/10/18 Range/Units 20:15 20:35 09:10 WBC (4.0-11.0) th/mm3 RBC (4.00-5.30) mil/mm3 Hgb (11.6-15.3) gm/dL Hct (35.0-46.0) % MCV (80.0-100.0) fL MCH (27.0-34.0) pg MCHC (32.0-36.0) % RDW (11.6-17.2) % Plt Count (150-450) th/mm3 MPV (7.0-11.0) fL Neut % (Auto) (16.0-70.0) % Lymph % (Auto) (9.0-44.0) % [place] % (Auto) (0.0-8.0) % Eos % (Auto) (0.0-4.0) % Baso % (Auto) (0.0-2.0) % Neut # (Auto) (1.8-7.7) th/mm3 Lymph # (Auto) (1.0-4.8) th/mm3 [place] # (Auto) (0.0-0.9) th/mm3 Eos # (Auto) (0.0-0.4) th/mm3 Baso # (Auto) (0.0-0.2) th/mm3 WBC Differential Differential Comment PT (9.8-11.6) sec INR Ratio APTT (23.4-31.7) sec Sodium (136-145) meq/L Potassium (3.5-5.1) meq/L Chloride (98-107) meq/L Carbon Dioxide (21.0-32.0) meq/L Anion Gap (5-15) meq/L BUN (7-18) mg/dL Creatinine (0.50-1.00) mg/dL Estimated GFR (>89) mL/min POC Glucose 340 H 109 (68-110) mg/dl Random Glucose (74-106) mg/dL Calcium (8.5-10.1) mg/dL Total Bilirubin (0.2-1.0) mg/dL AST (15-37) U/L ALT (10-53) U/L Alkaline Phosphatase (45-117) U/L Total Creatine Kinase 38 (26-192) U/L Troponin I Less than 0.02 L (0.02-0.05) ng/mL Total Protein (6.4-8.2) g/dL Albumin (3.4-5.0) g/dL Lipase (73-393) U/L Urine Color (Yellw/Straw) Urine Clarity (Clear) Urine pH (5.0-8.5) Ur Specific [place] (1.002-1.035) Urine Protein (Neg-Trace) mg/dL Urine Glucose (UA) (Negative) mg/dL Urine Ketones (Negative) mg/dL Urine Occult Blood (Negative) Urine Nitrate (Negative) Urine Bilirubin (Negative) Urine Urobilinogen (Less than 2) mg/dL Ur Leukocyte Esterase (Negative) Urine RBC (0-3) /hpf Urine WBC (0-5) /hpf Ur Squamous Epith Cells (0-5) /hpf Ur Renal Epithelial Cell (None) /hpf Urine Mucus (Occasional) /lpf Micro UA Comment Ur Microscopic Review Urine Culture Comments Imaging Data Attestation: I personally reviewed and interpreted this imaging study as follows : Radiologist's impression: Chest X-Ray 10/09/18 11:32 CONCLUSION: No focal or acute intrathoracic disease. Stable mild cardiomegaly. Chest CTA 10/09/18 11:48 CONCLUSION: 1. No evidence of pulmonary embolism. 2. Scattered noncalcified pulmonary nodules within the right lung ranging in size from 6 to 8 mm. Follow-up CT of the chest in 6 months is recommended for further evaluation of these nodules. 3. Scattered bibasilar fibrotic scarring. 4. Cardiomegaly and coronary artery calcifications. 5. Degenerative changes and scoliosis of the thoracolumbar spine. ECG Data Attestation: I personally reviewed and interpreted this ECG as follows: Interpretation: EKG shows sinus rhythm with no sign of acute ischemia and arrhythmia read by me and attending. Discharge Plan Discharge Disposition Patient Disposition: 30 Still Patient Discharge Condition Condition: Stable Discharge Order Discharge Orders: Discharge Order (Routine); Ordered 10/10/18 Ordered By: Hellen Olsen Discharge Details Anticipated Discharge Date: 10/10/18 Diagnosis: Chest pain, rule out acute myocardial infarction Physicians Team ED Provider: Thomas Herndon ED Midlevel Provider: Juarez Winter Primary Care Provider: Rhianna Royal Attending Provider: Balwinder Mack ED Status: Left Department Discharge Information Discharge Date/Time: 10/09/18 17:20
[2018-10-09 12:42] LABS: Alanine Aminotransferase 38 U/L (10-53); Albumin 2.8 g/dL (3.4-5.0); Anion Gap 7 meq/L (5-15); Aspartate Aminotransferase 27 U/L (15-37); Blood Urea Nitrogen 16 mg/dL (7-18); Calcium 8.9 mg/dL (8.5-10.1); Carbon Dioxide 27.5 meq/L (21.0-32.0); Chloride 105 meq/L (98-107); Glomerular Filtration Rate 77 mL/min (>89); Glucose,Random 252 mg/dL (74-106); Potassium 4.1 meq/L (3.5-5.1); Sodium 139 meq/L (136-145)
[2018-10-09 12:46] LABS: Alkaline Phosphatase 466 U/L (45-117); Total Protein 6.6 g/dL (6.4-8.2)
[2018-10-09 12:47] LABS: Creatine Kinase 37 U/L (26-192)
--- NOTE | 2018-10-09 15:32 | CT ---
EXAM DATE: 10/09/2018 3:09 PM EST AGE/SEX: 83 years / Female INDICATIONS: Upper left chest pain, dizziness. CLINICAL DATA: This is the patient's initial encounter. Patient reports that signs and symptoms have been present for 2 days and indicates a pain score of 4/10. MEDICAL/SURGICAL HISTORY: Asthma. Diabetes. Hypertension. Afib, CAD, cardiomyopathy, stroke, [place] Hysterectomy. Cholecystectomy. Appendectomy. RADIATION DOSE: 14.17 CTDI (mGy) COMPARISON: [facility], CT CHEST W/O CONTRAST, 12/15/2016. [facility], CT CHEST W/O CONTRAST, 05/19/2016. . TECHNIQUE: Volumetric scanning was performed using a multi-row detector CT scanner during bolus infu edd of 70ml ml Omnipaque 350 (iohexol) nonionic water-soluble contrast as a single exam dose. The d trevin was post processed with a variety of visualization algorithms including full volume maximum inten sity projection and sliding thin slab reformation. Using automated exposure control and adjustment of the mA and/or kV according to patient size, radiation dose was kept as low as reasonably achievable to obtain optimal diagnostic quality images. DICOM format image data is available electronically for review and comparison. FINDINGS: Pulmonary Arteries: No filling defects are seen in the pulmonary arteries out to the subsegmental ve ssels. The left and right pulmonary arteries are normal in diameter. Lung: There is a 7 mm noncalcified nodule within the right lower lobe posteriorly and a 6 mm noncalc ified nodule within the superior segment of the right lower lobe posterior medially. There is also an 8 mm slightly elongated nodular density within the right posterior medial lung base which is stable compared to the previous examination. Follow-up CT of the chest in 6 months is recommended for furthe r evaluation. Scattered bibasilar fibrotic scarring is noted. Effusion: None. Mediastinum: No evidence of mediastinal or hilar adenopathy. Cardiomegaly and coronary artery calcif ications are noted. Other: The axilla is unremarkable. Degenerative changes and scoliosis of the thoracolumbar spine are noted. Pneumobilia is noted. CONCLUSION: 1. No evidence of pulmonary embolism. 2. Scattered noncalcified pulmonary nodules within the right lung ranging in size from 6 to 8 mm. Fo llow-up CT of the chest in 6 months is recommended for further evaluation of these nodules. 3. Scattered bibasilar fibrotic scarring. 4. Cardiomegaly and coronary artery calcifications. 5. Degenerative changes and scoliosis of the thoracolumbar spine. Electronically signed by: Jeremy Darby MD 10/09/2018 3:30 PM EST
--- NOTE | 2018-10-09 16:31 | P.HPCA ---
History of Present Illness Primary Care Physician: Rhianna Royal MD Chief Complaint: Chest pain History of Present Illness: 83 year old female with complex medical issues including atrial fibrillation, diabetes, GERD, hypothyroidism, cardiomyopathy, and history of CVA presents to the emergency room for further evaluation of chest pain. Reports upon awakening this morning "not feeling right," stating "I couldn't get things today." Apparently work up feeling dizzy, short of breath, and felt like the room was spinning. Reports told her her speech was slurred and she looked yellow. Denies trouble walking or noticed weakness. No headache. After a few minutes from awakening developed left anterior chest pain that radiation to scapula area. Characterized as a "toothache," describing waxing and waning in intensity. Moderate to severe in intensity. Duration "most of day." Currently chest discomfort resolved. Relieving factors unknown. Follows with Dr. Quinones and reports normal nuclear scan October 2017. Currently following with a GI MD at [facility] for "bubbles on my pancreas." 2 weeks ago had stent placed in pancreas and was hospitalized for 3 days at [facility]. Denies abdominal pain and states spots on pancreas were identified while in rehab when imaging completed. Past cardiac testing Reports nuclear cardiac testing normal October 2017. 11/26/17 Echocardiogram-normal left ventricular size. Wall thickness normal. Left ventricular systolic function is severely reduced with an estimated ejection fraction in 25-30%. The right ventricular systolic function is moderately decreased. The left atrial size is moderately dilated. The right atrial size is mildly dilated. Moderate to severe mitral valve regurgitation. There is a severe tricuspid regurgitation. The estimated pulmonary arterial pressure is 66 mmHg. 01/07/2013 Lexiscan-probably not but cannot rule out small nontransmural apical infarct. Left ventricular function mild to moderately decreased estimated EF 37 %. Social history Known diabetes and hyperlipidemia. No known hypertension. History of atrial fibrillation. - Diagnosis (1) Atypical chest pain (2) Hypothyroidism (3) Dyslipidemia (4) Diabetes (5) Atrial fibrillation (6) Pulmonary nodule, right Review of Systems All other systems reviewed negative except as stated in HPI [facility] - History History Provided By: Patient - Medical History Medical History: Medical History (Last Reviewed 10/09/18 @ 17:25 by MERCEDEZ Harper) CAD (coronary artery disease) (Acute) Hypothyroidism (Chronic) Dyslipidemia (Chronic) Cardiomyopathy (Chronic) Diabetes (Chronic) Atrial fibrillation (Acute) Arthritis Asthma Atrial fibrillation FHx: MARTY-BSO (total abdominal hysterectomy and bilateral salpingo-oophorectomy) History of blood product transfusion Hx of hysterectomy Hypertension Mitral regurgitation Myocardial infarct Osteoporosis Pancreatic cyst - Surgical History Surgical History: Surgical History (Last Reviewed 10/09/18 @ 17:25 by MERCEDEZ Harper) History of total left hip arthroplasty (Acute) History of appendectomy History of tonsillectomy Hx of section Hx of cholecystectomy - Family History Family History: Family History (Last Reviewed 10/09/18 @ 17:25 by MERCEDEZ Harper) Mother Diabetes Stroke Father Cancer - Social History I have reviewed the patient's Social History: No - Tobacco History Second Hand Smoke Exposure: No Smoking Status: Former smoker Tobacco Type: Cigarettes - Alcohol History How Often Do You Have a Drink Containing Alcohol: Never - Substance Use History Substance History: No History of Abuse - Travel History History of Recent Travel: No Recent Travel in the [place] Within the Last 8 Weeks: No Recent Travel Out of the Country Within the Last 8 Weeks: No - Immunization History Tetanus Immunization: >5 Years Medications and Allergies Allergies Allergy/AdvReac Type Severity Reaction Status Date / Time Influenza Virus Vaccines Allergy Severe Anaphylaxis Verified 10/09/18 11:13 Home Medications Medication Instructions Recorded Confirmed Type insulin detemir U-100 [Levemir 14 unit SUBCUT AC BREAKFAST 09/02/18 10/09/18 History U-100 Insulin] metoprolol tartrate 25 mg PO BID 09/02/18 10/09/18 History diltiazem HCl [Cardizem CD] 180 mg PO DAILY 10/09/18 10/09/18 History gabapentin 100 mg PO BID 10/09/18 10/09/18 History hydroxyzine HCl 10 mg PO QID PRN 10/09/18 10/09/18 History insulin detemir U-100 [Levemir 16 unit SUBCUT QPM 10/09/18 10/09/18 History U-100 Insulin] Exam Vital signs: Vital Signs 10/09/18 11:07 10/09/18 11:17 10/09/18 11:20 Temperature 97.5 F L Pulse Rate 95 H 96 H 105 H Respiratory Rate 20 21 Blood Pressure 89/61 L 126/85 Pulse Oximetry 97 97 97 10/09/18 12:00 10/09/18 12:19 10/09/18 14:46 Temperature Pulse Rate 92 H Respiratory Rate 21 Blood Pressure 99/58 L 97/53 L Pulse Oximetry 97 98 10/09/18 15:59 Temperature Pulse Rate 79 Respiratory Rate 14 Blood Pressure 103/68 Pulse Oximetry 96 Intake & Output 10/08/18 10/09/18 10/09/18 18:59 06:59 18:59 Weight 64.41 kg Narrative: GENERAL: Alert WN, WD, NAD, pleasant, elderly female HEAD: NC, AT EYES: Sclera slightly icterus, conjunctiva without injection, pupils equal and round, bilateral cataracts ENT: Mucous membranes pink and moist, upper and lower plates in place NECK: Supple, no masses, trachea midline CV: Regularly, irregular, distant, without murmur, rub, gallop, no JVD. No carotid bruits. RESP: Diminished lungs throughout bilateral, no crackles, wheeze, rhonchi, symmetrical chest rise, nonlabored, able to speak in full sentences ABD: Soft, NT, ND, no masses, positive bowel tones EXT: Pulses 4, no dependent edema, bilateral lower extremities statis MS: Normal tone x4 extremities, no obvious deformities, full range of motion NEURO: Motor strength 4/5, left arm slight weakness reported to be old PSYCH: A+O x3, pleasant affect, appropriate speech, mood, insight and judgment SKIN: Normal turgor, normal texture, no lesions, absent lower extremity hair distribution Results 10/09/18 11:38 10/09/18 11:38 Cardiac Enzymes 10/09/18 Range/Units 11:38 AST 27 (15-37) U/L Troponin I Less than 0.02 L (0.02-0.05) ng/mL Coagulation 10/09/18 Range/Units 11:38 PT 10.1 (9.8-11.6) sec APTT 28.1 (23.4-31.7) sec CBC 10/09/18 Range/Units 11:38 WBC 8.2 (4.0-11.0) th/mm3 RBC 3.87 L (4.00-5.30) mil/mm3 Hgb 13.7 (11.6-15.3) gm/dL Hct 40.1 (35.0-46.0) % Plt Count 205 (150-450) th/mm3 Neut # (Auto) 5.6 (1.8-7.7) th/mm3 Lymph # (Auto) 1.8 (1.0-4.8) th/mm3 [place] # (Auto) 0.6 (0.0-0.9) th/mm3 Eos # (Auto) 0.2 (0.0-0.4) th/mm3 Baso # (Auto) 0.0 (0.0-0.2) th/mm3 Comprehensive Metabolic Panel 10/09/18 Range/Units 11:38 Sodium 139 (136-145) meq/L Potassium 4.1 (3.5-5.1) meq/L Chloride 105 (98-107) meq/L Carbon Dioxide 27.5 (21.0-32.0) meq/L BUN 16 (7-18) mg/dL Creatinine 0.72 (0.50-1.00) mg/dL Calcium 8.9 (8.5-10.1) mg/dL AST 27 (15-37) U/L ALT 38 (10-53) U/L Alkaline Phosphatase 466 H (45-117) U/L Total Protein 6.6 (6.4-8.2) g/dL Albumin 2.8 L (3.4-5.0) g/dL Intake and Output 10/09/18 10/09/18 10/09/18 06:59 14:59 22:59 Other: Weight 64.41 kg Patient Weight 10/10/18 06:59 Weight 64.41 kg - Imaging and Cardiology Imaging: Impressions Chest X-Ray 10/09/18 11:32 CONCLUSION: No focal or acute intrathoracic disease. Stable mild cardiomegaly. Chest CTA 10/09/18 11:48 CONCLUSION: 1. No evidence of pulmonary embolism. 2. Scattered noncalcified pulmonary nodules within the right lung ranging in size from 6 to 8 mm. Follow-up CT of the chest in 6 months is recommended for further evaluation of these nodules. 3. Scattered bibasilar fibrotic scarring. 4. Cardiomegaly and coronary artery calcifications. 5. Degenerative changes and scoliosis of the thoracolumbar spine. EKG interpretations - Dysrhythmias Supraventricular dysrhythmia: atrial fibrillation (no st t segment change) Caprini VTE Risk Assessment Caprini VTE Risk Assessment: Moderate/High Risk (score >= 2) Caprini Risk Assessment Model: Point Value = 1 Point Value = 2 Point Value = 3 Point Value = 5 Age 41-60 Minor surgery BMI > 25 kg/m2 Swollen legs Varicose veins or History of unexplained or recurrent spontaneous Oral contraceptives or hormone replacement Sepsis (< 1 month) Serious lung disease, including pneumonia (< 1 month) Abnormal pulmonary function Acute myocardial infarction Congestive heart failure (< 1 month) History of inflammatory bowel disease Medical patient at bed rest Age 61-74 Arthroscopic surgery Major open surgery (> 45 min) Laparoscopic surgery (> 45 min) Malignancy Confined to bed (> 72 hours) Immobilizing plaster cast Central venous access Age >= 75 History of VTE Family history of VTE Factor V Leiden Prothrombin [id number] Lupus anticoagulant Anticardiolipin antibodies Elevated serum homocysteine Heparin-induced thrombocytopenia Other congenital or acquired thrombophilia Stroke (< 1 month) Elective arthroplasty Hip, pelvis, or leg fracture Acute spinal cord injury (< 1 month) Prophylaxis Regimen: Total Risk Factor Score Risk Level Prophylaxis Regimen 0-1 Low Early ambulation 2 Moderate Order ONE of the following: *Sequential Compression Device (SCD) *Heparin 5000 units SQ BID 3-4 Higher Order ONE of the following medications: *Heparin 5000 units SQ TID *Enoxaparin/Lovenox 40 mg SQ daily (WT < 150 kg, CrCl > 30 mL/min) *Enoxaparin/Lovenox 30 mg SQ daily (WT < 150 kg, CrCl > 10-29 mL/min) *Enoxaparin/Lovenox 30 mg SQ BID (WT < 150 kg, CrCl > 30 mL/min) AND/OR *Sequential Compression Device (SCD) 5 or more Highest Order ONE of the following medications: *Heparin 5000 units SQ TID (Preferred with Epidurals) *Enoxaparin/Lovenox 40 mg SQ daily (WT < 150 kg, CrCl > 30 mL/min) *Enoxaparin/Lovenox 30 mg SQ daily (WT < 150 kg, CrCl > 10-29 mL/min) *Enoxaparin/Lovenox 30 mg SQ BID (WT < 150 kg, CrCl > 30 mL/min) AND *Sequential Compression Device (SCD) Assessment and Plan - Assessment (1) Atypical chest pain Code(s): R07.89 - Other chest pain Status: Acute Plan: Admitted to chest pain center. Continue ruling out ACS with 3 sets of EKGs and cardiac enzymes. Attempt to contact patient's correctional therapy teacher, Dr. Kourtney Quinones in the morning for further recommendation to determine if any further cardiac testing is warranted at this time. Chest discomfort atypical, more concerning is reported slurred speech and dizziness for possible TIA. (2) Hypothyroidism Code(s): E03.9 - Hypothyroidism, unspecified Status: Chronic Plan: Continue levothyroxine. (3) Dyslipidemia Code(s): E78.5 - Hyperlipidemia, unspecified Status: Chronic Plan: Continue pravastatin. (4) Diabetes Code(s): E11.9 - Type 2 diabetes mellitus without complications Status: Chronic Plan: SSI moderate dose coverage. Hold Levemir due to n.p.o. status at midnight. (5) Atrial fibrillation Code(s): I48.91 - Unspecified atrial fibrillation Status: Chronic Plan: Continue metoprolol and diltiazem. (6) Pulmonary nodule, right Code(s): R91.1 - Solitary pulmonary nodule Status: Acute Plan: Scattered noncalcified pulmonary nodules within the right lung. Discussed findings with patient. Follow-up with primary care provider for recommended CT scan in 6 months. (2) Hypothyroidism Qualifiers: Hypothyroidism type: unspecified Qualified Code(s): E03.9 - Hypothyroidism, unspecified (4) Diabetes Qualifiers: Diabetes mellitus type: type 2 Diabetes mellitus assisted insulin use: unspecified truck terminal manager insulin use status Diabetes mellitus complication status : with unspecified complications Qualified Code(s): E11.8 - Type 2 diabetes mellitus with unspecified complications (5) Atrial fibrillation Qualifiers: Atrial fibrillation type: chronic Qualified Code(s): I48.2 - Chronic atrial fibrillation
--- NOTE | 2018-10-09 16:39 | P.PNCA ---
Subjective Interval history: This patient was seen and examined with the nurse practitioner. The history is as documented in her note. Plans for further diagnostic evaluation and therapeutic intervention were discussed and are reflected in the notes. The patient will be held and ruled out for ACS using standard protocol. Her school health assistant Dr. Quinones will be contacted to obtain her input. This patient has a very complex medical history with multiple issues going on current time including a possible TIA this morning , pancreatic issues followed by GI, slight jaundice currently, nodules in her lungs, reported blood in her urine, and a number of other issues. Since she is already under evaluation by a number of different physicians if she rules out for ACS it is probably best practice to discharge her back for further outpatient evaluation as already scheduled. Medications and Allergies Active Medications: Active Medications Nitroglycerin (Nitrostat Sl) 0.4 mg SL Q5M PRN PRN Reason: CHEST PAIN Ondansetron HCl (Zofran Inj) 4 mg IV.PUSH Q6H PRN PRN Reason: NAUSEA Sodium Chloride (Ns Flush) 2 ml IV.FLUSH BID PENNY Sodium Chloride (Ns Flush) 2 ml IV.FLUSH PRN PRN PRN Reason: FLUSH AFTER USING IV ACCESS Allergies Allergy/AdvReac Type Severity Reaction Status Date / Time Influenza Virus Vaccines Allergy Severe Anaphylaxis Verified 10/09/18 11:13 Home Medications Medication Instructions Recorded Confirmed Type insulin detemir U-100 [Levemir 14 unit SUBCUT AC BREAKFAST 09/02/18 10/09/18 History U-100 Insulin] metoprolol tartrate 25 mg PO BID 09/02/18 10/09/18 History diltiazem HCl [Cardizem CD] 180 mg PO DAILY 10/09/18 10/09/18 History gabapentin 100 mg PO BID 10/09/18 10/09/18 History hydroxyzine HCl 10 mg PO QID PRN 10/09/18 10/09/18 History insulin detemir U-100 [Levemir 16 unit SUBCUT QPM 10/09/18 10/09/18 History U-100 Insulin] Physical Exam Vital signs: Vital Signs 10/09/18 11:07 10/09/18 11:17 10/09/18 11:20 Temperature 97.5 F L Pulse Rate 95 H 96 H 105 H Respiratory Rate 20 21 Blood Pressure 89/61 L 126/85 Pulse Oximetry 97 97 97 10/09/18 12:00 10/09/18 12:19 10/09/18 14:46 Temperature Pulse Rate 92 H Respiratory Rate 21 Blood Pressure 99/58 L 97/53 L Pulse Oximetry 97 98 10/09/18 15:59 Temperature Pulse Rate 79 Respiratory Rate 14 Blood Pressure 103/68 Pulse Oximetry 96 Intake & Output 10/08/18 10/09/18 10/09/18 18:59 06:59 18:59 Weight 64.41 kg Narrative: Frail woman resting comfortably with no current pain Head normocephalic atraumatic previous hematomas resolved Eyes PERRLA EOMI bilateral cataracts slight icterus to the sclera Mouth mucous membranes moist tongue well papillated upper and lower plates in place no lesions Neck supple no JVD masses nodes or bruits Chest diminished breath sounds but clear with no rales wheezes or rhonchi Cardiovascular PMI is not palpable heart sounds are somewhat distant and irregular but no gallops rubs or murmurs extremities reveal bilateral stasis and 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 Cranial nerves are intact although olfactory and taste were not tested. 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 Lower left extremity also very slightly weak. Balance proprioception and further neurologic evaluation was not carried out Abdomen slightly protuberant but soft nontender with no guarding or rebound deep palpation was not carried out in view of her no issues Results 10/09/18 11:38 10/09/18 11:38 Cardiac Enzymes 10/09/18 Range/Units 11:38 AST 27 (15-37) U/L Troponin I Less than 0.02 L (0.02-0.05) ng/mL Coagulation 10/09/18 Range/Units 11:38 PT 10.1 (9.8-11.6) sec APTT 28.1 (23.4-31.7) sec CBC 10/09/18 Range/Units 11:38 WBC 8.2 (4.0-11.0) th/mm3 RBC 3.87 L (4.00-5.30) mil/mm3 Hgb 13.7 (11.6-15.3) gm/dL Hct 40.1 (35.0-46.0) % Plt Count 205 (150-450) th/mm3 Neut # (Auto) 5.6 (1.8-7.7) th/mm3 Lymph # (Auto) 1.8 (1.0-4.8) th/mm3 [place] # (Auto) 0.6 (0.0-0.9) th/mm3 Eos # (Auto) 0.2 (0.0-0.4) th/mm3 Baso # (Auto) 0.0 (0.0-0.2) th/mm3 Comprehensive Metabolic Panel 10/09/18 Range/Units 11:38 Sodium 139 (136-145) meq/L Potassium 4.1 (3.5-5.1) meq/L Chloride 105 (98-107) meq/L Carbon Dioxide 27.5 (21.0-32.0) meq/L BUN 16 (7-18) mg/dL Creatinine 0.72 (0.50-1.00) mg/dL Calcium 8.9 (8.5-10.1) mg/dL AST 27 (15-37) U/L ALT 38 (10-53) U/L Alkaline Phosphatase 466 H (45-117) U/L Total Protein 6.6 (6.4-8.2) g/dL Albumin 2.8 L (3.4-5.0) g/dL Intake and Output 10/09/18 10/09/18 10/09/18 06:59 14:59 22:59 Other: Weight 64.41 kg Patient Weight 10/10/18 06:59 Weight 64.41 kg - Imaging and Cardiology Imaging: Impressions Chest X-Ray 10/09/18 11:32 CONCLUSION: No focal or acute intrathoracic disease. Stable mild cardiomegaly. Chest CTA 10/09/18 11:48 CONCLUSION: 1. No evidence of pulmonary embolism. 2. Scattered noncalcified pulmonary nodules within the right lung ranging in size from 6 to 8 mm. Follow-up CT of the chest in 6 months is recommended for further evaluation of these nodules. 3. Scattered bibasilar fibrotic scarring. 4. Cardiomegaly and coronary artery calcifications. 5. Degenerative changes and scoliosis of the thoracolumbar spine.
[2018-10-09 17:32] LABS: Creatine Kinase 37 U/L (26-192)
[2018-10-09] MEDS ORDERED: Dextrose 50% in Water 50 ML Vial IV.PUSH PRN (17:38)
[2018-10-09] MEDS ORDERED: Acetaminophen 325 MG Tablet PO PRN (17:40)
[2018-10-09 21:04] LABS: Bilirubin,Urine Negative (Negative); Clarity,Urine Hazy (Clear); Color,Urine Yellow (Yellw/Straw); Glucose,Urine (UA) 500 or Greater mg/dL (Negative); Leukocyte Esterase,Urine Large (Negative); Mucus,Urine Few /lpf (Occasional); Nitrite,Urine Positive (Negative); Renal Epithelial Cells,Urine 3 /hpf; Specific Gravity,Urine 1.052 (1.002-1.035); Squamous Epithelial Cell,Urine 3 /hpf (0-5); Urobilinogen,Urine 4 or Greater mg/dL (Less than 2)
[2018-10-09 21:28] LABS: Creatine Kinase 38 U/L (26-192)
[2018-10-09 21:34] VITALS: RESP 16
[2018-10-09] MEDS: Insulin NovoLOG Aspart Correctional Sugar Inj SQ SCH (22:08)
[2018-10-09] MEDS: Calcium/Vitamin D 250/125 MG Tablet PO SCH (22:09)
[2018-10-09] MEDS: Gabapentin 100 MG Capsule PO SCH (22:11)
[2018-10-09] MEDS: Metoprolol Tartrate 25 MG Tablet PO SCH (22:11)
[2018-10-09] MEDS: Senna/Docusate Sodium 8.6/50 MG Tablet PO SCH (22:12)
[2018-10-10] MEDS ORDERED: Levothyroxine 50 MCG Tablet PO SCH (06:00)
[2018-10-10 07:50] VITALS: BP 168/67; PULSE 86; TEMP 97.7; O2SAT 98
--- NOTE | 2018-10-10 08:52 | P.PNCA ---
Subjective Interval history: No complaints overnight. Reports sleeping well. No further chest discomfort or feelings of "dizziness and not getting things together." Requesting to go home. Medications and Allergies Active Medications: Active Medications Acetaminophen (Tylenol) 650 mg PO Q4H PRN PRN Reason: PAIN SCALE 1 TO 10 Calcium/Vitamin D (Oscal With D 250/125 Mg) 2 tab PO BID [facility] Last Admin: 10/09/18 22:09 Dose: 2 tab Dextrose (D50w Vial) 50 ml IV.PUSH UNSCH PRN PRN Reason: PER HYPOGLYCEMIA PROTOCOL Diltiazem HCl (Cardizem Cd 24hr) 180 mg PO DAILY [facility] Gabapentin (Neurontin) 100 mg PO BID [facility] Last Admin: 10/09/18 22:11 Dose: 100 mg Glucagon (Glucagon Inj) 1 mg OTHER PRN PRN PRN Reason: for Hypoglycemia Protocol Insulin Aspart (Novolog Insulin Correctional Sugar Inj) 0 unit SQ ACHS [facility]; Protocol Last Admin: 10/09/18 22:08 Dose: 7 unit Levothyroxine Sodium (Synthroid) 50 mcg PO DAILY@0600 [facility] Last Admin: 10/10/18 05:40 Dose: 50 mcg Metoprolol Tartrate (Lopressor) 25 mg PO BID [facility] Last Admin: 10/09/18 22:11 Dose: 25 mg Multivitamins/Minerals (Theragran-M) 1 tab PO DAILY [facility] Nitroglycerin (Nitrostat Sl) 0.4 mg SL Q5M PRN PRN Reason: CHEST PAIN Ondansetron HCl (Zofran Inj) 4 mg IV.PUSH Q6H PRN PRN Reason: NAUSEA Pantoprazole Sodium (Protonix) 20 mg PO DAILY [facility] Pravastatin Sodium (Pravachol) 40 mg PO DAILY [facility] Senna/Docusate Sodium (Kelly-Colace) 1 tab PO BID [facility] Last Admin: 10/09/18 22:12 Dose: Not Given Sodium Chloride (Ns Flush) 2 ml IV.FLUSH BID [facility] Last Admin: 10/09/18 22:09 Dose: 2 ml Sodium Chloride (Ns Flush) 2 ml IV.FLUSH PRN PRN PRN Reason: FLUSH AFTER USING IV ACCESS Allergies Allergy/AdvReac Type Severity Reaction Status Date / Time Influenza Virus Vaccines Allergy Severe Anaphylaxis Verified 10/09/18 11:13 Home Medications Medication Instructions Recorded Confirmed Type insulin detemir U-100 [Levemir 14 unit SUBCUT AC BREAKFAST 09/02/18 10/09/18 History U-100 Insulin] metoprolol tartrate 25 mg PO BID 09/02/18 10/09/18 History diltiazem HCl [Cardizem CD] 180 mg PO DAILY 10/09/18 10/09/18 History gabapentin 100 mg PO BID 10/09/18 10/09/18 History hydroxyzine HCl 10 mg PO QID PRN 10/09/18 10/09/18 History insulin detemir U-100 [Levemir 16 unit SUBCUT QPM 10/09/18 10/09/18 History U-100 Insulin] Physical Exam Vital signs: Vital Signs 10/09/18 11:07 10/09/18 11:17 10/09/18 11:20 Temperature 97.5 F L Pulse Rate 95 H 96 H 105 H Respiratory Rate 20 21 Blood Pressure 89/61 L 126/85 Pulse Oximetry 97 97 97 10/09/18 12:00 10/09/18 12:19 10/09/18 14:46 Temperature Pulse Rate 92 H Respiratory Rate 21 Blood Pressure 99/58 L 97/53 L Pulse Oximetry 97 98 10/09/18 15:59 10/09/18 20:00 10/10/18 04:00 Temperature 97.7 F 97.6 F Pulse Rate 79 69 90 Respiratory Rate 14 16 16 Blood Pressure 103/68 112/53 L 147/78 H Pulse Oximetry 96 97 96 10/10/18 07:47 Temperature 97.7 F Pulse Rate 86 Respiratory Rate 16 Blood Pressure 168/67 H Pulse Oximetry 98 Intake & Output 10/09/18 10/10/18 10/10/18 18:59 06:59 18:59 Weight 64.41 kg 64.41 kg Other: # Voids 2 Weight On Admission 64.41 kg - Constitutional no acute distress Comments: easily aroused from sleep - Routine HEENT Exam Head: Present: normocephalic Eye: Present: PERRL (mild scleral icterus) ENT: Present: mucous membranes moist - Routine Respiratory Exam Present: CTA bilaterally. Absent: rhonchi, wheezes - Routine Cardiovascular Exam Present: irregular rhythm. Absent: murmur, gallop, rubs - Routine Abdominal Exam Present: soft, normoactive bowel sounds Results 10/09/18 11:38 10/09/18 11:38 Cardiac Enzymes 10/09/18 10/09/18 10/09/18 Range/Units 11:38 16:40 20:15 AST 27 (15-37) U/L Troponin I Less than 0.02 L Less than 0.02 L Less than 0.02 L (0.02-0.05) ng/mL Coagulation 10/09/18 Range/Units 11:38 PT 10.1 (9.8-11.6) sec APTT 28.1 (23.4-31.7) sec CBC 10/09/18 Range/Units 11:38 WBC 8.2 (4.0-11.0) th/mm3 RBC 3.87 L (4.00-5.30) mil/mm3 Hgb 13.7 (11.6-15.3) gm/dL Hct 40.1 (35.0-46.0) % Plt Count 205 (150-450) th/mm3 Neut # (Auto) 5.6 (1.8-7.7) th/mm3 Lymph # (Auto) 1.8 (1.0-4.8) th/mm3 Barry # (Auto) 0.6 (0.0-0.9) th/mm3 Eos # (Auto) 0.2 (0.0-0.4) th/mm3 Baso # (Auto) 0.0 (0.0-0.2) th/mm3 Comprehensive Metabolic Panel 10/09/18 Range/Units 11:38 Sodium 139 (136-145) meq/L Potassium 4.1 (3.5-5.1) meq/L Chloride 105 (98-107) meq/L Carbon Dioxide 27.5 (21.0-32.0) meq/L BUN 16 (7-18) mg/dL Creatinine 0.72 (0.50-1.00) mg/dL Calcium 8.9 (8.5-10.1) mg/dL AST 27 (15-37) U/L ALT 38 (10-53) U/L Alkaline Phosphatase 466 H (45-117) U/L Total Protein 6.6 (6.4-8.2) g/dL Albumin 2.8 L (3.4-5.0) g/dL Intake and Output 10/09/18 10/10/18 10/10/18 22:59 06:59 14:59 Other: # Voids 2 Weight 64.41 kg Weight On Admission 64.41 kg - Imaging and Cardiology Imaging: Impressions Chest X-Ray 10/09/18 11:32 CONCLUSION: No focal or acute intrathoracic disease. Stable mild cardiomegaly. Chest CTA 10/09/18 11:48 CONCLUSION: 1. No evidence of pulmonary embolism. 2. Scattered noncalcified pulmonary nodules within the right lung ranging in size from 6 to 8 mm. Follow-up CT of the chest in 6 months is recommended for further evaluation of these nodules. 3. Scattered bibasilar fibrotic scarring. 4. Cardiomegaly and coronary artery calcifications. 5. Degenerative changes and scoliosis of the thoracolumbar spine. Assessment and Plan - Assessment (1) Atypical chest pain Code(s): R07.89 - Other chest pain Status: Acute Plan: Admitted to chest pain center. ACS ruled out with 3 sets of EKGs and cardiac enzymes. No further chest discomfort. No further cardiac testing at this time, okay for discharge per Dr. Fontana. Patient requesting discharge and has appropriate follow up in place. (2) Hypothyroidism Code(s): E03.9 - Hypothyroidism, unspecified Status: Chronic Plan: Continue levothyroxine. (3) Dyslipidemia Code(s): E78.5 - Hyperlipidemia, unspecified Status: Chronic Plan: Continue pravastatin. (4) Diabetes Code(s): E11.9 - Type 2 diabetes mellitus without complications Status: Chronic Plan: SSI moderate dose coverage. Hold Levemir due to n.p.o. status at midnight. (5) Atrial fibrillation Code(s): I48.91 - Unspecified atrial fibrillation Status: Chronic Plan: Continue metoprolol and diltiazem. (6) Pulmonary nodule, right Code(s): R91.1 - Solitary pulmonary nodule Status: Acute Plan: Scattered noncalcified pulmonary nodules within the right lung. Discussed findings with patient. Follow-up with primary care provider for recommended CT scan in 6 months. (7) Scleral icterus Code(s): R17 - Unspecified jaundice Status: Acute Plan: No increase in scleral icterus, no abdominal pain, tolerating diet. Recent pancreatic stent placed, follow up scheduled for next week. Follow up as previously instructed. 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
[2018-10-10] MEDS ORDERED: Pantoprazole Sodium 20 MG DR Tablet PO SCH (09:00)
[2018-10-10] MEDS ORDERED: Multivitamin/Minerals Therapeutic Tablet PO SCH (09:00)
[2018-10-10] MEDS ORDERED: dilTIAZem CD 180 MG Capsule PO SCH (09:00)
[2018-10-10] MEDS: Calcium/Vitamin D 250/125 MG Tablet PO SCH (09:09)
[2018-10-10] MEDS: Metoprolol Tartrate 25 MG Tablet PO SCH (09:10)
[2018-10-10] MEDS: Gabapentin 100 MG Capsule PO SCH (09:10)
[2018-10-10] MEDS: Senna/Docusate Sodium 8.6/50 MG Tablet PO SCH (09:10)
[2018-10-10] MEDS: Insulin NovoLOG Aspart Correctional Sugar Inj SQ SCH (09:11)
--- NOTE | 2018-10-10 11:21 | ECG ---
Date Performed: 10/09/2018 Time Performed: 16:49:28 PTAGE: 83 years EKG: ATRIAL FIBRILLATION NONSPECIFIC T-WAVE ABNORMALITY ABNORMAL RHYTHM ECG No significant stevenson e PREVIOUS TRACING : 10/09/2018 11.22 DOCTOR: Hollis Fontana Interpretating Date/Time 10/10/2018 11:19:34
--- NOTE | 2018-10-10 11:21 | ECG ---
Date Performed: 10/09/2018 Time Performed: 21:38:40 PTAGE: 83 years EKG: ATRIAL FIBRILLATION INCOMPLETE RIGHT BUNDLE BRANCH BLOCK VOLTAGE CRITERIA FOR LVH ABNORMAL ECG PREVIOUS TRACING : 10/09/2018 16.49 DOCTOR: Hollis Fontana Interpretating Date/Time 10/10/2018 11:19:00
--- NOTE | 2018-10-10 11:22 | ECG ---
Date Performed: 10/09/2018 Time Performed: 11:22:28 PTAGE: 83 years EKG: ATRIAL FIBRILLATION VOLTAGE CRITERIA FOR LVH ABNORMAL ECG Rate has slowed since prior florence ng PREVIOUS TRACING : 03/31/2018 09.32 DOCTOR: Hollis Fontana Interpretating Date/Time 10/10/2018 11:20:05
== END 2018-10-10 10:13 | disposition home or self-care (01) ==
LOC: NEPC 11:02 → NEDA 11:02 → NEPGCP 17:20